=== PATIENT | male | born 1955 | race Caucasian/White ===

== ENCOUNTER 2021-12-01 10:05 | Outpatient (REF) | payer MEDICARE, SELFPAY ==
[2021-12-01 10:15] LABS: MANUAL DIFF FLAG NO
[2021-12-01 11:00] LABS: Appearance Urine CLEAR; Basophils Percent Auto 0.4 % (0-2); Color Urine YELLOW; Eosinophils Absolute Auto 0.1 X10*3/uL (0.0-0.4); Eosinophils Percent Auto 1.8 % (0-4); Glucose Urine UA NEG (NEG); Hematocrit 47.7 % (42.0-52.0); Hemoglobin 16.5 g/dl (14.0-18.0); Imm Gran Abs Auto 0.02 X10*3/uL (0.00-0.03); Imm Gran Pct Auto 0.3 % (0.0-0.4); Leukocyte Esterase Urine NEG (NEG); Lymphocytes Absolute Auto 2.5 X10*3/uL (1.2-4.9); Mean Corpuscular HGB Conc 34.6 g/dl (31.0-36.0); Mean Corpuscular Volume 98.1 fL (80.0-98.0); Mean Platelet Volume 10.7 fL (9.4-12.4); Monocytes Absolute Auto 0.9 X10*3/uL (0.1-1.2); Neutrophils Absolute Auto 3.6 x10*3/uL (2.0-8.3); Neutrophils Percent Auto 50.5 % (45-73); Nitrite Urine NEG (NEG); PH 6.5 (5.0-8.0); Platelet Count 254 X10*3/uL (160-400); Red Blood Count 4.86 X10*6/uL (4.60-5.80); Red Cell Distribution Width 12.5 % (11.0-16.0); Urine Blood NEG (NEG); Urine Ketones NEG (NEG); Urine Protein NEG (NEG-TRACE); White Blood Count 7.2 X10*3/uL (4.8-10.8)
[2021-12-01 11:14] LABS: Alanine Aminotransferase 40 U/L (0-40); Albumin Level 4.1 g/dL (3.5-5.0); Alkaline Phosphatase 51 U/L (39-117); Anion Gap 10 (12-20); Aspartate Amino Transferase 27 U/L (5-37); Bilirubin Total 1.4 mg/dL (0.0-1.0); Blood Urea Nitrogen 14 mg/dL (9-16); Calcium 9.7 mg/dL (8.4-10.2); Carbon Dioxide 30 mmol/L (22-29); Chloride 104 mmol/L (96-108); Cholesterol 156 mg/dL; Estimated Glomerular Filt Rate > 60; Glucose Fasting 112 mg/dL (60-99); HDL Cholesterol 51 mg/dL; LDL Cholesterol Calculated 84 mg/dl; Potassium 4.5 mmol/L (3.3-5.1); Sodium 139 mmol/L (135-145); Total Protein 6.3 g/dL (6.5-8.0); Triglycerides 107 mg/dL
[2021-12-01 11:36] LABS: PSA,Total (Free>4and<10) 0.91 ng/mL (0.00-4.00)
[2021-12-01 12:56] LABS: Reflex LDLD? No
== END 2021-12-01 10:06 | disposition home or self-care (01) ==
LOC: HO.LNP 10:05
PROVIDERS: Visit Provider Internal Medicine
DX: I10 Essential (primary) hypertension (principal); E78.00 Pure hypercholesterolemia, unspecified
CPT/HCPCS: 80053; 80061; 81003; 84153; 85025

== ENCOUNTER 2022-06-05 10:41 | Outpatient (REF) | payer MEDICARE, SELFPAY ==
[2022-06-05 11:51] LABS: Alanine Aminotransferase 39 U/L (0-40); Albumin Level 4.2 g/dL (3.5-5.0); Alkaline Phosphatase 48 U/L (39-117); Aspartate Amino Transferase 27 U/L (5-37); Bilirubin Direct 0.5 mg/dL (0.0-0.5); Bilirubin Total 1.1 mg/dL (0.0-1.0); Blood Urea Nitrogen 16 mg/dL (9-16); Cholesterol 161 mg/dL; Estimated Glomerular Filt Rate 55; HDL Cholesterol 53 mg/dL; LDL Cholesterol Calculated 91 mg/dl; Total Protein 6.3 g/dL (6.5-8.0); Triglycerides 86 mg/dL
[2022-06-05 13:28] LABS: Reflex LDLD? No
== END 2022-06-05 10:42 | disposition home or self-care (01) ==
LOC: HO.LNP 10:41
PROVIDERS: Visit Provider Internal Medicine
DX: I10 Essential (primary) hypertension (principal); E78.00 Pure hypercholesterolemia, unspecified
CPT/HCPCS: 80061; 80076; 82565; 84520

== ENCOUNTER 2022-11-30 10:47 | Outpatient (REF) | payer MEDICARE, SELFPAY ==
[2022-11-30 10:51] LABS: MANUAL DIFF FLAG NO
[2022-11-30 11:17] LABS: Basophils Percent Auto 0.4 % (0-2); Eosinophils Absolute Auto 0.1 X10*3/uL (0.0-0.4); Eosinophils Percent Auto 1.6 % (0-4); Hematocrit 47.8 % (42.0-52.0); Hemoglobin 16.8 g/dl (14.0-18.0); Imm Gran Abs Auto 0.02 X10*3/uL (0.00-0.03); Imm Gran Pct Auto 0.3 % (0.0-0.4); Lymphocytes Absolute Auto 2.4 X10*3/uL (1.2-4.9); Lymphocytes Percent Auto 33.6 % (20-40); Mean Corpuscular HGB Conc 35.1 g/dl (31.0-36.0); Mean Corpuscular Hemoglobin 34.3 pg (27.0-33.0); Mean Corpuscular Volume 97.6 fL (80.0-98.0); Mean Platelet Volume 11.1 fL (9.4-12.4); Monocytes Absolute Auto 0.8 X10*3/uL (0.1-1.2); Monocytes Percent Auto 11.6 % (2-11); Neutrophils Absolute Auto 3.7 x10*3/uL (2.0-8.3); Neutrophils Percent Auto 52.5 % (45-73); Platelet Count 243 X10*3/uL (160-400); Red Cell Distribution Width 12.5 % (11.0-16.0)
[2022-11-30 11:30] LABS: Bacteria Urine None Seen (None Seen); Hyaline Casts Urine 0-2 /LPF (0-2); RBC Urine 0-2 /HPF (0-2); Squamous Epithelial Cell Urine 0-2 /HPF (0-2); WBC Urine 0-5 /HPF (0-5)
[2022-11-30 11:31] LABS: Color Urine Yellow; Glucose Urine UA Negative (Negative); Leukocyte Esterase Urine Negative (Negative); Nitrite Urine Negative (Negative); Urine Blood Negative (Negative); Urine Ketones Negative (Negative); Urine Protein Negative (Neg-Trace)
[2022-11-30 11:38] LABS: Appearance Urine Clear
[2022-11-30 11:41] LABS: Alanine Aminotransferase 26 U/L (0-40); Alkaline Phosphatase 51 U/L (39-117); Anion Gap 10 (12-20); Aspartate Amino Transferase 21 U/L (5-37); Bilirubin Total 1.1 mg/dL (0.0-1.0); Blood Urea Nitrogen 17 mg/dL (9-16); Calcium 8.8 mg/dL (8.4-10.2); Carbon Dioxide 27 mmol/L (22-29); Chloride 106 mmol/L (96-108); Cholesterol 157 mg/dL; Estimated Glomerular Filt Rate 53; Glucose Fasting 104 mg/dL (60-99); HDL Cholesterol 46 mg/dL; LDL Cholesterol Calculated 90 mg/dl; Potassium 4.1 mmol/L (3.3-5.1); Sodium 139 mmol/L (135-145); Triglycerides 108 mg/dL
[2022-11-30 11:57] LABS: PSA,Total (Free>4and<10) 0.87 ng/mL (0.00-4.00)
== END 2022-11-30 10:48 | disposition home or self-care (01) ==
LOC: HO.LNP 10:47
PROVIDERS: Visit Provider Internal Medicine
DX: I10 Essential (primary) hypertension (principal); E78.00 Pure hypercholesterolemia, unspecified; K76.9 Liver disease, unspecified; Z12.5 Encounter for screening for malignant neoplasm of prostate
CPT/HCPCS: 80053; 80061; 81001; 84153; 85025

== ENCOUNTER 2023-06-07 11:37 | Outpatient (REF) | payer MEDICARE, SELFPAY ==
[2023-06-07 13:35] LABS: Alanine Aminotransferase 34 U/L (0-40); Albumin Level 4.1 g/dL (3.5-5.0); Alkaline Phosphatase 49 U/L (39-117); Aspartate Amino Transferase 26 U/L (5-37); Bilirubin Direct 0.5 mg/dL (0.0-0.5); Bilirubin Total 1.9 mg/dL (0.0-1.0); Cholesterol 164 mg/dL; HDL Cholesterol 47 mg/dL; LDL Cholesterol Calculated 97 mg/dl; Total Protein 6.5 g/dL (6.5-8.0); Triglycerides 102 mg/dL
[2023-06-07 14:01] LABS: Reflex LDLD? No
== END 2023-06-07 11:38 | disposition home or self-care (01) ==
LOC: HO.LNP 11:37
PROVIDERS: Visit Provider Internal Medicine
DX: E78.00 Pure hypercholesterolemia, unspecified (principal)
CPT/HCPCS: 80061; 80076

== ENCOUNTER 2023-12-04 10:51 | Outpatient (REF) | payer MEDICARE, SELFPAY ==
[2023-12-04 10:54] LABS: MANUAL DIFF FLAG NO
[2023-12-04 11:00] LABS: Basophils Percent Auto 0.5 % (0-2); Eosinophils Absolute Auto 0.1 X10*3/uL (0.0-0.4); Eosinophils Percent Auto 2.2 % (0-4); Hematocrit 46.3 % (42.0-52.0); Hemoglobin 16.2 g/dl (14.0-18.0); Imm Gran Abs Auto 0.02 X10*3/uL (0.00-0.03); Imm Gran Pct Auto 0.3 % (0.0-0.4); Lymphocytes Absolute Auto 2.1 X10*3/uL (1.2-4.9); Lymphocytes Percent Auto 33.4 % (20-40); Mean Corpuscular Hemoglobin 34.2 pg (27.0-33.0); Mean Corpuscular Volume 97.7 fL (80.0-98.0); Mean Platelet Volume 10.9 fL (9.4-12.4); Monocytes Absolute Auto 0.8 X10*3/uL (0.1-1.2); Monocytes Percent Auto 12.3 % (2-11); Neutrophils Absolute Auto 3.3 x10*3/uL (2.0-8.3); Neutrophils Percent Auto 51.3 % (45-73); Platelet Count 247 X10*3/uL (160-400); Red Blood Count 4.74 X10*6/uL (4.60-5.80); Red Cell Distribution Width 12.7 % (11.0-16.0); White Blood Count 6.4 X10*3/uL (4.8-10.8)
[2023-12-04 11:35] LABS: Alanine Aminotransferase 38 U/L (0-40); Albumin Level 4.1 g/dL (3.5-5.0); Alkaline Phosphatase 53 U/L (39-117); Anion Gap 11 (12-20); Aspartate Amino Transferase 28 U/L (5-37); Bilirubin Direct 0.3 mg/dL (0.0-0.5); Blood Urea Nitrogen 17 mg/dL (9-16); Calcium 9.5 mg/dL (8.4-10.2); Carbon Dioxide 26 mmol/L (22-29); Chloride 103 mmol/L (96-108); Cholesterol 134 mg/dL (<200); Estimated Glomerular Filt Rate > 60; Glucose Fasting 104 mg/dL (60-99); HDL Cholesterol 55 mg/dL (>40); LDL Cholesterol Calculated 69 mg/dL (<100); Potassium 4.2 mmol/L (3.3-5.1); Sodium 136 mmol/L (135-145); Total Protein 6.4 g/dL (6.5-8.0); Triglycerides 54 mg/dL (<150)
[2023-12-04 11:54] LABS: PSA,Total (Free>4and<10) 0.87 ng/mL (0.00-4.00)
== END 2023-12-04 10:52 | disposition home or self-care (01) ==
LOC: HO.LNP 10:51
PROVIDERS: Visit Provider Internal Medicine
DX: Z12.5 Encounter for screening for malignant neoplasm of prostate (principal); I10 Essential (primary) hypertension; N40.0 Benign prostatic hyperplasia without lower urinary tract symptoms; E78.00 Pure hypercholesterolemia, unspecified; K76.9 Liver disease, unspecified
CPT/HCPCS: 80053; 80061; 80076; 82248; 84153; 85025

== ENCOUNTER 2024-02-14 16:10 | Outpatient (REF) | payer MEDICARE, SELFPAY ==
[2024-02-14 16:23] LABS: Appearance Urine Clear; Color Urine Dark Yellow; Glucose Urine UA Negative (Negative); Leukocyte Esterase Urine Moderate (2+) (Negative); Nitrite Urine Negative (Negative); PH 6.5 (5.0-9.0); Specific Gravity - Urine 1.025 (1.005-1.025); UMIC TRIGGER UA YES; Urine Blood Trace (Negative); Urine Ketones Negative (Negative); Urine Protein Negative (Neg-Trace)
[2024-02-14 16:25] LABS: Bacteria Urine None Seen (None Seen); Hyaline Casts Urine 0-2 /LPF (0-2); Squamous Epithelial Cell Urine 0-2 /HPF (0-2); WBC Urine >50 /HPF (0-5)
== END 2024-02-14 16:11 | disposition home or self-care (01) ==
LOC: HO.LNP 16:10
PROVIDERS: Visit Provider Internal Medicine
DX: R31.0 Gross hematuria (principal)
CPT/HCPCS: 81001

== ENCOUNTER 2024-02-21 13:52 | Outpatient (REF) | payer MEDICARE, SELFPAY ==
[2024-02-21 13:59] LABS: MANUAL DIFF FLAG NO
[2024-02-21 14:05] LABS: Appearance Urine Clear; Color Urine Dark Yellow; Glucose Urine UA Negative (Negative); Leukocyte Esterase Urine Small (1+) (Negative); Nitrite Urine Negative (Negative); PH 6.5 (5.0-9.0); UMIC TRIGGER UA YES; Urine Blood Negative (Negative); Urine Ketones Negative (Negative); Urine Protein Negative (Neg-Trace)
[2024-02-21 14:06] LABS: Basophils Percent Auto 0.5 % (0-2); Eosinophils Absolute Auto 0.1 X10*3/uL (0.0-0.4); Eosinophils Percent Auto 1.5 % (0-4); Hematocrit 44.7 % (42.0-52.0); Hemoglobin 15.9 g/dl (14.0-18.0); Imm Gran Abs Auto 0.13 X10*3/uL (0.00-0.03); Imm Gran Pct Auto 1.6 % (0.0-0.4); Lymphocytes Absolute Auto 2.2 X10*3/uL (1.2-4.9); Lymphocytes Percent Auto 26.9 % (20-40); Mean Corpuscular HGB Conc 35.6 g/dl (31.0-36.0); Mean Corpuscular Hemoglobin 33.9 pg (27.0-33.0); Mean Corpuscular Volume 95.3 fL (80.0-98.0); Mean Platelet Volume 10.1 fL (9.4-12.4); Monocytes Absolute Auto 0.8 X10*3/uL (0.1-1.2); Monocytes Percent Auto 9.6 % (2-11); Neutrophils Absolute Auto 4.8 x10*3/uL (2.0-8.3); Neutrophils Percent Auto 59.9 % (45-73); Platelet Count 402 X10*3/uL (160-400); Red Blood Count 4.69 X10*6/uL (4.60-5.80); Red Cell Distribution Width 12.1 % (11.0-16.0)
[2024-02-21 14:13] LABS: Bacteria Urine None Seen (None Seen); Hyaline Casts Urine 0-2 /LPF (0-2); RBC Urine 0-2 /HPF (0-2); Squamous Epithelial Cell Urine 0-2 /HPF (0-2); WBC Urine 0-5 /HPF (0-5)
== END 2024-02-21 13:53 | disposition home or self-care (01) ==
LOC: HO.LNP 13:52
PROVIDERS: Visit Provider Internal Medicine
DX: R31.0 Gross hematuria (principal)
CPT/HCPCS: 81001; 85025; 87086

== ENCOUNTER 2024-06-17 08:49 | Outpatient (REF) | payer MEDICARE, SELFPAY ==
--- NOTE | 2024-06-17 08:59 | EMG_ITS ---
Right median and ulnar motor and sensory studies were performed. Right radial and median and lateral antecubital brachial sensory studies were performed and needle examination was performed. IMPRESSION: Mild right median neuropathy across carpal tunnel. There was no evidence of a proximal lesion. MD VANE Matson/JOSHUA / [phone]
== END 2024-06-17 08:50 | disposition home or self-care (01) ==
LOC: HO.NEURO 08:49
PROVIDERS: PCP Internal Medicine; Visit Provider Internal Medicine
DX: G56.01 Carpal tunnel syndrome, right upper limb (principal)
CPT/HCPCS: 95886; 95910

== ENCOUNTER 2024-11-13 13:46 | Outpatient (AMB) | payer MEDICARE, SELFPAY ==
--- OUTSIDE RECORDS SUMMARY | 2024-11-13 13:48 | XMS_ITS ---
Author Organization Marito Allen MD Address 10 [facility] [address] [place] [phone] Care Team Providers Care Casting And Curing Operator Name Role Phone Marito Allen Primary Care Provider REASON FOR VISIT New Refill Request Encounters Encounter Location Date Provider Diagnosis Marito Allen MD [address] [place] [address] [place] [address] [phone] 10/25/2024 Marito Allen PLAN OF TREATMENT Next Appt Details Provider Name:Marito palacios, 12/05/2024 07:15:00 AM, [address] [place] [address], [place] [address], [place], [place], [phone], Provider Name:Marito palacios, 12/12/2024 09:30:00 AM, [address] [place] [address], [place] [address], [place], [place], [phone],
--- OUTSIDE RECORDS SUMMARY | 2024-11-13 13:49 | XMS_ITS ---
Author Organization Marito Allen MD Address 10 [facility] [address] [place] [phone] Care Team Providers Care Crushed Stone Grader Name Role Phone Marito Allen Primary Care Provider REASON FOR VISIT Valacyclovir refill Encounters Encounter Location Date Provider Diagnosis Marito Allen MD [address] [place] [address] [address] [place] [address] [phone] 10/25/2024 Marito Allen PLAN OF TREATMENT Next Appt Details Provider Name:Marito palacios, 12/05/2024 07:15:00 AM, [address] [place] [address], [place] [address], [place], [place], [phone], Provider Name:Marito palacios, 12/12/2024 09:30:00 AM, [address] [place] [address], [place] [address], [place], [place], [phone],
--- OUTSIDE RECORDS SUMMARY | 2024-11-13 13:49 | XMS_ITS ---
Author Organization Marito Allen MD Address 10 [facility] [address] [place] [phone] Care Team Providers Care Filling Separator Name Role Phone Marito Allen Primary Care Provider [phone] REASON FOR VISIT New Refill Request MEDICATIONS Medication SIG (Take, Route, Fr equency, Duration) Notes Start Date End Date Status valACYclovir HCl 500 MG take 2 tablet Or ally Once a day Orally Once a day for 90 days Active Encounters Encounter Location Date Provider Diagnosis Marito Allen MD 10 [facility] [address] [place] [phone] 10/25/2024 Marito Allen PLAN OF TREATMENT Medication Medication Name Sig Start Date Stop Date Notes valACYclovir HCl 500 MG take 2 tablet Or ally Once a day Orally Once a day for 90 days Next Appt Details Provider Name:Marito palacios, 12/05/2024 07:15:00 AM, [address] [place] [address], [place] [address], [place], [place], [phone], Provider Name:Marito palacios, 12/12/2024 09:30:00 AM, [address] [place] [address], [place] [address], [place], [place], [phone],
--- OUTSIDE RECORDS SUMMARY | 2024-11-13 13:49 | XMS_ITS | Patient Health Record ---
Author Organization Marito Allen MD Address [address] [place], [place] [phone] Care Team Providers Care Makeup Artist Name Role Phone Marito Allen Primary Care Provider ALLERGIES No Known Allergies RESULTS Component Value Reference Range Notes Complete Blood Count Auto Di ff Reviewed date:12/04/2023 12:41:55 PM Interpretation: Performing Lab:[facility], [address] [place] [phone] Notes/Report: White Blood Count 6.4 4.8-10.8 X10*3/uL Red Blood Count 4.74 4.60-5.80 X10*6/uL Hemoglobin 16.2 14.0-18.0 g/dl Hematocrit 46.3 42.0-52.0 % Mean Corpuscular Volume 97.7 80.0-98.0 fL Mean Corpuscular Hemoglobin 34.2 27.0-33.0 pg Mean Corpuscular HGB Conc 35.0 31.0-36.0 g/dl Red Cell Distribution Width 12.7 11.0-16.0 % Platelet Count 247 160-400 X10*3/uL Mean Platelet Volume 10.9 9.4-12.4 fL Neutrophils Percent Auto 51.3 45-73 % Imm Gran Pct Auto 0.3 0.0-0.4 % Lymphocytes Percent Auto 33.4 20-40 % Monocytes Percent Auto 12.3 2-11 % Eosinophils Percent Auto 2.2 0-4 % Basophils Percent Auto 0.5 0-2 % NRBC Pct Auto 0.0 0.0-0.2 /100WBC Neutrophils Absolute Auto 3.3 2.0-8.3 x10*3/u L Imm Gran Abs Auto 0.02 0.00-0.03 X10*3/uL Lymphocytes Absolute Auto 2.1 1.2-4.9 X10*3/u L Monocytes Absolute Auto 0.8 0.1-1.2 X10*3/uL Eosinophils Absolute Auto 0.1 0.0-0.4 X10*3/u L Basophils Absolute Auto 0.0 0.0-0.2 X10*3/uL NRBC Abs Auto 0.000 0.0-0.012 X10*3/uL Comprehensive [place]. Panel Fa st Reviewed date:12/04/2023 12:41:36 PM Interpretation: Performing Lab:[facility], [address] [place] [phone] Notes/Report: Sodium 136 135-145 mmol/L Potassium 4.2 3.3-5.1 mmol/L Chloride 103 96-108 mmol/L Carbon Dioxide 26 22-29 mmol/L Anion Gap 11 12-20 Blood Urea Nitrogen 17 9-16 mg/dL Creatinine 1.11 0.5-1.4 mg/dL Estimated Glomerular Filt Rate > 60 NOTE: For -[place] individuals, multiply the result by 1.210. Chronic Kidney Disease: Estimated GFR < 60 mL/min/1.73m2 Severe Kidney Disease: Estimated GFR < 15 mL/min/1.73m2 Glucose Fasting 104 60-99 mg/dL A fasting glucose from 100-125 mg/dl is considered impaired (pre-diabetes). Calcium 9.5 8.4-10.2 mg/dL Bilirubin Total 1.0 0.0-1.0 mg/dL Aspartate Amino Transferase 28 5-37 U/L Alanine Aminotransferase 38 0-40 U/L Total Protein 6.4 6.5-8.0 g/dL Albumin Level 4.1 3.5-5.0 g/dL Alkaline Phosphatase 53 39-117 U/L Liver Panel Reviewed date:12/04/2023 12:22:52 PM Interpretation: Performing Lab:[facility], [address] [place] [phone] Notes/Report: Bilirubin Direct 0.3 0.0-0.5 mg/dL Lipid Panel Reviewed date:12/04/2023 12:23:00 PM Interpretation: Performing Lab:[facility], [address] [place] [phone] Notes/Report: Triglycerides 54 <150 mg/dL Desirable Triglyceride: less than 150 mg/dL Borderline High Triglyceride 150-199 mg/dL High Triglyceride: 200-499 mg/dL Very High Triglyceride: greater than or equal to 5OO mg/dL Cholesterol 134 <200 mg/dL Desirable Cholesterol: less than 200 mg/dL Borderline High Cholesterol: 200-239 mg/dL High Cholesterol: greater than 239 mg/dL LDL Cholesterol Calculated 69 <100 mg/dL Desirable LDL: less than 100 mg/dL Near Optimal/Above Optimal LDL: 110-129 mg/dL Borderline High LDL: 130-159 mg/dL High LDL: 160-189 mg/dL Very High LDL: greater than or equal to 190 mg/dL HDL Cholesterol 55 >40 mg/dL Desirable HDL: greater than 40 mg/dL Note: This HDL assay may give artificially low results in patients with liver disease. PSA,Total (Free>4and<10) Reviewed date:12/04/2023 12:17:41 PM Interpretation: Performing Lab:[facility], [address] [place] [phone] Notes/Report: PSA,Total (Free>4and<10) 0.87 0.00-4.00 ng/mL A Free PSA was not performed: The percentage of Free PSA can be used to enhance the differentiation of prostate cancer from benign prostatic disease in subjects whose PSA levels are between 4.0 and 10.0 ng/mL. For subjects whose PSA levels are below 4.0 or above 10.0 ng/mL, the risk of prostate cancer is determined on the basis of the PSA alone. Therefore the % Free PSA is recommended only for those subjects whose PSA levels are between 4.0 and 10.0 ng/mL. PSA methodology: Sampson Alinity i Chemiluminescent Microparticle Immunoassay (CMIA) Urinalysis and Microscopic Reviewed date:02/15/2024 12:49:48 PM Interpretation: Performing Lab:[facility], [address] [place] [phone] Notes/Report: Color Urine Dark Yellow Appearance Urine Clear PH 6.5 5.0-9.0 Glucose Urine UA Negative Negative mg/dL Urine Blood Trace Negative Specific [place] - Urine 1.025 1.005-1.025 Urine Protein Negative Neg-Trace mg/dL Urine Ketones Negative Negative mg/dL Nitrite Urine Negative Negative Leukocyte Esterase Urine Moderate (2+) Negative RBC Urine 6-10 0-2 /HPF WBC Urine >50 0-5 /HPF Squamous Epithelial Cell Urine 0-2 0-2 /HPF Bacteria Urine None Seen None Seen Hyaline Casts Urine 0-2 0-2 /LPF Complete Blood Count Auto Di ff Reviewed date:02/22/2024 08:25:47 AM Interpretation: Performing Lab:[facility], [address] [place] [phone] Notes/Report: White Blood Count 8.0 4.8-10.8 X10*3/uL Red Blood Count 4.69 4.60-5.80 X10*6/uL Hemoglobin 15.9 14.0-18.0 g/dl Hematocrit 44.7 42.0-52.0 % Mean Corpuscular Volume 95.3 80.0-98.0 fL Mean Corpuscular Hemoglobin 33.9 27.0-33.0 pg Mean Corpuscular HGB Conc 35.6 31.0-36.0 g/dl Red Cell Distribution Width 12.1 11.0-16.0 % Platelet Count 402 160-400 X10*3/uL Mean Platelet Volume 10.1 9.4-12.4 fL Neutrophils Percent Auto 59.9 45-73 % Imm Gran Pct Auto 1.6 0.0-0.4 % Lymphocytes Percent Auto 26.9 20-40 % Monocytes Percent Auto 9.6 2-11 % Eosinophils Percent Auto 1.5 0-4 % Basophils Percent Auto 0.5 0-2 % NRBC Pct Auto 0.0 0.0-0.2 /100WBC Neutrophils Absolute Auto 4.8 2.0-8.3 x10*3/u L Imm Gran Abs Auto 0.13 0.00-0.03 X10*3/uL Lymphocytes Absolute Auto 2.2 1.2-4.9 X10*3/u L Monocytes Absolute Auto 0.8 0.1-1.2 X10*3/uL Eosinophils Absolute Auto 0.1 0.0-0.4 X10*3/u L Basophils Absolute Auto 0.0 0.0-0.2 X10*3/uL NRBC Abs Auto 0.000 0.0-0.012 X10*3/uL Urinalysis and Microscopic Reviewed date:02/21/2024 02:28:47 PM Interpretation: Performing Lab:[facility], [address] [place] [phone] Notes/Report: Color Urine Dark Yellow Appearance Urine Clear PH 6.5 5.0-9.0 Glucose Urine UA Negative Negative mg/dL Urine Blood Negative Negative Specific [place] - Urine 1.020 1.005-1.025 Urine Protein Negative Neg-Trace mg/dL Urine Ketones Negative Negative mg/dL Nitrite Urine Negative Negative Leukocyte Esterase Urine Small (1+) Negative RBC Urine 0-2 0-2 /HPF WBC Urine 0-5 0-5 /HPF Squamous Epithelial Cell Urine 0-2 0-2 /HPF Bacteria Urine None Seen None Seen Hyaline Casts Urine 0-2 0-2 /LPF Urine Culture Reviewed date:02/24/2024 08:48:11 AM Interpretation: Performing Lab:[facility], [address] [place] [phone] Notes/Report: Urine Culture No growth. REASON FOR REFERRAL Reason irregular heart beat arrthythmia Diagnosis 1 Irregular heart beat (I49.9) Diagnosis 2 Cardiac arrhythmia, unspecified (I49.9) Referral Organization Marito Allen MD Referring Provider First Name Marito Referring Provider Last Name Tiffany Referring Provider Speciality Internal edicine Referred Provider Oswald Welch Referred Provider Specialty Cardiovascul ar Disease General Notes Rosalva Fatima 11:33:35 AM EST > patient will be calling back with Cardio Providers name and phone number . Also send cadio Monitor strips and lipids , Rosalva Fatima 02/04/2024 10:49:43 AM EDT > info faxed , Rosalva Fatima 02/04/2024 11:00:47 AM EDT > appt is with Marquita Gill patient is aware of appt Referral Priority Routine Referral Appointment Date 02/20/2024 Reason prostatism Diagnosis 1 Prostatism (N40.0) Referral Organization Marito Allen MD Referring Provider First Name Marito Referring Provider Last Name Tiffany Referring Provider Speciality Internal edicine Referred Provider [facility] office, [facility] [place] office Referred Provider Specialty Urology General Notes Rosalva Fatima 03:18:20 PM EDT > [facility] referral from faxed Akua Annette 02/26/2024 08:15:07 AM EDT > info mailed to patient Referral Priority Routine Referral Appointment Date 03/28/2024 Reason wrist pain right pl ease eval and treat for physcial therapy Diagnosis 1 Wrist pain, right (M 25.531) Referral Organization Marito Allen MD Referring Provider First Name Marito Referring Provider Last Name Tiffany Referring Provider Speciality Internal M edicine Referred Provider [facility] Referred Provider Specialty Physical The rapist General Notes Rosalva Fatima 10:15:19 AM EDT > pt orders faxed to Felicia [facility]. Patient stated he alex be seeting up his own appt Referral Priority Routine Reason right inguinal herni a Diagnosis 1 Right inguinal herni a (K40.90) Referral Organization Marito Allen MD Referring Provider First Name Marito Referring Provider Last Name Tiffany Referring Provider Speciality Internal edicine Referred Provider Sudhir Valenzuela Referred Provider Specialty Surgery General Notes Rosalva Fatima 01:56:12 PM EST > info faxed Left message on patient's phone regarding appt , Rosalva Fatima 10/28/2024 02:05:45 PM EST > patient is aware of appt Referral Priority Routine Referral Appointment Date 11/06/2024 MEDICATIONS Medication SIG (Take, Route, Frequency, Duration) Notes Start Date End Date Status Ibuprofen 800 MG 1 tablet with food o r milk as needed Orally every 8 hrs for 30 days 06/06/2024 Active Tamsulosin HCl 0.4 MG 1 capsule Orally O nce a day for 90 days 02/14/2024 Active Sildenafil Citrate 100 MG 1 tablet as ne eded Orally Once a day as needed 30 day(s) Orally Once a day as needed for 90 days Active valACYclovir HCl 500 MG take 2 tablet Or ally Once a day Orally Once a day for 90 days Active Lisinopril 10 MG 1 tablet Orally Once a day 90 days Orally Once a day for 90 days Not-Taking Atorvastatin Calcium 40 MG 1 tablet Orally Once a day for 90 days Active Metrogel 1 % 1 application Externally Once a day for 30 days 05/04/2023 Active Ibuprofen 800 MG 1 tablet with food o r milk as needed Orally Three times a day for 7 days 02/13/2023 Not-Taking IMMUNIZATIONS Vaccine Route Administration Date Status Comme nts SARS-COV-2 Pfizer Unknown 02/10/2021 Administered SARS-COV-2 Pfizer Unknown 03/05/2021 Administered SARS-COV-2 Moderna Unknown 10/13/2021 Administered Influenza High Dose IM Intramuscular 12/01/2021 Administer ed Influenza High Dose IM Intramuscular 12/04/2023 Administer ed SOCIAL HISTORY Tobacco Use: Social History Observation Description Date Details (start date - stop date) Never Smoker NA - NA Sex Assigned At : Social History Observation Description Sex Assigned At Unknown Tobacco Use/Smoking Question Answer Notes Patient is a nonsmoker Additional Findings: Tobacco Non-User Cu rrent non-smoker, currently using no form of tobacco Alcohol Screen Question Answer Notes Did you have a drink contain ing alcohol in the past year? Yes How often did you have a dri nk containing alcohol in the past year? 4 or more times a week (4 points) How many drinks did you have on a typical day when you were drinking in the past year? 1 or 2 drinks (0 point) How often did you have 6 or more drinks on one occasion in the past year? Never (0 point) Points 4 Interpretation Positive PROBLEMS Problem Type ICD Code Onset Dates Problem Status W/U Status Risk SNOMED Code Notes Problem Essential hypertensi on (I10) Active confirmed 48131474 Problem Hypercholesterolemia (E78.00) Active confirmed 93464725 Problem Lumbar disc disease (M51.9) Active confirmed 694678230 Problem Liver cyst (K76.89) Active confirmed Li jose miguel cyst (43584540) Problem Sciatica (M54.30) Active confirmed Scia maulik (06102179) Problem Liver lesion (K76.9) Active confirmed L esion of liver (879985135) Problem Tubular adenoma of colon (D12.6) Active confirmed 471355423 Problem Prostatism (N40.0) Active confirmed 114 50735 Problem Irregular heart beat (I49.9) Active confirmed 378780006 Problem Cardiac arrhythmia, unspecified (I49.9) Active confirmed Cardiac arrhythmia (621527115) Problem PVC (premature ventricular contraction) (I49.3) Active confirmed 861063382 Problem Carpal tunnel syndro me of right wrist (G56.01) Active confirmed 531730133215175 VITAL SIGNS Blood pressure diastolic 70 mm Hg 06/06/2024 lashae ght is up 6 pounds since 02-21-24 Height 71.5 in 06/06/2024 weight is up 6 pounds since 02-21-24 Blood pressure systolic 120 mm Hg 06/06/2024 weig ht is up 6 pounds since 02-21-24 Weight 168 lbs 06/06/2024 weight is up 6 pounds since 02-21-24 BMI 23.10 kg/m2 06/06/2024 weight is up 6 pounds since 02-21-24 Encounters Encounter Location Date Provider Diagnosis Marito Allen MD [address] [place] [id number] 12/11/2023 Marito Allen Irregular heart beat I49.9 ; Tubular adenoma of colon D12.6 ; Essential hypertension I10 ; Hypercholesterolemia E78.00 ; Prostatism N40.0 and Depression screening Z13.31 Marito Allen MD [address] [place] [id number] 12/04/2023 Marito Allen Essential hypertensi on I10 ; Liver lesion K76.9 ; Prostatism N40.0 ; Encounter for immunization Z23 and Hypercholesterolemia E78.00 Marito Allen MD [address] [place] [id number] 02/08/2024 Marito Allen PVC (premature ventr icular contraction) I49.3 and Plantar fasciitis, bilateral M72.2 Marito Allen MD [address] [place] [address] [id number] 02/21/2024 Marito Allen Prostatism N40.0 ; Essential hypertension I10 ; Microscopic hematuria R31.29 ; Right inguinal hernia K40.90 and Gross hematuria R31.0 Marito Allen MD [address] [place] [address] [id number] 06/06/2024 Marito Allen Carpal tunnel syndro me of right wrist G56.01 ; Essential hypertension I10 and Prostatism N40.0 Marito Allen MD [address] [place] [address] [id number] 02/14/2024 Marito Allen Gross hematuria R31. 0 ; Acute UTI N39.0 and Prostatism N40.0 Marito Allen MD [address] [place] [address] [id number] 02/15/2024 Marito Allen Prostatism N40.0 Marito Allen MD [address] [place] [address] [id number] 04/15/2024 Marito Allen Hypercholesterolemia E78.00 and Prostatism N40.0 Marito Allen MD [address] [place] [address] [id number] 04/15/2024 Marito Allen Hypercholesterolemia E78.00 and Prostatism N40.0 Marito Allen MD [address] [place] [address] [id number] 04/17/2024 Marito Allen Essential hypertensi on I10 Marito Allen MD [address] [place] [address] [id number] 05/08/2024 Marito Allen Prostatism N40.0 Marito Allen MD [address] [place] [address] [id number] 05/08/2024 Marito Allen Hypercholesterolemia E78.00 Mraito Allen MD [address] [place] [address] [id number] 06/10/2024 Marito Allen MD [address] [place] [address] [id number] 06/12/2024 Marito Allen MD [address] [place] [address] [id number] 07/01/2024 Marito Allen Liver lesion K76.9 Marito Allen MD [address] [place] [address] [id number] 01/15/2024 Marito Allen MD [address] [place] [address] [id number] 02/09/2024 Marito Allen MD [address] [place] [address] [id number] 05/02/2024 Marito Allen MD [address] [place] [address] [id number] 05/30/2024 Marito Allen MD [address] [place] [address] [id number] 06/10/2024 Marito Allen Carpal tunnel syndro me of right wrist G56.01 Marito Allen MD [address] [place] [address] [id number] 08/14/2024 Marito Allen MD [address] [place] [address] [id number] 09/02/2024 Marito Allen MD [address] [place] [address] [id number] 09/22/2024 Marito Allen MD [address] [place] [address] [id number] 09/24/2024 Marito Allen MD [address] [place] [address] [id number] 10/20/2024 Marito Allen MD [address] [place] [address] [id number] 10/22/2024 Marito Allen MD [address] [place] [address] [id number] 10/25/2024 Marito Allen MD [address] [place] [address] [id number] 10/25/2024 Marito Allen MD [address] [place] [address] [id number] 10/25/2024 Marito Allen ASSESSMENTS Encounter Date Diagnosis Assessment Notes Treatment Notes Treatment Clinical Notes 12/11/2023 Tubular adenoma of c olon (ICD-10 - D12.6) repeat in 202612/11/2023 Irregular heart beat (ICD-10 - I49.9) event monitor will be booked at [facility], pending diagnostic testing 12/04/2023 Essential hypertensi on (ICD-10 - I10) 12/04/2023 Liver lesion (ICD-10 - K76.9) 02/08/2024 PVC (premature ventricular contraction) (ICD-10 - I49.3) discussed all the ecg's that were sent in with his symptoms of palpitation with his 30 day moniter. they showed pvcs and possibley a short run of non sustained v tach. have made copies of them to takw with him as he has a cardiology appt next week 02/08/2024 Plantar fasciitis, bilateral (ICD-10 - M72.2) to not walk barefoot 02/21/2024 Prostatism (ICD-10 - N40.0) stable 02/21/2024 Essential hypertensi on (ICD-10 - I10) not needing any treatment, will continue to monitor 06/06/2024 Essential hypertensi on (ICD-10 - I10) having trouble with bp getting too low, will continue to monitor 06/06/2024 Carpal tunnel syndro me of right wrist (ICD-10 - G56.01) advised to get futuro wrist splint, will continue to monitor 02/14/2024 Gross hematuria (ICD -10 - R31.0) symptoms got better surprizing quickly. after only one dose of bactrim 02/14/2024 Acute UTI (ICD-10 - N39.0) 02/15/2024 Prostatism (ICD-10 - N40.0) 04/15/2024 Hypercholesterolemia (ICD-10 - E78.00) 04/15/2024 Hypercholesterolemia (ICD-10 - E78.00) 04/17/2024 Essential hypertensi on (ICD-10 - I10) 05/08/2024 Prostatism (ICD-10 - N40.0) 05/08/2024 Hypercholesterolemia (ICD-10 - E78.00) 07/01/2024 Liver lesion (ICD-10 - K76.9) order made and put into the future order folder for . 06/10/2024 Carpal tunnel syndro me of right wrist (ICD-10 - G56.01) 12/11/2023 Essential hypertensi on (ICD-10 - I10) stable, will continue current regiment 12/04/2023 Prostatism (ICD-10 - N40.0) 02/21/2024 Microscopic hematuri a (ICD-10 - R31.29) pending labsm will cntinue to monitor 06/06/2024 Prostatism (ICD-10 - N40.0) doing well on tamzulosin, will continue current regiment 02/14/2024 Prostatism (ICD-10 - N40.0) referral to urology [place] 04/15/2024 Prostatism (ICD-10 - N40.0) 04/15/2024 Prostatism (ICD-10 - N40.0) 12/11/2023 Hypercholesterolemia (ICD-10 - E78.00) stable, will continue curent regiment 12/04/2023 Encounter for immunization (ICD-10 - Z23) 02/21/2024 Right inguinal herni a (ICD-10 - K40.90) discussed treatment. has had for many years. 12/11/2023 Prostatism (ICD-10 - N40.0) stable, will continue to monitor 12/04/2023 Hypercholesterolemia (ICD-10 - E78.00) 02/21/2024 Gross hematuria (ICD -10 - R31.0) pending labs, will continue to monitor 12/11/2023 Depression screening (ICD-10 - Z13.31) negatiove screen PLAN OF TREATMENT Pending Test Test Name Order Date ECG 30 day event monitor 12/11/2023 US abdomen limited 12/30/2021 US abdomen limited 07/01/2024 US abdomen limited 05/11/2023 US abdomen limited 07/09/2023 US abdomen complete 05/23/2022 US abdomen complete 06/15/2022 Next Appt Details Provider Name:Marito Omer ier, 12/05/2024 07:15:00 AM, [address] [place] [address], [address], [phone], Provider Name:Marito Omer ier, 12/12/2024 09:30:00 AM, [address] [place] [address], [facility], [place], [place], [phone], Insurance Providers Payer Name Payer Address Payer Phone Subscriber Number Group Number Insured Name Patient Relationship to Insured Coverage Start Date Coverage End Date [employer] [address] [place] [address] [id number] Mj Cartagena Self - patient is the insured [facility] [address] [place] [address] [id number] Mj Cartagena Self - patient is the insured MEDICAL (GENERAL) HISTORY Medical History History ICD Code colonoscopy 01/17 repeat in 5 years
--- OUTSIDE RECORDS SUMMARY | 2024-11-13 13:50 | XMS_ITS | Data Portability ---
Author Organization [facility], , [facility] Address [address] [place] [address] Care Team Providers Care Craft Worker Name Role Phone VALERIA MOSLEY Primary Care Provider [phone] FIDELIA GOODWIN Phys. Med. & Rehab Assessment Encounter Date Assessment Date Assessment LastModified by Organization Details LastModified Time 09/24/2020 09/24/2020 Patient agreed to this visit via a secure telehealth platform due to the COVID -19 pandemic. Patient understands this is a scheduled visit and the usual procedures with regard to billing and confidentiality apply. Patient was notified that the provider location is [facility] Patient location: home During the visit the patient? s medical history and medical record were reviewed. The patient was notified to call our office for worsening or urgent symptoms. Home Wt 165 BP 128/82 prep time 7 min was a RM patient we discussed his minor radicular symptom of lateral foot dysaesthesia AFTER DISCUSSION, JOINTLY AGREED GOAL FOR BP 140/90 AND LIPIDS LDL 130 REACHED. PROSTATE CA DISCUSSED. US PREVENTIVE TASK FORCE MATERIAL GIVEN. PSA HIS OPTION. [email or web address] Not available 09/24/2020 14:22:25 03/28/2021 03/28/2021 was a RM patient takes home BP we discussed his minor radicular symptom of lateral foot dysaesthesia AFTER DISCUSSION, JOINTLY AGREED GOAL FOR BP 140/90 AND LIPIDS LDL 130 REACHED. PROSTATE CA DISCUSSED. US PREVENTIVE TASK FORCE MATERIAL GIVEN. PSA HIS OPTION. [email or web address] Not available 03/28/2021 08:18:16 08/23/2021 08/23/202107/2021 Refer GI 02/2020 was a RM patient takes home BP we discussed his minor radicular symptom of lateral foot dysaesthesia AFTER DISCUSSION, JOINTLY AGREED GOAL FOR BP 140/90 AND LIPIDS LDL 130 REACHED. PROSTATE CA DISCUSSED. US PREVENTIVE TASK FORCE MATERIAL GIVEN. PSA HIS OPTION. [email or web address] Not available 08/23/2021 17:39:35 Plan of Treatment Reminders Order Date Submit Date Provider Last Modified By Organization Details Last Modified Time Details Appointments None recorded. Lab None recorded. 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 Butler non concerning 2020 [facility], [address] [place] [address], [address], 1 12:45:10 Procedures None recorded. Surgeries None recorded. Imaging None recorded. Medication Orders selenium sulfide 2.25 % shampoo [address], [address], 0 14:27:41 tadalafil 20 mg tablet 2019 [address], [address], 0 14:27:41 fluocinoni de 0.05 % topical cream [address], [address], 1 08:28:52 Patient TargetsNo targets recorded. Patient Instructions Encounter Date Encounter Id Patient Instructions Last Modified By Organization Details Last Modified Time 09/24/2020 [id number] preventing falls : care instructions [email or web address] Not available 09/24/2020 14:09:27 hearing loss: ca re instructions rvigderman Not available 09/24/2020 14:09:27 advance directiv es: care instructions rvigderman Not available 09/24/2020 14:09:27 well visit, over 65: care instructions rvigderman Not available 09/24/2020 14:09:27 Prostate Cancer Screening using PSA was discussed. The U.S. Preventive Services Task Force advises not to make a PSA test a part of the standard exam for men ages 55-69. Instead they recommend the uncertainties about the test be discussed and ordered only if a patient still wants it. Over their lifetimes as many as 50% or more of men will develop prostate cancer but only 2% of men will of prostate cancer. For men who chose to be screened for prostate cancer if 1000 men are screened with a psa test over a 15 year period there might be 1-2 deaths prevented however 235 men will have a biopsy with risk of infection, bleeding and Pain, 100 men will have their prostate removed by surgery or radiation treatments and 60-70 of those will suffer incontinence or impotence. There is also the risk of anesthesia or radiation complications. For men over 70 prostate cancer screening offered no benefit and risked pain, worry, expense and possibly shorter life expectancy. Patient agreed to this visit via phone or secure telehealth platform due to the COVID -19 pandemic. Patient understands this is a scheduled visit and the usual procedures with regard to billing and confidentiality apply. Patient was notified that the provider location is [facility] Patient location: home During the visit the patient? s medical history and medical record were reviewed. The patient was notified to call our office for worsening or urgent symptoms. [email or web address] Not available 09/24/2020 14:08:38 03/28/2021 [id number] Prostate Cancer Screening using PSA was discussed. The U.S. Preventive Services Task Force advises not to make a PSA test a part of the standard exam for men ages 55-69. Instead they recommend the uncertainties about the test be discussed and ordered only if a patient still wants it. Over their lifetimes as many as 50% or more of men will develop prostate cancer but only 2% of men will of prostate cancer. For men who chose to be screened for prostate cancer if 1000 men are screened with a psa test over a 15 year period there might be 1-2 deaths prevented however 235 men will have a biopsy with risk of infection, bleeding and Pain, 100 men will have their prostate removed by surgery or radiation treatments and 60-70 of those will suffer incontinence or impotence. There is also the risk of anesthesia or radiation complications. For men over 70 prostate cancer screening offered no benefit and risked pain, worry, expense and possibly shorter life expectancy. Patient agreed to this visit via phone or secure telehealth platform due to the COVID -19 pandemic. Patient understands this is a scheduled visit and the usual procedures with regard to billing and confidentiality apply. Patient was notified that the provider location is [facility] Patient location: home During the visit the patient? s medical history and medical record were reviewed. The patient was notified to call our office for worsening or urgent symptoms. 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 Butler non concerning Referring Physician: Valeria Mosley, Family Medicine, Encounter Date: 08/23/2021 Results Created Date Observation Date Name Description Value Unit Range Abnormal Flag Note LastModifiedBy Organization Detail LastModifiedTime 03/22/20 21 03/22/2021 BMP, serum or plasm a glucose 89 mg/dL 70-100 Not Available [address], [address], 03/22/2021 12:20:56 03/22/20 21 03/22/2021 BMP, serum or plasm a BUN 14 mg/dL 7-18 Not Available [address], [address], 03/22/2021 12:20:56 03/22/20 21 03/22/2021 BMP, serum or plasm a creatinine 1.2 mg/dL 0.8-1. 3 Not Available [address], [address], 03/22/2021 12:20:56 03/22/20 21 03/22/2021 BMP, serum or plasm a B/C 11.7 ratio Not Available [address] [place], [address], 03/22/2021 12:20:56 03/22/20 21 03/22/2021 BMP, serum or plasm a GFR -non 64.4 mL/mi n Recom kailey d GFR by the Natio nal Kidne y Found ation >60 mL/mi n/1.7 3m2 - Rachana l <60 mL/mi n/1.7 3m2 - Chron ic Kidne y Disea se <15 mL/mi n/1.7 3m2 - Kidne y Failu re Not Available [address], [address], 03/22/2021 12:20:56 03/22/20 21 03/22/2021 BMP, serum or plasm a GFR - if 77.9 mL/mi n For Afric an Ameri can patie nts: Resul ts Multi plied by 1.21 Not Available [address], [address], 03/22/2021 12:20:56 03/22/20 21 03/22/2021 BMP, serum or plasm a sodium 138 mmol/ L 136-14 5 Not Available [address], [address], 03/22/2021 12:20:56 03/22/20 21 03/22/2021 BMP, serum or plasm a potassium 4.2 mmol/ L 3.5-5. 1 Not Available [address], [address], 03/22/2021 12:20:56 03/22/20 21 03/22/2021 BMP, serum or plasm a chloride 100 mmol/ L 96-107 Not Available [address], [address], 03/22/2021 12:20:56 03/22/20 21 03/22/2021 BMP, serum or plasm a anion gap 9.7 5.0-15 .0 Not Available [address], [address], 03/22/2021 12:20:56 03/22/20 21 03/22/2021 BMP, serum or plasm a CO2 28 mmol/ L 21-32 Not Available [address], [address], 03/22/2021 12:20:56 03/22/20 21 03/22/2021 BMP, serum or plasm a calcium 8.8 mg/dL 8.5-10 .3 Not Available [address], [address], 03/22/2021 12:20:56 03/22/20 21 03/22/2021 lipid panel , serum cholesterol 161 mg/dL <200 mg/dl Boubacar able 200-2 39 mg/dl Borde rline High >240 mg/dl High Not Available [address], [address], 03/22/2021 12:20:57 03/22/20 21 03/22/2021 lipid panel , serum triglyceride s 59 mg/dL <150 mg/dL Rachana l 150-1 99 mg/dL Borde rline High 200-4 99 mg/dL High >500 mg/dL Very High Not Available [address], [address], 03/22/2021 12:20:57 03/22/2003/22/2021 lipid panel , serum direct HDL 61 mg/dL <40 mg/dl - Major Risk for CHD >60 mg/dl - Negat wendi Risk for CHD Not Available [address], [address], 03/22/2021 12:20:57 03/22/2003/22/2021 LDL, rajani gray , serum (OBS) LDL - calculated 88.2 RISK CATEG ORY LDL GOAL _ CHD or CHD Risk Equiv alent s <100 mg/dl (10-y ear risk >20%) 2+ Risk Facto rs <130 mg/dl (10-y ear risk <= 20%) 0-1 Risk Facto r??? <160 mg/dl ??? Almos t all peopl e with 0-1 risk facto r have a 10 year risk <10%, thus 10 year risk asses ment in peopl e with 0-1 risk facto r is not neces mary. Not Available [facility] [address] [place], [address], 03/22/2021 12:20:58 01/04/20 22 01/04/2022 SARS- COV-2 RNA (COVI D-19) , QUALI TATIV E NAAT sarscov2 NEGATI VE negati ve normal This test has been autho rized by the FDA under an Emerg ency Use Autho rizat ion(E UA) for you by autho rized labs. Not Available [facility] [address] [place], [address], 01/04/2022 14:58:44 11/22/20 21 11/22/2021 US abdom en limit ed right upper quadr ant No compar tong. No gallst ones are appare nt howeve r there are severa l 2-3 mm non-sh adowin g, non-mo bile struct ures along the gallbl adder wall consis tent with polyps . No gallbl adder wall thicke papito, hypere erika or perich olecys tic fluid. No biliar y dilata tion. CBD 5 mm. Homoge neous, normal hepati c echote xture. There is a 1.0 x 1.3 x 1.0 cm well-c ircums cribed hypere choic nonvas cular area abutti ng the capsul e in the periph eral right lobe of liver; not clear if this is truly within the liver are impres sing it director of teacher education ally. This may repres ent a rene ioma but could also be a develo pmenta l dimple in the surfac e or adjace nt lipoma . The likeli ayala of malign bonnie is consid ered very low. In the absenc e of abnorm al LFTs or strong clinic al suspic ion of metast atic diseas e to the liver, a follow -up ultras ound in 6 months is recomm ended to confir m that this does not develo p more worris ome featur es. If there is more signif icant concer n at this time, multi- phase hepati c MRI is recomm ended. No other liver lesion s. Pancre as is poorly visual ized but grossl y normal throug h the mid body. The head and tail are mostly obscur ed. No right- sided hydron ephros is or gross renal masses . IMPRES MOMO: 1. No gallbl adder/ biliar y pathol ogy or other source of pain. 2. Echoge jael lesion along the surfac e of the right lobe of the liver is likely benign . If strong suspic ion of malign bonnie MRI would be approp riate but otherw ise a six-mo nth follow -up limite d ultras ound is recomm ended. 3. Limite d evalua tion of the pancre as. 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 S10 Electr onical ly Signed by: Yg caldera on 2020 8:13 AM Interp reted by: Yg caldera MD Signed by: Yg caldera MD CC Recipi ents: Taz Pineda MD - Fax Final result PS: RUQ pain about once a year over past 8 years PANCRE : partia lly obscur ed by gas, visual ized portio ns appear wnl LIVER: hypere choic nonvas cular area measur ing 1.0 x 1.3 x 1.0 cm GB: multip le nonmob ile, nonsha dowing , nonvas cular areas seen anteri or and sharepoint specialist ior wall measur ing 2-3 mm CBD: appear s wnl, .5 cm PV: patent , hepato petal RIGHT RENAL: no hydro AO PROX: appear s wnl IVC: appear s wnl TAZ PINEDA [facility] [address] [facility], [place], [address], 11/22/2021 16:57:29 11/22/2011/22/2021 US, abdom en, limit ed No observ ation record ed. [facility] [address] [place] [address] [place], [address], 11/22/2021 16:57:30 Result Notes None recorded. Problems Name Problem SNOMED Code Status Onset Date Resolution Date Notes Provider Name and Address Organization Details Recorded Time Low back pain 155033522 Active 2018 Fidelia Goodwin, PT [address] [place], [address], [facility] 9 18:58:07 Shoulder pain 29162488 Active 2018 Fidelia Goodwin, PT [address] [place], [address], [facility] 9 13:27:23 Mixed hyperlipide erika 197285436 Active 2007 [place], [address], [facility] 6 12:05:17 Dyspnea 220975629 Completed 200110/15/2013 [place], [address], [facility] 6 10:20:57 Finding by method 342397882 Completed 200110/15/2013 [place], [address], [facility] 6 10:20:57 Abdominal pain 84465614 Completed 200510/15/2013 [place], [address], [facility] 6 10:20:57 Joint pain 56225778 Completed 200208/16/2015 [place], [address], [facility] 6 10:20:57 On examination - a rash Completed 200210/15/2013 [place], [address], [facility] 6 10:20:57 Herpes simplex 95849682 Active 2007 [place], [address], [facility] 6 10:20:57 Palpitation s 19215723 Active 2002 Taz Pineda MD [address] [place], [place] [address]G[place], [address], [facility] 6 10:20:57 Gastro-esop hageal reflux disease with esophagitis 045172757 Active 2007 Taz Pineda MD [facility] [place], [address], [facility] 6 10:20:57 Benign essential hypertensio n 6802356 Active 2001 [place], [address], [facility] 6 12:05:17 Elevated blood-press ure reading without diagnosis of hypertensio n 075251422 Completed 200108/16/2015 Taz Pineda MD [facility] [place], [address], [facility] 6 10:20:57 Generalized abdominal pain 758650160 Completed 200510/15/2013 [place], [address], [facility] 6 10:20:57 Hip pain 98021527 Completed 200710/15/2013 [place], [address], [facility] 6 10:20:57 Problem Notes None recorded. Procedures Surgical History Date Name Laterality Status Provider Name and Address Organization Details Recorded Time 01/06/20 Bronson - Colonoscopy completed [place], [address], [facility] 01/06/2022 07:53:38 09/24/20 20 Medicare Wellness Visit completed Meche Diaz [facility] 09/24/2020 13:52:06 09/24/20 prevention-card iovascular risk reduction counseling completed Meche Diaz [facility] 09/24/2020 13:52:06 09/24/20 prevention-mariya al alcohol misuse screening completed Meche Diaz [facility] 09/24/2020 13:52:06 11/10/20 19 [address]: Therapeutic Exercise completed Fidelia Goodwin, PT [address] [place], [address], [facility] 11/10/2019 08:20:04 11/03/20 19 [address]: Therapeutic Exercise completed Fidelia Goodwin, PT [address] [place], [address], [facility] 11/03/2019 20:15:48 11/03/20 19 99797: Manual Therapy completed Fidelia Goodwin, [place], [address], [facility] 11/03/2019 20:16:55 11/03/20 19 25952: Ultrasound (1:1) completed Fidelia Goodwin, PT [address] [place], [address], [facility] 11/03/2019 20:16:11 10/27/20 Physical Activity Counselling completed Fidelia Goodwin, PT [address] [place], [address], [facility] 10/27/2019 13:22:38 10/27/20 19 [id number]: PT Eval, Moderate Complexity completed Fidelia Goodwin, PT [address] [place], [address], [facility] 10/27/2019 13:22:42 09/18/20 Medicare Wellness Visit completed Connie Berry [facility] 09/18/2019 08:52:49 02/25/20 19 91139: Therapeutic Exercise completed Fidelia Goodwin, PT [address] [place], [address], [facility] 02/24/2019 11:35:29 02/14/20 19 44728: Therapeutic Exercise completed Fidelia Goodwin, PT [address] [place], [address], [facility] 02/13/2019 10:03:12 02/07/20 19 13265: Therapeutic Exercise completed Fidelia Goodwin, PT [address] [place], [address], [facility] 02/06/2019 21:08:40 02/07/20 19 46772: Manual Therapy completed Fidelia Goodwin, PT [address] [place], [address], [facility] 02/06/2019 21:08:32 02/07/20 19 569[address]: Mechanical Traction completed Fidelia Goodwin, PT [address] [place], [address], [facility] 02/06/2019 20:47:24 02/04/20 19 86094: Therapeutic Exercise completed Fidelia Goodwin, PT [address] [place], [address], [facility] 02/03/2019 09:08:40 02/04/20 19 05490: Manual Therapy completed Fidelia Goodwin, PT [address] [place], [address], [facility] 02/03/2019 09:09:20 01/31/20 19 92699: Therapeutic Exercise completed Fidelia Goodwin, PT [address] [place], [address], [facility] 01/30/2019 16:00:38 01/31/20 19 40116: Ultrasound (1:1) completed Fidelia Goodwin, PT [address] [place], [address], [facility] 01/30/2019 16:00:32 01/28/20 19 86610: Therapeutic Exercise completed Fidelia Goodwin, PT [address] [place], [address], [facility] 01/27/2019 11:58:33 01/28/20 19 33293: Manual Therapy completed Fidelia Goodwin, PT [address] [place], [address], [facility] 01/27/2019 11:57:57 01/28/20 19 25633: Ultrasound (1:1) completed Fidelia Goodwin, PT [address] [place], [address], [facility] 01/27/2019 11:58:25 01/25/20 19 Physical Activity Counselling completed Fidelia Goodwin, PT [address] [place], [address], [facility] 01/24/2019 18:51:28 01/25/20 19 03144: PT Eval, Moderate Complexity completed Fidelia Goodwin, PT [address] [place], [address], [facility] 01/24/2019 18:51:34 09/18/20 18 POC Urinalysis Testing completed Michele De Guzman CMA [facility] 09/18/2018 11:37:50 01/26/20 18 POC Urinalysis Testing completed Betina Gutierrez LPN [facility] 01/25/2018 08:15:43 05/22/20 17 71416: Therapeutic Exercise completed Sudhir Enriquez, PT [address] [place], [address], [facility] 05/23/2017 06:29:49 05/15/20 17 16383: Therapeutic Exercise completed Sudhir Enriquez, PT [address] [place], [address], [facility] 05/15/2017 12:57:19 05/15/20 17 52101: Manual Therapy completed Sudhir Enriquez, PT [address] [place], [address], [facility] 05/15/2017 12:57:27 05/08/20 17 Physical Activity Counselling completed Sudhir Enriquez, PT [address] [place], [address], [facility] 05/09/2017 05:38:24 05/08/20 17 78173: PT Eval, Moderate Complexity completed Sudhir Enriquez, PT [address] [place], [address], [facility] 05/09/2017 05:38:20 04/07/20 11 Asthma Control Test (12 + years old) completed Taz Pineda MD [address] [place], [address], [facility] 04/07/2011 15:38:38 Imaging Results Imaging Date Name Status LastModified by Organiz ation Details LastModified Time 11/22/2021 US abdomen limited right upper quadrant completed [facility] [address] , [place], [address], 11/22/2021 16:57:29 11/22/2021 US, abdomen, limited completed [facility] [address] [place] [address] Dr, [place], [address], 11/22/2021 16:57:30 Procedure Notes None recorded. Medical Equipment None Reported. Allergies No known drug allergies Medications Name Sig Start Date Stop Date Status Note LastModified by Organization Details LastModified Time Prescriptio n - Prior Authorizati on Request 12/27 completed Not Available Not Available Not Available amoxicillin 500 mg capsule TAKE 1 CAPSULE EVERY 8 HOURS 09/18 completed Not Available Not Available Not Available prednisone 10 mg tablet PT HAS WRITTEN INSTRUCTI ON 05/05 completed Not Available Not Available Not Available atorvastati n 10 mg tablet TAKE 1 TABLET BY MOUTH AT BEDTIME active Not Available Not Available No t Available IBU 800 mg tablet active Not Available Not Available Not Available valacyclovi r 1 gram tablet TAKE 1 TABLET EVERY DAY 2009 active Not Available Not Available Not Avai lable prednisone 20 mg tablet 1 PO BID X 5D 09/18 completed Not Available Not Available Not Available valacyclovi r 500 mg tablet TAKE 2 TABLETS BY MOUTH ONCE DAILY DIRECTED 2021 active Not Available Not Available Not Avai lable doxycycline monohydrate 100 mg tablet Take 2 tabs at the same time x 1 dose by oral route. 08/01 completed Not Available Not Available Not Available sildenafil 100 mg tablet TAKE ONE TABLET BY MOUTH 1 HOUR PRIOR TO SEXUAL ACTIVITY ONCE DAILY NEEDED active Not Available Not Available No t Available dexamethaso ne 0.5 mg/5 mL oral solution 04/27 completed Not Available Not Available Not Available propranolol 10 mg tablet 1 BID PRN ANXIETY 2014 active Not Available Not Available Not Avai lable cephalexin 500 mg capsule 03/24 completed Not Available Not Available Not Available lisinopril 10 mg tablet Take 1 tablet every day by oral route. active Not Available Not Available No t Available lisinopril 5 mg tablet TAKE 1 TABLET BY MOUTH DAILY 08/30 completed Not Available Not Available Not Available ibuprofen 600 mg tablet Take 1 tablet(s) 3 times a day by oral route. 09/11 completed Not Available Not Available Not Available fluocinonid e 0.05 % topical cream APPLY TO THE AFFECTED AREA(S) BY TOPICAL ROUTE 2 TIMES PER DAY active Not Available Not Available No t Available tadalafil 20 mg tablet Take 1 tablet every day by oral route. 2019 active Not Available Not Available Not Avai lable selenium sulfide 2.25 % shampoo Use twice weekly as directed 2019 active Not Available Not Available Not Avai lable metronidazo le 1 % topical gel APPLY TO THE AFFECTED AREA(S) BY TOPICAL ROUTE ONCE DAILY ; RUB IN GENTLY AND COMPLETEL Y 09/18 completed Not Available Not Available Not Available chlorhexidi ne gluconate 0.12 % mouthwash 03/24 completed Not Available Not Available Not Available aspirin 81mg daily 09/18 completed Not Available Not Available Not Available ibuprofen PRN 09/18 completed Not Available Not Available Not Available selenium sulfide 2.5 % lotion active Not Available Not Available Not Available Vitals Date Recorded Body height Body temperature Provider N sandra and Address Organization Details Last Updated DateTime 09/24/2020 180.34 cm 95.1 [degF] Aga Manley RN [facility] 09/24/2020 11:02:56 Date Recorded Body height Body mass index (BMI) Body weight Systolic blood pressure Diastolic blood pressure Provider Name and Address Organization Details Last Updated DateTime 03/28/2021 180.34 cm 23.9 kg/m2 44293.4 g 128 mm[Hg] 74 mm[Hg] Meche Diaz CMA [facility] 08:10:17 Date Recorded Body height Body mass index (BMI) Body weight Systolic blood pressure Diastolic blood pressure Provider Name and Address Organization Details Last Updated DateTime 08/23/2021 180.34 cm 23.3 kg/m2 12168.93 g 140 mm[Hg] 76 mm[Hg] Meche Diaz [facility] 1 13:35:53 Social History Question Answer Notes LastModified by Organizat ion Details LastModified Time Tobacco Smoking Status Former Smoker 3 PACK YRS. Only as teenager. 09/18/19 TG Taz Pineda MD [address] [place] [address], [phone], [facility] 03/23/2011 09:13:23 Do You Have An Advance Directive? No Given Paperwork 03/04/10 Information not available 03/04/2010 What Is Your Level Of Alcohol Consumption? Moderate 7 Beers/week 09/18/19 TG [email or web address] Information not available 01/04/2016 Do You Wear A Helmet When Biking? Yes Information not available 08/16/2015 What Is Your Level Of Caffeine Consumption? Moderate 1-2 Cups Coffee Per Day [email or web address] Information not available 09/24/2020 How Much Tobacco Do You Chew? None Information not available 08/16/2015 What Type Of Diet Are You Following? REGULAR Information not available 08/16/2015 Which Illicit Or Recreational Drugs Have You Used? Marijuana 04/27/17 Twice A Week Information not available 04/27/2017 Do You Or Have You Ever Used E-cigarettes Or Vape? 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 No Information not available 08/16/2015 Live Alone Or With Others? With Others Information not available 10/12/2011 Does The Patient Have Difficulty Speaking Bulgarian? No Information not available 08/16/2015 Does The Patient Have Difficulty Reading Bulgarian? No Information not available 08/16/2015 Patient Has Health Care Proxy Signed And In Chart No Will Start Thinking About It. Gave Pt Form 09/18/19 TG Information not available 06/15/2014 CCM Consent Discussion 09/18/2019 [email or web address] Information not available 09/18/2019 Marital Status Informatio n not available 06/15/2014 Mosquito Repellent Used Routinely Yes Information not available 08/16/2015 What Was The Date Of Your Most Recent Tobacco Screening? 12/27/2018 Information not available 06/18/2019 How Many Children Do You Have? 2 Information not available 10/12/2011 Seat Belts Used Routinely Yes Information not available 08/16/2015 Smoke Alarm In Home Yes Information not available 08/16/2015 Do You Or Have You Ever Used Smokeless Tobacco? Never Used Smokeless Tobacco 09/18/19 TG [email or web address] Information not available 09/18/2019 How Much Tobacco Do You Smoke? No [email or web address] Information not available 09/18/2019 General Stress Level Medium Information not available 08/16/2015 Do You Use Sunscreen Routinely? Yes Information not available 08/16/2015 How Many Years Have You Smoked Tobacco? 0 [email or web address] Information not available 09/18/2019 Sex: Unknown Functional Status None recorded. Mental Status None recorded. Family History Nothing Reported Notes:Ischemic father who is a smoker, brother who is also a smoker, 2ND BROTHER SUDDEN . Hypertension none. Stroke none. Diabetes none. Cancer none. Colon polyps none. Medical History No medical history recorded. Immunizations Vaccine Type Date Status Note Provider Nam e and Address Organization Details Recorded Time Influenza, split virus, trivalent, preservative 1 completed Not Available [facility] 12/13/2019 02:18:30 pneumococcal polysaccharide PPV23 3 completed Not Available [facility] 12/13/2019 02:38:04 Tdap 3 completed Not Available [facility] 12/13/2019 02:28:48 Influenza, split virus, quadrivalent, PF 6 completed Not Available [facility] 12/13/2019 02:26:36 Influenza, split virus, quadrivalent, PF 6 completed Not Available [facility] 12/13/2019 02:20:41 Influenza, split virus, trivalent, preservative 3 completed Irma Calvin LPN [facility] 10/16/2013 11:34:56 Influenza, split virus, quadrivalent, PF 7 completed Not Available [facility] 12/13/2019 02:39:35 Influenza, high-dose, trivalent, PF 9 completed Not Available [facility] 12/13/2019 02:24:36 Pneumococcal conjugate PCV 13 9 completed Not Available [facility] 12/13/2019 02:26:03 Influenza, split virus, quadrivalent, preservative 8 completed Lisa Roach MA null, [facility] 01/31/2019 08:58:34 Influenza, high-dose, quadrivalent, PF 0 completed Aga Manley RN null, [facility] 09/24/2020 11:03:28 COVID-19, mRNA, LNP-S, PF, 30 mcg/0.3 mL dose 1 completed Meche Diaz CMA null, [facility] 08/23/2021 13:34:24 COVID-19, mRNA, LNP-S, PF, 30 mcg/0.3 mL dose 1 completed Meche Diaz CMA null, [facility] 08/23/2021 13:34:37 Past Encounters Encounter ID Performer Location Encounter Start Date Encounter Closed Date Diagnosis/Indication Diagnosis SNOMED-CT Code Diagnosis ICD10 Code [id number] [facility], OFFICE [address] [place] [address] 12/24/2001 16:45:00 12/16/2008 02:02:29 [id number] CHASIDY [facility], OFFICE [address] [place] [address] 1 01/06/2002 16:00:00 12/16/2008 02:02:29 [id number] CH[facility]IDY [facility], OFFICE [address] [place] [address] 1 01/30/2002 15:30:00 12/16/2008 02:02:29 [id number] CH[facility]IDY [facility], OFFICE [address] [place] [address] 1 04/29/2002 09:37:40 12/16/2008 02:02:29 [id number] [facility] , [facility] [address] [place] [address] 1 07/16/2002 15:35:20 12/16/2008 02:02:29 [id number] FP [facility], OFFICE [address] [place] [address] 1 07/16/2002 09:05:51 12/16/2008 02:02:29 [id number] FP [facility], OFFICE [address] [place], [place] [address] 1 06/26/2003 10:31:22 12/16/2008 02:02:29 [id number] FP [facility], OFFICE [address] [place] [address] 08/17/2003 14:45:53 08/18/2003 11:40:22 [id number] FP [facility], OFFICE [address] [place], [place] [address] 1 08/18/2003 15:46:10 08/19/2003 11:32:02 [id number] FP [facility], OFFICE [address] [place], [place] [address] 1 08/20/2003 00:00:00 12/16/2008 02:02:29 [id number] CHASIDY [facility], OFFICE [address] [place] [address] 1 11/16/2003 08:57:36 11/16/2003 16:37:17 [id number] LAB - [facility] [address] [place] [address] 11/16/2003 09:16:39 11/16/2003 12:59:47 [id number] [facility], OFFICE [address] [place], [place] [address] 1 06/04/2006 16:43:03 12/16/2008 02:02:29 [id number] [facility] , [facility] [address] [place] [address] 06/07/2006 14:57:01 06/07/2006 16:03:33 [id number] [facility], OFFICE [address] [place] [address] 1 07/18/2006 13:29:17 07/19/2006 09:28:18 [id number] LAB - [facility] [address] [place] [address] 07/19/2006 07:39:47 07/19/2006 08:03:06 [id number] [facility] [address] [place] [address] 09/25/2006 09:15:27 09/26/2006 07:21:05 [id number] FP [facility], OFFICE [address] [place] [address] 1 10/15/2007 14:58:57 12/16/2008 02:02:29 [id number] CHASIDY [facility], OFFICE [address] [place] [address] 1 11/06/2007 15:58:22 12/16/2008 02:02:29 [id number] [facility] - [facility] [address] [place] [address] 1 11/22/2007 07:05:34 11/22/2007 07:05:40 [id number] CH[facility]IDY [facility], OFFICE [address] [place] [address] 1 11/28/2007 09:22:46 12/16/2008 02:02:29 [id number] CH[facility]IDY [facility] [address] 1 03/24/2008 15:41:22 12/16/2008 02:02:29 [id number] [facility] - [facility] [address] [place] [address] 1 03/30/2008 07:23:53 03/30/2008 07:23:57 [id number] CH[facility]Y [facility] [address] 1 07/06/2008 13:40:58 12/16/2008 02:02:29 [id number] CH[facility]Y [facility], [place] [address] 1 03/04/2010 15:11:25 03/07/2010 09:25:05 [id number] CH[facility]Y [facility], [place] [address] 1 03/11/2010 16:47:38 03/11/2010 17:44:45 [id number] CH[facility]Y [facility] [address] 1 04/08/2010 14:57:08 04/08/2010 15:27:52 [id number] CH[facility]Y [facility], OFFICE [place] [address] 1 05/05/2010 08:18:31 05/05/2010 09:03:35 [id number] CH[facility]Y [facility], [address] [place] [address] 1 05/13/2010 13:47:34 05/13/2010 15:03:11 [id number] CH[facility]Y [facility] [address] 1 08/08/2010 08:01:53 08/08/2010 10:14:41 [id number] Chaya Rio , [facility], OFFICE [address] [place] [address] [address] [place] [address] 03/23/2011 08:44:40 03/23/2011 09:42:31 [id number] , [facility], OFFICE [address] [place] [address] [address] [place] [address] 1 04/07/2011 15:01:17 04/10/2011 09:11:06 [id number] [facility] , [facility] [address] [place] [address] 04/11/2011 14:49:13 04/12/2011 11:46:30 [id number] , [facility] OFFICE [address] [place] [address] [address] [place] [address] 1 10/26/2011 09:22:03 10/26/2011 10:19:40 [id number] , [facility], OFFICE [address] [place] [address] [address] [place] [address] 1 11/07/2011 10:46:34 11/07/2011 11:08:14 [id number] [facility], OFFICE [address] [place] [address] [address] [place] [address] 1 01/09/2012 09:20:06 01/09/2012 09:54:29 [id number] Taz Pineda MD , [address] [place] [address] 01/09/2013 10:19:33 01/09/2013 10:42:26 [id number] Taz Pineda MD , [address] [place] [address] 1 04/17/2013 13:37:14 04/17/2013 14:01:44 [id number] , [address] [place] [address] 1 06/12/2013 08:44:25 06/13/2013 07:43:16 [id number] Olga Lidia Mastrobert i [address] [place] [address] 1 09/26/2013 13:48:02 09/26/2013 14:27:47 Chest pain 41241360 [id number] Irma Calvin LPN , [facility], OFFICE [address] [place] [address] [place] [address] 10/16/2013 10:21:51 10/16/2013 12:01:27 Chest pain 98956844 [id number] CHASIDY, [facility], OFFICE [address] [place] [address] 1 06/15/2014 15:24:13 06/15/2014 16:03:20 Adult health examination 132232735 Benign ess ential hypertension 2673626 Rosacea 434785977 [id number] CHASIDY, [facility], OFFICE [address] [place] [address] 1 12/17/2014 16:40:19 12/17/2014 17:15:51 Benign essential hypertension 3186992 Mixed hyperlipidemia 267 555801 Performance anxiety 2796 78746 [id number] Taz Pineda MD , [facility], OFFICE [address] [place] [address] 1 03/12/2015 10:18:25 03/12/2015 11:19:36 Benign essential hypertension 0247501 Mixed hyperlipidemia 267 628684 [id number] [facility] [address] 06/09/2015 10:57:00 06/09/2015 13:28:05 Mixed hyperlipidemia 875517262 [id number] Danielle Zhao [facility], OFFICE [address] [place] [address] 1 08/16/2015 08:18:41 08/17/2015 15:19:35 Palpitations 90940912 Mixed hyperlipidemia 267 335166 [id number] Taz Pineda MD , [facility], OFFICE [address] [place] [address] 1 01/04/2016 10:03:15 01/04/2016 10:40:47 Benign essential hypertension 8519627 I10 Mixed hyperlipidemia 267 580035 E78.2 Active or passive immunization 933309017 Z23 [id number] Taz Pineda MD , [facility], OFFICE [address] [place] [address] 1 08/01/2016 08:28:01 08/01/2016 08:59:26 Rosacea 415134027 L71.9 Active or passive immunization 398333233 Z23 Glossitis 95387772 K14.0 Pityriasis versicolor 56 190677 B36.0 [id number] GERALDO Lynn, [facility], OFFICE [address] [place] [address] 1 04/27/2017 07:55:18 04/30/2017 08:30:06 Low back pain 010300782 M54.5 [id number] Sudhir Cooper i, PT Physical Therapy, [address] [place] [address] 05/08/2017 14:56:24 05/09/2017 13:29:25 Sciatica 67765066 M54.31 [id number] Sudhir Cooper i, PT Physical Therapy, [address] [place] [address] 1 05/15/2017 12:53:38 05/15/2017 13:39:27 Sciatica 58032173 M54.31 [id number] Sudhir Cooper i, PT Physical Therapy, [address] [place] [address] 1 05/22/2017 13:52:27 05/23/2017 09:22:32 Sciatica 34049455 M54.31 [id number] Taz Pineda MD , [facility], OFFICE [address] [place] [address] [address] [place] [address] 1 06/01/2017 10:59:09 06/01/2017 11:45:43 Adult health examination 989608372 Z00.00 Counseling 164904957 Z71 .9 Mixed hyperlipidemia 267 579145 E78.2 Benign ess ential hypertension 3305311 I10 [id number] Taz Pineda MD , [facility], OFFICE [address] [place] [address] [place] [address] 1 09/11/2017 14:58:41 09/11/2017 15:36:21 Active or passive immunization 313827212 Z23 Mixed hyperlipidemia 267 371522 E78.2 [id number] Taz Pineda MD , [facility], OFFICE [address] [place] [address] 1 12/04/2017 08:16:52 12/04/2017 08:47:10 Mixed hyperlipidemia 880826393 E78.2 Benign ess ential hypertension 6889385 I10 [id number] Taz Pineda MD , [facility], OFFICE [address] [place] [address] [place] [address] 1 01/25/2018 07:58:55 01/25/2018 08:26:20 Active or passive immunization 465435336 Z23 Perineal pain 059636647 R10.2 Pain of prostate 5876532 0 N42.81 [id number] Taz Pineda MD , [facility], OFFICE [address] [place] [address] 1 02/19/2018 11:48:11 02/19/2018 12:09:23 Mixed hyperlipidemia 330231119 E78.2 Benign ess ential hypertension 4737200 I10 [id number] Taz Pineda MD , [facility], OFFICE [address] [place] [address] 1 05/17/2018 08:31:45 05/17/2018 08:47:19 Mixed hyperlipidemia 638301844 E78.2 Benign ess ential hypertension 5231289 I10 [id number] Taz Pineda MD , [facility], OFFICE [address] [place] [address] 1 06/28/2018 09:47:57 06/28/2018 10:25:03 Adult health examination 128269390 Z00.00 Counseling 768798524 Z71 .9 Depression screening 171 553633 Z13.89 Mixed hyperlipidemia 267 934303 E78.2 Benign ess ential hypertension 2862336 I10 Gastro-eso phageal reflux disease with esophagitis 457846839 K21.0 [id number] John Lilly MD , [facility], OFFICE [address] [place] [address] [place] [address] 1 09/18/2018 11:33:16 09/18/2018 16:31:00 Increased frequency of urination 715834149 R35.0 [id number] Taz Pineda MD , [facility], OFFICE [address] [place] [address] [place] [address] 1 12/27/2018 09:26:55 12/27/2018 09:57:59 Mixed hyperlipidemia 608405356 E78.2 Benign ess ential hypertension 4353502 I10 Herpes simplex 81548380 B00.9 Impotence of organic origin 811635733 N52.9 [id number] Taz Pineda MD , [facility], OFFICE [address] [place] [address] 1 01/24/2019 09:19:14 01/27/2019 10:06:40 Sacroiliac joint pain 244849581 M53.3 [id number] Fidelia Goodwin PT Physical Therapy, [facility] [address] [place] [address] 1 01/24/2019 11:23:36 01/27/2019 08:50:05 Low back pain 420873389 M54.5 [id number] Fidelia Goodwin, PT Physical Therapy, [facility] [place] [address] 1 01/27/2019 10:53:21 01/27/2019 12:04:39 Low back pain 528406828 M54.5 [id number] Fidelia Goodwin, PT Physical Therapy, [address] [place] [address] 1 01/30/2019 13:04:20 01/30/2019 16:15:36 Low back pain 087066809 M54.5 [id number] Taz Pineda MD , [facility], OFFICE [address] [place] [address] 1 01/31/2019 08:36:54 01/31/2019 11:14:15 Acute sciatica 873215703 M54.32 [id number] Fidelia Goodwin PT Physical Therapy, [address] [place] [address] 1 02/03/2019 08:28:00 02/03/2019 10:06:05 Low back pain 512903850 M54.5 [id number] Valeria Mosley MD , [facility], OFFICE [address] [place] [address] 1 02/04/2019 09:53:40 02/04/2019 10:42:17 Acute sciatica 718088230 M54.32 [id number] Fidelia Goodwin PT Physical Therapy, [address] [place] [address] 1 02/06/2019 08:31:24 02/07/2019 08:10:28 Low back pain 743695083 M54.5 [id number] Fidelia Goodwin PT Physical Therapy, [facility] [place] [address] 1 02/13/2019 08:27:50 02/13/2019 16:44:20 Low back pain 851722339 M54.5 [id number] Fidelia Goodwin, PT Physical Therapy, [facility] [place] [address] 1 02/24/2019 11:31:34 02/24/2019 13:56:50 Low back pain 836033567 M54.5 [id number] Taz Pineda MD , [facility], OFFICE [address] [place] [address] 1 09/18/2019 08:48:31 09/18/2019 09:34:24 Adult health examination 095826929 Z00.00 Counseling 703099105 Z71 .9 Depression screening 171 211672 Z13.89 Mixed hyperlipidemia 267 934581 E78.2 Active or passive immunization 481874856 Z23 Benign ess ential hypertension 6710637 I10 Ex-smoker 9877695 Z87.89 1 [id number] Taz Pineda MD , [facility], OFFICE [address] [place] [address] 1 10/21/2019 08:00:51 10/21/2019 08:29:32 Pain of right shoulder joint 1797856592 9252982 M25.860 [id number] Fidelia Goodwin, PT Physical Therapy, [address] [address] 10/27/2019 10:33:28 10/27/2019 14:04:07 Shoulder pain 42156290 M25.550 [id number] Fidelia Goodwin, PT Physical Therapy, [address] [address] 1 11/03/2019 08:58:05 11/04/2019 09:44:16 Shoulder pain 78794725 M25.467 [id number] Fidelia Goodwin, PT Physical Therapy, [address] [address] 1 11/10/2019 08:00:42 11/10/2019 08:31:42 Shoulder pain 19960956 M25.259 [id number] Valeria Mosley MD , [facility], OFFICE [address] [place] [address] 1 03/24/2020 08:09:38 03/24/2020 14:40:10 Mixed hyperlipidemia 098325273 E78.2 Benign ess ential hypertension 2668825 I10 Ex-smoker 6077979 Z87.89 1 Acute sciatica 639882595 M54.32 Performance anxiety 2796 92637 F40.248 Family his tory of Cardiovascular disease 515118711 Z82.49 Impotence of organic origin 369969980 N52.9 Seborrheic dermatitis 50 937939 L21.9 Polyp of gallbladder 197 905781 K82.4 [id number] Aga Manley RN , [facility], OFFICE [address] [place] [address] 1 09/24/2020 11:02:10 09/29/2020 16:21:00 Active or passive immunization 197363572 Z23 [id number] Valeria Mosley MD , [facility], OFFICE [address] [place] [address] 1 09/24/2020 13:51:26 09/29/2020 16:20:04 Adult health examination 459237405 Z00.00 Counseling 741679065 Z71 .9 Depression screening 171 570493 Z13.89 Screening for alcohol abuse 250363095 Z13.39 Mixed hyperlipidemia 267 173990 E78.2 Benign ess ential hypertension 7875977 I10 Ex-smoker 4583890 Z87.89 1 Acute sciatica 311078636 M54.32 Performance anxiety 2796 10707 F40.248 Family his tory of Cardiovascular disease 666684537 Z82.49 Impotence of organic origin 640734656 N52.9 Seborrheic dermatitis 50 883378 L21.9 Polyp of gallbladder 197 053560 K82.4 [id number] Valeria Mosley MD , [facility], OFFICE [address] [place] [address] 1 03/28/2021 08:06:14 03/28/2021 08:29:24 Mixed hyperlipidemia 780707507 E78.2 Benign ess ential hypertension 2600734 I10 Ex-smoker 7543327 Z87.89 1 Acute sciatica 653374864 M54.32 Performance anxiety 2796 28913 F40.248 Family his tory of Cardiovascular disease 541208376 Z82.49 Impotence of organic origin 090815498 N52.9 Seborrheic dermatitis 50 485103 L21.9 Polyp of gallbladder 197 288483 K82.4 Psoriasis 8270992 L40.9 [id number] Valeria Mosley MD , [facility], OFFICE [address] [place] [address] 1 08/23/2021 13:24:50 08/24/2021 14:03:14 Mixed hyperlipidemia 900150627 E78.2 Benign ess ential hypertension 6492604 I10 Ex-smoker 6296438 Z87.89 1 Acute sciatica 448284094 M54.32 Performance anxiety 2796 52366 F40.248 Family his tory of Cardiovascular disease 702604229 Z82.49 Impotence of organic origin 891306428 N52.9 Seborrheic dermatitis 50 497264 L21.9 Polyp of gallbladder 197 187787 K82.4 Psoriasis 3244715 L40.9 [id number] Jaspal Yu RN [facility], [address] [address] 01/06/2022 06:46:27 01/06/2022 12:24:28 Health Concerns Section Related Observation LastModified by Organization Detai ls LastModified Time None Recorded Concern Status LastModified by Organization Details LastModified Time None Recorded Advance Directives Directive N: Given paperwork 03/04/10 Payers Encounter Date Sequence Insurance Name Policy Number Policy Easley Covered Member ID Easley Member ID Guarantor Name 09/24/2020 1 MEDICARE B-UT: NATIONAL [employer] Mj B Osiel [id number] Mj B Osiel 09/24/2020 2 [employer] PLAN - NAVIGATOR (PPO) [id number] Mj B Osiel [id number] Mj B Osiel 09/24/2020 1 MEDICARE B-UT: NATIONAL GOVERNMENT SERVICES Mj B Osiel [id number] Mj B Osiel 09/24/2020 2 [employer] PLAN - NAVIGATOR (PPO) [id number] Mj B Osiel [id number] Mj B Osiel 03/28/2021 1 MEDICARE B-UT: NATIONAL GOVERNMENT SERVICES Mj B Osiel [id number] Mj B Osiel 03/28/2021 2 [employer] PLAN - NAVIGATOR (PPO) [id number] Mj B Osiel [id number] Mj B Osiel 08/23/2021 1 MEDICARE B-UT: NATIONAL GOVERNMENT SERVICES Mj B Osiel [id number] Mj B Osiel 08/23/2021 2 [employer] PLAN - NAVIGATOR (PPO) [id number] Mj B Osiel [id number] Mj B Osiel 01/06/2022 1 MEDICARE B-UT: NATIONAL G[employer]ERNMENT SERVICES Mj B Osiel [id number] Mj B Osiel 01/06/2022 2 [employer] PLAN - NAVIGATOR (PPO) [id number] Mj B Osiel [id number] Mj B Osiel Notes Date Note Type Note Provider Name and Address Organization Details Recorded Time 0 text/html Physical Exam/MaleReported bypatient.PHAPatient is here for a Wellness Visit. He describes his health status as good. Patient's health is the same as last year.; PHA. HX OF HBP AND LIPIDS.VMG HyperlipidemiaReported bypatient.Duration:chronic Control:well controlled; LDL has been <100, goal is <130; treated with diet Compliance:compliant with medications; compliant with follow-up visits; compliant with diet Barriers to CareNo identified barriers to care Context:Nonsmoker; No ischemic heart disease; No peripheral vascular disease ([id number]); No diabetes; No carotid artery stenosis Ability to Manage Self CareOn how confident the patient feels in ability to self manage condition the patient selects 10 with 10 being very confident and 1 being very low confidence; Patient feels very confident in ability to self manage conditionNotes:DID HAVE CAD EVAL. WHICH WAS NEG. 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.VMG HypertensionReported bypatient.Context:No ischemic heart disease; No kidney disease; No history of CVA; No congestive heart failure; No history of transient ischemic attacks; No peripheral vascular disease; No history of diabetes Control:BP Goal less than; Treated with diet and exercise; Treated with medications Compliance:Compliant with medications; Compliant with diet; Compliant with exercise; Compliant with follow-up visits Barriers to CareNo identified barriers to care Self Care:Using home BP monitor occasionally home BPs range 120-130/80-85 Associated Symptoms:No chest pain; No shortness of breath; No edema; No fatigue; No palpitations; No decline in exercise capacity; No snoring Ability to Manage Self CareOn how confident the patient feels in ability to self manage condition the patient selects 10 with 10 being very confident and 1 being very low confidence; Patient feels very confident in ability to self manage condition Time for intake: {{1 2 3 4 5 6 7 8 9 10 11 1 2 13 14 15 16 17 18 19 20 2 1 22 23 24 25}} minutes. Valeria Mosley MD [address] [place] [address], [phone], [facility] 09/24/2020 14:28:24 1 text/html Physical Exam/MaleReported bypatient.PHAPatient is here for a Wellness Visit. He describes his health status as good. Patient's health is the same as last year.; PHA. HX OF HBP AND LIPIDS.VMG HyperlipidemiaReported bypatient.Duration:chronic Control:well controlled; LDL has been <100, goal is <130; treated with diet Compliance:compliant with medications; compliant with follow-up visits; compliant with diet Barriers to CareNo identified barriers to care Context:Nonsmoker; No ischemic heart disease; No peripheral vascular disease (61220); No diabetes; No carotid artery stenosis Ability to Manage Self CareOn how confident the patient feels in ability to self manage condition the patient selects 10 with 10 being very confident and 1 being very low confidence; Patient feels very confident in ability to self manage conditionNotes:DID HAVE CAD EVAL. WHICH WAS NEG. 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.VMG HypertensionReported bypatient.Context:No ischemic heart disease; No kidney disease; No history of CVA; No congestive heart failure; No history of transient ischemic attacks; No peripheral vascular disease; No history of diabetes Control:BP Goal less than; Treated with diet and exercise; Treated with medications Compliance:Compliant with medications; Compliant with diet; Compliant with exercise; Compliant with follow-up visits Barriers to CareNo identified barriers to care Self Care:Using home BP monitor occasionally home BPs range 120-130/80-85 Associated Symptoms:No chest pain; No shortness of breath; No edema; No fatigue; No palpitations; No decline in exercise capacity; No snoring Ability to Manage Self CareOn how confident the patient feels in ability to self manage condition the patient selects 10 with 10 being very confident and 1 being very low confidence; Patient feels very confident in ability to self manage condition Time for intake: {{1 2 3 4 5 6 7 8 9 10 11 1 2 13 14 15 16 17 18 19 20 2 1 22 23 24 25}} minutes. Valeria Mosley MD [address] [place] [address], [phone], [facility] 03/28/2021 08:32:00 1 text/html Physical Exam/MaleReported bypatient.PHAPatient is here for a Wellness Visit. He describes his health status as good. Patient's health is the same as last year.; PHA. HX OF HBP AND LIPIDS.VMG HyperlipidemiaReported bypatient.Duration:chronic Control:well controlled; LDL has been <100, goal is <130; treated with diet Compliance:compliant with medications; compliant with follow-up visits; compliant with diet Barriers to CareNo identified barriers to care Context:Nonsmoker; No ischemic heart disease; No peripheral vascular disease (26823); No diabetes; No carotid artery stenosis Ability to Manage Self CareOn how confident the patient feels in ability to self manage condition the patient selects 10 with 10 being very confident and 1 being very low confidence; Patient feels very confident in ability to self manage conditionNotes:DID HAVE CAD EVAL. WHICH WAS NEG. 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.VMG HypertensionReported bypatient.Context:No ischemic heart disease; No kidney disease; No history of CVA; No congestive heart failure; No history of transient ischemic attacks; No peripheral vascular disease; No history of diabetes Control:BP Goal less than; Treated with diet and exercise; Treated with medications Compliance:Compliant with medications; Compliant with diet; Compliant with exercise; Compliant with follow-up visits Barriers to CareNo identified barriers to care Self Care:Using home BP monitor occasionally home BPs range 120-130/80-85 Associated Symptoms:No chest pain; No shortness of breath; No edema; No fatigue; No palpitations; No decline in exercise capacity; No snoring Ability to Manage Self CareOn how confident the patient feels in ability to self manage condition the patient selects 10 with 10 being very confident and 1 being very low confidence; Patient feels very confident in ability to self manage condition Time for intake: {{1 2 3 4 5 6 7 8 9 10 11 1 2 13 14 15 16 17 18 19 20 2 1 22 23 24 25}} minutes. Valeria Mosley MD [address] [place] [address], [phone], [facility] 08/23/2021 17:39:40
--- NOTE | 2024-11-13 13:51 | A.OFFVIS_ITS ---
Vital Signs 11/13/24 14:00 Height 6 ft Weight 170 lb BMI 23.1 BP 164/79 H Blood Pressure Location Lt brachial Position Sitting Pulse 87 Intake Visit Reasons: Right inguinal hernia Intake Note: Patient is seen in office for evaluation of a left inguinal hernia. Pt c/o: notice bilateral lump about 6 months ago, left side is worse, has increase in size, pushes out, wears a support belt with relief, denies n/v/d/c CT:05/01/24 ([facility]) Medical Administrative Assistant Required: No Accompanied by: Self / Same As Patient Allergies No Known Allergies Allergy (Verified 11/13/24 14:01) Medication List - Last Reconciled 11/13/24 by Sudhir Valenzuela MD atorvastatin 20 mg PO DAILY lisinopril 5 mg PO DAILY metronidazole 1% (Metrogel) 1 appl topical DAILY sildenafil 100 mg PO DAILY PRN tamsulosin 0.4 mg PO DAILY valacyclovir 500 mg PO BID HPI Comments Details: 69-year-old male patient presenting for evaluation of bilateral inguinal he rnias. He began to note swelling in the bilateral groins left greater than right approximately a year ago. Initially he had no discomfort but after doing some heavy lifting he began to note some slightly increased discomfort especially on the left side. He denies nausea, vomiting, fever, chills, diarrhea or constipation. He denies a previous history of hernia surgeries. Currently he is wearing a hernia truss which does seem to help with his symptoms. He presents today to discuss possible repair of the bilateral inguinal hernias. [facility] Medical History (Updated 11/13/24 @ 14:29 by Sudhir Valenzuela MD) Hypercholesterolemia Hypertension Surgical History (Updated 11/13/24 @ 14:04 by ISAIAH Hobson) History of dental surgery Social History (Updated 11/13/24 @ 13:57 by ISAIAH Hobson) Alcohol intake: current Patient Tobacco Use Status: Never used Tobacco Review of Systems Const All systems reviewed & are unremarkable except as noted in HPI and below Physical Exam Vital Signs: Last Vital Signs Pulse 87 11/13/24 14:00 BP 164/79 H 11/13/24 14:00 BMI result Body Mass Index 23.1 Const General: cooperative and no acute distress Nutritional Appearance: well nourished Orientation/consciousness: patient oriented x3 Limitations: no limitations HEENT Head: Yes normocephalic and Yes atraumatic Ears: hearing grossly normal bilaterally Resp Effort & Inspection: normal respiratory effort, no audible wheezes, no cough and no respiratory distress Cardio Jugular venous distension: no JVD GI Other: Patient examined in the standing position with Valsalva maneuver but easily bilateral inguinal hernias which reduce with light pressure. No evidence of strangulation or incarceration. Inspection: Yes normal to inspection Skin Other: Warm, dry, no rash Neuro General: patient oriented x3 Extrem General: Yes no clubbing, cyanosis or edema Assessment & Plan Assessment & Plan (1) Bilateral inguinal hernia: Code(s): K40.20 - Bilateral inguinal hernia, without obstruction or gangrene, not specified as recurrent Category: Medical Qualifiers: Obstruction and gangrene presence: without obstruction or gangrene Recurrence: non-recurrent Qualified Code(s): K40.20 - Bilateral inguinal hernia, without obstruction or gangrene, not specified as recurrent Plan 69-year-old male patient presenting with bilateral reducible inguinal hernias. I reviewed the options for repair including laparoscopic versus open repair. I recommended an open repair with mesh for the bilateral inguinal hernias and reviewed the procedure, risks and alternatives. He will consider his options and call us should he wish to schedule the surgery. We also discussed the signs and symptoms were repair would need to be performed urgently rather than electively. He expressed understanding and agrees with the plan. Coding Level of Care Code New Pt Level 4 (29178) Diagnoses Non-recurrent bilateral inguinal hernia without obstruction or gangrene K40.20 Obstruction and gangrene presence: without obstruction or gangrene Recurrence: non-recurrent
[2024-11-13 14:00] VITALS: BP 164/79; PULSE 87; BMI 23.1
== END 2024-11-13 14:20 | disposition home or self-care (01) ==
PROVIDERS: PCP Internal Medicine; Visit Provider Surgery
DX: K40.20 Bilateral inguinal hernia, without obstruction or gangrene, not specified as recurrent (principal)
CPT/HCPCS: 99204

== ENCOUNTER → 2024-11-13 13:46 | Outpatient (BNVA) | payer MEDICARE, SELFPAY | PROVIDERS: PCP Internal Medicine; Visit Provider Surgery | DX: K40.20 Bilateral inguinal hernia, without obstruction or gangrene, not specified as recurrent (principal) | CPT/HCPCS: 99202 ==

== ENCOUNTER 2024-12-05 11:05 | Outpatient (REF) | payer MEDICARE, SELFPAY ==
[2024-12-05 11:07] LABS: MANUAL DIFF FLAG NO
--- OUTSIDE RECORDS SUMMARY | 2024-12-05 11:13 | XMS_ITS ---
Author Organization Marito Allen MD Address [address] [place] [phone] Care Team Providers Care Welder [employer] Name Role Phone Marito Allen Primary Care Provider REASON FOR VISIT For billing Encounters Encounter Location Date Provider Diagnosis Marito Allen MD [address] [facility] [address] [place], [place] [phone] 11/20/2024 Marito Allen PLAN OF TREATMENT Next Appt Details Provider Name:Marito palacios, 01/02/2025 10:00:00 AM, [address] [facility], [address], [place], [place], [phone],
--- OUTSIDE RECORDS SUMMARY | 2024-12-05 11:13 | XMS_ITS | Patient Health Record ---
Author Organization Marito Allen MD Address [address] [place], [place] [phone] Care Team Providers Care Official Court Reporter Name Role Phone Marito Allen Primary Care Provider [phone] ALLERGIES No Known Allergies RESULTS Component Value Reference Range Notes Urinalysis and Microscopic Reviewed date:02/15/2024 12:49:48 PM Interpretation: Performing Lab:[facility], [address] [place] [phone] Notes/Report: Color Urine Dark Yellow Appearance Urine Clear PH 6.5 5.0-9.0 Glucose Urine UA Negative Negative mg/dL Urine Blood Trace Negative Specific Rulo - Urine 1.025 1.005-1.025 Urine Protein Negative [...] ff Reviewed date:02/22/2024 08:25:47 AM Interpretation: Performing Lab:[address] [phone] Notes/Report: White Blood Count 8.0 4.8-10.8 X10*3/uL [...] Microscopic Reviewed date:02/21/2024 02:28:47 PM Interpretation: Performing Lab:[facility], [address] [place] [phone] Notes/Report: Color Urine Dark Yellow Appearance Urine Clear PH 6.5 5.0-9.0 Glucose Urine UA Negative Negative mg/dL Urine Blood Negative Negative Specific Rulo - Urine 1.020 1.005-1.025 Urine Protein Negative Neg-Trace mg/dL Urine Ketones Negative Negative mg/dL Nitrite Urine Negative Negative Leukocyte Esterase Urine Small (1+) Negative RBC Urine 0-2 0-2 /HPF WBC Urine 0-5 0-5 /HPF Squamous Epithelial Cell Urine 0-2 0-2 /HPF Bacteria Urine None Seen None Seen Hyaline Casts Urine 0-2 0-2 /LPF Urine Culture Reviewed date:02/24/2024 08:48:11 AM Interpretation: Performing Lab:[facility], [address] [facility], [place] [phone] Notes/Report: Urine Culture No growth. REASON FOR REFERRAL Reason irregular heart beat arrthythmia Diagnosis 1 Irregular heart beat (I49.9) Diagnosis 2 Cardiac arrhythmia, unspecified (I49.9) Referral Organization Marito Allen MD Referring Provider First Name Marito Referring Provider Last Name Tiffany Referring Provider Speciality Internal M edicine Referred Provider Oswald Welch Referred Provider [...] Provider First Name Marito Referring Provider Last Dayton Allen Referring Provider Speciality Internal edicine Referred Provider [facility] office, [facility] [place] office Referred Provider Specialty Urology General Notes Rosalva Fatima 03:18:20 PM EDT > [facility] referral from faxed Akua Annette 02/26/2024 08:15:07 AM EDT > info mailed to patient Referral Priority Routine Referral Appointment Date 03/28/2024 Reason wrist pain right pl ease eval and treat for physcial therapy Diagnosis 1 Wrist pain, right (M 25.531) Referral Organization Marito Allen MD Referring Provider First Name Marito Referring Provider Last Name Tiffany Referring Provider Speciality Internal edicine Referred Provider Felicia nath, Physical Therapy Referred Provider Specialty Physical The [...] Provider Speciality Internal M edicine Referred Provider Sudhir Valenzuela Referred Provider Specialty Surgery General Notes AkuaRosalva 01:56:12 PM EST > info faxed Left [...] Problem Essential hypertensi on (I10) Active confirmed 28158176 Problem Hypercholesterolemia (E78.00) Active confirmed 43337280 Problem Lumbar disc disease (M51.9) Active confirmed 409292198 Problem Liver cyst (K76.89) Active confirmed Li jose miguel cyst (91769518) Problem Sciatica (M54.30) Active confirmed Scia maulik (54309212) Problem Liver lesion (K76.9) Active confirmed L esion of liver (650941512) Problem Tubular adenoma of colon (D12.6) Active confirmed 851557767 Problem Prostatism (N40.0) Active confirmed 114 76535 Problem Irregular heart beat (I49.9) Active confirmed 212549565 Problem Cardiac arrhythmia, unspecified (I49.9) Active confirmed Cardiac arrhythmia (779509434) Problem PVC (premature ventricular contraction) (I49.3) Active confirmed 907429736 Problem Carpal tunnel syndro me of right wrist (G56.01) Active confirmed 500332768088053 VITAL SIGNS Blood pressure diastolic 70 mm [...] Date Provider Diagnosis Marito Allen MD [address] [place], [place] [phone] 12/11/2023 Marito lAlen Irregular heart beat I49.9 ; Tubular adenoma of colon D12.6 ; Essential hypertension I10 ; Hypercholesterolemia E78.00 ; Prostatism N40.0 and Depression screening Z13.31 Marito Allen MD [address] [place] [id number] 12/05/2024 Marito Allen Essential hypertensi on I10 ; Hypercholesterolemia E78.00 ; Liver lesion K76.9 and Prostatism N40.0 Marito Allen MD [address] [place] [id number] 02/08/2024 Marito Allen PVC (premature ventr icular contraction) I49.3 and Plantar fasciitis, bilateral M72.2 Marito Allen MD [address] [place] [id number] 02/21/2024 Marito Allen Prostatism N40.0 ; Essential hypertension I10 ; Microscopic hematuria R31.29 ; Right inguinal hernia K40.90 and Gross hematuria R31.0 Marito Allen MD [address] [place] [id number] 06/06/2024 Marito Allen Carpal tunnel syndro me of right wrist G56.01 ; Essential hypertension I10 and Prostatism N40.0 Marito Allen MD [address] [place] [id number] 02/14/2024 Marito Allen Gross hematuria R31. 0 ; Acute UTI N39.0 and Prostatism N40.0 Marito Allen MD [address] [place] [id number] 02/15/2024 Marito Allen Prostatism N40.0 Marito Allen MD [address] [place] [id number] 04/15/2024 Marito Allen Hypercholesterolemia E78.00 and Prostatism N40.0 Marito Allen MD [address] [place] [id number] 04/15/2024 Marito Allen Hypercholesterolemia E78.00 and Prostatism N40.0 Marito Allen MD [address] [place] [id number] 04/17/2024 Marito Allen Essential hypertensi on I10 Marito Allen MD [address] [place] [id number] 05/08/2024 Marito Allen Prostatism N40.0 Marito Allen MD [address] [place] [address] [id number] 05/08/2024 Marito Allen Hypercholesterolemia E78.00 Marito Allen MD [address] [place] [address] [id number] 06/10/2024 Marito Allen MD [address] [place] [id number] 06/12/2024 Marito Allen MD [address] [place] [address] [id number] 07/01/2024 Marito Allen Liver lesion K76.9 Marito Allen MD [address] [place] [id number] 01/15/2024 Marito Allen MD [address] [place] [id number] 02/09/2024 Marito Allen MD [address] [place] [address] [id number] 05/02/2024 Marito Allen MD [address] [place] [address] [id number] 05/30/2024 Marito Allen MD [address] [place] [address] [id number] 06/10/2024 Marito Allen Carpal tunnel syndro me of right wrist G56.01 Marito Allen MD [address] [place] [address] [id number] 08/14/2024 Marito Allen MD [address] [place] [id number] 09/02/2024 Marito Allen MD [address] [place] [id number] 09/22/2024 Marito Allen MD [address] [place] [address] [id number] 09/24/2024 Marito Allen MD [address] [place] [address] [id number] 10/20/2024 Marito Allen MD [address] [place], [place] [id number] 10/22/2024 Marito Allen MD [address] [place] [address] [id number] 10/25/2024 Marito Allen MD [address] [place] [address] [id number] 10/25/2024 Marito Allen MD [address] [place] [address] [id number] 10/25/2024 Marito Allen MD [address] [place] [id number] 11/20/2024 Marito Allen ASSESSMENTS Encounter Date Diagnosis Assessment Notes Treatment Notes Treatment Clinical Notes 12/11/2023 Tubular adenoma of c ward (ICD-10 - D12.6) repeat in 202612/11/2023 Irregular heart beat (ICD-10 - I49.9) event monitor will be booked at [facility], pending diagnostic testing 12/05/2024 Essential hypertensi on (ICD-10 - I10) 02/08/2024 PVC (premature ventricular contraction) (ICD-10 - [...] - I10) stable, will continue current regiment 12/05/2024 Hypercholesterolemia (ICD-10 - E78.00) 02/21/2024 Microscopic hematuri a (ICD-10 - R31.29) pending labsm will cntinue to monitor 06/06/2024 Prostatism (ICD-10 - N40.0) doing well on tamzulosin, will continue current regiment 02/14/2024 Prostatism (ICD-10 - N40.0) [place] 04/15/2024 Prostatism (ICD-10 - N40.0) 04/15/2024 Prostatism (ICD-10 - N40.0) 12/11/2023 Hypercholesterolemia (ICD-10 - E78.00) stable, will continue curent regiment 12/05/2024 Liver lesion (ICD-10 - K76.9) 02/21/2024 Right inguinal herni a (ICD-10 - K40.90) discussed treatment. has had for many years. 12/11/2023 Prostatism (ICD-10 - N40.0) stable, will continue to monitor 12/05/2024 Prostatism (ICD-10 - N40.0) 02/21/2024 Gross hematuria (ICD -10 - R31.0) pending labs, will continue to monitor 12/11/2023 Depression screening (ICD-10 - Z13.31) negatiove screen PLAN OF TREATMENT Pending Test Test Name Order Date Complete Blood Count Auto Diff 5 Comprehensive [place]. Panel Fast Liver Panel 12/05/2024 Lipid Panel 12/05/2024 PSA,Total (Free>4and<10) 12/05/2024 ECG 30 day event monitor 12/11/2023 US abdomen limited 05/11/2023 US abdomen limited 07/09/2023 US abdomen limited 12/30/2021 US abdomen limited 07/01/2024 US abdomen complete 05/23/2022 US abdomen complete 06/15/2022 UA ClnCatch+Micro w/rflx Cult 12/05/2024 Next Appt Details Provider Name:Marito Omer ier, 01/02/2025 10:00:00 AM, [address] [place] [address], [address], [place], [place], [phone], Insurance Providers Payer Name Payer Address Payer Phone Subscriber Number Group Number Insured Name Patient Relationship to Insured Coverage Start Date Coverage End Date MEDICARE NHIC [address] [place] [address] [id number] Mj Cartagena Self - patient is the insured [facility] [address] [place]IVO CHAN [id number] Mj Cartagena Self - patient is the insured MEDICAL (GENERAL) HISTORY Medical History History ICD Code colonoscopy 01/17 repeat in 5 years
--- OUTSIDE RECORDS SUMMARY | 2024-12-05 11:13 | XMS_ITS ---
Author Organization Marito Allen MD Address [address] [place] [phone] Care Team Providers Care Microsoft Dynamics Manager Architect Name Role Phone Marito Allen Primary Care Provider REASON FOR VISIT New Refill Request Encounters Encounter Location Date Provider Diagnosis Marito Allen MD [address] [place] [address] [place] [phone] 10/25/2024 Marito Allen PLAN OF TREATMENT Next Appt Details Provider Name:Marito olear, 01/02/2025 10:00:00 AM, [address] [facility], [address], [place], [place], [phone],
--- OUTSIDE RECORDS SUMMARY | 2024-12-05 11:13 | XMS_ITS ---
Author Organization Marito Allen MD Address [address] [place], [place] [phone] Care Team Providers Care Firer Retort Name Role Phone Marito Allen Primary Care Provider REASON FOR VISIT yearly fasting labs Encounters Encounter Location Date Provider Diagnosis Marito Allen MD [address] [facility] [address] [address] [place], [place] [phone] 12/05/2024 Marito Allen Essential hypertensi on I10 ; Hypercholesterolemia E78.00 ; Liver lesion K76.9 and Prostatism N40.0 ASSESSMENTS Encounter Date Diagnosis Assessment Notes Treatment Notes Treatment Clinical Notes 12/05/2024 Essential hypertensi on (ICD-10 - I10) 12/05/2024 Hypercholesterolemia (ICD-10 - E78.00) 12/05/2024 Liver lesion (ICD-10 - K76.9) 12/05/2024 Prostatism (ICD-10 - N40.0) PLAN OF TREATMENT Pending Test Test Name Order Date Complete Blood Count Auto Diff Comprehensive [place]. Panel Fast Liver Panel 12/05/2024 Lipid Panel 12/05/2024 PSA,Total (Free>4and<10) 12/05/2024 UA ClnCatch+Micro w/rflx Cult 12/05/2024 Next Appt Details Provider Name:Marito Omer ier, 01/02/2025 10:00:00 AM, [address] [facility], [address], [place], [place], [phone],
--- OUTSIDE RECORDS SUMMARY | 2024-12-05 11:14 | XMS_ITS | Data Portability ---
Author Organization [facility], , [facility] Address [address] [place] [address] Care Team Providers Care Plant Tech Name Role Phone VALERIA MOSLEY Primary Care Provider FIDELIA GOODWIN [facility] [phone] Assessment Encounter Date Assessment Date Assessment LastModified by Organization Details LastModified Time 09/24/2020 09/24/2020 Patient agreed to this visit via a secure telehealth platform due to the COVID -19 pandemic. Patient understands this is a scheduled visit and the usual procedures with regard to billing and confidentiality apply. Patient was notified that the provider location is [facility] Patient location: home During the visit the [...] and Aorta Scan 2018 for same pain. [place] non concerning 2020 [facility], [address] [place] [address], [address], 1 12:45:10 Procedures None recorded. Surgeries None recorded. Imaging None recorded. Medication Orders selenium sulfide 2.25 % shampoo [address], [address], 0 14:27:41 tadalafil 20 mg tablet 2019 [address], [address], 0 14:27:41 fluocinoni de 0.05 % topical cream [address], [address], 1 08:28:52 Patient TargetsNo targets recorded. Patient Instructions Encounter Date Encounter Id Patient Instructions Last Modified By Organization Details Last Modified Time 09/24/2020 [id number] preventing falls : care instructions [email or web address] Not [...] was notified that the provider location is [facility] Patient location: home During the visit the patient? s medical history and medical record were reviewed. The patient was notified to call our office for worsening or urgent symptoms. [email or web address] Not available 09/24/2020 14:08:38 03/28/2021 [id number] Prostate Cancer Screening using PSA was discussed. [...] was notified that the provider location is [facility] Patient location: home During the visit the patient? s medical history and medical record were reviewed. The patient was notified to call our office for worsening or urgent symptoms. 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 [place] non concerning Referring Physician: Valeria Mosley, Family Medicine, Encounter Date: 08/23/2021 Results Created Date Observation Date Name Description Value Unit Range Abnormal Flag Note LastModifiedBy Organization Detail LastModifiedTime 03/22/20 21 03/22/2021 BMP, serum or plasm a glucose 89 mg/dL 70-100 Not Available [address], [address], 03/22/2021 12:20:56 03/22/20 21 03/22/2021 BMP, serum or plasm a BUN 14 mg/dL 7-18 Not Available [address], [address], 03/22/2021 12:20:56 03/22/20 21 03/22/2021 BMP, serum or plasm a creatinine 1.2 mg/dL 0.8-1. 3 Not Available [address], [address], 03/22/2021 12:20:56 03/22/20 21 03/22/2021 BMP, serum or plasm a B/C 11.7 ratio Not Available [address] [place], [address], 03/22/2021 12:20:56 03/22/20 21 03/22/2021 BMP, serum or plasm a GFR -non 64.4 mL/mi n Recom kailey d GFR by the Natio nal Kidne y Found ation >60 mL/mi n/1.7 3m2 - Rachana l <60 mL/mi n/1.7 3m2 - Chron ic Kidne y Disea se <15 mL/mi n/1.7 3m2 - Kidne y Failu re Not Available [address], [address], 03/22/2021 12:20:56 03/22/20 21 03/22/2021 BMP, serum or plasm a GFR - if 77.9 mL/mi n For Afric an Ameri can patie nts: Resul ts Multi plied by 1.21 Not Available [address], [address], 03/22/2021 12:20:56 03/22/20 21 03/22/2021 BMP, serum or plasm a sodium 138 mmol/ L 136-14 5 Not Available [address], [address], 03/22/2021 12:20:56 03/22/20 21 03/22/2021 BMP, serum or plasm a potassium 4.2 mmol/ L 3.5-5. 1 Not Available [address], [address], 03/22/2021 12:20:56 03/22/20 21 03/22/2021 BMP, serum or plasm a chloride 100 mmol/ L 96-107 Not Available [address], [address], 03/22/2021 12:20:56 03/22/20 21 03/22/2021 BMP, serum or plasm a anion gap 9.7 5.0-15 .0 Not Available [address], [address], 03/22/2021 12:20:56 03/22/20 21 03/22/2021 BMP, serum or plasm a CO2 28 mmol/ L 21-32 Not Available [address], [address], 03/22/2021 12:20:56 03/22/20 21 03/22/2021 BMP, serum or plasm a calcium 8.8 mg/dL 8.5-10 .3 Not Available [address], [address], 03/22/2021 12:20:56 03/22/20 21 03/22/2021 lipid panel , serum cholesterol 161 mg/dL <200 mg/dl Boubacar able 200-2 39 mg/dl Borde rline High >240 mg/dl High Not Available [address], [address], 03/22/2021 12:20:57 03/22/20 21 03/22/2021 lipid panel , serum triglyceride s 59 mg/dL <150 mg/dL Rachana l 150-1 99 mg/dL Borde rline High 200-4 99 mg/dL High >500 mg/dL Very High Not Available [address], [address], 03/22/2021 12:20:57 03/22/2003/22/2021 lipid panel , serum direct HDL 61 mg/dL <40 mg/dl - Major Risk for CHD >60 mg/dl - Negat wendi Risk for CHD Not Available [address], [address], 03/22/2021 12:20:57 03/22/2003/22/2021 LDL, rajani gray , [...] r is not neces mary. Not Available [facility] [address] [place], [address], 03/22/2021 12:20:58 01/04/20 22 01/04/2022 SARS- COV-2 RNA (COVI D-19) , QUALI TATIV E NAAT sarscov2 NEGATI VE negati ve normal This test has been autho rized by the FDA under an Emerg ency Use Autho rizat ion(E UA) for you by autho rized labs. 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 [facility] - Outpatient Radiology [address] [place] [address] [place], [address], 11/22/2021 16:57:30 Result Notes None recorded. Problems Name Problem SNOMED Code Status Onset Date Resolution Date Notes Provider Name and Address Organization Details Recorded Time Low back pain 143940830 Active 2018 Fidelia Goodwin, PT [address] [place], [address], [facility] 9 18:58:07 Shoulder pain 90194594 Active 2018 Fidelia Goodwin, PT [address] [place], [address], [facility] 9 13:27:23 Mixed hyperlipide erika 516427470 Active 2007 [place], [address], [facility] 6 12:05:17 Dyspnea 540113027 Completed 200110/15/2013 [place], [address], [facility] 6 10:20:57 Finding by method 703248150 Completed 200110/15/2013 [place], [address], [facility] 6 10:20:57 Abdominal pain 19874537 Completed 200510/15/2013 [place], [address], [facility] 6 10:20:57 Joint pain 56621695 Completed 200208/16/2015 [place], [address], [facility] 6 10:20:57 On examination - a rash Completed 200210/15/2013 [place], [address], [facility] 6 10:20:57 Herpes simplex 76994918 Active 2007 [place], [address], [facility] 6 10:20:57 Palpitation s 59804888 Active 2002 Taz Pineda MD [address] [place], [place] [address]G[place], [address], [facility] 6 10:20:57 Gastro-esop hageal reflux disease with esophagitis 080650590 Active 2007 Taz Pineda MD [facility], [address], [facility] 6 10:20:57 Benign essential hypertensio n 1979811 Active 2001 [place], [address], [facility] 6 12:05:17 Elevated blood-press ure reading without diagnosis of hypertensio n 046239364 Completed 200108/16/2015 Taz Pineda MD [facility] [place], [address], [facility] 6 10:20:57 Generalized abdominal pain 723067413 Completed 200510/15/2013 [place], [address], [facility] 6 10:20:57 Hip pain 99012695 Completed 200710/15/2013 [place], [address], [facility] 6 10:20:57 Problem Notes None recorded. Procedures Surgical History Date Name Laterality Status Provider Name and Address Organization Details Recorded Time 01/06/20 Bronson - Colonoscopy [place], [address], [facility] 01/06/2022 07:53:38 09/24/20 20 Medicare Wellness Visit completed Meche Diaz [facility] 09/24/2020 13:52:06 09/24/20 prevention-card iovascular risk reduction counseling completed Meche Diaz [facility] 09/24/2020 13:52:06 09/24/20 prevention-mariya al alcohol misuse screening completed Meche Diaz [facility] 09/24/2020 13:52:06 11/10/20 19 [address]: Therapeutic Exercise completed Fidelia Goodwin, PT [address] [place], [address], [facility] 11/10/2019 08:20:04 11/03/20 19 [address]: Therapeutic Exercise completed Fidelia Goodwin, PT [address] [place], [address], [facility] 11/03/2019 20:15:48 11/03/20 19 10831: Manual Therapy completed Fidelia Goodwin, [place], [address], [facility] 11/03/2019 20:16:55 11/03/20 19 45987: Ultrasound (1:1) completed Fidelia Goodwin, PT [address] [place], [address], [facility] 11/03/2019 20:16:11 10/27/20 Physical Activity Counselling completed Fidelia Goodwin, PT [address] [place], [address], [facility] 10/27/2019 13:22:38 10/27/20 19 77219: PT Eval, Moderate Complexity completed Fidelia Goodwin, PT [address] [place], [address], [facility] 10/27/2019 13:22:42 09/18/20 Medicare Wellness Visit completed Connie Berry [facility] 09/18/2019 08:52:49 02/25/20 19 14436: Therapeutic Exercise completed Fidelia Goodwin, PT [address] [place], [address], [facility] 02/24/2019 11:35:29 02/14/20 19 10560: Therapeutic Exercise completed Fidelia Goodwin, PT [address] [place], [address], [facility] 02/13/2019 10:03:12 02/07/20 19 03257: Therapeutic Exercise completed Fidelia Goodwin, PT [address] [place], [address], [facility] 02/06/2019 21:08:40 02/07/20 19 01288: Manual Therapy completed Fidelia Goodwin, PT [address] [place], [address], [facility] 02/06/2019 21:08:32 02/07/20 19 02288: Mechanical Traction completed Fidelia Goodwin, PT [address] [place], [address], [facility] 02/06/2019 20:47:24 02/04/20 19 79118: Therapeutic Exercise completed Fidelia Goodwin, PT [address] [place], [address], [facility] 02/03/2019 09:08:40 02/04/20 19 30498: Manual Therapy completed Fidelia Goodwin, PT [address] [place], [address], [facility] 02/03/2019 09:09:20 01/31/20 19 50765: Therapeutic Exercise completed Fidelia Goodwin, PT [address] [place], [address], [facility] 01/30/2019 16:00:38 01/31/20 19 85087: Ultrasound (1:1) completed Fidelia Goodwin, PT [address] [place], [address], [facility] 01/30/2019 16:00:32 01/28/20 19 51248: Therapeutic Exercise completed Fidelia Goodwin, PT [address] [place], [address], [facility] 01/27/2019 11:58:33 01/28/20 19 61889: Manual Therapy completed Fidelia Goodwin, PT [address] [place], [address], [facility] 01/27/2019 11:57:57 01/28/20 19 95248: Ultrasound (1:1) completed Fidelia Goodwin, PT [address] [place], [address], [facility] 01/27/2019 11:58:25 01/25/20 19 Physical Activity Counselling completed Fidelia Goodwin, PT [address] [place], [address], [facility] 01/24/2019 18:51:28 01/25/20 19 84933: PT Eval, Moderate Complexity completed Fidelia Goodwin, PT [address] [place], [address], [facility] 01/24/2019 18:51:34 09/18/20 18 POC Urinalysis Testing completed Michele De Guzman CMA [facility] 09/18/2018 11:37:50 01/26/20 18 POC Urinalysis Testing completed Betina Gutierrez LPN [facility] 01/25/2018 08:15:43 05/22/20 17 32092: Therapeutic Exercise completed Sudhir Enriquez, PT [address] [place], [address], [facility] 05/23/2017 06:29:49 05/15/20 17 95182: Therapeutic Exercise completed Sudhir Enriquez, PT [address] [place], [address], [facility] 05/15/2017 12:57:19 05/15/20 17 70060: Manual Therapy completed Sudhir Enriquez, PT [address] [place], [address], [facility] 05/15/2017 12:57:27 05/08/20 17 Physical Activity Counselling completed Sudhir Enriquez, PT [address] [place], [address], [facility] 05/09/2017 05:38:24 05/08/20 17 51345: PT Eval, Moderate Complexity completed Sudhir Enriquez, PT [address] [place], [address], [facility] 05/09/2017 05:38:20 04/07/20 11 Asthma Control Test (12 + years old) completed Taz Pineda MD [address] [place], [address], [facility] 04/07/2011 15:38:38 Imaging Results Imaging Date Name Status LastModified by Organiz ation Details LastModified Time 11/22/2021 US abdomen limited right upper quadrant completed [facility] [address] , [place], [address], 11/22/2021 16:57:29 11/22/2021 US, abdomen, limited completed [facility] [address] [place] [address] Dr, [place], [address], 11/22/2021 16:57:30 Procedure Notes None recorded. Medical [...] 180.34 cm 95.1 [degF] Aga Manley RN [facility] 09/24/2020 11:02:56 Date Recorded Body height Body mass index (BMI) Body weight Systolic blood pressure Diastolic blood pressure Provider Name and Address Organization Details Last Updated DateTime 03/28/2021 180.34 cm 23.9 kg/m2 01980.4 g 128 mm[Hg] 74 mm[Hg] Mcehe Diaz CMA [facility] 08:10:17 Date Recorded Body height Body mass index (BMI) Body weight Systolic blood pressure Diastolic blood pressure Provider Name and Address Organization Details Last Updated DateTime 08/23/2021 180.34 cm 23.3 kg/m2 13929.93 g 140 mm[Hg] 76 mm[Hg] Meche Diaz [facility] 1 13:35:53 Social History Question Answer Notes LastModified by Organizat ion Details LastModified Time Tobacco Smoking Status Former Smoker 3 PACK YRS. Only as teenager. 09/18/19 TG Taz Pineda MD [address] [place] [address], [address], [facility] 03/23/2011 09:13:23 Do You Have An Advance Directive? No Given Paperwork 03/04/10 Information not available 03/04/2010 What Is Your Level Of Alcohol Consumption? Moderate 7 Beers/week 09/18/19 TG [email or web address] Information not available 01/04/2016 Do You Wear A Helmet When Biking? Yes Information not available 08/16/2015 What Is Your Level Of Caffeine Consumption? Moderate 1-2 Cups Coffee Per Day [email or web address] Information not available 09/24/2020 How Much Tobacco Do You Chew? None Information not available 08/16/2015 What Type Of Diet Are You Following? REGULAR Information not available 08/16/2015 Which Illicit Or Recreational Drugs Have You Used? Marijuana 04/27/17 Twice A Week [email or web address] Information not available 04/27/2017 Do You Or Have You Ever Used E-cigarettes Or Vape? 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 No Information not available 08/16/2015 Live Alone Or With Others? With Others Information not available 10/12/2011 Does The Patient Have Difficulty Speaking Zambian? No Information not available 08/16/2015 Does The Patient Have Difficulty Reading Zambian? No Information not available 08/16/2015 Patient Has Health Care Proxy Signed And In Chart No Will Start Thinking About It. Gave Pt Form 09/18/19 TG Information not available 06/15/2014 CCM Consent Discussion 09/18/2019 [email or web address] Information not available 09/18/2019 Marital Status Informatio [...] Tobacco? Never Used Smokeless Tobacco 09/18/19 TG [email or web address] Information not available 09/18/2019 How Much Tobacco Do You Smoke? No Information not available 09/18/2019 General Stress Level Medium Information not available 08/16/2015 Do You Use Sunscreen Routinely? Yes Information not available 08/16/2015 How Many Years Have You Smoked Tobacco? 0 [email or web address] Information not available 09/18/2019 Sex: Unknown Functional [...] virus, trivalent, preservative 1 completed Not Available [facility] 12/13/2019 02:18:30 pneumococcal polysaccharide PPV23 3 completed Not Available [facility] 12/13/2019 02:38:04 Tdap 3 completed Not Available [facility] 12/13/2019 02:28:48 Influenza, split virus, quadrivalent, PF 6 completed Not Available [facility] 12/13/2019 02:26:36 Influenza, split virus, quadrivalent, PF 6 completed Not Available [facility] 12/13/2019 02:20:41 Influenza, split virus, trivalent, preservative 3 completed Irma Calvin LPN [facility] 10/16/2013 11:34:56 Influenza, split virus, quadrivalent, PF 7 completed Not Available [facility] 12/13/2019 02:39:35 Influenza, high-dose, trivalent, PF 9 completed Not Available [facility] 12/13/2019 02:24:36 Pneumococcal conjugate PCV 13 9 completed Not Available [facility] 12/13/2019 02:26:03 Influenza, split virus, quadrivalent, preservative 8 completed Lisa Roach MA null, [facility] 01/31/2019 08:58:34 Influenza, high-dose, quadrivalent, PF 0 completed Aga Manley RN null, [facility] 09/24/2020 11:03:28 COVID-19, mRNA, LNP-S, PF, 30 mcg/0.3 mL dose 1 completed Meche Diaz CMA null, [facility] 08/23/2021 13:34:24 COVID-19, mRNA, LNP-S, PF, 30 mcg/0.3 mL dose 1 completed SANDOVAL Dickinson, [facility] 08/23/2021 13:34:37 Past Encounters Encounter ID Performer Location Encounter Start Date Encounter Closed Date Diagnosis/Indication Diagnosis SNOMED-CT Code Diagnosis ICD10 Code Diagnosis Note [id number] [facility], OFFICE [address] [place] [address] 12/24/2001 16:45:00 12/16/2008 02:02:29 [id number] [facility], OFFICE [address] [place] [address] 01/06/2002 16:00:00 12/16/2008 02:02:29 [id number] CHAS[facility]Y [facility], OFFICE [address] [place] [address] 01/30/2002 15:30:00 12/16/2008 02:02:29 [id number] [facility], OFFICE [address] [place] [address] 04/29/2002 09:37:40 12/16/2008 02:02:29 [id number] [facility] , [facility] [address] [place] [address] 07/16/2002 15:35:20 12/16/2008 02:02:29 [id number] FP [facility], OFFICE [address] [place] [address] 07/16/2002 09:05:51 12/16/2008 02:02:29 [id number] FP [facility], OFFICE [address] [address] 06/26/2003 10:31:22 12/16/2008 02:02:29 [id number] FP [facility], OFFICE [address] [place] [id number] 08/17/2003 14:45:53 08/18/2003 11:40:22 [id number] FP [facility], OFFICE [address] [place] [id number] 08/18/2003 15:46:10 08/19/2003 11:32:02 [id number] FP [facility], OFFICE [address] [place] [address] 08/20/2003 00:00:00 12/16/2008 02:02:29 [id number] [facility]Y [facility], OFFICE [address] [id number] 11/16/2003 08:57:36 11/16/2003 16:37:17 [id number] LAB - [facility] [address] [place] [address] 11/16/2003 09:16:39 11/16/2003 12:59:47 [id number] FP [facility], OFFICE [address] [address] 06/04/2006 16:43:03 12/16/2008 02:02:29 [id number] [facility] , [facility] [address] [place] [address] 06/07/2006 14:57:01 06/07/2006 16:03:33 [id number] [facility], OFFICE [address] [place] [id number] 07/18/2006 13:29:17 07/19/2006 09:28:18 [id number] LAB - [facility] [address] [place] [address] 07/19/2006 07:39:47 07/19/2006 08:03:06 [id number] [facility] [address] [place] [address] 09/25/2006 09:15:27 09/26/2006 07:21:05 [id number] [facility], [address]ICE [address] [place] [address] 10/15/2007 14:58:57 12/16/2008 02:02:29 [id number] [facility] [facility], [address]ICE [address] [place] [address] 11/06/2007 15:58:22 12/16/2008 02:02:29 [id number] [facility] - [facility] [address] [place] [address] 11/22/2007 07:05:34 11/22/2007 07:05:40 [id number] [facility], OFFICE [address] [place] [address] 11/28/2007 09:22:46 12/16/2008 02:02:29 [id number] [facility] [place], [place] [address] 03/24/2008 15:41:22 12/16/2008 02:02:29 [id number] [facility] - [facility] [address] [place] [address] 03/30/2008 07:23:53 03/30/2008 07:23:57 [id number] [facility] [place], [place] [address] 07/06/2008 13:40:58 12/16/2008 02:02:29 [id number] [facility] [place], [place] [address] 03/04/2010 15:11:25 03/07/2010 09:25:05 [id number] [facility] [place], [place] [address] 03/11/2010 16:47:38 03/11/2010 17:44:45 [id number] [facility] [place], [place] [address] 04/08/2010 14:57:08 04/08/2010 15:27:52 [id number] [facility] [place], [place] [address] 05/05/2010 08:18:31 05/05/2010 09:03:35 [id number] [facility] [place], [place] [address] 05/13/2010 13:47:34 05/13/2010 15:03:11 [id number] [facility] [place], [place] [address] 08/08/2010 08:01:53 08/08/2010 10:14:41 [id number] Chaya Rio [facility] [place], OFFICE [address] [place] [address] DR MAGUIRE CHIVO [address]745 1 03/23/2011 08:44:40 03/23/2011 09:42:31 [id number] [facility] [place], OFFICE [address] [place] [address] DR JONESFELICIANOJordi CHIVO [address]-052 1 04/07/2011 15:01:17 04/10/2011 09:11:06 [id number] [facility] , [facility] [place] [address] [place] [address] Jonesersjordi CHIVO [address] 1 04/11/2011 14:49:13 04/12/2011 11:46:30 [id number] [facility] OFFICE [address] [place] [address] DR MAGUIRE CHIVO [address]7560-911 1 10/26/2011 09:22:03 10/26/2011 10:19:40 [id number] [facility] [place], OFFICE [address] [place] [address] DR MAGUIRE CHIVO 60971-533 1 11/07/2011 10:46:34 11/07/2011 11:08:14 [id number] [facility] [place], OFFICE [address] [place] [address] DR MAGUIRE CHIVO 688[address]-797 1 01/09/2012 09:20:06 01/09/2012 09:54:29 [id number] Taz Pineda MD [address] MAGUIRE CHIVO [address]555 1 01/09/2013 10:19:33 01/09/2013 10:42:26 [id number] Taz Pineda MD [address] MAGUIRE CHIVO [address]-098 1 04/17/2013 13:37:14 04/17/2013 14:01:44 [id number] , [address] MAGUIRE CHIVO [address]-760 1 06/12/2013 08:44:25 06/13/2013 07:43:16 [id number] Olga Lidia Mastrobert i [address] MAGUIRE CHIVO [address]-915 1 09/26/2013 13:48:02 09/26/2013 14:27:47 Chest pain [id number] Irma Calvin LPN , [facility] [place], OFFICE [address] [place] [address] [place] [address] 1 10/16/2013 10:21:51 10/16/2013 12:01:27 Chest pain 79070499 [id number] CHASIDY [facility] [place], OFFICE [address] [place] [address] 1 06/15/2014 15:24:13 06/15/2014 16:03:20 Adult health examination [id number] see Risk Assessment and Lifestyle Change Counseling section above Benign ess ential hypertension 8883162 Blood pressure at goal Rosacea 448597142 [id number] CHASIDY [facility] [place], OFFICE [address] [place] [address] 1 12/17/2014 16:40:19 12/17/2014 17:15:51 Benign essential hypertension 9065087 Blood pressure at goal Mixed hyperlipidemia 495474879 Performance anxiety 697340795 [id number] Taz Pineda MD , [facility] [place], OFFICE [address] [place] [address] [place] [address] 1 03/12/2015 10:18:25 03/12/2015 11:19:36 Benign essential hypertension 9042801 Blood pressure at goal Mixed hyperlipidemia 442965575 [id number] [facility] CH[place]O eaton [address] 4 06/09/2015 10:57:00 06/09/2015 13:28:05 Mixed hyperlipidemia 286711180 [id number] Danielle UMAÑA [facility] [place], OFFICE [address] [place] [address] [place] [address] 1 08/16/2015 08:18:41 08/17/2015 15:19:35 Palpitations 41497247 Mixed hyperlipidemia 166729095 [id number] Taz Pineda MD [facility] [place], OFFICE [address] [place] [address] [place] [address] 1 01/04/2016 10:03:15 01/04/2016 10:40:47 Benign essential hypertension 3617745 I10 Blood pressure at goal Mixed hyperlipidemia 267 408657 E78.2 Cholestero l is at goal Continue to work on diet and exercise as discussed Active or passive immunization 879509506 Z23 [id number] Taz Pineda MD , [facility] [place], OFFICE [address] [place] [address] [place] [address] 1 08/01/2016 08:28:01 08/01/2016 08:59:26 Rosacea 444194224 L71.9 Active or passive immunization 315289684 Z23 Glossitis 59071616 K14.0 Pityriasis versicolor 56 496593 B36.0 [id number] GERALDO Lynn, [facility] [place], OFFICE [address] [place] [address] 1 04/27/2017 07:55:18 04/30/2017 08:30:06 Low back pain 183636764 M54.5 Suspect muscular strain with sciatica into L leg. No tenderness to palpation of spinous processes or weakness of leg. Recommend home stretching , heating pad, massage, PT, and acupunctur e. Ibuprofen as below. If no improvemen t in 4-6 weeks, call back. [id number] Sudhir Cooper i, PT Physical Therapy, [address] [address] 05/08/2017 14:56:24 05/09/2017 13:29:25 Sciatica 67475601 M54.31 [id number] Sudhir Cooper i PT Physical Therapy, [address] [address] 1 05/15/2017 12:53:38 05/15/2017 13:39:27 Sciatica 94849132 M54.31 [id number] Sudhir Cooper i, PT Physical Therapy, [address] [address] 1 05/22/2017 13:52:27 05/23/2017 09:22:32 Sciatica 47679538 M54.31 [id number] Taz Pineda MD , [facility] [place], OFFICE [address] [place] [address] 1 06/01/2017 10:59:09 06/01/2017 11:45:43 Adult health examination 417362616 Z00.00 see Risk Assessment and Lifestyle Change Counseling section above Counseling 416689656 Z71 .9 Mixed hyperlipidemia 267 100612 E78.2 Benign ess ential hypertension 7752265 I10 Blood pressure at goal [id number] Taz Pineda MD , [facility] [place], OFFICE [address] [place] [address] 1 09/11/2017 14:58:41 09/11/2017 15:36:21 Active or passive immunization 987956463 Z23 Mixed hyperlipidemia 267 097744 E78.2 [id number] MD CHASIDY Thacker, [facility] [place], OFFICE [address] [place] [address] 1 12/04/2017 08:16:52 12/04/2017 08:47:10 Mixed hyperlipidemia 527605315 E78.2 Cholestero l is at goal Cholestero l is not at goal Continue to work on diet and exercise as discussed Benign ess ential hypertension 0000015 I10 Blood pressure at goal Blood pressure NOT at goal. [id number] Taz Pineda MD , [facility] [place], OFFICE [address] [place] [address] 1 01/25/2018 07:58:55 01/25/2018 08:26:20 Active or passive immunization 849033846 Z23 Perineal pain 363848145 R10.2 Pain of prostate 2787500 0 N42.81 [id number] Taz Pineda MD , [facility] [place], OFFICE [address] [place] [address] 1 02/19/2018 11:48:11 02/19/2018 12:09:23 Mixed hyperlipidemia 526996842 E78.2 Cholestero l is not at goal Continue to work on diet and exercise as discussed Benign ess ential hypertension 1732859 I10 Blood pressure at goal [id number] Taz Pineda MD , [facility] [place], OFFICE [address] [place] [address] 1 05/17/2018 08:31:45 05/17/2018 08:47:19 Mixed hyperlipidemia 142306968 E78.2 Benign ess ential hypertension 9804894 I10 Blood pressure at goal [id number] Taz Pineda MD , [facility] [place], OFFICE [address] [place] [address] 1 06/28/2018 09:47:57 06/28/2018 10:25:03 Adult health examination 991822781 Z00.00 see Risk Assessment and Lifestyle Change Counseling section above Counseling 978204744 Z71 .9 Depression screening 171 569007 Z13.89 depression screening tool administer ed, entered into emr, scored and discussed, time greater than 7.5 minutes Mixed hyperlipidemia 267 093559 E78.2 Benign ess ential hypertension 9973003 I10 Blood pressure at goal Gastro-eso phageal reflux disease with esophagitis 377284896 K21.0 [id number] John Lilly MD , [facility] [place], OFFICE [address] [place] [address] 1 09/18/2018 11:33:16 09/18/2018 16:31:00 Increased frequency of urination 349735725 R35.0 Informed Pt that he is negative for UTI based on urinalysis . Educate Pt that it is rare for male to get UTI and urinary frequency could most likely be due to BPH due to age. Advised Pt to have his follow-up with PCP. Pt reports she has an appointmen t tomorrow. All questions were addressed. Pt understand s and agrees with treatment plan [id number] Taz Pineda MD , [facility] [place], OFFICE [address] [place] [address] 1 12/27/2018 09:26:55 12/27/2018 09:57:59 Mixed hyperlipidemia 346134947 E78.2 Cholestero l is at goal Continue to work on diet and exercise as discussed Benign ess ential hypertension 3641145 I10 Blood pressure at goal Herpes simplex 98254746 B00.9 Impotence of organic origin 497133404 N52.9 [id number] Taz Pineda MD , [facility] [place], OFFICE [address] [place] [address] 1 01/24/2019 09:19:14 01/27/2019 10:06:40 Sacroiliac joint pain 793041181 M53.3 [id number] Fidelia Goodwin, PT Physical Therapy, [address] [address] 1 01/24/2019 11:23:36 01/27/2019 08:50:05 Low back pain 133908677 M54.5 [id number] Fidelia Goodwin PT Physical Therapy, [address] [place] [address] 1 01/27/2019 10:53:21 01/27/2019 12:04:39 Low back pain 199403609 M54.5 [id number] Fidelia Goodwin, PT Physical Therapy, [address] [address] 1 01/30/2019 13:04:20 01/30/2019 16:15:36 Low back pain 813871616 M54.5 [id number] Taz Pineda MD , [facility] [place], OFFICE [address] [place] [address] 1 01/31/2019 08:36:54 01/31/2019 11:14:15 Acute sciatica 466326196 M54.32 [id number] Fidelia Goodwin PT Physical Therapy, [address] [place] [address] 1 02/03/2019 08:28:00 02/03/2019 10:06:05 Low back pain 696213892 M54.5 [id number] Valeria Mosley MD , [facility] [place], OFFICE [address] [place] [address] 1 02/04/2019 09:53:40 02/04/2019 10:42:17 Acute sciatica 901724364 M54.32 S1 radiculiti s with ongoing motor weakness, unable to reliably toe stand or walk off ball of foot, 4/5., heel strikes ground earlier than contralate ral foot- obvious that the yane flexion 'breaks prematurel y in his gait. He also has loss of same sided achilles refllex, contralate ral is brisk. This indicated ongoing nerve compromise even though gastroc pain and left lumbosacra l pain has abated with PT and pred seen with [facility]- rational dicussed with [facility] complete pred, restart ibuprofen 2400 mg a day , continue rubberband strengthen ing exercises [id number] Fidelia Goodwin, PT Physical Therapy, [address] [place] [address] 1 02/06/2019 08:31:24 02/07/2019 08:10:28 Low back pain 072464065 M54.5 [id number] Fidelia Goodwin PT Physical Therapy, [address] [place] [address] 1 02/13/2019 08:27:50 02/13/2019 16:44:20 Low back pain 341788851 M54.5 [id number] Fidelia Goodwin PT Physical Therapy, [address] [place], [place] [address] 1 02/24/2019 11:31:34 02/24/2019 13:56:50 Low back pain 171499792 M54.5 [id number] Taz Pineda MD , [facility] [place], OFFICE [address] [place] [address] 1 09/18/2019 08:48:31 09/18/2019 09:34:24 Adult health examination 076017336 Z00.00 see Risk Assessment and Lifestyle Change Counseling section above Counseling 714732435 Z71 .9 Depression screening 171 603847 Z13.89 depression screening tool administer ed, entered into emr, scored and discussed, time greater than 7.5 minutes Mixed hyperlipidemia 267 766160 E78.2 Cholestero l is at goal Active or passive immunization 560694782 Z23 Benign ess ential hypertension 9472377 I10 Blood pressure at goal Ex-smoker 9149591 Z87.89 1 [id number] Taz Pineda MD , [facility] [place], OFFICE [address] [place] [address] 1 10/21/2019 08:00:51 10/21/2019 08:29:32 Pain of right shoulder joint 1460977957 7474018 M25.601 [id number] Fidelia Goodwin, PT Physical Therapy, [address] [address] 1 10/27/2019 10:33:28 10/27/2019 14:04:07 Shoulder pain 73423891 M25.766 [id number] Fidelia Goodwin PT Physical Therapy, [address] [address] 1 11/03/2019 08:58:05 11/04/2019 09:44:16 Shoulder pain 71009624 M25.836 [id number] Fidelia Goodwin PT Physical Therapy, [address] [address] 1 11/10/2019 08:00:42 11/10/2019 08:31:42 Shoulder pain 39534291 M25.298 [id number] Valeria Mosley MD , [facility] [place], OFFICE [address] [place] [address] 1 03/24/2020 08:09:38 03/24/2020 14:40:10 Mixed hyperlipidemia 845725016 E78.2 Cholestero l is at goal on ator 10 since begun 01/2018LDL at 79LDL had been 140 despite dietary attempts, until begun on atorF PR at 54, bros 55, 59 with PR's , all bad lifestyle Benign ess ential hypertension 8532702 I10 Blood pressure at goal on lisinopril 5 mg since at least 2009 for SBP 148, 144BP 130-120/80 -75 sinceoccas 140As Primary Prevention continue low low dose BENJAMIN indefinite ly Ex-smoker 7900879 Z87.89 1 quit age 20AAA screen neg 2019 Acute sciatica 185382293 M54.32 03/24/2020 pain freeis feeling better with yoga and PT seen PSS, reassurred by frank al is sense of numbness lateral foot and some hypaesthes ia (like i am walking on a string)pepe crum. May or may not resolve, i counselled 02/04/2019 S1 radiculiti s with ongoing motor weakness, unable to reliably toe stand or walk off ball of foot, 02/28., heel strikes ground earlier than contralate ral foot- obvious that the yane flexion 'breaks prematurel y in his gait. He also has loss of same sided achilles refllex, contralate ral is brisk. This indicated ongoing nerve compromise even though gastroc pain and left lumbosacra l pain has abated with PT and pred seen with [facility] physiatry referral- rational dicussed with [facility] complete pred, restart ibuprofen 2400 mg a day , continue rubberband strengthen ing exercises 01/2019 DesdawnMj is reporting numbness in his left LE, gastroc and lat foot with weakness of plantar flexion. This is unchanged with ex and PT tx (since 01/24). Shall we just continue or do you think a script would be called for? Performance anxiety 2796 21183 F40.248 propranolo l as needed Family his tory of Cardiovascular disease 658686951 Z82.49 F PR at 54, bros 55, 59 with PR's , all bad lifestyle Impotence of organic origin 290725571 N52.9 viagra 11/29 tab since 2010 Seborrheic dermatitis 50 491938 L21.9 michael sulfide very effective Polyp of gallbladder 197 755678 K82.4 small 2mm seen [place] in 2010needs followup [id number] Aga Manley RN , [facility] [place], OFFICE [address] [place] [address] 1 09/24/2020 11:02:10 09/29/2020 16:21:00 Active or passive immunization 469750158 Z23 [id number] Valeria Mosley MD , [facility] [place], OFFICE [address] [place] [address] 1 09/24/2020 13:51:26 09/29/2020 16:20:04 Adult health examination 279064841 Z00.00 Counseling 977185081 Z71 .9 including cardiovasc ular risk reduction counseling Depression screening 171 821338 Z13.89 depression screening tool administer ed, entered into emr, scored and discussed, time greater than 7.5 minutes Screening for alcohol abuse 013359832 Z13.39 Mixed hyperlipidemia 267 317348 E78.2 Cholestero l is at goal on ator 10 since begun 01/2018LDL at 79LDL had been 140 despite dietary attempts, until begun on atorF PR at 54, bros 55, 59 with PR's , all bad lifestyle Benign ess ential hypertension 7490091 I10 Blood pressure at goal on lisinopril 5 mg since at least 2009 for SBP 148, 144BP 130-120/80 -75 sinceoccas 140As Primary Prevention continue low low dose BENJAMIN indefinite ly Ex-smoker 3074800 Z87.89 1 quit age 20AAA screen neg 2019 Acute sciatica 338955371 M54.32 03/24/2020 pain freeis feeling better with yoga and PT seen PSS, reassurred by themScant residual is sense of numbness lateral foot and some hypaesthes ia (like i am walking on a string) when walking barefoot. Weakness has resolved May or may not resolve, i counselled 02/04/2019 S1 radiculiti s with ongoing motor weakness, unable to reliably toe stand or walk off ball of foot, 02/28., heel strikes ground earlier than contralate ral foot- obvious that the yane flexion 'breaks prematurel y in his gait. He also has loss of same sided achilles refllex, contralate ral is brisk. This indicated ongoing nerve compromise even though gastroc pain and left lumbosacra l pain has abated with PT and pred MRIL5-S1: Bulging disc with superimpos ed left central disc extrusion with approximat maritza 10 mm inferior migration contribute s to mild left neuroforam inal stenosis and mild canal stenosis. No right neuroforam inal stenosis. Extruded disc contacts the left S1 traversing nerve root. physiatry referral- rational dicussed with [facility] complete pred, restart ibuprofen 2400 mg a day , continue rubberband strengthen ing exercises 01/2019 Mj Chowdary is reporting numbness in his left LE, gastroc and lat foot with weakness of plantar flexion. This is unchanged with ex and PT tx (since 01/24). Shall we just continue or do you think a script would be called for? Performance anxiety 6886 11462 F40.248 propranolo l as needed Family his tory of Cardiovascular disease 828345842 Z82.49 F PR at 54, bros 55, 59 with PR's , all bad lifestyle Impotence of organic origin 447324601 N52.9 viagra / tab since 2010 Seborrheic dermatitis 50 750816 L21.9 michael sulfide very effective Polyp of gallbladder 197 304146 K82.4 small 2mm seen [place] in 2010needs followup [id number] Valeria Mosley MD , [facility] [place], OFFICE [address] [place] [address] 03/28/2021 08:06:14 03/28/2021 08:29:24 Mixed hyperlipidemia 648511120 E78.2 Cholestero l is at goal on ator 10 since begun 01/2018LDL at 79LDL had been 140 despite dietary attempts, until begun on atorF PR at 54, bros 55, 59 with PR's , all bad lifestyle Benign ess ential hypertension 0019765 I10 Blood pressure at goal on lisinopril 5 mg since at least 2009 for SBP 148, 144BP 130-120/80 -75 sinceoccas 140As Primary Prevention continue low low dose BENJAMIN indefinite ly Ex-smoker 6348222 Z87.89 1 quit age 20AAA screen neg 2019 Acute sciatica 226230859 M54.32 02/2021gene rally keeping active is best medicine. 03/24/2020 pain free is feeling better with yoga and PT seen PSS, reassurred by them Scant residual is sense of numbness lateral foot and some hypaesthes ia (like i am walking on a string) when walking barefoot. Weakness has resolved May or may not resolve, i counselled 02/04/2019 S1 radiculiti s with ongoing motor weakness, unable to reliably toe stand or walk off ball of foot, 4/5., heel strikes ground earlier than contralate ral foot- obvious that the yane flexion 'breaks prematurel y in his gait. He also has loss of same sided achilles refllex, contralate ral is brisk. This indicated ongoing nerve compromise even though gastroc pain and left lumbosacra l pain has abated with PT and pred MRI L5-S1: Bulging disc with superimpos ed left central disc extrusion with approximat maritza 10 mm inferior migration contribute s to mild left neuroforam inal stenosis and mild canal stenosis. No right neuroforam inal stenosis. Extruded disc contacts the left S1 traversing nerve root. physiatry referral- rational dicussed with Pt plan complete pred, restart ibuprofen 2400 mg a day , continue rubberband strengthen ing exercises 01/2019 Mj Chowdary is reporting numbness in his left LE, gastroc and lat foot with weakness of plantar flexion. This is unchanged with ex and PT tx (since 01/24). Shall we just continue or do you think a script would be called for? Performance anxiety 2796 86105 F40.248 propranolo l as needed Family his tory of Cardiovascular disease 267161898 Z82.49 F PR at 54, bros 55, 59 with PR's , all bad lifestyle Impotence of organic origin 530600876 N52.9 viagra 11/29 tab since 2010 Seborrheic dermatitis 50 081358 L21.9 michael sulfide very effective Polyp of gallbladder 197 208958 K82.4 small 2mm seen [place] in 2010needs followup Psoriasis 2778691 L40.9 laterally distal calves bilateral brawny discolorat ion and thickening , very excoriated , [place] rx fluocinoni de cream twice a day for 2 weeks then a suppressiv e regimen few days a week [id number] Valeria Mosley MD , [facility] [place], OFFICE [address] [place] [address] 08/23/2021 13:24:50 08/24/2021 14:03:14 Mixed hyperlipidemia 616301447 E78.2 Cholestero l is at goal on ator 10 since begun 01/2018LDL at 79LDL had been 140 despite dietary attempts, until begun on atorF PR at 54, bros 55, 59 with PR's , all bad lifestyle Benign ess ential hypertension 9694705 I10 08/23/2021 home BP's elevated, so he doubled lisinopril to 10 mg, *Blood pressure at goal on lisinopril 5 mg since at least 2009 for SBP 148, 144BP 130-120/80 -75 sinceoccas 140As Primary Prevention continue low low dose BENJAMIN indefinite ly Ex-smoker 8651071 Z87.89 1 quit age 20AAA screen neg 2019 Acute sciatica 352991891 M54.32 02/2021gene rally keeping active is best medicine. 03/24/2020 pain free is feeling better with yoga and PT seen PSS, reassurred by them Scant residual is sense of numbness lateral foot and some hypaesthes ia (like i am walking on a string) when walking barefoot. Weakness has resolved May or may not resolve, i counselled 02/04/2019 S1 radiculiti s with ongoing motor weakness, unable to reliably toe stand or walk off ball of foot, 4/5., heel strikes ground earlier than contralate ral foot- obvious that the yane flexion 'breaks prematurel y in his gait. He also has loss of same sided achilles refllex, contralate ral is brisk. This indicated ongoing nerve compromise even though gastroc pain and left lumbosacra l pain has abated with PT and pred MRI L5-S1: Bulging disc with superimpos ed left central disc extrusion with approximat maritza 10 mm inferior migration contribute s to mild left neuroforam inal stenosis and mild canal stenosis. No right neuroforam inal stenosis. Extruded disc contacts the left S1 traversing nerve root. physiatry referral- rational dicussed with Pt plan complete pred, restart ibuprofen 2400 mg a day , continue rubberband strengthen ing exercises 01/2019 DesdawnMj is reporting numbness in his left LE, gastroc and lat foot with weakness of plantar flexion. This is unchanged with ex and PT tx (since 01/24). Shall we just continue or do you think a script would be called for? Performance anxiety 2796 09005 F40.248 propranolo l as needed Family his tory of Cardiovascular disease 545345410 Z82.49 F PR at 54, bros 55, 59 with PR's , all bad lifestyle Impotence of organic origin 574262124 N52.9 viagra 11/29 tab since 2010 Seborrheic dermatitis 50 297339 L21.9 michael sulfide very effective Polyp of gallbladder 197 227796 K82.4 small 2mm seen [place] in 2010needs followup Psoriasis 5340385 L40.9 laterally distal calves bilateral brawny discolorat ion and thickening , very excoriated , [place] rx fluocinoni de cream twice a day for 2 weeks then a suppressiv e regimen few days a week [id number] Jaspal Yu RN [facility], [address] [address] 01/06/2022 06:46:27 01/06/2022 12:24:28 Health Concerns Section Related Observation LastModified by Organization Detai ls LastModified Time None Recorded Concern Status LastModified by Organization Details LastModified Time None Recorded Advance Directives Directive N: Given paperwork 03/04/10 Payers Encounter Date Sequence Insurance Name Policy Number Policy Easley Covered Member ID Easley Member ID Guarantor Name 09/24/2020 1 MEDICARE B-CT: NATIONAL [employer] Mj B Osiel [id number] Mj B Osiel 09/24/2020 2 [facility] [employer] PLAN - NAVIGATOR (PPO) [id number] Mj B Osiel [id number] Mj B Osiel 09/24/2020 1 MEDICARE B-CT: [employer] Mj B Osiel [id number] Mj B Osiel 09/24/2020 2 [facility] [employer] PLAN - NAVIGATOR (PPO) [id number] Mj B Osiel [id number] Mj B Osiel 03/28/2021 1 MEDICARE B-CT: [employer] Mj B Osiel [id number] Mj B Osiel 03/28/2021 2 [employer] PL[employer] - NAVIGATOR (PPO) [id number] Mj B Osiel [id number] Mj B Osiel 08/23/2021 1 MEDICARE B-CT: [employer] Mj B Osiel [id number] Mj B Osiel 08/23/2021 2 [facility] [employer] PLAN - NAVIGATOR (PPO) [id number] Mj B Osiel [id number] Mj B Osiel 01/06/2022 1 MEDICARE B-CT: [facility] [employer] Mj B Osiel [id number] Mj B Osiel 01/06/2022 2 [facility] [employer] PLAN - NAVIGATOR (PPO) [id number] Mj B Osiel [id number] Mj B Osiel Notes Date Note Type [...] ischemic heart disease; No peripheral vascular disease (74317); No diabetes; No carotid artery stenosis Ability to Manage Self CareOn how confident the patient feels in ability to self manage condition the patient selects 10 with 10 being very confident and 1 being very low confidence; Patient feels very confident in ability to self manage conditionNotes:DID HAVE CAD EVAL. WHICH WAS NEG. SPEECH LANGUAGE THERAPIST WANTED PT TO CONSIDER STATIN GIVEN FH.VMG [...] 23 24 25}} minutes. Valeria Mosley MD [address] [place] [address], [phone], [facility] 09/24/2020 14:28:24 1 text/html Physical Exam/MaleReported bypatient.PHAPatient [...] ischemic heart disease; No peripheral vascular disease ([id number]); No diabetes; No carotid artery stenosis Ability to Manage Self CareOn how confident the patient feels in ability to self manage condition the patient selects 10 with 10 being very confident and 1 being very low confidence; Patient feels very confident in ability to self manage conditionNotes:DID HAVE CAD EVAL. WHICH WAS NEG. SPEECH LANGUAGE THERAPIST WANTED PT TO CONSIDER STATIN GIVEN FH.VMG [...] 23 24 25}} minutes. Valeria Mosley MD [address] [place] [address], [phone], [facility] 03/28/2021 08:32:00 1 text/html Physical Exam/MaleReported bypatient.PHAPatient [...] ischemic heart disease; No peripheral vascular disease ([id number]); No diabetes; No carotid artery stenosis Ability to Manage Self CareOn how confident the patient feels in ability to self manage condition the patient selects 10 with 10 being very confident and 1 being very low confidence; Patient feels very confident in ability to self manage conditionNotes:DID HAVE CAD EVAL. WHICH WAS NEG. SPEECH LANGUAGE THERAPIST WANTED PT TO CONSIDER STATIN GIVEN FH.VMG [...] 23 24 25}} minutes. Valeria Mosley MD [address] [place] [address], [phone], [facility] 08/23/2021 17:39:40
[2024-12-05 11:34] LABS: Appearance Urine Clear; Color Urine Yellow; Glucose Urine UA Negative (Negative); Leukocyte Esterase Urine Trace (Negative); Nitrite Urine Negative (Negative); PH 6.5 (5.0-9.0); UMIC TRIGGER UACC YES; Urine Blood Negative (Negative); Urine Ketones Negative (Negative); Urine Protein Negative (Neg-Trace)
[2024-12-05 11:40] LABS: Bacteria Urine None Seen (None Seen); Hyaline Casts Urine 0-2 /LPF (0-2); RBC Urine 0-2 /HPF (0-2); Squamous Epithelial Cell Urine 0-2 /HPF (0-2); WBC Urine 0-5 /HPF (0-5)
[2024-12-05 11:47] LABS: Basophils Percent Auto 0.4 % (0-2); Eosinophils Absolute Auto 0.2 X10*3/uL (0.0-0.4); Hematocrit 47.5 % (42.0-52.0); Hemoglobin 16.5 g/dl (14.0-18.0); Imm Gran Abs Auto 0.04 X10*3/uL (0.00-0.03); Imm Gran Pct Auto 0.5 % (0.0-0.4); Lymphocytes Absolute Auto 2.3 X10*3/uL (1.2-4.9); Lymphocytes Percent Auto 29.4 % (20-40); Mean Corpuscular HGB Conc 34.7 g/dl (31.0-36.0); Mean Corpuscular Hemoglobin 34.4 pg (27.0-33.0); Mean Corpuscular Volume 99.2 fL (80.0-98.0); Mean Platelet Volume 11.8 fL (9.4-12.4); Monocytes Absolute Auto 1.1 X10*3/uL (0.1-1.2); Monocytes Percent Auto 14.4 % (2-11); Neutrophils Absolute Auto 4.2 x10*3/uL (2.0-8.3); Neutrophils Percent Auto 53.3 % (45-73); Platelet Count 204 X10*3/uL (160-400); Red Blood Count 4.79 X10*6/uL (4.60-5.80); Red Cell Distribution Width 12.7 % (11.0-16.0); White Blood Count 7.9 X10*3/uL (4.8-10.8)
[2024-12-05 12:17] LABS: PSA,Total (Free>4and<10) 1.16 ng/mL (0.00-4.00)
[2024-12-05 12:38] LABS: Alanine Aminotransferase 32 U/L (0-40); Alkaline Phosphatase 56 U/L (39-117); Anion Gap 9 (12-20); Aspartate Amino Transferase 29 U/L (5-37); Bilirubin Direct 0.3 mg/dL (0.0-0.5); Bilirubin Total 0.9 mg/dL (0.0-1.0); Blood Urea Nitrogen 14 mg/dL (9-16); Calcium 8.9 mg/dL (8.4-10.2); Carbon Dioxide 28 mmol/L (22-29); Chloride 107 mmol/L (96-108); Cholesterol 142 mg/dL (<200); Estimated Glomerular Filt Rate 47; Glucose Fasting 109 mg/dL (60-99); HDL Cholesterol 55 mg/dL (>40); LDL Cholesterol Calculated 70 mg/dL (<100); Sodium 140 mmol/L (135-145); Total Protein 6.5 g/dL (6.5-8.0); Triglycerides 87 mg/dL (<150)
== END 2024-12-05 11:06 | disposition home or self-care (01) ==
LOC: HO.LNP 11:05
PROVIDERS: Visit Provider Internal Medicine
DX: I10 Essential (primary) hypertension (principal); E78.00 Pure hypercholesterolemia, unspecified; K76.9 Liver disease, unspecified; N40.0 Benign prostatic hyperplasia without lower urinary tract symptoms; Z12.5 Encounter for screening for malignant neoplasm of prostate
CPT/HCPCS: 80053; 80061; 80076; 81001; 82248; 84153; 85025

== ENCOUNTER 2025-02-16 05:58 | Day surgery (SDC) | payer MEDICARE, SELFPAY ==
--- OUTSIDE RECORDS SUMMARY | 2025-02-06 11:29 | XMS_ITS ---
Author Organization Marito Allen MD Address [address] [place], [place] [id number] Care Team Providers Care Cloth Booker Name Role Phone Marito Allen Primary Care Provider Allergies No Known Allergies REASON FOR VISIT comp visit, c/o left foot pain constipation Medications Medication SIG (Take, Route, Frequency, Duration) Notes Start Date End Date Status Ibuprofen 800 MG 1 tablet with food o r milk as needed Orally Three times a day for 7 days 02/13/2023 Not-Taking valACYclovir HCl 500 MG take 2 tablet Or ally Once a day Orally Once a day for 90 days Active Lisinopril 10 MG 1 tablet Orally Once a day 90 days Orally Once a day for 90 days Not-Taking Ibuprofen 800 MG 1 tablet with food o r milk as needed Orally every 8 hrs for 30 days 06/06/2024 Not-Taki ng Sildenafil Citrate 100 MG 1 tablet as ne eded Orally Once a day as needed 30 day(s) Orally Once a day as needed for 90 days Active Atorvastatin Calcium 20 MG 1 tablet Orally Once a day for 90 days Active Metrogel 1 % 1 application Externally Once a day for 30 days 05/04/2023 Not-Taking Tamsulosin HCl 0.4 MG 1 capsule Orally O nce a day for 90 days 02/14/2024 Active Social History Tobacco Use: Social History Observation Description Date Details (start date - stop date) Never Smoker NA - NA Tobacco Use/Smoking Question Answer Notes Patient is a nonsmoker Additional Findings: Tobacco Non-User Cu rrent non-smoker, currently using no form of tobacco AUDIT-C (Standard) Question Answer Notes Did you have a drink contain ing alcohol in the past year? Yes How often did you have a dri nk containing alcohol in the past year? 2 to 4 times a month (2 points) How many drinks did you have on a typical day when you were drinking in the past year? 1 or 2 drinks (0 point) How often did you have six o r more drinks on one occasion in the past year? Never (0 point) Points 2 Interpretation Negative Vital Signs Blood pressure systolic 128 mm Hg 01/22/20 25 Blood pressure diastolic 70 mm Hg 025 Height 71.5 in 01/22/2025 Weight 164 lbs 01/22/2025 BMI 22.55 kg/m2 01/22/2025 weight is down 4 pounds [facility] 06-06-24 Encounters Encounter Location Date Provider Diagnosis Marito Allen MD [address] [place] [address] [address] [place] [phone] 01/22/2025 Marito Allen Elevated serum creat inine R79.89 ; Essential hypertension I10 ; Tubular adenoma of colon D12.6 ; Prostatism N40.0 ; Hypercholesterolemia E78.00 ; Colon cancer screening Z12.11 and Depression screening Z13.31 Assessments Encounter Date Diagnosis (ICD Code) Assessment Notes Treatment Notes Treatment Clinical Notes Section Notes 01/22/2025 Elevated serum creatinine (ICD-10 - R79.89) will continue to monitor , pending labs 01/22/2025 Essential hypertensi on (ICD-10 - I10) doing well off meds. , will continue current regiment 01/22/2025 Tubular adenoma of colon (ICD-10 - D12.6) not due for colonscopy 01/22/2025 Prostatism (ICD-10 - N40.0) discussed the risk of prostate cancer with finasteride 01/22/2025 Hypercholesterolemia (ICD-10 - E78.00) stable, will continue current regiment 01/22/2025 Colon cancer screeni ng (ICD-10 - Z12.11) guaiac negative 01/22/2025 Depression screening (ICD-10 - Z13.31) negative screen Plan Of Treatment Treatment Notes Assessment Notes Elevated serum creatinine will continue to monitor , pending labs Essential hypertension doing well off me ds. , will continue current regiment Tubular adenoma of colon not due for col onscopy Prostatism discussed the risk o f prostate cancer with finasteride Hypercholesterolemia stable, will contin ue current regiment Colon cancer screening guaiac negative Depression screening negative screen Pending Test Test Name Order Date Blood Urea Nitrogen 01/22/2025 Creatinine 01/22/2025 Next Appt Details Follow Up: 6 Months, Reason: Provider Name:Marito palacios, 07/17/2025 08:00:00 AM, [address] [place] [address], Suite [facility], [place], [place], [phone], Provider Name:Marito palacios, 07/24/2025 10:00:00 AM, [address] [place] [address] Drive, Suite [facility], [place], [place], [phone], Provider Name:Marito palacios, 01/18/2026 08:00:00 AM, [address] [place] [address], [address], [place], [place], [phone], Provider Name:Marito palacios, 01/25/2026 02:30:00 PM, [address] [place] [address], Suite [facility], [place], [place], [phone], Progress Notes * Mj CARTAGENADOB:1955 ( 69 yo M)Acc No.[id number]:01/22/2025 Patient:?Mj CARTAGENA Provider:?Marito Allen MD :1955???Age:69 Y???Sex:Male Leobardo e:01/22/2025 Address:[address] [place], [place] [id number] Subjective: * Chief Complaints: * ???Comp visitC/o left foot p ain constipation * HPI: ???Depression Screening:?PHQ-9?Little interest or pleasure in doing things?Not at all,?Feeling down, depressed, or hopeless?Not at all,?Trouble falling or staying asleep, or sleeping too much?Not at all,?Feeling tired or having little energy?Not at all,?Poor appetite or overeating?Not at all,?Feeling bad about yourself or that you are a failure, or have let yourself or your family down?Not at all,?Trouble concentrating on things, such as reading the newspaper or watching television?Not at all,?Moving or speaking so slowly that other people could have noticed; or the opposite, being so fidgety or restless that you have been moving around a lot more than usual?Not at all,?Thoughts that you would be better off or of hurting yourself in some way?Not at all,?Total Score?0.?Interpretation and Intervention?Depression Screening Findings?Negative,?Follow-Up for Depression?: review of PHQ-9 found negative result, no follow-up needed.?patient is a 69 yo male here for review if recednt labs and follow up of chronic issues, . brother had from copd. is being bothered by constipation. ???Communication Needs:?Communication Needs?Does the patient have a hearing impairment?No,?Does the patient have a vision impairment??Yes,?If yes, what is the vision impairment??Glasses,?Does the patient have a cognition impairment??No.?Fall Risk:?History?Have you had any falls with injury in the past year??No,?Have you had two or more falls in the past year??No.?SDOH Questions:?SDOH Questions?In the past year have you been worried about losing housing??No,?In the past year have you or any family members you live with been unable to get any of the following when it was really needed? Check all that apply:?None.? * ROS:?General/Constitutional:?Patient denies?fatigue, headache.?Change in appetite?denies.?Chills?denies.?Fever?denies.?Ophthalmologic:?Blurred vision?denies.?Discharge?denies.?Pain?denies.?ENT:?Patient denies?decreased sense of smell, any loss of taste, sore throat.?Decreased hearing?denies.?Sore throat?denies.?Swollen glands?denies.?Endocrine:?Cold intolerance?denies.?Excessive thirst?denies.?Heat intolerance?denies.?Weight loss?denies.?Respiratory:?Cough?denies.?Shortness of breath at rest?denies.?Shortness of breath with exertion?denies.?Wheezing?denies.?Cardiovascular:?Chest pain at rest?denies.?Chest pain with exertion?denies.?Irregular heartbeat?denies.?Shortness of breath?denies.?Gastrointestinal:?Patient complaining of?having costipation and taking metamucil and could use glycerin suppositories.?.?Abdominal pain?denies.?Change in bowel habits?denies.?Diarrhea?denies.?Nausea?denies.?Rectal bleeding?denies.?Vomiting?denies .?Genitourinary:?Patient complaining of?having difficulty with frequent urination.?Blood in urine?denies.?Difficulty urinating?denies.?Frequent urination?denies.?Musculoskeletal:?Patient denies?muscle aches.?Patient complaining of?foot pain in arch. -.?Painful joints?denies.?Weakness?denies.?Peripheral Vascular:?Patient denies?red and blue toes.?Skin:?Dry skin?denies.?Itching?denies.?Denies?Mole(s),? changes in moles, new moles or any lesions of concern.?Denies?Photosensitivity.?Rash?denies.?Neurologic:?Dizziness?denies.?Fainting?denies.?Headache?denies.? * Medical History:? * Surgical History:? * Hospitalization/Major Diagno stic Procedure:? * Family History:?Father: dece ased 55 yrs.?Mother: 94 yrs.?2 brother(s) . 2 son(s) . .? Father- [place] Mother- CVA 1 sister, No pertinent family medical history, Denies mental health/substance abuse family history, Denies mental health/substance abuse family history, Denies mental health/substance abuse family history, No pertinent family medical history, Denies mental health/substance abuse family history. * Social History:?Tobacco Use:?Tobacco Use/Smoking?Patient is a?nonsmoker,?Additional Findings: Tobacco Non-User?Current non-smoker, currently using no form of tobacco.?Miscellaneous:?Caffeine: no, 1-2 cups per day. Children: yes. Community involvements: yes. Exercise: no. Home smoke detector use: yes. Housing: owning. Living with: spouse. Marital status: . Occupation: weeks/months/years, works part-time. Travel outside of the [place]: no. ???Drug/Alcohol:?AUDIT-C (Standard)?Did you have a drink containing alcohol in the past year??Yes,?How often did you have a drink containing alcohol in the past year??2 to 4 times a month (2 points),?How many drinks did you have on a typical day when you were drinking in the past year??1 or 2 drinks (0 point),?How often did you have six or more drinks on one occasion in the past year??Never (0 point),?Points?2,?Interpretation?Negative.? * Medications:?TakingTamsulosi n HCl 0.4 MG Capsule 1 capsule Orally Once a day Atorvastatin Calcium 20 MG Tablet 1 tablet Orally Once a day Sildenafil Citrate 100 MG Tablet 1 tablet as needed Orally Once a day as needed 30 day(s) Orally Once a day as needed valACYclovir HCl 500 MG Tablet take 2 tablet Orally Once a day Orally Once a day Taking Tamsulosin HCl 0.4 MG Capsule 1 capsule Orally Once a day Taking Atorvastatin Calcium 20 MG Tablet 1 tablet Orally Once a day Taking Sildenafil Citrate 100 MG Tablet 1 tablet as needed Orally Once a day as needed 30 day(s) Orally Once a day as needed Taking valACYclovir HCl 500 MG Tablet take 2 tablet Orally Once a day Orally Once a day Not-Taking/PRNMetrogel 1 % Gel 1 application Externally Once a day Ibuprofen 800 MG Tablet 1 tablet with food or milk as needed Orally every 8 hrs Lisinopril 10 MG Tablet 1 tablet Orally Once a day 90 days Orally Once a day Ibuprofen 800 MG Tablet 1 tablet with food or milk as needed Orally Three times a day Medication List reviewed and reconciled with the patientNot-Taking/PRN Metrogel 1 % Gel 1 application Externally Once a day Not-Taking/PRN Ibuprofen 800 MG Tablet 1 tablet with food or milk as needed Orally every 8 hrs Not-Taking/PRN Lisinopril 10 MG Tablet 1 tablet Orally Once a day 90 days Orally Once a day Not-Taking/PRN Ibuprofen 800 MG Tablet 1 tablet with food or milk as needed Orally Three times a day Medication List reviewed and reconciled with the patient * Allergies:?N.K.D.A.yes[Aller gies Verified] Objective: * Vitals:?Ht: 71.5, Wt: 164, B NH:22.55, BP:128/70, Wt-k.39. weight is down 4 pounds since 06-06-24. * ???Past Orders: ???Lab:PSA,Total (Free>4and< 10) (Order Date - 12/05/2024) (Collection Date & Time - 12/05/2024 07:15 AM) ? Value Reference Range ?PSA,Total (Free>4and<10) 1.16 0.00-4.00 - ng/mL ???Lab:UA ClnCatch+Micro w/r flx Cult (Order Date - 12/05/2024) (Collection Date & Time - 12/05/2024 07:15 AM) ? Value Reference Range ?Color Urine Yellow - ?Appearance Urine Clear - ?PH 6.5 5.0-9.0 - ?Glucose Urine UA Negative Neg ative - mg/dL ?Urine Blood Negative Negative - ?Specific [place] - Urine 1.010 1.005-1.025 - ?Urine Protein Negative Neg-Tr zachariah - mg/dL ?Urine Ketones Negative Negati ve - mg/dL ?Nitrite Urine Negative Negati ve - ?Leukocyte Esterase Urine Trace A Negative - ?RBC Urine 0-2 0-2 - /HPF ?WBC Urine 0-5 0-5 - /HPF ?Squamous Epithelial Cell Urine 0-2 0-2 - /HPF ?Bacteria Urine None Seen None Seen - ?Hyaline Casts Urine 0-2 0-2 - /LPF ???Lab:Complete Blood Count Auto Diff (Order Date - 12/05/2024) (Collection Date & Time - 12/05/2024 07:15 AM) ? Value Reference Range ?White Blood Count 7.9 4. 8-10.8 - X10*3/uL ?Red Blood Count 4.79 4.60 -5.80 - X10*6/uL ?Hemoglobin 16.5 14.0-18.0 - g/dl ?Hematocrit 47.5 42.0-52.0 - % ?Mean Corpuscular Volume 99.2 H 80.0-98.0 - fL ?Mean Corpuscular Hemoglobin 34.4 H 27.0-33.0 - pg ?Mean Corpuscular HGB Conc 34.7 31.0-36.0 - g/dl ?Red Cell Distribution Width 12.7 11.0-16.0 - % ?Platelet Count 204 160-4 00 - X10*3/uL ?Mean Platelet Volume 11.8 9.4-12.4 - fL ?Neutrophils Percent Auto 53.3 45-73 - % ?Imm Gran Pct Auto 0.5 H 0. 0-0.4 - % ?Lymphocytes Percent Auto 29.4 20-40 - % ?Monocytes Percent Auto 14.4 H 2-11 - % ?Eosinophils Percent Auto 2.0 0-4 - % ?Basophils Percent Auto 0.4 0-2 - % ?NRBC Pct Auto 0.0 0.0-0. 2 - /100WBC ?Neutrophils Absolute Auto 4.2 2.0-8.3 - x10*3/uL ?Imm Gran Abs Auto 0.04 H 0. 00-0.03 - X10*3/uL ?Lymphocytes Absolute Auto 2.3 1.2-4.9 - X10*3/uL ?Monocytes Absolute Auto 1.1 0.1-1.2 - X10*3/uL ?Eosinophils Absolute Auto 0.2 0.0-0.4 - X10*3/uL ?Basophils Absolute Auto 0.0 0.0-0.2 - X10*3/uL ?NRBC Abs Auto 0.000 0.0-0. 012 - X10*3/uL ???Lab:Comprehensive [place]. P ange Fast (Order Date - 12/05/2024) (Collection Date & Time - 12/05/2024 07:15 AM) ? Value Reference Range ?Sodium 140 135-145 - mmo l/L ?Bilirubin Total 0.9 0.0- 1.0 - mg/dL ?Aspartate Amino Transferase 29 5-37 - U/L ?Alanine Aminotransferase 32 0-40 - U/L ?Total Protein 6.5 6.5-8. 0 - g/dL ?Albumin Level 4.0 3.5-5. 0 - g/dL ?Alkaline Phosphatase 56 39-117 - U/L ?Potassium 4.0 3.3-5.1 - mmol/L ?Chloride 107 96-108 - mm ol/L ?Carbon Dioxide 28 22-29 - mmol/L ?Anion Gap 9 L 12-20 - ?Blood Urea Nitrogen 14 9-16 - mg/dL ?Creatinine 1.47 H 0.5-1.4 - mg/dL ?Estimated Glomerular Filt Rate 47 - ?Glucose Fasting 109 H 60-9 9 - mg/dL ?Calcium 8.9 8.4-10.2 - m g/dL ???Lab:Liver Panel (Order [facility] 12/05/2024) (Collection Date & Time - 12/05/2024 07:15 AM) ? Value Reference Range ?Bilirubin Direct 0.3 0.0 -0.5 - mg/dL ???Lab:Lipid Panel (Order [facility] 12/05/2024) (Collection Date & Time - 12/05/2024 07:15 AM) ? Value Reference Range ?Triglycerides 87 <150 - mg/dL ?Cholesterol 142 <200 - m g/dL ?LDL Cholesterol Calculated 70 <100 - mg/dL ?HDL Cholesterol 55 >40 - mg/dL * Examination: ???General Examination: ?GENERAL APPEARANCE:?well developed, well nourished, in no acute distress.?HEAD:?normocephalic, atraumatic.?EYES:?pupils equal, round, reactive to light and accommodation, sclera non-icteric.?EARS:?normal.?ORAL CAVITY:?mucosa moist.?THROAT:?clear.?NECK/THYROID:?neck supple, full range of motion, no cervical lymphadenopathy, no bruits.?SKIN:?warm and dry, no suspicious lesions.?HEART:?regular rate and rhythm, S1, S2 normal, no murmurs.?LUNGS:?clear to auscultation bilaterally.?ABDOMEN:?soft, nontender, nondistended, bowel sounds present, normal, no organomegaly , no masses palpable.?RECTAL EXAM:?normal tone, no external hemorrhoids, no masses palpable, prostate normal, stool guaiac negative.?MALE GENITOURINARY:?not examined, circumcised, no penile lesions or discharge, no testicular mass, testes descended bilaterally, abnormal left inguinal hernia.?EXTREMITIES:?no clubbing, cyanosis, or edema.?NEUROLOGIC:?nonfocal, motor strength normal upper and lower extremities, sensory exam intact.? Assessment: * Assessment: 1.?Elevated serum creatinine - R79.89 (Primary)???2.?Essential hypertension - I10???3.?Tubular adenoma of colon - D12.6???4.?Prostatism - N40.0???5.?Hypercholesterolemia - E78.00???6.?Colon cancer screening - Z12.11???7.?Depression screening - Z13.31??? Plan: * Treatment: 2.?Essential hypertension? Notes: doing well off meds. , will continue current regiment?? 3.?Tubular adenoma of colon? Notes: not due for colonscopy?? 4.?Prostatism? Notes: discussed the risk of prostate cancer with finasteride?? 5.?Hypercholesterolemia? Notes: stable, will continue current regiment?? 6.?Colon cancer screening? Notes: guaiac negative?? 7.?Depression screening? Notes: negative screen?? * Procedure Codes:? * Follow Up:?6 Months * * Sign off status: Completed true * Provider:?Marito Allen MD Date:?0 01/22/2025 Generated for Jennifer mack/Marquise/eTransmitting on:?02/06/2025 11:29 AM EDT History and Physical Notes * HPI (History of Present Illness) Category Sub-Category Detail Notes Category Not es Depression Screening PHQ-9 Little inte rest or pleasure in doing things: Not at all patient is a 69 yo male here for review if recednt labs and follow up of chronic issues, . brother had from copd. is being bothered by constipation Feeling down, depressed, or hopeless: No t at all Trouble falling or staying asleep, or sl eeping too much: Not at all Feeling tired or having little energy: N ot at all Poor appetite or overeating: Not at all Feeling bad about yourself o r that you are a failure, or have let yourself or your family down: Not at all Trouble concentrating on thi ngs, such as reading the newspaper or watching television: Not at all Moving or speaking so slowly that other people could have noticed; or the opposite, being so fidgety or restless that you have been moving around a lot more than usual: Not at all Thoughts that you would be b addis off or of hurting yourself in some way: Not at all Total Score: 0 Interpretation and Intervention Depression Lynda cobos Findings: Negative Follow-Up for Depression: : review of PH Q-9 found negative result, no follow-up needed SDOH Questions SDOH Questions In the past year have you been worried about losing housing?: No In the past year have you or any family members you live with been unable to get any of the following when it was really needed? Check all that apply:: None Fall Risk History Have you had any falls with injury i n the past year?: No Have you had two or more falls in the st year?: No Communication Needs Communication Needs Does the patient have a hearing impairment: No Does the patient have a vision impairmen t?: Yes ?If yes, what is the vision impairment?: Glasses Does the patient have a cognition impair ment?: No Examination Category Sub-Category Detail Notes Category Not es General Examination GENERAL APPEARANCE: well dev eloped, well nourished, in no acute distress HEAD: normocephalic, atrau matic EYES: pupils equal, round, reactive to light and accommodation, sclera non- icteric EARS: normal THROAT: clear NECK/THYROID: neck supple, full ra nge of motion, no cervical lymphadenopathy, no bruits HEART: regular rate and rhy thm, S1, S2 normal, no murmurs LUNGS: clear to auscultatio n bilaterally ABDOMEN: soft, nontender, non distended, bowel sounds present, normal, no organomegaly , no masses palpable NEUROLOGIC: nonfocal, motor stre ngth normal upper and lower extremities, sensory exam intact SKIN: warm and dry, no jaqui picious lesions EXTREMITIES: no clubbing, cyanosi s, or edema MALE GENITOURINARY: not examined, circum cised, no penile lesions or discharge, no testicular mass, testes descended bilaterally, abnormal left inguinal hernia RECTAL EXAM: normal tone, no exte rnal hemorrhoids, no masses palpable, prostate normal, stool guaiac negative ORAL CAVITY: mucosa moist
--- OUTSIDE RECORDS SUMMARY | 2025-02-06 11:29 | XMS_ITS | Continuity of Care Document ---
Author Organization [facility] Address [address] 2nd [address] [place] [address]- Care Team Providers Care Plant Puller Name Role Phone Marito Allen MD Primary Care Physician [phone] Encounter [facility] [place] Date(s): 01/29/25 - 02/05/25 [facility] [address] [place] [address]- Encounter Diagnosis Family history of premature CAD(Discharge Diagnosis) - 01/27/25 Hyperlipidemia(Discharge Diagnosis) - 01/27/25 Hypertension(Discharge Diagnosis) - 01/27/25 Palpitations(Discharge Diagnosis) - 01/27/25 Attending Physician: Marquita Gill NP Admitting Physician: Marquita Gill NP Referring Physician: Marito Allen MD Encounter Type: Office Visit Allergies, Adverse Reactions, Alerts No Known Allergies Medications atorvastatin 20 mg oral tablet 1 tablet = 20 mg, By Mouth, Daily, # 90 tablet, 1 Refills, Maintenance, 07/31/24 5:03:00 PM EDT, Tablet, [id number], Partial fill upon patient request if the prescription is for a schedule II opioid drug., 182, cm, 07/31/24 14:54:00 EDT, Height, 76, kg, 02/13/24 18:45:00 EDT, Dry Weight Start Date: 07/31/24 Status: Ordered Quantity: 90.0 Unit: tablet Repeat number: 2 Bactrim DS 800 mg-160 mg oral tablet 1 tablet, By Mouth, 2 times a day, for 14 days, # 28 tablet, 0 Refills, Acute 02/11/25 3:32:00 PM EDT, 01/28/25 3:32:00 PM EST, Tablet, [id number], Partial fill upon patient request if the prescription is for a schedule II opioid drug., 1 tablet By Mouth 2 times a day,x14 days, 182, cm, 07/31/24 14:54:00 EDT, Height, 76, kg, 02/13/24 18:45:00 EDT, Dry Weight Start Date: 01/28/25 Stop Date: 02/11/25 Status: Ordered Quantity: 28.0 Unit: tablet Repeat number: 1 finasteride 5 mg oral tablet 1 tablet = 5 mg, By Mouth, Daily, # 30 tablet, 6 Refills, Maintenance, 12/31/24 1:55:00 PM EST, Tablet, [facility] #[id number], Partial fill upon patient request if the prescription is for a schedule II opioid drug., 182, cm, 07/31/24 14:54:00 EDT, Height, 76, kg, 02/13/24 18:45:00 EDT, Dry Weight Start Date: 12/31/24 Status: Ordered Quantity: 30.0 Unit: tablet Repeat number: 7 fluocinonide 0.05% topical cream 1 application, Topically, 2 times a day, # 15 Gm, 0 Refills, Maintenance, 11/16/21 1:24:00 PM EST, Cream, Partial fill upon patient request if the prescription is for a schedule II opioid drug. Start Date: 11/16/21 Status: Ordered Quantity: 15.0 Unit: g Repeat number: 1 sildenafil 100 mg oral tablet 1 tablet = 100 mg, By Mouth, Daily, 1 hour before sexual activity, # 5 tablet, 0 Refills, Maintenance, 11/16/21 1:26:00 PM EST, Tablet, Partial fill upon patient request if the prescription is for a schedule II opioid drug. Start Date: 11/16/21 Status: Ordered Quantity: 5.0 Unit: tablet Repeat number: 1 tamsulosin 0.4 mg oral capsule 0.4 mg, 1, capsule, By Mouth, Daily, # 90 capsule, Refills 3, Tot. Refills 3, Maintenance, 04/09/24 9:12:00 AM EDT, Route to Pharmacy Electronically, [facility], Partial fill upon patient request if the prescription is for a schedule II opioid drug., 182, cm, 04/09/24 8:14:00 EDT, Height, 76, kg, 02/13/24 18:45:00 EDT, Dry Weight Start Date: 04/09/24 Status: Ordered Quantity: 90.0 Unit: capsule Repeat number: 4 tamsulosin 0.4 mg oral capsule 0.4 mg, 1, capsule, By Mouth, Daily, # 30 capsule, Refills 0, Maintenance, 02/21/24 2:17:00 PM EDT, Partial fill upon patient request if the prescription is for a schedule II opioid drug. Start Date: 02/21/24 Status: Ordered Quantity: 30.0 Unit: capsule Repeat number: 1 valACYclovir 500 mg oral tablet 1,000 mg, 2, tablet, By Mouth, Daily, # 3 tablet, Refills 0, Maintenance, 11/16/21 1:26:00 PM EST, Partial fill upon patient request if the prescription is for a schedule II opioid drug. Start Date: 11/16/21 Stop Date: 11/19/21 Status: Ordered Quantity: 3.0 Unit: tablet Repeat number: 1 Problem List Condition Confirmation Course Effective Dates Status H ealth Status Informant Family history of premature CAD Confirmed Active Hyperlipidemia Confirmed Active Hypertension Confirmed Active Palpitations Confirmed Active Diagnosis Diagnosis Type Effective Dates Health Status Clinical Service Informant Family history of premature CAD Discharge Diagnosis 01/27/25 Hyperlipidemia Discharge Diagnosis 01/27/25 Hypertension Discharge Diagnosis 01/27/25 Palpitations Discharge Diagnosis 01/27/25 Vital Signs Most recent to oldest [Reference Range]: 1 Height 182 cm (01/29/25 1:27 PM) Weight 75.5 kg (01/29/25 1:27 PM) Oxygen Saturation [94-100 %] 100 % (01/29/25 1:27 PM) Pulse Rate [55-90 bpm] 82 bpm (01/29/25 1:27 PM) Body Mass Index [18.5-24.99 kg/m2] 22.79 kg/m2 (01/29/25 1:27 PM) Blood Pressure [90-138/55-84 mm Hg] 116/ 61mm Hg (01/29/25 1:27 PM) Blood pressure sites Arm, left (01/29/25 1:27 PM) Weight Obtained Via Standing scale (01/29/25 1:27 PM) Social History Social History Type Response Smoking Status Former smoker, quit more than 30 days ago entered on: 08/02/23 Sex Sex Representation Male (finding) Cardiology Outpatient Note * Oswald Chaparro MD: PERFORM Event Display: Cardiology Note Office Authored Date: [id number] Patient: ??VIN SINHA ? Age:??69 Years?Sex:??Male?:??1955?? Patient Hx Cardiology Shared Clinical Summary Family history of premature CAD (Farther with fatal TX in 50???s and two brothers with CAD in 50???s and 60???s). Hypertension Hyperlipidemia Palpitations.?? hall monitor worn for increased palpitations??01/09 through 02/08/2024?? Predominant rhythm is sinus rhythm.?? Minimum heart rate 53, average heart rate 76, maximum heart rate 132.?? There are occasional atrial runs with the longest lasting 43 beats and the fastest achieving 199 bpm.?? There are rare PACs and PVCs with less than 1% burden no evidence of atrial fibrillation or flutter.?? No pauses or heart block.?? There were 10 patient triggered events without specified symptoms all of which correlated with sinus rhythm with isolated PVCs.?? Atrial runs were asymptomatic/ not reported.?? Question 5 beat of NSVT although on review QRS not widened.?? Could be SVT.??No sig. VT ?? Tee??2023??LDL??69, HDL 55, trig. 54, total cholesterol 134. Indication for Consult FOLLOW UP VIIST, HTN History of Present Illness/Interval History 69-year-old man with a history of??hypertension, hyperlipidemia, family history of premature coronary disease, and palpitations with??documented??paroxysmal atrial tachycardia??comes to the office today for continuing treatment of??his cardiovascular issues.?? At his last visit,??lisinopril was started because of elevated blood pressure. ??He was subsequently also started on finasteride??for prostate issues.?? He brings a log of his blood pressures. ??They have been quite low at times. ??Systolics??have been in the 1 teens??to 130s, but on 1 occasion systolic blood pressure was 98.?He notes orthostatic lightheadedness on occasion but has not experienced syncope or near syncope. ??There are no symptoms of chest pain. ??He has not experienced unusual shortness of breath. ?? He has been dealing with a urinary tract infection recently??and notes that he feels quite poorly when this is the case. Review of Systems Constitutional:?? No fevers. Some chills with UTI. No weight loss.?? Notes fatigue Heart:?? No chest pain.?? No palpitations. No peripheral edema. Mild lightheadedness. Lungs:?? Notes shortness of breath with exertion.?? No orthopnea. Gastrointestinal:?? No nausea, or vomiting.?? No blood in stools or black stools. Musculoskeletal:Denies aches and pain Physical Exam Vitals & Measurements HR:??82??(Peripheral)?? BP:??116/61?? SpO2:??100%?? HT:??182??cm?? WT:??75.5??kg?? BMI:??22.79?? Weight lb/oz: 166 lb 7 oz General:?? No??acute distress. HEENT:??Pupils equal.?? Sclera nonicteric. ??Mucous membranes moist.?? Lungs:?? Clear to auscultation. Cor: Normal S1 and S2. Abdomen:?? Soft.?? Normal active bowel sounds Extremities:?? No edema Pulses:?? 2+ and symmetric Assessment/Plan 1.??Family history of premature CAD ??Continues with aggressive risk factor modification. 2.??Hyperlipidemia ??Well-controlled on atorvastatin. 3.??Hypertension ??Blood pressure somewhat overly controlled since finasteride was added for prostate issues.?? He will stop lisinopril and continue to monitor blood pressure. 4.??Palpitations ??Noted to have brief runs of atrial tachycardia??on the monitor.?? His symptoms are reasonably manageable at this point. ??He will continue to monitor. He will follow-up in 6 months. Problem List/Past Medical History Ongoing Family history of premature CAD Hyperlipidemia Hypertension Palpitations Procedure/Surgical History No qualifying data available. Home Medications atorvastatin 20 mg oral tablet, 20 mg= 1 tablet, By Mouth, Daily, 1 refills Bactrim DS 800 mg-160 mg oral tablet, 1 tablet, By Mouth, 2 times a day finasteride 5 mg oral tablet, 5 mg= 1 tablet, By Mouth, Daily, 6 refills fluocinonide 0.05% topical cream, 1 application, Topically, 2 times a day sildenafil 100 mg oral tablet, 100 mg= 1 tablet, By Mouth, Daily tamsulosin 0.4 mg oral capsule, 0.4 mg= 1 capsule, By Mouth, Daily, 3 refills tamsulosin 0.4 mg oral capsule, 0.4 mg= 1 capsule, By Mouth, Daily valACYclovir 500 mg oral tablet, 1000 mg= 2 tablet, By Mouth, Daily Lab Results Cardiology Labs Cardiac?? Lipid Studies?? CK, Total: 126 u/L (09/17/24) Cholesterol: 147 mg/dL (09/17/24) ?? Triglycerides: 55 mg/dL (09/17/24) ?? HDL Cholesterol: 63 mg/dL (09/17/24) ?? Non HDL Cholesterol: 84 mg/dL (09/17/24) ?? LDL Chol Calc ([facility]): 72 mg/dL (09/17/24) Diagnostic Impression ECG ECG 12-Lead ?? 14:46:57 Please click on pdf link to open report ?? Signed By: Oswald Chaparro MD ?? ECG 12-Lead ?? 14:46:57 Ventricular Rate: 71 BPM Atrial Rate: 71 BPM P-R Interval: 146 ms QRS Duration: 80 ms Q-T Interval: 386 ms QTC Calculation(Bazett): 419 ms P [place]: 57 degrees R [place]: 3 degrees T [place]: 47 degrees Sinus rhythm with occasional Premature ventricular complexes Otherwise normal ECG When compared with ECG of 05-JAN-2023 10:21, Premature ventricular complexes are now Present Confirmed ?? Signed By: Oswald Chaparro MD Stress Test No qualifying data available. Echo Echocardiogram - Complete ?? 12:19:26 Summary 1. Normal left ventricular size, wall thickness, and systolic function. Left ventricular ejection fraction is 57 % by biplane Perkins???s estimation. No regional wall motion abnormalities seen. Abnormal mitral annular TDI velocities suggest impaired LV relaxation. 2. The right ventricle is normal in size and function. 3. The atria are normal in size. 4. No significant valvular abnormalities. 5. The inferior vena cava size is normal (<= 2.1 cm) with normal inspiratory collapse (>50%), consistent with a right atrial pressure of approximately 3 mmHg. 6. There is no significant pericardial effusion. 7. The ascending aorta and aortic root are normal in size. ?? Comparison No prior study available for comparison. ?? Signature ?? Signed By: Taurus GOMEZ, Tim Osman Note * Dolores Flores: PERFORM Event Display: Patient Education/Instruction Authored Date: [id number] Ambulatory Adult Visit Summary [facility] [place] [id number] Name: VIN SINHA : 1955?? Visit: 01/29/2025 13:01?? Ambulatory Visit Instructions ?? Your Care Team Primary Care Provider Marito Allen MD? This Visit Provider Oswald Chaparro MD Your Diagnosis Family history of premature CAD Hyperlipidemia Hypertension Palpitations Vitals Signs Pulse Rate: 82 bpm Height: 182 cm Systolic Blood Pressure: 116 mm Hg Weight: 75.5 kg Diastolic Blood Pressure: 61 mm Hg Body Mass Index: 22.79 kg/m2 Oxygen Saturation: 100 % Body surface area: 1.95 What to do next Follow-Up Appointments Follow up Appointment - Ordered?-- 6 months, Marquita, 01/29/25 13:46:00 EST Future Orders PSA - Routine, Once, 07/18/24 10:13:00 EDT, Single or Recurring Future Order, [facility], Blood?? Medications The list below reflects the information in our records and provided by you today along with any changes made during this visit. Please continue your medications until treatment is completed or stopped by your provider. If this is different from the information you have or there are other questions,please contact the prescribing provider. What How Much When Instructions Unchanged Atorvastatin (atorvastatin 20 mg oral tablet) 1 tab(s) Oral Daily Unchanged Finasteride (finasteride 5 mg oral tablet) 1 tab(s) Oral Daily Unchanged Fluocinonide Topical (fluocinonide 0.05% topical cream) 1 cj Topically Twice a day Unchanged Sildenafil (sildenafil 100 mg oral tablet) 1 tab(s) Oral Daily 1 hour before sexual activity ?? Unchanged Sulfamethoxazole/ Trimethoprim (Bactrim DS 800 mg-160 mg oral tablet) 1 tab(s) Oral Twice a day Duration: 14 Days Unchanged Tamsulosin (tamsulosin 0.4 mg oral capsule) 1 capsule Oral Daily Unchanged Tamsulosin (tamsulosin 0.4 mg oral capsule) 1 capsule Oral Daily Unchanged ValACYclovir (valACYclovir 500 mg oral tablet) 2 tab(s) Oral Daily Duration: 3 Days ?? What How Much When Comments Stop Taking Lisinopril (lisinopril 5 mg oral tablet) 1 tab(s) Oral Daily Medications and Immunizations Administered Medications Given During Visit No medications given during this visit.?? Allergies (NKA means No Known Allergies) NKA Common Emergency Awareness Tips IS IT A STROKE? Act FAST and Check for these signs: FACE Does the face look uneven? ARM Does one arm drift down? SPEECH Does their speech sound strange? TIME Call at any sign of stroke ?? Heart Attack Signs Chest discomfort: Most heart attacks involve discomfort in the center of the chest and lasts more than a few minutes, or goes away and comes back. It can feel like uncomfortable pressure, squeezing, fullness or pain. Discomfort in upper body: Symptoms can include pain or discomfort in one or both arms, back, neck, jaw or stomach. Shortness of breath: With or without discomfort. Other signs: Breaking out in a cold sweat, nausea, or lightheaded. Remember, MINUTES DO MATTER. If you experience any of these heart attack warning signs, call to get immediate medical attention! ?? Smoking can increase your chances of developing chronic health problems and can cause harmful effects to other family members in your house. If you smoke, you are strongly encouraged to quit. Please call [employer] at [phone] or [phone] Toxicology ([phone]) or log in to [email or web address] for referrals to smoking cessation programs. ?? The National Suicide Prevention Hotline is available 18/06 if you or someone you know needs to find a reason to keep living. By calling 3-769-155-dkno (6371) you'll be connected to a skilled, trained counselor at a crisis center in your area. [facility] Portal You can view and manage your care through the patient portal or by using a health care cj of your choosing. [employer] is a website that allows you to securely view your medical information including your hospital discharge summary, office visit summaries, medications and follow-up visits. You can also request appointments, renew medications, and request access to your medical information using a health care cj of your choosing, or just ask a question. You can enroll at [email or web address] or register during your next office visit. [facility], in keeping with [facility] guidance, no longer requires face masks for staff, patientsor visitors in most situations. Similiar to time spent indoors at other locations, there is the chance that you were exposed to repiratory viruses during your time with us (such as flu or COVID-19). If you develop symptoms concerning for a viral respiratory infection, please seek testing (and treatment if indicated) from your medical provider or home test kit. ?? Disclaimer: The information provided is of a general nature and is intended to be used in conjunction with the recommendations and advice of your health care practitioner. Every effort has been made to ensure that the information provided is accurate and complete at the time it is provided to you however, as your needs change, or, as new information becomes available, different or additional instructions may be required. ?? If you have questions, please consult with your primary care provider or pharmacist, as appropriate. This information is not intended to serve as substitution for assessment and evaluation by a qualified health care provider. If you do not have a primary care provider, you may find a [facility] provider by calling [facility] Link at [phone]. Patient Care team information Care Team Personnel Name: Marito Allen MD Position: Reference Physician Member Role: PCP Address: [address] [place] [address]- Telecom: [phone] Care Team Related Persons Name: LAVERNE HARRISON Name: SAVANAH SINHA Insurance Providers Guarantor name: VIN FATIMAER Health Plan Information #: 2 Payer: GARCIA CORDOVA Member Number: [id number] Policy Number: NA Group Number: NA Health Plan Information #: 1 Payer: MEDICARE PART B OUTPT Member Number: [id number] Policy Number: NA Group Number: NA
--- OUTSIDE RECORDS SUMMARY | 2025-02-06 11:29 | XMS_ITS | Continuity of Care Document ---
Author Organization [facility] Address [address] [place] [address]- Care Team Providers Care Hims Manager Name Role Phone Tiffany GOMEZ, Marito Primary Care Physician [phone] Encounter [facility] Date(s): 12/30/24 - 01/29/25 [facility] [address] [place] [address]- Encounter Type: Triage Allergies, Adverse Reactions, Alerts No Known Allergies [...] Refills, Maintenance, 12/31/24 1:55:00 PM EST, Tablet, [facility] #[id number], Partial fill upon patient request if [...] 9:12:00 AM EDT, Route to Pharmacy Electronically, [facility], Partial fill upon patient request if [...] Active Hypertension Confirmed Active Palpitations Confirmed Active Social History Social History Type Response Smoking Status Former smoker, quit more than 30 days ago entered on: 08/02/23 Sex Sex Representation Male (finding) Patient Care team information Care Team Personnel Name: Marito Allen MD Position: Reference Physician Member Role: PCP Address: [address] [place] [address] [place] [address] Telecom: [phone] Care Team Related Persons Name: LAVERNE HARRISON Name: SAVANAH SINHA Insurance Providers Guarantor name: VIN SINHA Health Plan Information #: 1 Payer: MEDICARE PART B OUTPT Member Number: NA Policy Number: NA Group Number: NA Health Plan Information #: 2 Payer: GARCIA CORDOVA Member Number: NA Policy Number: NA Group Number: NA
--- OUTSIDE RECORDS SUMMARY | 2025-02-06 11:29 | XMS_ITS | Patient Health Record ---
Author Organization Marito Allen MD Address [address] [place], [place] [id number] Care Team Providers Care Equipment Installer Name Role Phone Marito Allen Primary Care Provider Allergies No Known Allergies Results Component Value Reference Range Notes Urinalysis and Microscopic Reviewed date:02/15/2024 12:49:48 PM Interpretation: Performing Lab:[facility], [place], [address] [place] [phone] Notes/Report: Color Urine Dark Yellow Appearance Urine Clear PH 6.5 5.0-9.0 Glucose Urine UA Negative Negative mg/dL Urine Blood Trace Negative Specific [place] - Urine 1.025 1.005-1.025 Urine Protein Negative [...] ff Reviewed date:02/22/2024 08:25:47 AM Interpretation: Performing Lab:[address] [phone] Notes/Report: White Blood Count 8.0 4.8-10.8 X10*3/uL [...] Microscopic Reviewed date:02/21/2024 02:28:47 PM Interpretation: Performing Lab:[facility], [place], [address] [place] [phone] Notes/Report: Color Urine Dark Yellow Appearance Urine Clear PH 6.5 5.0-9.0 Glucose Urine UA Negative Negative mg/dL Urine Blood Negative Negative Specific [place] - Urine 1.020 1.005-1.025 Urine Protein Negative Neg-Trace mg/dL Urine Ketones Negative Negative mg/dL Nitrite Urine Negative Negative Leukocyte Esterase Urine Small (1+) Negative RBC Urine 0-2 0-2 /HPF WBC Urine 0-5 0-5 /HPF Squamous Epithelial Cell Urine 0-2 0-2 /HPF Bacteria Urine None Seen None Seen Hyaline Casts Urine 0-2 0-2 /LPF Urine Culture Reviewed date:02/24/2024 08:48:11 AM Interpretation: Performing Lab:[facility], [place], [address] [place] [phone] Notes/Report: Urine Culture No growth. Complete Blood Count Auto Di ff Reviewed date:12/05/2024 05:18:25 PM Interpretation: Performing Lab:[facility], [place], [address] [place] [address] Notes/Report: White Blood Count 7.9 4.8-10.8 X10*3/uL Red Blood Count 4.79 4.60-5.80 X10*6/uL Hemoglobin 16.5 14.0-18.0 g/dl Hematocrit 47.5 42.0-52.0 % Mean Corpuscular Volume 99.2 80.0-98.0 fL Mean Corpuscular Hemoglobin 34.4 27.0-33.0 pg Mean Corpuscular HGB Conc 34.7 31.0-36.0 g/dl Red Cell Distribution Width 12.7 11.0-16.0 % Platelet Count 204 160-400 X10*3/uL Mean Platelet Volume 11.8 9.4-12.4 fL Neutrophils Percent Auto 53.3 45-73 % Imm Gran Pct Auto 0.5 0.0-0.4 % Lymphocytes Percent Auto 29.4 20-40 % Monocytes Percent Auto 14.4 2-11 % Eosinophils Percent Auto 2.0 0-4 % Basophils Percent Auto 0.4 0-2 % NRBC Pct Auto 0.0 0.0-0.2 /100WBC Neutrophils Absolute Auto 4.2 2.0-8.3 x10*3/u L Imm Gran Abs Auto 0.04 0.00-0.03 X10*3/uL Lymphocytes Absolute Auto 2.3 1.2-4.9 X10*3/u L Monocytes Absolute Auto 1.1 0.1-1.2 X10*3/uL Eosinophils Absolute Auto 0.2 0.0-0.4 X10*3/u L Basophils Absolute Auto 0.0 0.0-0.2 X10*3/uL NRBC Abs Auto 0.000 0.0-0.012 X10*3/uL Comprehensive [place]. Panel Fa st Reviewed date:12/05/2024 05:17:46 PM Interpretation: Performing Lab:[facility], [place], [address] [place] [phone] Notes/Report: Sodium 140 135-145 mmol/L Potassium 4.0 3.3-5.1 mmol/L Chloride 107 96-108 mmol/L Carbon Dioxide 28 22-29 mmol/L Anion Gap 9 12-20 Blood Urea Nitrogen 14 9-16 mg/dL Creatinine 1.47 0.5-1.4 mg/dL Estimated Glomerular Filt Rate 47 Chronic Kidney Disease: Estimated GFR < 60 mL/min/1.73m2 Severe Kidney Disease: Estimated GFR < 15 mL/min/1.73m2 Glucose Fasting 109 60-99 mg/dL A fasting glucose from 100-125 mg/dl is considered impaired (pre-diabetes). Calcium 8.9 8.4-10.2 mg/dL Bilirubin Total 0.9 0.0-1.0 mg/dL Aspartate Amino Transferase 29 5-37 U/L Alanine Aminotransferase 32 0-40 U/L Total Protein 6.5 6.5-8.0 g/dL Albumin Level 4.0 3.5-5.0 g/dL Alkaline Phosphatase 56 39-117 U/L Liver Panel Reviewed date:12/05/2024 05:18:56 PM Interpretation: Performing Lab:[facility], [place], [address] [place] [phone] Notes/Report: Bilirubin Direct 0.3 0.0-0.5 mg/dL Lipid Panel Reviewed date:12/05/2024 05:18:33 PM Interpretation: Performing Lab:[facility] [place], [address] [place] [phone] Notes/Report: Triglycerides 87 <150 mg/dL Desirable Triglyceride: less than 150 mg/dL Borderline High Triglyceride 150-199 mg/dL High Triglyceride: 200-499 mg/dL Very High Triglyceride: greater than or equal to 5OO mg/dL Cholesterol 142 <200 mg/dL Desirable Cholesterol: less than 200 mg/dL Borderline High Cholesterol: 200-239 mg/dL High Cholesterol: greater than 239 mg/dL LDL Cholesterol Calculated 70 <100 mg/dL Desirable LDL: less than 100 mg/dL Near Optimal/Above Optimal LDL: 110-129 mg/dL Borderline High LDL: 130-159 mg/dL High LDL: 160-189 mg/dL Very High LDL: greater than or equal to 190 mg/dL HDL Cholesterol 55 >40 mg/dL Desirable HDL: greater than 40 mg/dL Note: This HDL assay may give artificially low results in patients with liver disease. PSA,Total (Free>4and<10) Reviewed date:12/05/2024 05:17:58 PM Interpretation: Performing Lab:[facility], [place], [address] [place] [phone] Notes/Report: PSA,Total (Free>4and<10) 1.16 0.00-4.00 ng/mL A Free PSA was not [...] Sampson Alinity i Chemiluminescent Microparticle Immunoassay (CMIA) UA ClnCatch+Micro w/rflx Cul t Reviewed date:12/05/2024 05:18:48 PM Interpretation: Performing Lab:[facility] [place], [address] [place] [phone] Notes/Report: Urine, Clean Catch Color Urine Yellow Appearance Urine Clear PH 6.5 5.0-9.0 Glucose Urine UA Negative Negative mg/dL Urine Blood Negative Negative Specific [place] - Urine 1.010 1.005-1.025 Urine Protein Negative Neg-Trace mg/dL Urine Ketones Negative Negative mg/dL Nitrite Urine Negative Negative Leukocyte Esterase Urine Trace Negative RBC Urine 0-2 0-2 /HPF WBC Urine 0-5 0-5 /HPF Squamous Epithelial Cell Urine 0-2 0-2 /HPF Bacteria Urine None Seen None Seen Hyaline Casts Urine 0-2 0-2 /LPF Reason For Referral Reason prostatism Diagnosis 1 Prostatism (N40.0) Referral Organization Marito Allen MD Referring Provider First Name Marito Referring Provider Last Name Tiffany Referring Provider Speciality Internal M edicine Referred Provider [facility] office, [facility] [place] office Referred Provider Specialty Urology General Notes Rosalva Fatima 03:18:20 PM EDT > [facility] referral from faxed Akua Annette 02/26/2024 08:15:07 AM EDT > info mailed to patient Referral Priority Routine Referral Appointment Date 03/28/2024 Reason wrist pain right p lease eval and treat for physcial therapy Diagnosis 1 Wrist pain, right (M 25.531) Referral Organization Marito Allen MD Referring Provider First Name Marito Referring Provider Last Name Tiffayn Referring Provider Speciality Internal M edicine Referred Provider [facility] Referred Provider Specialty [...] Referral Priority Routine Referral Appointment Date 11/06/2024 Medications Medication SIG (Take, Route, Frequency, Duration) Notes Start Date End Date Status Ibuprofen 800 MG 1 tablet with food o r milk as needed Orally Three times a day for 7 days 02/13/2023 Not-Taking Atorvastatin Calcium 20 MG 1 tablet Orally Once a day for 90 days Active Metrogel 1 % 1 application Externally Once a day for 30 days 05/04/2023 Not-Taking Tamsulosin HCl 0.4 MG 1 capsule Orally O nce a day for 90 days 02/14/2024 Active valACYclovir HCl 500 MG take 2 [...] day as needed for 90 days Active Immunizations Vaccine Route Administration Date Status Comme nts SARS-COV-2 Pfizer Unknown 02/10/2021 Administered SARS-COV-2 Pfizer Unknown 03/05/2021 Administered SARS-COV-2 Moderna Unknown 10/13/2021 Administered Influenza High Dose IM Intramuscular 12/01/2021 Administer ed Influenza High Dose IM Intramuscular 12/04/2023 Administer ed Social History Tobacco Use: Social History Observation [...] Never (0 point) Points 2 Interpretation Negative Problems Problem Type SNOMED Code ICD Code Onset Dates Problem Status W/U Status Risk Notes Problem Sciatica (16346688) Sciatica (M54.30) Active confirmed Problem 088257633 PVC (premature ventricular contraction) (I49.3) Active confirmed Problem 28045652 Prostatism (N40.0) Active confirmed Problem Cardiac arrhythmia (938389937) Cardiac arrhythmia, unspecified (I49.9) Active confirmed Problem 074934600 Lumbar disc dise ase (M51.9) Active confirmed Problem 830857677 Tubular adenoma of colon (D12.6) Active confirmed Problem 72106438 Essential hypert ension (I10) Active confirmed Problem 746345629 Irregular heart beat (I49.9) Active confirmed Problem 757227229475343 Carpal tunnel sy ndrome of right wrist (G56.01) Active confirmed Problem Liver cyst (77152288) Liver cyst (K76.89) Active confirmed Problem 62443768 Hypercholesterol emia (E78.00) Active confirmed Problem Lesion of liver (130331297) Liver lesion (K76.9) Active confirmed Vital Signs Blood pressure diastolic 70 mm Hg 01/22/2025 lashae ght is down 4 pounds since 06-06-24 Height 71.5 in 01/22/2025 weight is down 4 pounds since 06-06-24 Blood pressure systolic 128 mm Hg 01/22/2025 lashaeg ht is down 4 pounds since 06-06-24 Weight 164 lbs 01/22/2025 weight is down 4 pounds since 06-06-24 BMI 22.55 kg/m2 01/22/2025 weight is down 4 pounds since 06-06-24 Encounters Encounter Location Date Provider Diagnosis Marito Allen MD [address] [place] [id number] 01/22/2025 Marito Allen Elevated serum creat inine R79.89 ; Essential hypertension I10 ; Tubular adenoma of colon D12.6 ; Prostatism N40.0 ; Hypercholesterolemia E78.00 ; Colon cancer screening Z12.11 and Depression screening Z13.31 Marito Allen MD [address] [place] [id number] 12/05/2024 Marito Allen Essential hypertensi on I10 ; Hypercholesterolemia E78.00 ; Liver lesion K76.9 and Prostatism N40.0 Marito Allen MD [address] [place] [id number] 02/08/2024 Marito Allen PVC (premature ventr icular contraction) I49.3 and Plantar fasciitis, bilateral M72.2 Marito Allen MD [address] [place] [address] [id number] 02/21/2024 Marito Allen Prostatism N40.0 ; Essential hypertension I10 ; Microscopic hematuria R31.29 ; Right inguinal hernia K40.90 and Gross hematuria R31.0 Marito Allen MD [address] [place] [id number] 06/06/2024 Marito Allen Carpal tunnel syndro me of right wrist G56.01 ; Essential hypertension I10 and Prostatism N40.0 Marito Allen MD [address] [place] [address] [id number] 02/14/2024 Marito Allen Gross hematuria R31. 0 ; Acute UTI N39.0 and Prostatism N40.0 Marito Allen MD [address] [place] [address] [id number] 02/15/2024 Marito Allen Prostatism N40.0 Marito Allen MD [address] [place] [address] [id number] 04/15/2024 Marito Tiffany Hypercholesterolemia E78.00 and Prostatism N40.0 Marito Allen MD [address] [place] [id number] 04/15/2024 Marito Jenniferardiernesto Hypercholesterolemia E78.00 and Prostatism N40.0 Marito Allen MD [address] [place] [address] [id number] 04/17/2024 Marito Allen Essential hypertensi on I10 Marito Allen MD [address] [place] [address] [id number] 05/08/2024 Marito Allen Prostatism N40.0 Marito Allen MD [address] [place] [address] [id number] 05/08/2024 Marito Jenniferardiernesto Hypercholesterolemia E78.00 Marito Allen MD [address] [place] [address] [id number] 06/10/2024 Marito Allen MD [address] [place] [address] [id number] 06/12/2024 Marito Allen MD [address] [place] [address] [id number] 07/01/2024 Marito Allen Liver lesion K76.9 Marito Allen MD [address] [place] [address] [id number] 02/09/2024 Marito Allen MD [address] [place] [address] [id number] 05/02/2024 Marito Allen MD [address] [place] [address] [id number] 05/30/2024 Marito Allen MD [address] [place] [address] [id number] 06/10/2024 Marito Allen Carpal tunnel syndro me of right wrist G56.01 Marito Allen MD [address] [place] [address] [id number] 08/14/2024 Marito Allen MD [address] [place] [address] [id number] 09/02/2024 Marito Allen MD [address] [place] [address] [id number] 09/22/2024 Marito Allen MD [address] [place] [address] [id number] 09/24/2024 Marito Allen MD [address] [place] [address] [id number] 10/20/2024 Marito Allen MD [address] [place] [address] [id number] 10/22/2024 Marito Allen MD [address] [place] [address] [id number] 10/25/2024 Marito Allen MD [address] [place] [address] [id number] 10/25/2024 Marito Allen MD [address] [place] [address] [id number] 10/25/2024 Marito Allen MD [address] [place] [address] [id number] 11/20/2024 Marito Allen MD [address] [place] [address] [id number] 01/01/2025 Marito Allen Assessments Encounter Date Diagnosis (ICD Code) Assessment Notes Treatment Notes Treatment Clinical Notes Section Notes 01/22/2025 Elevated serum creatinine (ICD-10 - R79.89) will continue to monitor , pending labs 01/22/2025 Essential hypertensi on (ICD-10 - I10) doing well off meds. , will continue current regiment 12/05/2024 Essential hypertensi on (ICD-10 - I10) 12/05/2024 Hypercholesterolemia (ICD-10 - E78.00) 02/08/2024 PVC (premature ventricular contraction) (ICD-10 - [...] any treatment, will continue to monitor 06/06/2024 Carpal tunnel syndro me of right wrist (ICD-10 - G56.01) advised to get futuro wrist splint, will continue to monitor 06/06/2024 Essential hypertensi on (ICD-10 - I10) having trouble with bp getting too low, will continue to monitor 02/14/2024 Gross hematuria [...] me of right wrist (ICD-10 - G56.01) 01/22/2025 Tubular adenoma of colon (ICD-10 - D12.6) not due for colonscopy 12/05/2024 Liver lesion (ICD-10 - K76.9) 02/21/2024 Microscopic hematuri a (ICD-10 - R31.29) pending labsm will cntinue to monitor 06/06/2024 Prostatism (ICD-10 - N40.0) doing well on tamzulosin, will continue current regiment 02/14/2024 Prostatism (ICD-10 - N40.0) referral to urology in [place] alicea 04/15/2024 Prostatism (ICD-10 - N40.0) 04/15/2024 Prostatism (ICD-10 - N40.0) 01/22/2025 Prostatism (ICD-10 - N40.0) discussed the risk of prostate cancer with finasteride 12/05/2024 Prostatism (ICD-10 - N40.0) 02/21/2024 Right inguinal herni a (ICD-10 - K40.90) discussed treatment. has had for many years. 01/22/2025 Hypercholesterolemia (ICD-10 - E78.00) stable, will continue current regiment 02/21/2024 Gross hematuria (ICD -10 - R31.0) pending labs, will continue to monitor 01/22/2025 Colon cancer screeni ng (ICD-10 - Z12.11) guaiac negative 01/22/2025 Depression screening (ICD-10 - Z13.31) negative screen Plan Of Treatment Pending Test Test Name Order Date Blood Urea Nitrogen 01/22/2025 Creatinine 01/22/2025 ECG 30 day event monitor 12/11/2023 US abdomen limited 07/09/2023 US abdomen limited 12/30/2021 US abdomen limited 07/01/2024 US abdomen limited 05/11/2023 US abdomen complete 05/23/2022 US abdomen complete 06/15/2022 Next Appt Details Provider Name:Marito palacios, 07/17/2025 08:00:00 AM, [address] [place] [address], [address] [place] [address], [phone], Provider Name:Marito olear, 07/24/2025 10:00:00 AM, [address] [place] [address], [address], [phone], Provider Name:Marito olear, 01/18/2026 08:00:00 AM, [address] [place] [address], [address] [place] [address], [phone], Provider Name:Marito olear, 01/25/2026 02:30:00 PM, [address], [address], [place], [place], [phone], Insurance Providers Payer Name Payer Address Payer Phone Subscriber Number Group Number Insured Name Patient Relationship to Insured Coverage Start Date Coverage End Date [employer] [address] [place] [address] [id number] Mj Cartagena Self - patient is the insured [facility] [id number] [place] [id number] Mj Cartagena Self - patient is the insured Medical (General) History Medical History History ICD Code colonoscopy 01/17 repeat in 5 years
--- OUTSIDE RECORDS SUMMARY | 2025-02-06 11:29 | XMS_ITS ---
Author Organization Marito Allen MD Address [address] [place], [place] [id number] Care Team Providers Care Rn First Assistant Name Role Phone Marito Allen Primary Care Provider Results Component Value Reference Range Notes Complete Blood Count Auto Di ff Reviewed date:12/05/2024 05:18:25 PM Interpretation: Performing Lab:[facility], [address] [place] [phone] Notes/Report: White Blood Count 7.9 4.8-10.8 X10*3/uL [...] NRBC Abs Auto 0.000 0.0-0.012 X10*3/uL Comprehensive [place]. Panel Fa Reviewed date:12/05/2024 05:17:46 PM Interpretation: Performing Lab:[address] [phone] Notes/Report: Sodium 140 135-145 mmol/L Potassium 4.0 [...] Panel Reviewed date:12/05/2024 05:18:56 PM Interpretation: Performing Lab:[address] [phone] Notes/Report: Bilirubin Direct 0.3 0.0-0.5 mg/dL Lipid Panel Reviewed date:12/05/2024 05:18:33 PM Interpretation: Performing Lab:[address] [phone] Notes/Report: Triglycerides 87 <150 mg/dL Desirable Triglyceride: [...] (Free>4and<10) Reviewed date:12/05/2024 05:17:58 PM Interpretation: Performing Lab:[address] [phone] Notes/Report: PSA,Total (Free>4and<10) 1.16 0.00-4.00 ng/mL A [...] t Reviewed date:12/05/2024 05:18:48 PM Interpretation: Performing Lab:[address] [phone] Notes/Report: Urine, Clean Catch Color Urine Yellow Appearance Urine Clear PH 6.5 5.0-9.0 Glucose Urine UA Negative Negative mg/dL Urine Blood Negative Negative Specific [place] - Urine 1.010 1.005-1.025 Urine Protein Negative Neg-Trace mg/dL Urine Ketones Negative Negative mg/dL Nitrite Urine Negative Negative Leukocyte Esterase Urine Trace Negative RBC Urine 0-2 0-2 /HPF WBC Urine 0-5 0-5 /HPF Squamous Epithelial Cell Urine 0-2 0-2 /HPF Bacteria Urine None Seen None Seen Hyaline Casts Urine 0-2 0-2 /LPF REASON FOR VISIT yearly fasting labs Encounters Encounter Location Date Provider Diagnosis Marito Allen MD [address] [place] [phone] 12/05/2024 Marito Allen Essential hypertensi on I10 ; Hypercholesterolemia E78.00 ; Liver lesion K76.9 and Prostatism N40.0 Assessments Encounter Date Diagnosis (ICD Code) Assessment Notes Treatment Notes Treatment Clinical Notes Section Notes 12/05/2024 Essential hypertensi on (ICD-10 - I10) 12/05/2024 Hypercholesterolemia (ICD-10 - E78.00) 12/05/2024 Liver lesion (ICD-10 - K76.9) 12/05/2024 Prostatism (ICD-10 - N40.0) Plan Of Treatment Next Appt Details Provider Name:Marito palacios, 07/17/2025 08:00:00 AM, [address] [place] [address], [phone], Provider Name:Marito palacios, 07/24/2025 10:00:00 AM, [address] [place] [address], [phone], Provider Name:Marito palacios, 01/18/2026 08:00:00 AM, [address] [place] [address], [phone], Provider Name:Marito palacios, 01/25/2026 02:30:00 PM, [address] [place] [address], [phone], Progress Notes * Nino CARTAGENAB:1955 ( 69 yo M)Acc No.[id number]:12/05/2024 Progress Note Patient:?Mj CARTAGENA Provider:?Marito Allen MD :1955???Age:69 Y???Sex:Male Leobardo e:12/05/2024 Address:[address] [place] [address] Subjective: * Chief Complaints: * ???1. Yearly fasting labs. * Medical History:? Objective: * Vitals:? Assessment: * Assessment: 1.?Essential hypertension - I10 (Primary)???2.?Hypercholesterolemia - E78.00???3.?Liver lesion - K76.9???4.?Prostatism - N40.0??? Plan: * Treatment: 2.?Hypercholesterolemia?LAB: Complete Blood Count Auto Diff (Collection Date & Time - 12/05/2024 07:15 AM) ?LAB: Comprehensive [place]. Panel Fast (Collection Date & Time - 12/05/2024 07:15 AM) ?LAB: Liver Panel (Collection Date & Time - 12/05/2024 07:15 AM) ?LAB: Lipid Panel (Collection Date & Time - 12/05/2024 07:15 AM) ?LAB: PSA,Total (Free>4and<10) (Collection Date & Time - 12/05/2024 07:15 AM) ?LAB: UA ClnCatch+Micro w/rflx Cult (Collection Date & Time - 12/05/2024 07:15 AM) 3.?Liver lesion?LAB: Complete Blood Count Auto Diff (Collection Date & Time - 12/05/2024 07:15 AM) ?LAB: Comprehensive [place]. Panel Fast (Collection Date & Time - 12/05/2024 07:15 AM) ?LAB: Liver Panel (Collection Date & Time - 12/05/2024 07:15 AM) ?LAB: Lipid Panel (Collection Date & Time - 12/05/2024 07:15 AM) ?LAB: PSA,Total (Free>4and<10) (Collection Date & Time - 12/05/2024 07:15 AM) ?LAB: UA ClnCatch+Micro w/rflx Cult (Collection Date & Time - 12/05/2024 07:15 AM) 4.?Prostatism?LAB: Complete Blood Count Auto Diff (Collection Date & Time - 12/05/2024 07:15 AM) ?LAB: Comprehensive [place]. Panel Fast (Collection Date & Time - 12/05/2024 07:15 AM) ?LAB: Liver Panel (Collection Date & Time - 12/05/2024 07:15 AM) ?LAB: Lipid Panel (Collection Date & Time - 12/05/2024 07:15 AM) ?LAB: PSA,Total (Free>4and<10) (Collection Date & Time - 12/05/2024 07:15 AM) ?LAB: UA ClnCatch+Micro w/rflx Cult (Collection Date & Time - 12/05/2024 07:15 AM) * Procedure Codes:?70504 VENIP UNCT, ROUTINE* * * The named appointment provid er may or may not be the originator of this progress note, and it is not deemed complete until electronically signed by the appointment provider. Sign off status: Pending * Provider:?Marito Allen MD Date:?0 12/05/2024 Generated for Jennifer mack/Marquise/eTgenovevasmitting on:?02/06/2025 11:28 AM EDT
--- OUTSIDE RECORDS SUMMARY | 2025-02-06 11:29 | XMS_ITS | Data Portability ---
Author Organization [facility], , [facility] Address [address] [place] [address] Care Team Providers Care Cosmetics Presser Name Role Phone VALERIA MOSLEY Primary Care Provider FIDELIA GOODWIN Phys. Med. & Rehab Assessment Encounter Date Assessment Date Assessment LastModified by Organization Details LastModified Time 09/24/2020 09/24/2020 Patient agreed to this visit via a secure telehealth platform due to the COVID -19 pandemic. Patient understands this is a scheduled visit and the usual procedures with regard to billing and confidentiality apply. Patient was notified that the provider location is [facility] Patient location: home During the visit the [...] and Aorta Scan 2018 for same pain. [place] non concerning 2020 [facility], [address] [place] [address], [address], 1 12:45:10 Procedures None recorded. Surgeries None recorded. Imaging None recorded. Medication Orders fluocinoni de 0.05 % topical cream 2020 021 [facility], [address] [place] [address], [address], 1 08:28:52 selenium sulfide 2.25 % shampoo [address], [address], 0 14:27:41 tadalafil 20 mg tablet [address], [address], 0 14:27:41 Patient TargetsNo targets recorded. Patient Instructions Encounter Date Encounter Id Patient Instructions Last Modified By Organization Details Last Modified Time 09/24/2020 [id number] preventing falls : care instructions [email or web address] Not [...] was notified that the provider location is [facility] Patient location: home During the visit the patient? s medical history and medical record were reviewed. The patient was notified to call our office for worsening or urgent symptoms. [email or web address] Not available 09/24/2020 14:08:38 03/28/2021 [id number] Prostate Cancer Screening using PSA was discussed. [...] was notified that the provider location is [facility] Patient location: home During the visit the patient? s medical history and medical record were reviewed. The patient was notified to call our office for worsening or urgent symptoms. 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 [place] non concerning Referring Physician: Valeria Mosley, Family Medicine, Encounter Date: 08/23/2021 Results Created Date Observation Date Name Description Value Unit Range Abnormal Flag Note LastModifiedBy Organization Detail LastModifiedTime 03/22/20 21 03/22/2021 BMP, serum or plasm a glucose 89 mg/dL 70-100 Not Available [address], [address], 03/22/2021 12:20:56 03/22/20 21 03/22/2021 BMP, serum or plasm a BUN 14 mg/dL 7-18 Not Available [address], [address], 03/22/2021 12:20:56 03/22/20 21 03/22/2021 BMP, serum or plasm a creatinine 1.2 mg/dL 0.8-1. 3 Not Available [address], [address], 03/22/2021 12:20:56 03/22/20 21 03/22/2021 BMP, serum or plasm a B/C 11.7 ratio Not Available [address] [place], [address], 03/22/2021 12:20:56 03/22/20 21 03/22/2021 BMP, serum or plasm a GFR -non 64.4 mL/mi n Recom kailey d GFR by the Natio nal Kidne y Found ation >60 mL/mi n/1.7 3m2 - Rachana l <60 mL/mi n/1.7 3m2 - Chron ic Kidne y Disea se <15 mL/mi n/1.7 3m2 - Kidne y Failu re Not Available [address], [address], 03/22/2021 12:20:56 03/22/20 21 03/22/2021 BMP, serum or plasm a GFR - if 77.9 mL/mi n For Afric an Ameri can patie nts: Resul ts Multi plied by 1.21 Not Available [address], [address], 03/22/2021 12:20:56 03/22/20 21 03/22/2021 BMP, serum or plasm a sodium 138 mmol/ L 136-14 5 Not Available [address], [address], 03/22/2021 12:20:56 03/22/20 21 03/22/2021 BMP, serum or plasm a potassium 4.2 mmol/ L 3.5-5. 1 Not Available [address], [address], 03/22/2021 12:20:56 03/22/20 21 03/22/2021 BMP, serum or plasm a chloride 100 mmol/ L 96-107 Not Available [address], [address], 03/22/2021 12:20:56 03/22/20 21 03/22/2021 BMP, serum or plasm a anion gap 9.7 5.0-15 .0 Not Available [address], [address], 03/22/2021 12:20:56 03/22/20 21 03/22/2021 BMP, serum or plasm a CO2 28 mmol/ L 21-32 Not Available [address], [address], 03/22/2021 12:20:56 03/22/20 21 03/22/2021 BMP, serum or plasm a calcium 8.8 mg/dL 8.5-10 .3 Not Available [address], [address], 03/22/2021 12:20:56 03/22/20 21 03/22/2021 lipid panel , serum cholesterol 161 mg/dL <200 mg/dl Boubacar able 200-2 39 mg/dl Borde rline High >240 mg/dl High Not Available [address], [address], 03/22/2021 12:20:57 03/22/20 21 03/22/2021 lipid panel , serum triglyceride s 59 mg/dL <150 mg/dL Rachana l 150-1 99 mg/dL Borde rline High 200-4 99 mg/dL High >500 mg/dL Very High Not Available [address], [address], 03/22/2021 12:20:57 03/22/2003/22/2021 lipid panel , serum direct HDL 61 mg/dL <40 mg/dl - Major Risk for CHD >60 mg/dl - Negat wendi Risk for CHD Not Available [address], [address], 03/22/2021 12:20:57 03/22/2003/22/2021 LDL, rajani gray , [...] r is not neces mary. Not Available [facility] [address] [place], [address], 03/22/2021 12:20:58 01/04/20 22 01/04/2022 SARS- COV-2 RNA (COVI D-19) , QUALI TATIV E NAAT sarscov2 NEGATI VE negati ve normal This test has been autho rized by the FDA under an Emerg ency Use Autho rizat ion(E UA) for you by autho rized labs. 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 [facility] [address] [place] [address] [place], [address], 11/22/2021 16:57:30 Result Notes None recorded. Problems Name Problem SNOMED Code Status Onset Date Resolution Date Notes Provider Name and Address Organization Details Recorded Time Low back pain 096711915 Active 2018 Fidelia Goodwin, PT [address] [place], [address], [facility] 9 18:58:07 Shoulder pain 87896836 Active 2018 Fidelia Goodwin, PT [address] [place], [address], [facility] 9 13:27:23 Mixed hyperlipide erika 085765004 Active 2007 [place], [address], [facility] 6 12:05:17 Dyspnea 543538768 Completed 200110/15/2013 [place], [address], [facility] 6 10:20:57 Finding by method [id number] Completed 200110/15/2013 [place], [address], [facility] 6 10:20:57 Abdominal pain 55175629 Completed 200510/15/2013 [place], [address], [facility] 6 10:20:57 Joint pain 65475055 Completed 200208/16/2015 [place], [address], [facility] 6 10:20:57 On examination - a rash Completed 200210/15/2013 [place], [address], [facility] 6 10:20:57 Herpes simplex 18228685 Active 2007 [place], [address], [facility] 6 10:20:57 Palpitation s 27834364 Active 2002 Taz Pineda MD [address] [place], [place] [address]G[place], [address], [facility] 6 10:20:57 Gastro-esop hageal reflux disease with esophagitis 642483445 Active 2007 Taz Pineda [place], [address], [facility] 6 10:20:57 Benign essential hypertensio n 4563279 Active 2001 [place], [address], [facility] 6 12:05:17 Elevated blood-press ure reading without diagnosis of hypertensio n 964080027 Completed 200108/16/2015 Taz Pineda [place], [address], [facility] 6 10:20:57 Generalized abdominal pain 354609339 Completed 200510/15/2013 [place], [address], [facility] 6 10:20:57 Hip pain 53479642 Completed 200710/15/2013 [place], [address], [facility] 6 10:20:57 Problem Notes None recorded. Procedures Surgical History Date Name Laterality Status Provider Name and Address Organization Details Recorded Time 01/06/20 Bronson - Colonoscopy completed [place], [address], [facility] 01/06/2022 07:53:38 09/24/20 20 Medicare Wellness Visit completed Meche Diaz [facility] [place] 09/24/2020 13:52:06 09/24/20 prevention-card iovascular risk reduction counseling completed Meche Diaz [facility] [place] 09/24/2020 13:52:06 09/24/20 prevention-mariya al alcohol misuse screening completed Meche Diaz [facility] [place] 09/24/2020 13:52:06 11/10/20 19 [address]: Therapeutic Exercise completed Fidelia Goodwin, PT [address] [place], [address], [facility] 11/10/2019 08:20:04 11/03/20 19 [address]: Therapeutic Exercise completed Fidelia Goodwin, PT [address] [place], [address], [facility] 11/03/2019 20:15:48 11/03/20 19 55144: Manual Therapy completed Fidelia Goodwin, [place], [address], [facility] 11/03/2019 20:16:55 11/03/20 19 29936: Ultrasound (1:1) completed Fidelia Goodwin, PT [address] [place], [address], [facility] 11/03/2019 20:16:11 10/27/20 Physical Activity Counselling completed Fidelia Goodwin, PT [address] [place], [address], [facility] 10/27/2019 13:22:38 10/27/20 19 82844: PT Eval, Moderate Complexity completed Fidelia Goodwin, PT [address] [place], [address], [facility] 10/27/2019 13:22:42 09/18/20 Medicare Wellness Visit completed Connie Berry [facility] 09/18/2019 08:52:49 02/25/20 19 66147: Therapeutic Exercise completed Fidelia Goodwin, PT [address] [place], [address], [facility] 02/24/2019 11:35:29 02/14/20 19 39136: Therapeutic Exercise completed Fidelia Goodwin, PT [address] [place], [address], [facility] 02/13/2019 10:03:12 02/07/20 19 49540: Therapeutic Exercise completed Fidelia Goodwin, PT [address] [place], [address], [facility] 02/06/2019 21:08:40 02/07/20 19 28484: Manual Therapy completed Fidelia Goodwin, PT [address] [place], [address], [facility] 02/06/2019 21:08:32 02/07/20 19 50920: Mechanical Traction completed Fidelia Goodwin, PT [address] [place], [address], [facility] 02/06/2019 20:47:24 02/04/20 19 19624: Therapeutic Exercise completed Fidelia Goodwin, PT [address] [place], [address], [facility] 02/03/2019 09:08:40 02/04/20 19 24587: Manual Therapy completed Fidelia Goodwin, PT [address] [place], [address], [facility] 02/03/2019 09:09:20 01/31/20 19 64611: Therapeutic Exercise completed Fidelia Goodwin, PT [address] [place], [address], [facility] 01/30/2019 16:00:38 01/31/20 19 29720: Ultrasound (1:1) completed Fidelia Goodwin, PT [address] [place], [address], [facility] 01/30/2019 16:00:32 01/28/20 19 30518: Therapeutic Exercise completed Fidelia Goodwin, PT [address] [place], [address], [facility] 01/27/2019 11:58:33 01/28/20 19 04084: Manual Therapy completed Fidelia Goodwin, PT [address] [place], [address], [facility] 01/27/2019 11:57:57 01/28/20 19 92256: Ultrasound (1:1) completed Fidelia Goodwin, PT [address] [place], [address], [facility] 01/27/2019 11:58:25 01/25/20 19 Physical Activity Counselling completed Fidelia Goodwin, PT [address] [place], [address], [facility] 01/24/2019 18:51:28 01/25/20 19 13027: PT Eval, Moderate Complexity completed Fidelia Goodwin, PT [address] [place], [address], [facility] 01/24/2019 18:51:34 09/18/20 18 POC Urinalysis Testing completed Michele De Guzman CMA [facility] 09/18/2018 11:37:50 01/26/20 18 POC Urinalysis Testing completed Betina Gutierrez LPN [facility] 01/25/2018 08:15:43 05/22/20 17 71349: Therapeutic Exercise completed Sudhir Enriquez, PT [address] [place], [address], [facility] 05/23/2017 06:29:49 05/15/20 17 61682: Therapeutic Exercise completed Sudhir Enriquez, PT [address] [place], [address], [facility] 05/15/2017 12:57:19 05/15/20 17 09191: Manual Therapy completed Sudhir Enriquez, PT [address] [place], [address], [facility] 05/15/2017 12:57:27 05/08/20 17 Physical Activity Counselling completed Sudhir Enriquez, PT [address] [place], [address], [facility] 05/09/2017 05:38:24 05/08/20 17 19379: PT Eval, Moderate Complexity completed Sudhir Enriquez, PT [address] [place], [address], [facility] 05/09/2017 05:38:20 04/07/20 11 Asthma Control Test (12 + years old) completed Taz Pineda MD [address] [place], [address], [facility] 04/07/2011 15:38:38 Imaging Results Imaging Date Name Status LastModified by Organiz ation Details LastModified Time 11/22/2021 US abdomen limited right upper quadrant completed [facility] [address] , [place], [address], 11/22/2021 16:57:29 11/22/2021 US, abdomen, limited completed [facility] [address] [place] [address] Dr, [place], [address], 11/22/2021 16:57:30 Procedure Notes None recorded. Medical [...] 180.34 cm 95.1 [degF] Aga Manley RN [facility] 09/24/2020 11:02:56 Date Recorded Body height Body mass index (BMI) Body weight Systolic blood pressure Diastolic blood pressure Provider Name and Address Organization Details Last Updated DateTime 03/28/2021 180.34 cm 23.9 kg/m2 46505.4 g 128 mm[Hg] 74 mm[Hg] Meche Diaz CMA [facility] 08:10:17 Date Recorded Body height Body mass index (BMI) Body weight Systolic blood pressure Diastolic blood pressure Provider Name and Address Organization Details Last Updated DateTime 08/23/2021 180.34 cm 23.3 kg/m2 70675.93 g 140 mm[Hg] 76 mm[Hg] Meche Diaz [facility] [place] 1 13:35:53 Social History Question Answer Notes LastModified by Organizat ion Details LastModified Time Tobacco Smoking Status Former Smoker 3 PACK YRS. Only as teenager. 09/18/19 TG Taz Pineda MD [address] [place] [address], [address], [facility] 03/23/2011 09:13:23 Do You Have An Advance Directive? No Given Paperwork 03/04/10 Information not available 03/04/2010 What Is Your Level Of Alcohol Consumption? Moderate 7 Beers/week 09/18/19 TG [email or web address] Information not available 01/04/2016 Do You Wear A Helmet When Biking? Yes Information not available 08/16/2015 What Is Your Level Of Caffeine Consumption? Moderate 1-2 Cups Coffee Per Day [email or web address] Information not available 09/24/2020 How Much Tobacco Do You Chew? None Information not available 08/16/2015 What Type Of Diet Are You Following? REGULAR Information not available 08/16/2015 Which Illicit Or Recreational Drugs Have You Used? Marijuana 04/27/17 Twice A Week [email or web address] Information not available 04/27/2017 Do You Or Have You Ever Used E-cigarettes Or Vape? 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 No Information not available 08/16/2015 Live Alone Or With Others? With Others [email or web address] Information not available 10/12/2011 Patient Has Health Care Proxy Signed And In Chart No Will Start Thinking About It. Gave Pt Form 09/18/19 TG Information not available 06/15/2014 CCM Consent Discussion 09/18/2019 [email or web address] Information not available 09/18/2019 Marital Status [email or web address] Informatio n not available 06/15/2014 Mosquito Repellent [...] Tobacco? Never Used Smokeless Tobacco 09/18/19 TG Information not available 09/18/2019 How Much Tobacco Do You Smoke? No Information not available 09/18/2019 General Stress Level Medium Information not available 08/16/2015 Do You Use Sunscreen Routinely? Yes Information not available 08/16/2015 How Many Years Have You Smoked Tobacco? 0 [email or web address] Information not available 09/18/2019 Sex: Unknown Functional [...] virus, trivalent, preservative 1 completed Not Available [facility] 12/13/2019 02:18:30 pneumococcal polysaccharide PPV23 3 completed Not Available [facility] 12/13/2019 02:38:04 Tdap 3 completed Not Available [facility] 12/13/2019 02:28:48 Influenza, split virus, quadrivalent, PF 6 completed Not Available [facility] 12/13/2019 02:26:36 Influenza, split virus, quadrivalent, PF 6 completed Not Available [facility] 12/13/2019 02:20:41 Influenza, split virus, trivalent, preservative 3 [facility] 11:34:56 Influenza, split virus, quadrivalent, PF 7 completed Not Available [facility] 12/13/2019 02:39:35 Influenza, high-dose, trivalent, PF 9 completed Not Available [facility] 12/13/2019 02:24:36 Pneumococcal conjugate PCV 13 9 completed Not Available [facility] 12/13/2019 02:26:03 Influenza, split virus, quadrivalent, preservative 8 completed Lisa Roach MA null, [facility] 01/31/2019 08:58:34 Influenza, high-dose, quadrivalent, PF 0 completed Aga Manley RN null, [facility] 09/24/2020 11:03:28 COVID-19, mRNA, LNP-S, PF, 30 mcg/0.3 mL dose 1 completed Meche Diaz CMA null, [facility] 08/23/2021 13:34:24 COVID-19, mRNA, LNP-S, PF, 30 mcg/0.3 mL dose 1 completed Meche Diaz CMA null, [facility] 08/23/2021 13:34:37 Past Encounters Encounter ID Performer Location Encounter Start Date Encounter Closed Date Diagnosis/Indication Diagnosis SNOMED-CT Code Diagnosis ICD10 Code Diagnosis Note [id number] [facility], OFFICE [address] [place] [address] 12/24/2001 16:45:00 12/16/2008 02:02:29 [id number] CHASIDY [facility], OFFICE [address] [place] [address] 01/06/2002 16:00:00 12/16/2008 02:02:29 [id number] CHASIDY [facility], OFFICE [address] [place] [address] 01/30/2002 15:30:00 12/16/2008 02:02:29 [id number] CHASIDY [facility], OFFICE [address] [place] [address] 04/29/2002 09:37:40 12/16/2008 02:02:29 [id number] [facility] , [facility] [address] [place] [address] 07/16/2002 15:35:20 12/16/2008 02:02:29 [id number] [facility], OFFICE [address] [place] [address] 07/16/2002 09:05:51 12/16/2008 02:02:29 [id number] [facility], OFFICE [address] [place] [address] 06/26/2003 10:31:22 12/16/2008 02:02:29 [id number] CHASIDY [facility], OFFICE [address] [address] 08/17/2003 14:45:53 08/18/2003 11:40:22 [id number] [facility], OFFICE [address] [place] [address] 08/18/2003 15:46:10 08/19/2003 11:32:02 [id number] [facility], OFFICE [address] [address] 08/20/2003 00:00:00 12/16/2008 02:02:29 [id number] CHASIDY [facility], OFFICE [address] [address] 11/16/2003 08:57:36 11/16/2003 16:37:17 [id number] LAB - [facility] [address] [place] [address] 11/16/2003 09:16:39 11/16/2003 12:59:47 [id number] [facility], OFFICE [address] [address] 06/04/2006 16:43:03 12/16/2008 02:02:29 [id number] [facility] , [facility] [address] [place] [address] 06/07/2006 14:57:01 06/07/2006 16:03:33 [id number] [facility], OFFICE [address] [place] [id number] 07/18/2006 13:29:17 07/19/2006 09:28:18 [id number] [facility] - [facility] [address] [place] [address] 07/19/2006 07:39:47 07/19/2006 08:03:06 [id number] [facility], [facility] [address] [place] [address] 09/25/2006 09:15:27 09/26/2006 07:21:05 [id number] [facility], OFFICE [address] [place] [address] 10/15/2007 14:58:57 12/16/2008 02:02:29 [id number] [facility], OFFICE [address] [place] [address] 11/06/2007 15:58:22 12/16/2008 02:02:29 [id number] LAB - [facility] [address] [place] [address] 11/22/2007 07:05:34 11/22/2007 07:05:40 [id number] CHASIDY [facility], [place] [address] 11/28/2007 09:22:46 12/16/2008 02:02:29 [id number] CHASIDY [facility], OFFICE [address] [place] [address] [place] [address] 03/24/2008 15:41:22 12/16/2008 02:02:29 [id number] LAB - [facility] [address] [place] [address] 03/30/2008 07:23:53 03/30/2008 07:23:57 [id number] CHASIDY [facility], OFFICE [address] [place] [address] [place] [address] 07/06/2008 13:40:58 12/16/2008 02:02:29 [id number] CHASIDY [facility], [place] [address] 03/04/2010 15:11:25 03/07/2010 09:25:05 [id number] CHASIDY [facility], [place] [address] [place] [address] 03/11/2010 16:47:38 03/11/2010 17:44:45 [id number] CHASIDY [facility], [place] [address] [place] [address] 04/08/2010 14:57:08 04/08/2010 15:27:52 [id number] CH[facility]Y [facility], [address] [place] [address] 05/05/2010 08:18:31 05/05/2010 09:03:35 [id number] CHASIDY [facility], [place] [address] [place] [address] 05/13/2010 13:47:34 05/13/2010 15:03:11 [id number] CHASIDY [facility], [place] [address] [place] [address] 1 08/08/2010 08:01:53 08/08/2010 10:14:41 [id number] Chaya UMAÑA [facility], [place] [address] 1 03/23/2011 08:44:40 03/23/2011 09:42:31 [id number] , [facility], OFFICE [address] [place] [address] DONAJordi CHIVO [address] 1 04/07/2011 15:01:17 04/10/2011 09:11:06 [id number] Radiology , [address] [place] [address] 1 04/11/2011 14:49:13 04/12/2011 11:46:30 [id number] , [facility] [place] OFF[facility] [address] [place] [address] DR ROFELICIANOJordi CHIVO [address] 1 10/26/2011 09:22:03 10/26/2011 10:19:40 [id number] , [facility] [place] OFF[facility] [address] [place] [address] DR MAGUIRE CHIVO [address] 1 11/07/2011 10:46:34 11/07/2011 11:08:14 [id number] [facility], OFFICE [address] [place] [address] DR ROFELICIANOJordi CHIVO [address] 1 01/09/2012 09:20:06 01/09/2012 09:54:29 [id number] MD CHASIDY Thacker, [address] ROFELICIANOJordi CHIVO [address] 1 01/09/2013 10:19:33 01/09/2013 10:42:26 [id number] MD CHASIDY Thacker, [address] ROFELICIANOJordi CHIVO [address] 1 04/17/2013 13:37:14 04/17/2013 14:01:[id number] ROFELICIANOJordi CHIVO [address] 1 06/12/2013 08:44:25 06/13/2013 07:43:16 [id number] Olga Lidia Mastrobert i , [address] [place] CHIVO [address] 1 09/26/2013 13:48:02 09/26/2013 14:27:47 Chest pain 28608583 [id number] MARY LOU Hoang, [address] MAGUI[place] CHIVO [address] 1 10/16/2013 10:21:51 10/16/2013 12:01:27 Chest pain 98921469 [id number] , [facility], [address] [place]UI[place] CHIVO [address] 1 06/15/2014 15:24:13 06/15/2014 16:03:20 Adult health examination [id number] see Risk Assessment and Lifestyle Change Counseling section above Benign ess ential hypertension 6462904 Blood pressure at goal Rosacea [id number] , [facility], OFFICE [address] [place] [address] 1 12/17/2014 16:40:19 12/17/2014 17:15:51 Benign essential hypertension 8053615 Blood pressure at goal Mixed hyperlipidemia 775623022 Performance anxiety 203291207 [id number] Taz Pineda MD , [facility], OFFICE [address] [place] [address] 1 03/12/2015 10:18:25 03/12/2015 11:19:36 Benign essential hypertension 3157094 Blood pressure at goal Mixed hyperlipidemia 844971404 [id number] [facility] Gina CHIVO eaton [address] 4 06/09/2015 10:57:00 06/09/2015 13:28:05 Mixed hyperlipidemia 826961412 [id number] Danielle Zhao [facility], OFFICE [address] [place] [address] [place] [address] 1 08/16/2015 08:18:41 08/17/2015 15:19:35 Palpitations 39507572 Mixed hyperlipidemia 448508722 [id number] Taz Pineda MD , [facility], OFFICE [address] [place] [address] [place] [address] 1 01/04/2016 10:03:15 01/04/2016 10:40:47 Benign essential hypertension 3814701 I10 Blood pressure at goal Mixed hyperlipidemia 267 562383 E78.2 Cholestero l is at goal Continue to work on diet and exercise as discussed Active or passive immunization 016403053 Z23 [id number] Taz Pineda MD , [facility], OFFICE [address] [place] [address] 1 08/01/2016 08:28:01 08/01/2016 08:59:26 Rosacea 656482362 L71.9 Active or passive immunization 600873099 Z23 Glossitis 82048782 K14.0 Pityriasis versicolor 56 841630 B36.0 [id number] Mallory Laguna PA-C , [facility], OFFICE [address] [place] [address] 1 04/27/2017 07:55:18 04/30/2017 08:30:06 Low back pain 771932631 M54.5 Suspect muscular strain with sciatica into L leg. No tenderness to palpation of spinous processes or weakness of leg. Recommend home stretching , heating pad, massage, PT, and acupunctur e. Ibuprofen as below. If no improvemen t in 4-6 weeks, call back. [id number] Sudhir Cooper i, PT Physical Therapy, [address] [address] 1 05/08/2017 14:56:24 05/09/2017 13:29:25 Sciatica 32133436 M54.31 [id number] Sudhir Cooper i, PT Physical Therapy, [address] [address] 1 05/15/2017 12:53:38 05/15/2017 13:39:27 Sciatica 95301596 M54.31 [id number] Sudhir Cooper i, PT Physical Therapy, [address] [address] 1 05/22/2017 13:52:27 05/23/2017 09:22:32 Sciatica 04694047 M54.31 [id number] Taz Pineda MD , [facility], OFFICE [address] [place] [address] 1 06/01/2017 10:59:09 06/01/2017 11:45:43 Adult health examination 095662526 Z00.00 see Risk Assessment and Lifestyle Change Counseling section above Counseling 755560627 Z71 .9 Mixed hyperlipidemia 267 852969 E78.2 Benign ess ential hypertension 9846257 I10 Blood pressure at goal [id number] Taz Pineda MD , [facility], OFFICE [address] [place] [address] 1 09/11/2017 14:58:41 09/11/2017 15:36:21 Active or passive immunization 869124069 Z23 Mixed hyperlipidemia 267 703900 E78.2 [id number] Taz Pineda MD , [facility], OFFICE [address] [place] [address] 1 12/04/2017 08:16:52 12/04/2017 08:47:10 Mixed hyperlipidemia 375999146 E78.2 Cholestero l is at goal Cholestero l is not at goal Continue to work on diet and exercise as discussed Benign ess ential hypertension 0007165 I10 Blood pressure at goal Blood pressure NOT at goal. [id number] Taz Pineda MD , [facility], OFFICE [address] [place] [address] 1 01/25/2018 07:58:55 01/25/2018 08:26:20 Active or passive immunization 495551874 Z23 Perineal pain 385523742 R10.2 Pain of prostate 1453481 0 N42.81 [id number] Taz Pineda MD , [facility], OFFICE [address] [place] [address] 1 02/19/2018 11:48:11 02/19/2018 12:09:23 Mixed hyperlipidemia 147052033 E78.2 Cholestero l is not at goal Continue to work on diet and exercise as discussed Benign ess ential hypertension 9294378 I10 Blood pressure at goal [id number] Taz Pineda MD , [facility], OFFICE [address] [place] [address] 1 05/17/2018 08:31:45 05/17/2018 08:47:19 Mixed hyperlipidemia 654614531 E78.2 Benign ess ential hypertension 6882858 I10 Blood pressure at goal [id number] Taz Pineda MD , [facility], OFFICE [address] [place] [address] 1 06/28/2018 09:47:57 06/28/2018 10:25:03 Adult health examination 065795346 Z00.00 see Risk Assessment and Lifestyle Change Counseling section above Counseling 541498792 Z71 .9 Depression screening 171 874401 Z13.89 depression screening tool administer ed, entered into emr, scored and discussed, time greater than 7.5 minutes Mixed hyperlipidemia 267 086699 E78.2 Benign ess ential hypertension 4581563 I10 Blood pressure at goal Gastro-eso phageal reflux disease with esophagitis 678812911 K21.0 [id number] John Lilly MD , [facility], OFFICE [address] [place] [address] 1 09/18/2018 11:33:16 09/18/2018 16:31:00 Increased frequency of urination 544365449 R35.0 Informed Pt that he is negative [...] understand s and agrees with treatment plan [id number] Taz Pineda MD , [facility], OFFICE [address] [place] [address] 1 12/27/2018 09:26:55 12/27/2018 09:57:59 Mixed hyperlipidemia 691177987 E78.2 Cholestero l is at goal Continue to work on diet and exercise as discussed Benign ess ential hypertension 6793080 I10 Blood pressure at goal Herpes simplex 48879439 B00.9 Impotence of organic origin 984546976 N52.9 [id number] Taz Pineda MD , [facility], OFFICE [address] [place] [address] 1 01/24/2019 09:19:14 01/27/2019 10:06:40 Sacroiliac joint pain 162940360 M53.3 [id number] Fidelia Goodwin PT Physical Therapy, [address] [place] [address] 1 01/24/2019 11:23:36 01/27/2019 08:50:05 Low back pain 568963190 M54.5 [id number] Fidelia Goodwin PT Physical Therapy, [address] [place] [address] 1 01/27/2019 10:53:21 01/27/2019 12:04:39 Low back pain 142376508 M54.5 [id number] Fidelia Goodwin PT Physical Therapy, [address] [place] [address] 1 01/30/2019 13:04:20 01/30/2019 16:15:36 Low back pain 302447919 M54.5 [id number] Taz Pineda MD , [facility], OFFICE [address] [place] [address] 1 01/31/2019 08:36:54 01/31/2019 11:14:15 Acute sciatica 240770451 M54.32 [id number] Fidelia Goodwin PT Physical Therapy, [address] [place] [address] 1 02/03/2019 08:28:00 02/03/2019 10:06:05 Low back pain 938750104 M54.5 [id number] Valeria Mosley MD , [facility], OFFICE [address] [address] 1 02/04/2019 09:53:40 02/04/2019 10:42:17 Acute sciatica 713113935 M54.32 S1 radiculiti s with ongoing motor [...] [facility] rational dicussed with [facility] complete pred, restart ibuprofen 2400 mg a day , continue rubberband strengthen ing exercises [id number] Fidelia Goodwin, PT Physical Therapy, [address] [address] 1 02/06/2019 08:31:24 02/07/2019 08:10:28 Low back pain 548716191 M54.5 [id number] Fidelia Goodwin PT Physical Therapy, [address] [address] 1 02/13/2019 08:27:50 02/13/2019 16:44:20 Low back pain 262885533 M54.5 [id number] Fidelia Goodwin, PT Physical Therapy, [address] [address] 1 02/24/2019 11:31:34 02/24/2019 13:56:50 Low back pain 032058057 M54.5 [id number] Taz Pineda MD , [facility], OFFICE [address] [address] 1 09/18/2019 08:48:31 09/18/2019 09:34:24 Adult health examination 280290817 Z00.00 see Risk Assessment and Lifestyle Change Counseling section above Counseling 277327148 Z71 .9 Depression screening 171 573178 Z13.89 depression screening tool administer ed, entered into emr, scored and discussed, time greater than 7.5 minutes Mixed hyperlipidemia 267 623107 E78.2 Cholestero l is at goal Active or passive immunization 457473392 Z23 Benign ess ential hypertension 2485512 I10 Blood pressure at goal Ex-smoker 5125811 Z87.89 1 [id number] Taz Pineda MD , [facility], OFFICE [address] [address] 1 10/21/2019 08:00:51 10/21/2019 08:29:32 Pain of right shoulder joint 1607769949 3361535 M25.547 [id number] Fidelia Goodwin, PT Physical Therapy, [address] [address] 10/27/2019 10:33:28 10/27/2019 14:04:07 Shoulder pain 52573239 M25.967 [id number] Fidelia Goodwin PT Physical Therapy, [address] [address] 1 11/03/2019 08:58:05 11/04/2019 09:44:16 Shoulder pain 25187769 M25.234 [id number] Fidelia Goodwin PT Physical Therapy, [address] [address] 1 11/10/2019 08:00:42 11/10/2019 08:31:42 Shoulder pain 55910914 M25.185 [id number] Valeria Mosley MD , [facility], OFFICE [address] [address] 1 03/24/2020 08:09:38 03/24/2020 14:40:10 Mixed hyperlipidemia 088924028 E78.2 Cholestero l is at goal on ator 10 since begun 01/2018LDL at 79LDL had been 140 despite dietary attempts, until begun on atorF [place] at 54, bros 55, 59 with MA's , all bad lifestyle Benign ess ential hypertension 8682495 I10 Blood pressure at goal on lisinopril 5 mg since at least 2009 for SBP 148, 144BP 130-120/80 -75 sinceoccas 140As Primary Prevention continue low low dose BENJAMIN indefinite ly Ex-smoker 3257139 Z87.89 1 quit age 20AAA screen neg 2019 Acute sciatica 553344096 M54.32 03/24/2020 pain freeis feeling better with [...] abated with PT and pred seen with agreed physiatry referral- rational dicussed with [facility] complete [...] needed Family his tory of Cardiovascular disease 721421136 Z82.49 F MA at 54, bros 55, 59 with MA's , all bad lifestyle Impotence of organic origin 929272907 N52.9 viagra 11/29 tab since 2010 Seborrheic dermatitis 50 850234 L21.9 michael sulfide very effective Polyp of gallbladder 197 286494 K82.4 small 2mm seen [place] in 2010needs followup [id number] Aga Manley RN , [facility], OFFICE [address] [place] [address] 1 09/24/2020 11:02:10 09/29/2020 16:21:00 Active or passive immunization 988080779 Z23 [id number] Valeria Mosley MD , [facility], OFFICE [address] [place] [address] 1 09/24/2020 13:51:26 09/29/2020 16:20:04 Adult health examination 167188863 Z00.00 Counseling 626594436 Z71 .9 including cardiovasc ular risk reduction counseling Depression screening 171 669126 Z13.89 depression screening tool administer ed, entered into emr, scored and discussed, time greater than 7.5 minutes Screening for alcohol abuse 749286795 Z13.39 Mixed hyperlipidemia 267 729606 E78.2 Cholestero l is at goal on ator 10 since begun 01/2018LDL at 79LDL had been 140 despite dietary attempts, until begun on atorF MA at 54, bros 55, 59 with MA's , all bad lifestyle Benign ess ential hypertension 4700520 I10 Blood pressure at goal on lisinopril 5 mg since at least 2009 for SBP 148, 144BP 130-120/80 -75 sinceoccas 140As Primary Prevention continue low low dose BENJAMIN indefinite ly Ex-smoker 3662816 Z87.89 1 quit age 20AAA screen neg 2019 Acute sciatica 441045817 M54.32 03/24/2020 pain freeis feeling better with [...] rubberband strengthen ing exercises 01/2019 Mj Chowdary Osiel is reporting numbness in his left LE, gastroc and lat foot with weakness of plantar flexion. This is unchanged with ex and PT tx (since 01/24). Shall we just continue or do you think a script would be called for? Performance anxiety 5666 19973 F40.248 propranolo l as needed Family his tory of Cardiovascular disease 960692740 Z82.49 F MA at 54, bros 55, 59 with MA's , all bad lifestyle Impotence of organic origin 449382881 N52.9 viagra 11/29 tab since 2010 Seborrheic dermatitis 50 587041 L21.9 michael sulfide very effective Polyp of gallbladder 197 042290 K82.4 small 2mm seen [place] in 2011needs followup [id number] Valeria Mosley MD , [facility], OFFICE [address] [place] [address] 03/28/2021 08:06:14 03/28/2021 08:29:24 Mixed hyperlipidemia 187345684 E78.2 Cholestero l is at goal on ator 10 since begun 01/2018LDL at 79LDL had been 140 despite dietary attempts, until begun on atorF MA at 54, bros 55, 59 with MA's , all bad lifestyle Benign ess ential hypertension 2935130 I10 Blood pressure at goal on lisinopril 5 mg since at least 2009 for SBP 148, 144BP 130-120/80 -75 sinceoccas 140As Primary Prevention continue low low dose BENJAMIN indefinite ly Ex-smoker 6639322 Z87.89 1 quit age 20AAA screen neg 2018 Acute sciatica 937229778 M54.32 02/2021gene rally keeping active is best [...] would be called for? Performance anxiety 2796 21054 F40.248 propranolo l as needed Family his tory of Cardiovascular disease 753460512 Z82.49 F MA at 54, bros 55, 59 with MA's , all bad lifestyle Impotence of organic origin 909584427 N52.9 viagra 11/29 tab since 2010 Seborrheic dermatitis 50 089282 L21.9 michael sulfide very effective Polyp of gallbladder 197 471241 K82.4 small 2mm seen [place] GB in 2010needs followup Psoriasis 0286579 L40.9 laterally distal calves bilateral brawny discolorat ion and thickening , very excoriated , [place] rx fluocinoni de cream twice a day for 2 weeks then a suppressiv e regimen few days a week [id number] Valeria Mosley MD , [facility], OFFICE [address] [place] [address] 08/23/2021 13:24:50 08/24/2021 14:03:14 Mixed hyperlipidemia 336440585 E78.2 Cholestero l is at goal on ator 10 since begun 01/2018LDL at 79LDL had been 140 despite dietary attempts, until begun on atorF MA at 54, bros 55, 59 with MA's , all bad lifestyle Benign ess ential hypertension 7110373 I10 08/23/2021 home BP's elevated, so he doubled lisinopril to 10 mg, *Blood pressure at goal on lisinopril 5 mg since at least 2009 for SBP 148, 144BP 130-120/80 -75 sinceoccas 140As Primary Prevention continue low low dose BENJAMIN indefinite ly Ex-smoker 6799479 Z87.89 1 quit age 20AAA screen neg 2019 Acute sciatica 394540243 M54.32 02/2021gene rally keeping active is best [...] would be called for? Performance anxiety 2796 48650 F40.248 propranolo l as needed Family his tory of Cardiovascular disease 742416974 Z82.49 F MA at 54, bros 55, 59 with MA's , all bad lifestyle Impotence of organic origin 859560027 N52.9 viagra 11/29 tab since 2010 Seborrheic dermatitis 50 923937 L21.9 michael sulfide very effective Polyp of gallbladder 197 623414 K82.4 small 2mm seen [place] in 2010needs followup Psoriasis 0632208 L40.9 laterally distal calves bilateral brawny discolorat ion and thickening , very excoriated , [place] rx fluocinoni de cream twice a day for 2 weeks then a suppressiv e regimen few days a week [id number] Jaspal Yu RN [facility], [address] [address] 01/06/2022 06:46:27 01/06/2022 12:24:28 Health Concerns Section Related Observation LastModified by Organization Shantell pena LastModified Time None Recorded Concern Status LastModified by Organization Details LastModified Time None Recorded Advance Directives Directive N: Given paperwork 03/04/10 Payers Encounter Date Sequence Insurance Name Policy Number Policy Easley Covered Member ID Easley Member ID Guarantor Name 09/24/2020 1 [place] [employer] Mj B Osiel [id number] Mj B Osiel 09/24/2020 2 [facility] [employer] PLAN - NAVIGATOR (PPO) [id number] Mj B Osiel [id number] Mj B Osiel 09/24/2020 1 [place] [employer] Mj B Osiel [id number] Mj B Osiel 09/24/2020 2 [facility] [employer] PLAN - NAVIGATOR (PPO) [id number] Mj B Osiel [id number] Mj B Osiel 03/28/2021 1 [place] [employer] [place] Mj B Osiel [id number] Mj B Osiel 03/28/2021 2 [facility] [employer] PLAN - NAVIGATOR (PPO) [id number] Mj B Osiel [id number] Mj B Osiel 08/23/2021 1 [place] Mj B Osiel [id number] Mj B Osiel 08/23/2021 2 [facility] [employer] PLAN - NAVIGATOR (PPO) [id number] Mj B Osiel [id number] Mj B Osiel 01/06/2022 1 [place]ATIONAL [place]ERNMENT [place] Mj B Osiel [id number] Mj B Osiel 01/06/2022 2 [facility] [employer] PLAN - NAVIGATOR (PPO) [id number] Mj B Osiel [id number] Mj B Osiel Notes Date Note Type [...] ischemic heart disease; No peripheral vascular disease (26110); No diabetes; No carotid artery stenosis Ability to Manage Self CareOn how confident the patient feels in ability to self manage condition the patient selects 10 with 10 being very confident and 1 being very low confidence; Patient feels very confident in ability to self manage conditionNotes:DID HAVE CAD EVAL. WHICH WAS NEG. 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 Valeria Mosley MD [address] [place] [address], [phone], [facility] 09/24/2020 14:28:24 1 text/html Physical Exam/MaleReported bypatient.PHAPatient [...] ischemic heart disease; No peripheral vascular disease (92545); No diabetes; No carotid artery stenosis Ability to Manage Self CareOn how confident the patient feels in ability to self manage condition the patient selects 10 with 10 being very confident and 1 being very low confidence; Patient feels very confident in ability to self manage conditionNotes:DID HAVE CAD EVAL. WHICH WAS NEG. 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 Valeria Mosley MD [address] [place] [address], [phone] 03/28/2021 08:32:00 1 text/html Physical Exam/MaleReported bypatient.PHAPatient [...] ischemic heart disease; No peripheral vascular disease (50468); No diabetes; No carotid artery stenosis Ability to Manage Self CareOn how confident the patient feels in ability to self manage condition the patient selects 10 with 10 being very confident and 1 being very low confidence; Patient feels very confident in ability to self manage conditionNotes:DID HAVE CAD EVAL. WHICH WAS NEG. 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 Valeria Mosley MD [address] [place] [address], [phone], [facility] 08/23/2021 17:39:40
--- OUTSIDE RECORDS SUMMARY | 2025-02-06 11:29 | XMS_ITS ---
Author Organization Marito Allen MD Address [address] [facility] [address] [place] [phone] Care Team Providers Care Placement Director Name Role Phone Marito Allen Primary Care Provider [phone] REASON FOR VISIT Canceling tomorrow's appointment Encounters Encounter Location Date Provider Diagnosis Marito Allen MD [address] [place] [address] [address] [place] [address] [id number] 01/01/2025 Marito Allen Plan Of Treatment Next Appt Details Provider Name:Marito palacios, 07/17/2025 08:00:00 AM, [address] [place] [address], [address], [phone], Provider Name:Marito palacios, 07/24/2025 10:00:00 AM, [address] [place] [address], [address], [phone], Provider Name:Marito palacios, 01/18/2026 08:00:00 AM, [address] [place] [address], [address], [phone], Provider Name:Marito palacios, 01/25/2026 02:30:00 PM, [address] [place] [address], [address], [phone], Progress Notes * Mj CARTAGENADOB:1955 ( 69 yo M)Acc No.[id number]:01/01/2025 Patient:?Mj CARTAGENA :1955???Age:69 Y???Sex:Male Address:[address] [place] [address], [address] * true * Date:? Generated for Jennifer mack/Marquise/Naborransmitting on:?02/06/2025 11:28 AM EDT
[2025-02-09 10:34] VITALS: BMI 22.4
--- NOTE | 2025-02-12 12:55 | HO.ANESPROP2 ---
Documented by User: Maura Pozo NP 02/12/25 12:56 HPI - Anesthesia Eval Consult details Narrative: 69yo M for Bilateral Hernia Inguinal Reducible with mesh PMFSH Active Problems Active Problems: All Active Problems Bilateral inguinal hernia (Acute) Hypercholesterolemia (Acute) Hypertension (Acute) Past Medical History Medical History Sprain of foot, left BPH (benign prostatic hyperplasia) Arthritis Back pain Constipation GERD (gastroesophageal reflux disease) UTI (urinary tract infection) Sciatica of left side Habitual snoring Premature atrial contractions Premature ventricular contractions Hypercholesterolemia Hypertension Surgical History Surgical History H/O colonoscopy History of dental surgery Social History Social History Are you a primary childbirth and infant care teacher to a significant other at home: No Do you presently have visiting nurse or other home services: No Alcohol intake: current Alcohol intake frequency: a few times a week Patient Tobacco Use Status: Never used Tobacco Use of substances other than those prescribed or required for medical reasons: Yes Substance Use Frequency: Occasionally Have you been hit, kicked, punched, or otherwise hurt by someone within the past year? If so, by whom?: No Are you DNR?: No Advance Directives: No Advance Directives Information Provided: Yes Advance Directives on File: No Recently lost weight without trying: No Eating poorly because of decreased appetite: No Nutrition Risks: No Nutritional Risk Poor oral hygiene: Yes (implants and crowns, upper and lower areas) Meds Allergies Allergy/AdvReac Type Severity Reaction Status Date / Time No Known Allergies Allergy Verified 02/16/25 06:35 Home Medications ?Medication ?Instructions ?Recorded ?Confirmed ?Last Taken ?Type atorvastatin 20 mg tablet 20 mg PO DAILY 11/13/24 02/09/25 Unknown History sildenafil 100 mg tablet 100 mg PO DAILY PRN Seizure 11/13/24 02/09/25 Unknown History Activity tamsulosin 0.4 mg capsule 0.4 mg PO BEDTIME 11/13/24 02/09/25 Unknown History valacyclovir 500 mg tablet 1,000 mg PO BID 11/13/24 02/09/25 Unknown History aspirin 81 mg tablet,delayed 81 mg PO BEDTIME 02/09/25 02/09/25 02/12/25 History release cholecalciferol (vitamin D3) 50 100 mcg PO BEDTIME 02/09/25 02/09/25 Unknown History mcg (2,000 unit) capsule (Vitamin D3) psyllium husk 0.4 gram capsule 0.4 g PO BEDTIME 02/09/25 02/09/25 Unknown History (Metamucil) vitamin C 90 mg-zinc gluconate 15 1 carmen PO DAILY 02/09/25 02/09/25 Unknown History mg-herbal complex no. 325 lozenges Exam Height,Weight and Vital Signs: Height 6 ft Weight 74.843 kg Pertinent Lab Results Pertinent Lab Results: Laboratory Tests 12/05/24 07:15 WBC 7.9 Hgb 16.5 Hct 47.5 Plt Count 204 D Sodium 140 Potassium 4.0 Chloride 107 Carbon Dioxide 28 BUN 14 Creatinine 1.47 H Assessment and Plan Assessment Anesthesia Assessment: Chart Reviewed Documented by User: Collette Portillo MD 02/16/25 07:59 PMFSH Past Medical History Medical History Sprain of foot, left BPH (benign prostatic hyperplasia) Arthritis Back pain Constipation GERD (gastroesophageal reflux disease) UTI (urinary tract infection) Sciatica of left side Habitual snoring Premature atrial contractions Premature ventricular contractions Hypercholesterolemia Hypertension Family History Family history of problems with anesthesia: No Surgical History Surgical History H/O colonoscopy History of dental surgery History of Problems with Anesthesia: No Social History Social History Are you a primary childbirth and infant care teacher to a significant other at home: No Do you presently have visiting nurse or other home services: No Alcohol intake: current Alcohol intake frequency: a few times a week Patient Tobacco Use Status: Never used Tobacco Use of substances other than those prescribed or required for medical reasons: Yes Substance Use Frequency: Occasionally Have you been hit, kicked, punched, or otherwise hurt by someone within the past year? If so, by whom?: No Are you DNR?: No Advance Directives: No Advance Directives Information Provided: Yes Advance Directives on File: No Recently lost weight without trying: No Eating poorly because of decreased appetite: No Nutrition Risks: No Nutritional Risk Poor oral hygiene: Yes (implants and crowns, upper and lower areas) Meds Allergies Allergy/AdvReac Type Severity Reaction Status Date / Time No Known Allergies Allergy Verified 02/16/25 06:35 Home Medications ?Medication ?Instructions ?Recorded ?Confirmed ?Last Taken ?Type atorvastatin 20 mg tablet 20 mg PO DAILY 11/13/24 02/09/25 Unknown History sildenafil 100 mg tablet 100 mg PO DAILY PRN Seizure 11/13/24 02/09/25 Unknown History Activity tamsulosin 0.4 mg capsule 0.4 mg PO BEDTIME 11/13/24 02/09/25 Unknown History valacyclovir 500 mg tablet 1,000 mg PO BID 11/13/24 02/09/25 Unknown History aspirin 81 mg tablet,delayed 81 mg PO BEDTIME 02/09/25 02/09/25 02/12/25 History release cholecalciferol (vitamin D3) 50 100 mcg PO BEDTIME 02/09/25 02/09/25 Unknown History mcg (2,000 unit) capsule (Vitamin D3) psyllium husk 0.4 gram capsule 0.4 g PO BEDTIME 02/09/25 02/09/25 Unknown History (Metamucil) vitamin C 90 mg-zinc gluconate 15 1 carmen PO DAILY 02/09/25 02/09/25 Unknown History mg-herbal complex no. 325 lozenges Exam Airway Mallampati Class: II TM Dist: >3cm Neck ROM: Limited Heart: rrr Lungs: cta Assessment and Plan Assessment Anesthesia Assessment: Anesthesia Plan Discussed Final Anesthetic Review Family History of Problems with Anesthesia: No History of Problems with Anesthesia: No NPO: Yes ASA Class: II Final Preanesthetic Review: No Changes in Pt Med Stat, Meds/Allgs Chart Reviewed, Consent Obtained/Reviewed and Anes Risks/Benef Reviewed Patient Risk: Intermediate Procedure Risk: Low Anesthetic Plan Anesthetic Plan: GA Disposition: Standard PACU
--- NOTE | ~2025-02-16 | XR_ITS ---
EXAMINATION: XR ABDOMEN 1 VIEW (KUB) HISTORY: EXTRA INSTRUMENTATION COMPARISON: There are no prior studies for comparison. FINDINGS: A single supine view of the abdomen is submitted. The bowel gas pattern is unremarkable, without evidence of mechanical obstruction. There are vascular calcifications in the pelvis. No radiopaque foreign body is identified. There are no abnormal soft tissue masses. The bones are intact. XR/XR abdomen 1V IMPRESSION: No radiopaque foreign body is identified. Electronically signed by: Abdi Ratliff MD 02/16/2025 02:51 PM EDT
[2025-02-16 06:15] VITALS: BP 131/84; PULSE 80; RESP 15; TEMP 36.5; O2SAT 98
[2025-02-16] MEDS: Lactated Ringers 1,000 ML 100 ML IVCONT (06:35)
--- NOTE | 2025-02-16 07:19 | MHC.SHP ---
Pre-Procedural Eval Section A - 24 Hr Update-Section A only Date of Service: 02/16/25 The patient is an INPATIENT: No Changes since office visit: Yes Patient answered all questions; No Cold of Flu in the past 2 weeks, No New Medical Problems and No Changes in Medication The patient has been examined within 24 hours of the surgical procedure. The History & Physical has been completed within 30 days and I have reviewed it.: Yes Section B - Complete if H&P > 30 days Chief Complaint: Bilateral inguinal hernia, without obstruction or Details of Present Illness: no changes Relevant Family History (Specify if Yes): No Relevant Social History: None Present Medications: see Short Stay Collaborative assessment Medical History: Significant History History of Previous Operations: No relevant previous surgery Allergies: Allergies Allergy/AdvReac Type Severity Reaction Status Date / Time No Known Allergies Allergy Verified 02/16/25 06:35 Review of Systems Sugical H&P ROS: Negative: Constitution, Cardiovascular, Respiratory, Neurological, Psychiatric, Hem-Onc, Allergic/Immunologic, Gastrointestinal, Genitourinary, Musculoskeletal, Integumentary, Endocrine and Eyes/Ears/Nose/Throat Exam Surgical H&P Exam: Normal: HEENT, Normal: Heart, Normal: Lungs, Normal: Extremities, Normal: Abdomen, Normal: Skin and Normal: Neurological Plan Diagnosis/Plan: Unchanged I have reviewed the history and physical and performed a pertinent physical examination on my patient. No changes have occurred unless specified. Time Spent With Patient Time: Total time managing care of this patient today ____ minutes.
--- NOTE | 2025-02-16 08:50 | P.OP_ITS ---
Operative Note Operative Note Date of Service: 02/16/25 Narrative: Preoperative diagnosis: bilateral inguinal hernias reducible Postoperative diagnosis: Same Procedure: Repair of bilateral inguinal hernias with mesh Surgeon: Sudhir Valenzuela MD Heart Specialist: Carmen Xavier PA-C; Alfonso Foreman Anesthesia: General LMA Indications for procedure: 69-year-old male patient presenting with reducible bilateral inguinal hernias, no tenderness to palpation. Operative findings: Bilateral inguinal hernias, left with both indirect and direct components. The right inguinal hernia was a direct inguinal hernia. Specimen: Hernia sac left Estimated blood loss: 2 mL Complications: None Procedure details: Patient was brought to the OR and placed in a supine position. After administering general anesthesia the patient's abdomen was prepped with ChloraPrep and draped in a sterile fashion. A surgical time-out was called the consent confirmed. Patient received preoperative antibiotics and Venodyne boots were in place. Local anesthesia was infiltrated over the left inguinal ligament. Incision was then made with a 15 blade and carried out through subcutaneous tissue, past Elvin's fascia and up to the external oblique aponeurosis. Additional local was infiltrated below the aponeurosis. This was then incised with a scalpel widened with the Metzenbaum scissors. The spermatic cord was then dissected free from the surrounding inguinal canal and retracted using a [place] drain. A small direct inguinal hernia was identified. Fibers of the cremaster muscle were and a indirect hernia sac identified. This was dissected down to the internal ring. The sac was opened and no herniating bowel was noted within the sac. A small portion of the bladder wall was noted in the medial portion. The sac was ligated above this with a 0 Polysorb suture and excised. This was sent as a specimen labeled left inguinal hernia sac. Attention was then directed to the floor of the inguinal canal. Fibers of the internal oblique aponeurosis and transversalis were incised with electrocautery. The preperitoneal space was then entered. This was then widened with a Ray-Malini sponge. A large PHS mesh was then obtained. The circular underlay was deployed within the preperitoneal space. The overlay was then secured to the pubic tubercle, conjoined tendon and the shelving edge of the inguinal ligament using 0 Polysorb suture. A slit was made in the mesh in the mesh wrapped around the spermatic cord at the internal ring. This was secured to the shelving edge using the 0 Polysorb suture. This was tight enough to allow the passage of the tip of the index finger. The wounds were then irrigated with saline solution and suctioned dry. External oblique aponeurosis was reapproximated using a running 2-0 Polysorb suture. Attention was then directed to the right inguinal hernia. Once again local was infiltrated over the right inguinal ligament. An incision was then made with a scalpel and carried out through subcutaneous tissue, past Elvin's fashion up to the external oblique aponeurosis. Additional local was infiltrated below the external oblique aponeurosis. This was then incised with a scalpel and widened with the Metzenbaum scissors. The spermatic cord was then dissected free from the inguinal canal and retracted using a [place] drain. A larger direct hernia was noted on the right side. Fibers of the cremaster muscle were and no indirect hernia could be identified. A small lipoma of the cord was identified. Attention was then directed to the floor of the inguinal canal. Fibers of the internal oblique and transversalis were incised with electrocautery. The preperitoneal space was entered and widened with a open Ray-Malini sponge. A large PHS mesh was then obtained. The circular underlay was then deployed within the preperitoneal space. The overlay was then secured to the pubic tubercle, conjoined tendon and shelving edge of the inguinal ligament using a 0 Polysorb suture. A slit was made in the mesh in the mesh wrapped around the spermatic cord at the internal ring. This was secured at the shelving edge of the inguinal ligament. The ring was made tight enough to allow passage of only the tip of the index finger. Wounds were then irrigated with saline solution and suctioned dry. External oblique aponeurosis was then closed using a running 2-0 Polysorb suture. 5 mL of Zenrelef were instilled below the external oblique bilaterally for postoperative pain control. Elvin's fascia and dermis were then reapproximated using interrupted 3-0 Polysorb sutures. Skin was closed using a running subcut icular 4-0 Polysorb suture. Steri-Strips, 4 x 4 gauze and Tegaderm were then applied. The patient tolerated the procedure well. Sponge, instrument, needle counts reported as correct. The patient was transferred to PACU in stable condition.
[2025-02-16 09:00] VITALS: BP 118/63; PULSE 73; RESP 16; TEMP 36.1; O2SAT 99
[2025-02-16 09:05] VITALS: BP 118/57; PULSE 82; RESP 16; O2SAT 99
[2025-02-16 09:10] VITALS: BP 123/60; PULSE 77; RESP 16; O2SAT 95
[2025-02-16 09:15] VITALS: BP 117/68; PULSE 74; RESP 16; O2SAT 96
[2025-02-16 09:30] VITALS: BP 116/62; PULSE 76; RESP 16; TEMP 36.4; O2SAT 94
== END 2025-02-16 10:18 | disposition home or self-care (01) ==
PROVIDERS: PCP Internal Medicine; Visit Provider Surgery
PROC: (CPT 49505; principal; 2025-02-16 07:30)
DX: K40.20 Bilateral inguinal hernia, without obstruction or gangrene, not specified as recurrent (principal); D17.6 Benign lipomatous neoplasm of spermatic cord; I10 Essential (primary) hypertension; E78.00 Pure hypercholesterolemia, unspecified; Z79.899 Other long term (current) drug therapy
CPT/HCPCS: 49505; 74018; 88302; C1781; C9088; J0131; J0690; J1100; J2003; J2405; J2704; J2795; J3010

== ENCOUNTER → 2025-02-16 05:58 | Outpatient (BNV) | payer MEDICARE, SELFPAY | PROVIDERS: PCP Internal Medicine; Visit Provider Surgery | DX: K40.20 Bilateral inguinal hernia, without obstruction or gangrene, not specified as recurrent (principal) | CPT/HCPCS: 49505 ==

== ENCOUNTER → 2025-02-16 08:43 | Outpatient (BNV) | payer MEDICARE, SELFPAY | PROVIDERS: PCP Internal Medicine; Visit Provider Radiology Diagnostic Radiology | DX: Z18.9 Retained foreign body fragments, unspecified material (principal) | CPT/HCPCS: 74018 ==

== ENCOUNTER 2025-02-26 13:43 | Outpatient (AMB) | payer MEDICARE, SELFPAY ==
--- NOTE | 2025-02-26 13:51 | MHC.OFFVIS ---
Vital Signs 02/26/25 13:55 Height 6 ft Weight 164 lb 14.492 oz BMI 22.4 Respiration 16 Pulse 72 Intake Visit Reasons: s/p Bilateral inguinal hernia w/mesh Intake Note: Patient is seen in office for post op assessment post bilateral inguinal hernia repair. Pt c/o: swollen above and below the incision, pain around the area, pain decreasing by the day, denies redness, discharge surgery:02/16/25 Allergies No Known Allergies Allergy (Verified 02/26/25 13:55) Medication List - Last Reconciled 02/26/25 by Sudhir Valenzuela MD aspirin 81 mg PO BEDTIME atorvastatin 20 mg PO DAILY cholecalciferol (vitamin D3) (Vitamin D3) 100 mcg PO BEDTIME oxycodone 5 mg PO Q6H PRN psyllium husk (Metamucil) 0.4 grams PO BEDTIME sildenafil 100 mg PO DAILY PRN tamsulosin 0.4 mg PO BEDTIME valacyclovir 1,000 mg PO BID vit C-Zn gluc-herbal no.325 90-15 mg 1 carmen PO DAILY HPI Comments Details: 69-year-old male patient returning 1 week following repair of bilateral inguinal hernias with mesh. In generally feels well and is not requiring pain medication but does have occasional pain especially on the right side. He noted some increased swelling in the testicle with bluish discoloration which is improving currently. He did have some constipation but has been taking stool softeners and Dulcolax. He denies any fever or chills. PFSH Medical History Sprain of foot, left BPH (benign prostatic hyperplasia) Arthritis Back pain Constipation GERD (gastroesophageal reflux disease) UTI (urinary tract infection) Sciatica of left side Habitual snoring Premature atrial contractions Premature ventricular contractions Hypercholesterolemia Hypertension Surgical History H/O colonoscopy History of dental surgery Social History Are you a primary ambulatory care to a significant other at home: No Do you presently have visiting nurse or other home services: No Alcohol intake: current Alcohol intake frequency: a few times a week Patient Tobacco Use Status: Never used Tobacco Physical Exam Const General: comfortable Nutritional Appearance: well nourished Orientation/consciousness: patient oriented x3 Resp Effort & Inspection: normal respiratory effort, no audible wheezes, no cough and no respiratory distress GI Other: Bilateral inguinal incisions are clean, dry, and intact without redness or discharge. There is minimal edema in the surrounding skin. No scrotal hematoma or seroma is noted Neuro General: patient oriented x3 Extrem Other: No edema Assessment & Plan Assessment & Plan (1) Bilateral inguinal hernia: Code(s): K40.20 - Bilateral inguinal hernia, without obstruction or gangrene, not specified as recurrent Category: Medical Qualifiers: Obstruction and gangrene presence: without obstruction or gangrene Recurrence: non-recurrent Qualified Code(s): K40.20 - Bilateral inguinal hernia, without obstruction or gangrene, not specified as recurrent Plan 69-year-old male patient status post bilateral inguinal hernia repair with mesh. His wounds are healing nicely without evidence of infection or hematoma. He should continue to avoid lifting greater than 10 lb and return approximately 4 weeks for wound check. He is welcome to call sooner for any new concerns. Coding Level of Care Code Global (41596) Diagnoses Non-recurrent bilateral inguinal hernia without obstruction or gangrene K40.20 Obstruction and gangrene presence: without obstruction or gangrene Recurrence: non-recurrent
[2025-02-26 13:55] VITALS: PULSE 72; RESP 16; BMI 22.4
--- OUTSIDE RECORDS SUMMARY | 2025-02-26 15:03 | XMS_ITS | Data Portability ---
Author Organization [facility], , [facility] Address [address] [place] [address] Care Team Providers Care Functional Architect Name Role Phone VALERIA MOSLEY Primary Care Provider Assessment Encounter Date Assessment Date Assessment LastModified by Organization Details LastModified Time 09/24/2020 09/24/2020 Patient agreed to this visit via a secure telehealth platform due to the COVID -19 pandemic. Patient understands this is a scheduled visit and the usual procedures with regard to billing and confidentiality apply. Patient was notified that the provider location is [facility] Patient location: home During the visit the [...] friend who instilled anxietyH GP polyp (seen 2010 US) LTFUHad US abdomen in 2010 and Aorta Scan 2018 for same pain. Irmo non concerning 2020 [facility], [address] [place] [address], [address], 1 12:45:10 Procedures None recorded. Surgeries None recorded. Imaging None recorded. Medication Orders fluocinoni de 0.05 % topical cream 2020 021 [facility], [address] [place] [address], [address], 1 08:28:52 selenium sulfide 2.25 % shampoo 2019 [address], [address], 0 14:27:41 tadalafil 20 mg tablet 2019 [address], [address], 0 14:27:41 Patient TargetsNo targets recorded. Patient Instructions Encounter Date Encounter Id Patient Instructions Last Modified By Organization Details Last Modified Time 09/24/2020 [id number] preventing falls : care instructions [email or web address] Not [...] was notified that the provider location is [facility] Patient location: home During the visit the patient? s medical history and medical record were reviewed. The patient was notified to call our office for worsening or urgent symptoms. [email or web address] Not available 09/24/2020 14:08:38 03/28/2021 [id number] Prostate Cancer Screening using PSA was discussed. [...] was notified that the provider location is [facility] Patient location: home During the visit the patient? s medical history and medical record were reviewed. The patient was notified to call our office for worsening or urgent symptoms. 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 Irmo non concerning Referring Physician: Valeria Mosley, Family Medicine, Encounter Date: 08/23/2021 Results Created Date Observation Date Name Description Value Unit Range Abnormal Flag Note LastModifiedBy Organization Detail LastModifiedTime 03/22/20 21 03/22/2021 BMP, serum or plasm a glucose 89 mg/dL 70-100 Not Available [address], [address], 03/22/2021 12:20:56 03/22/20 21 03/22/2021 BMP, serum or plasm a BUN 14 mg/dL 7-18 Not Available [address], [address], 03/22/2021 12:20:56 03/22/20 21 03/22/2021 BMP, serum or plasm a creatinine 1.2 mg/dL 0.8-1. 3 Not Available [address], [address], 03/22/2021 12:20:56 03/22/20 21 03/22/2021 BMP, serum or plasm a B/C 11.7 ratio Not Available [address], [address], 03/22/2021 12:20:56 03/22/20 21 03/22/2021 BMP, serum or plasm a GFR -non 64.4 mL/mi n Recom kailey d GFR by the Natio nal Kidne y Found ation >60 mL/mi n/1.7 3m2 - Rachana l <60 mL/mi n/1.7 3m2 - Chron ic Kidne y Disea se <15 mL/mi n/1.7 3m2 - Kidne y Failu re Not Available [address], [address], 03/22/2021 12:20:56 03/22/20 21 03/22/2021 BMP, serum or plasm a GFR - if 77.9 mL/mi n For Afric an Ameri can patie nts: Resul ts Multi plied by 1.21 Not Available [address], [address], 03/22/2021 12:20:56 03/22/20 21 03/22/2021 BMP, serum or plasm a sodium 138 mmol/ L 136-14 5 Not Available [address], [address], 03/22/2021 12:20:56 03/22/20 21 03/22/2021 BMP, serum or plasm a potassium 4.2 mmol/ L 3.5-5. 1 Not Available [address], [address], 03/22/2021 12:20:56 03/22/20 21 03/22/2021 BMP, serum or plasm a chloride 100 mmol/ L 96-107 Not Available [address], [address], 03/22/2021 12:20:56 03/22/20 21 03/22/2021 BMP, serum or plasm a anion gap 9.7 5.0-15 .0 Not Available [address], [address], 03/22/2021 12:20:56 03/22/20 21 03/22/2021 BMP, serum or plasm a CO2 28 mmol/ L 21-32 Not Available [address], [address], 03/22/2021 12:20:56 03/22/20 21 03/22/2021 BMP, serum or plasm a calcium 8.8 mg/dL 8.5-10 .3 Not Available [address], [address], 03/22/2021 12:20:56 03/22/20 21 03/22/2021 lipid panel , serum cholesterol 161 mg/dL <200 mg/dl Boubacar able 200-2 39 mg/dl Borde rline High >240 mg/dl High Not Available [address], [address], 03/22/2021 12:20:57 03/22/20 21 03/22/2021 lipid panel , serum triglyceride s 59 mg/dL <150 mg/dL Rachana l 150-1 99 mg/dL Borde rline High 200-4 99 mg/dL High >500 mg/dL Very High Not Available [address], [address], 03/22/2021 12:20:57 03/22/20 21 03/22/2021 lipid panel , serum direct HDL 61 mg/dL <40 mg/dl - Major Risk for CHD >60 mg/dl - Negat wendi Risk for CHD Not Available [address], [address], 03/22/2021 12:20:57 03/22/2003/22/2021 LDL, rajani gray , serum (OBS) LDL - calculated 88.2 RISK CATEG ORY LDL GOAL _ CHD or CHD Risk Equiv alent s <100 mg/dl (10-y ear risk >20%) 2+ Risk Facto rs <130 mg/dl (10-y ear risk <= 20%) 0-1 Risk Facto r? <160 mg/dl ? Almos t all peopl e with 0-1 risk facto r have a 10 year risk <10%, thus 10 year risk asses ment in peopl e with 0-1 risk facto r is not neces mary. Not Available [facility] [address] [place], [address], 03/22/2021 12:20:58 01/04/20 22 01/04/2022 SARS- COV-2 RNA (COVI D-19) , QUALI TATIV E NAAT sarscov2 NEGATI VE negati ve normal This test has been autho rized by the FDA under an Emerg ency Use Autho rizat ion(E UA) for you by autho rized labs. 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 This may repres ent a rene [...] nonvas cular areas seen anteri or and oxygen therapy technician ior wall measur ing 2-3 mm CBD: appear s wnl, .5 cm PV: patent , hepato petal RIGHT RENAL: no hydro AO PROX: appear s wnl IVC: appear s wnl TAZ PINEDA [facility] [address] [facility], [place], [address], 11/22/2021 16:57:29 11/22/2011/22/2021 US, abdom en, limit ed No observ ation record ed. [facility] [address] [place] [address] [place], [address], 11/22/2021 16:57:30 Result Notes None recorded. Problems Name Problem SNOMED Code Status Onset Date Resolution Date Notes Provider Name and Address Organization Details Recorded Time Low back pain 639909749 Active 2018 Fidelia Goodwin, PT [address] [place], [address], [facility] 9 18:58:07 Shoulder pain 74666370 Active 2018 Fidelia Goodwin, PT [address] [place], [address], [facility] 9 13:27:23 Mixed hyperlipide erika 867868549 Active 2007 [place], [address], [facility] 6 12:05:17 Dyspnea 677833420 Completed 200110/15/2013 [place], [address], [facility] 6 10:20:57 Finding by method [id number] Completed 200110/15/2013 [place], [address], [facility] 6 10:20:57 Abdominal pain 27560932 Completed 200510/15/2013 [place], [address], [facility] 6 10:20:57 Joint pain 99980594 Completed 200208/16/2015 [place], [address], [facility] 6 10:20:57 On examination - a rash Completed 200210/15/2013 [place], [address], [facility] 6 10:20:57 Herpes simplex 44555700 Active 2007 Taz Pineda MD [facility] [place], [address], [facility] 6 10:20:57 Palpitation s 87700217 Active 2002 Taz Pineda MD [facility] [place], [address], [facility] 6 10:20:57 Gastro-esop hageal reflux disease with esophagitis 306497718 Active 2007 Taz Pineda MD [facility] [place], [address], [facility] 6 10:20:57 Benign essential hypertensio n 7363430 Active 2001 Taz Pineda MD [facility] [place], [address], [facility] 6 12:05:17 Elevated blood-press ure reading without diagnosis of hypertensio n 894616839 Completed 200108/16/2015 Taz Pineda MD [facility] [place], [address], [facility] 6 10:20:57 Generalized abdominal pain 829671188 Completed 200510/15/2013 Taz Pineda MD [facility] [place], [address], [facility] 6 10:20:57 Hip pain 88733999 Completed 200710/15/2013 Taz Pineda MD [address] [place] [address] [place], [address], [facility] 6 10:20:57 Problem Notes None recorded. Procedures Surgical History Date Name Laterality Status Provider Name and Address Organization Details Recorded Time 01/06/20 Bronson - Colonoscopy completed Rodney Dobson MD [facility] [place], [address], [facility] 01/06/2022 07:53:38 09/24/20 20 Medicare Wellness Visit completed Meche Diaz [facility] 09/24/2020 13:52:06 09/24/20 20 prevention-card iovascular risk reduction counseling completed Meche Diaz [facility] 09/24/2020 13:52:06 09/24/20 prevention-mariya al alcohol misuse screening completed Meche Diaz [facility] 09/24/2020 13:52:06 11/10/20 19 01098: Therapeutic Exercise completed Fidelia Goodwin, PT [address] [place], [address], [facility] 11/10/2019 08:20:04 11/03/20 19 02013: Therapeutic Exercise completed Fidelia Goodwin, PT [address] [place], [address], [facility] 11/03/2019 20:15:48 11/03/20 19 [address]33: Manual Therapy completed Fidelia Goodwin, [place], [address], [facility] 11/03/2019 20:16:55 11/03/20 19 [address]1088: Ultrasound (1:1) completed Fidelia Goodwin, PT [address] [place], [address], [facility] 11/03/2019 20:16:11 10/27/20 Physical Activity Counselling completed Fidelia Goodwin, PT [address] [place], [address], [facility] 10/27/2019 13:22:38 10/27/20 19 32276: PT Eval, Moderate Complexity completed Fidelia Goodwin, PT [address] [place], [address], [facility] 10/27/2019 13:22:42 09/18/20 19 Medicare Wellness Visit completed Connie Berry [facility] 09/18/2019 08:52:49 02/25/20 19 94424: Therapeutic Exercise completed Fidelia Goodwin, PT [address] [place], [address], [facility] 02/24/2019 11:35:29 02/14/20 19 [address]69: Therapeutic Exercise completed Fidelia Goodwin, PT [address] [place], [address], [facility] 02/13/2019 10:03:12 02/07/20 19 77139: Therapeutic Exercise completed Fidelia Goodwin, PT [address] [place], [address], [facility] 02/06/2019 21:08:40 02/07/20 19 32205: Manual Therapy completed Fidelia Goodwin, PT [address] [place], [address], [facility] 02/06/2019 21:08:32 02/07/20 19 31782: Mechanical Traction completed Fidelia Goodwin, PT [address] [place], [address], [facility] 02/06/2019 20:47:24 02/04/20 19 64788: Therapeutic Exercise completed Fidelia Goodwin, PT [address] [place], [address], [facility] 02/03/2019 09:08:40 02/04/20 19 80901: Manual Therapy completed Fidelia Goodwin, PT [address] [place], [address], [facility] 02/03/2019 09:09:20 01/31/20 19 91938: Therapeutic Exercise completed Fidelia Goodwin, PT [address] [place], [address], [facility] 01/30/2019 16:00:38 01/31/20 19 51980: Ultrasound (1:1) completed Fidelia Goodwin, PT [address] [place], [address], [facility] 01/30/2019 16:00:32 01/28/20 19 10380: Therapeutic Exercise completed Fidelia Goodwin, PT [address] [place], [address], [facility] 01/27/2019 11:58:33 01/28/20 19 08897: Manual Therapy completed Fidelia Goodwin, PT [address] [place], [address], [facility] 01/27/2019 11:57:57 01/28/20 19 33710: Ultrasound (1:1) completed Fidelia Goodwin, PT [address] [place], [address], [facility] 01/27/2019 11:58:25 01/25/20 19 Physical Activity Counselling completed Fidelia Goodwin, PT [address] [place], [address], [facility] 01/24/2019 18:51:28 01/25/20 19 43567: PT Eval, Moderate Complexity completed Fidelia Goodwin, PT [address] [place], [address], [facility] 01/24/2019 18:51:34 09/18/20 18 POC Urinalysis Testing completed Michele De Guzman CMA [facility] 09/18/2018 11:37:50 01/26/20 18 POC Urinalysis Testing completed Betina Gutierrez LPN [facility] 01/25/2018 08:15:43 05/22/20 17 10237: Therapeutic Exercise completed Sudhir Enriquez, PT [address] [place], [address], [facility] 05/23/2017 06:29:49 05/15/20 17 49321: Therapeutic Exercise completed Sudhir Enriquez, PT [address] [place], [address], [facility] 05/15/2017 12:57:19 05/15/20 17 61630: Manual Therapy completed Sudhir Enriquez, PT [address] [place], [address], [facility] 05/15/2017 12:57:27 05/08/20 17 Physical Activity Counselling completed Sudhir Enriquez, PT [address] [place], [address], [facility] 05/09/2017 05:38:24 05/08/20 17 81332: PT Eval, Moderate Complexity completed Sudhir Enriquez, PT [address] [place], [address], [facility] 05/09/2017 05:38:20 04/07/20 11 Asthma Control Test (12 + years old) completed Taz Pineda MD [address] [place], [address], [facility] 04/07/2011 15:38:38 Imaging Results Imaging Date Name Status LastModified by Organiz ation Details LastModified Time 11/22/2021 US abdomen limited right upper quadrant completed [facility] [address], [place], [address], 11/22/2021 16:57:29 11/22/2021 US, abdomen, limited completed [facility] [address] [place] [address] [place], [address], 11/22/2021 16:57:30 Procedure Notes None recorded. Medical [...] 180.34 cm 95.1 [degF] Aga Manley RN [facility] 09/24/2020 11:02:56 Date Recorded Body height Body mass index (BMI) Body weight Systolic blood pressure Diastolic blood pressure Provider Name and Address Organization Details Last Updated DateTime 03/28/2021 180.34 cm 23.9 kg/m2 24205.4 g 128 mm[Hg] 74 mm[Hg] Meche Diaz [facility] 08:10:17 Date Recorded Body height Body mass index (BMI) Body weight Systolic blood pressure Diastolic blood pressure Provider Name and Address Organization Details Last Updated DateTime 08/23/2021 180.34 cm 23.3 kg/m2 82635.93 g 140 mm[Hg] 76 mm[Hg] Meche Diaz [facility] 09/28/202 1 13:35:53 Social History Question Answer Notes LastModified by Organizat ion Details LastModified Time Tobacco Smoking Status Former Smoker 3 PACK YRS. Only as teenager. 09/18/19 TG Taz Pineda MD [address] [place] [address], [address], [facility] 03/23/2011 09:13:23 Do You Have An Advance Directive? No Given Paperwork 03/04/10 Information not available 03/04/2010 What Is Your Level Of Alcohol Consumption? Moderate 7 Beers/week 09/18/19 TG [email or web address] Information not available 01/04/2016 Do You Wear A Helmet When Biking? Yes Information not available 08/16/2015 What Is Your Level Of Caffeine Consumption? Moderate 1-2 Cups Coffee Per Day [email or web address] Information not available 09/24/2020 How Much Tobacco Do You Chew? None Information not available 08/16/2015 What Type Of Diet Are You Following? REGULAR Information not available 08/16/2015 Which Illicit Or Recreational Drugs Have You Used? Marijuana 04/27/17 Twice A Week [email or web address] Information not available 04/27/2017 Do You Or Have You Ever Used E-cigarettes Or Vape? 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 No Information not available 08/16/2015 Live Alone Or With Others? With Others Information not available 10/12/2011 Patient Has Health Care Proxy Signed And In Chart No Will Start Thinking About It. Gave Pt Form 09/18/19 TG Information not available 06/15/2014 CCM Consent Discussion 09/18/2019 Information not available 09/18/2019 Marital Status [email or web address] Informatio n not available 06/15/2014 Mosquito Repellent [...] Tobacco? Never Used Smokeless Tobacco 09/18/19 TG [email or web address] Information not available 09/18/2019 How Much Tobacco Do You Smoke? No [email or web address] Information not available 09/18/2019 General Stress Level Medium Information not available 08/16/2015 Do You Use Sunscreen Routinely? Yes Information not available 08/16/2015 How Many Years Have You Smoked Tobacco? 0 [email or web address] Information not available 09/18/2019 Sex: Unknown Functional [...] preservative 1 completed Not Available [facility] 12/13/2019 02:18:30 pneumococcal polysaccharide PPV23 3 completed Not Available [facility] 12/13/2019 02:38:04 Tdap 3 completed Not Available [facility] 12/13/2019 02:28:48 Influenza, split virus, quadrivalent, PF 6 completed Not Available [facility] 12/13/2019 02:26:36 Influenza, split virus, quadrivalent, PF 6 completed Not Available [facility] 12/13/2019 02:20:41 Influenza, split virus, trivalent, preservative 3 [facility] 10/16[facility] 11:34:56 Influenza, split virus, quadrivalent, PF 7 completed Not Available [facility] 12/13/2019 02:39:35 Influenza, high-dose, trivalent, PF 9 completed Not Available [facility] 12/13/2019 02:24:36 Pneumococcal conjugate PCV 13 9 completed Not Available [facility] 12/13/2019 02:26:03 Influenza, split virus, quadrivalent, preservative 8 completed Lisa Roach MA null, [facility] 01/31/2019 08:58:34 Influenza, high-dose, quadrivalent, PF 0 completed Aga Manley RN null, [facility] 09/24/2020 11:03:28 COVID-19, mRNA, LNP-S, PF, 30 mcg/0.3 mL dose 1 completed Meche Diaz CMA null, [facility] 08/23/2021 13:34:24 COVID-19, mRNA, LNP-S, PF, 30 mcg/0.3 mL dose 1 completed SANDOVAL Dickinson, [facility] 08/23/2021 13:34:37 Past Encounters Encounter ID Performer Location Encounter Start Date Encounter Closed Date Diagnosis/Indication Diagnosis SNOMED-CT Code Diagnosis ICD10 Code Diagnosis Note [id number] [facility], OFFICE [address] [place] [address] 12/24/2001 16:45:00 12/16/2008 02:02:29 [id number] CHASIDY [facility], OFFICE [address] [place] [address] 01/06/2002 16:00:00 12/16/2008 02:02:29 [id number] CHASIDY [facility], OFFICE [address] [place] [address] 01/30/2002 15:30:00 12/16/2008 02:02:29 [id number] CHASIDY [facility], OFFICE [address] [place] [address] 04/29/2002 09:37:40 12/16/2008 02:02:29 [id number] [facility] , [facility] [address] [place] [address] 07/16/2002 15:35:20 12/16/2008 02:02:29 [id number] CHASIDY [facility], OFFICE [address] [place] [address] 07/16/2002 09:05:51 12/16/2008 02:02:29 [id number] FP [facility], OFFICE [address] [place] [address] 06/26/2003 10:31:22 12/16/2008 02:02:29 [id number] [facility], OFFICE [address] [place] [address] 08/17/2003 14:45:53 08/18/2003 11:40:22 [id number] [facility], OFFICE [address] [place] [address] 08/18/2003 15:46:10 08/19/2003 11:32:02 [id number] [facility], OFFICE [address] [place], [place] [address] 08/20/2003 00:00:00 12/16/2008 02:02:29 [id number] [facility], OFFICE [address] [place] [address] 11/16/2003 08:57:36 11/16/2003 16:37:17 [id number] LAB - [facility] [address] [place] [address] 11/16/2003 09:16:39 11/16/2003 12:59:47 [id number] [facility], OFFICE [address] [place] [address] 06/04/2006 16:43:03 12/16/2008 02:02:29 [id number] [facility] , [facility] [address] [place] [address] 06/07/2006 14:57:01 06/07/2006 16:03:33 [id number] [facility], OFFICE [address] [place] [address] 07/18/2006 13:29:17 07/19/2006 09:28:18 [id number] [facility] - [facility] [address] [place] [address] 07/19/2006 07:39:47 07/19/2006 08:03:06 [id number] [facility] [address] [place] [address] 09/25/2006 09:15:27 09/26/2006 07:21:05 [id number] [facility], OFFICE [address] [place] [address] 10/15/2007 14:58:57 12/16/2008 02:02:29 [id number] [facility], OFFICE [address] [place] [address] 11/06/2007 15:58:22 12/16/2008 02:02:29 [id number] [facility] - [facility] [address] [place] [address] 11/22/2007 07:05:34 11/22/2007 07:05:40 [id number] CHASIDY [facility], OFFICE [address] [place] [address] [place] [address] 11/28/2007 09:22:46 12/16/2008 02:02:29 [id number] CHASIDY [facility], OFFICE [address] [place] [address] [place] [address] 03/24/2008 15:41:22 12/16/2008 02:02:29 [id number] LAB - [facility] [address] [place] [address] 03/30/2008 07:23:53 03/30/2008 07:23:57 [id number] CHASIDY [facility], [address] [place] [address] 07/06/2008 13:40:58 12/16/2008 02:02:[id number] [address] [place] [address] 03/04/2010 15:11:25 03/07/2010 09:25:[id number] [address] [place] [address] 03/11/2010 16:47:38 03/11/2010 17:44:45 [id number] CHASIDY [facility], [address] [place] [address] 04/08/2010 14:57:08 04/08/2010 15:27:52 [id number] CHASIDY [facility], [address] [place] [address] 05/05/2010 08:18:31 05/05/2010 09:03:[id number] [address] [place] [address] 05/13/2010 13:47:34 05/13/2010 15:03:11 [id number] CHASIDY [facility], [place] [address] [place] [address] 08/08/2010 08:01:53 08/08/2010 10:14:41 [id number] Chaya UMAÑA [facility], [address] [place] [address] 03/23/2011 08:44:40 03/23/2011 09:42:31 [id number] [facility] [facility], OFFICE [address] [place] [address] DONAJordi CHIVO [address] 1 04/07/2011 15:01:17 04/10/2011 09:11:06 [id number] [facility] , [facility] [address] [place] [address] 1 04/11/2011 14:49:13 04/12/2011 11:46:30 [id number] [facility] OFFICE [address] [place] [address] DR ROFELICIANOJordi CHIVO [address] 1 10/26/2011 09:22:03 10/26/2011 10:19:40 [id number] [facility] OFFICE [address] [place] [address] DR ROFELICIANOJordi CHIVO [address] 1 11/07/2011 10:46:34 11/07/2011 11:08:14 [id number] [facility] OFFICE [address] [place] [address] DR ROFELICIANOJordi CHIVO [address] 1 01/09/2012 09:20:06 01/09/2012 09:54:29 [id number] MD CHASIDY Thacker [address] ROFELICIANOJordi CHIVO [address] 1 01/09/2013 10:19:33 01/09/2013 10:42:26 [id number] MD CHASIDY Thacker [address] ROFELICIANOJordi CHIVO [address] 1 04/17/2013 13:37:14 04/17/2013 14:01:[id number] DONAJordi CHIVO [address] 1 06/12/2013 08:44:25 06/13/2013 07:43:16 [id number] Olga Lidia Mastrobert i CHASIDY [address] [place] CHIVO [address] 1 09/26/2013 13:48:02 09/26/2013 14:27:47 Chest pain 14601134 [id number] Irma Calvin LPN [address] [place]O [address] 1 10/16/2013 10:21:51 10/16/2013 12:01:27 Chest pain 32036785 [id number] [facility], [address] [place] CHIVO [address] 1 06/15/2014 15:24:13 06/15/2014 16:03:20 Adult health examination [id number] see Risk Assessment and Lifestyle Change Counseling section above Benign ess ential hypertension 4274761 Blood pressure at goal Rosacea [id number] , [facility], OFFICE [address] [place] [address] 1 12/17/2014 16:40:19 12/17/2014 17:15:51 Benign essential hypertension 8497807 Blood pressure at goal Mixed hyperlipidemia 535600023 Performance anxiety 949634514 [id number] Taz Pineda MD , [facility], OFFICE [address] [place] [address] 1 03/12/2015 10:18:25 03/12/2015 11:19:36 Benign essential hypertension 8530340 Blood pressure at goal Mixed hyperlipidemia 870032855 [id number] [facility] -[address] [place] [address] 06/09/2015 10:57:00 06/09/2015 13:28:05 Mixed hyperlipidemia 249807058 [id number] Danielle Zhao [facility], OFFICE [address] [place] [address] 1 08/16/2015 08:18:41 08/17/2015 15:19:35 Palpitations 47969174 Mixed hyperlipidemia 938073208 [id number] Taz Pineda MD , [facility], OFFICE [address] [place] [address] [place] [address] 1 01/04/2016 10:03:15 01/04/2016 10:40:47 Benign essential hypertension 5449824 I10 Blood pressure at goal Mixed hyperlipidemia 267 121974 E78.2 Cholestero l is at goal Continue to work on diet and exercise as discussed Active or passive immunization 630188073 Z23 [id number] Taz Pineda MD , [facility], OFFICE [address] [place] [address] 1 08/01/2016 08:28:01 08/01/2016 08:59:26 Rosacea 798282229 L71.9 Active or passive immunization 703174847 Z23 Glossitis 17722997 K14.0 Pityriasis versicolor 56 316238 B36.0 [id number] GERALDO Lynn, [facility], OFFICE [address] [place] [address] 1 04/27/2017 07:55:18 04/30/2017 08:30:06 Low back pain 288357289 M54.5 Suspect muscular strain with sciatica into L leg. No tenderness to palpation of spinous processes or weakness of leg. Recommend home stretching , heating pad, massage, PT, and acupunctur e. Ibuprofen as below. If no improvemen t in 4-6 weeks, call back. [id number] Sudhir Cooper i, PT Physical Therapy, [address] [address] 1 05/08/2017 14:56:24 05/09/2017 13:29:25 Sciatica 30968487 M54.31 [id number] Sudhir Cooper i, PT Physical Therapy, [address] [address] 1 05/15/2017 12:53:38 05/15/2017 13:39:27 Sciatica 38036606 M54.31 [id number] Sudhir Cooper i, PT Physical Therapy, [address] [address] 1 05/22/2017 13:52:27 05/23/2017 09:22:32 Sciatica 39586310 M54.31 [id number] Taz Pineda MD , [facility], OFFICE [address] [place] [address] 1 06/01/2017 10:59:09 06/01/2017 11:45:43 Adult health examination 609444348 Z00.00 see Risk Assessment and Lifestyle Change Counseling section above Counseling 883283061 Z71 .9 Mixed hyperlipidemia 267 626000 E78.2 Benign ess ential hypertension 0333186 I10 Blood pressure at goal [id number] Taz Pineda MD , [facility], OFFICE [address] [place] [address] 1 09/11/2017 14:58:41 09/11/2017 15:36:21 Active or passive immunization 815600097 Z23 Mixed hyperlipidemia 267 394470 E78.2 [id number] Taz Pineda MD , [facility], OFFICE [address] [place] [address] 1 12/04/2017 08:16:52 12/04/2017 08:47:10 Mixed hyperlipidemia 828172375 E78.2 Cholestero l is at goal Cholestero l is not at goal Continue to work on diet and exercise as discussed Benign ess ential hypertension 0891315 I10 Blood pressure at goal Blood pressure NOT at goal. [id number] Taz Pineda MD , [facility], OFFICE [address] [place] [address] 1 01/25/2018 07:58:55 01/25/2018 08:26:20 Active or passive immunization 836321285 Z23 Perineal pain 311909565 R10.2 Pain of prostate 7905978 0 N42.81 [id number] Taz Pineda MD , [facility], OFFICE [address] [place] [address] 1 02/19/2018 11:48:11 02/19/2018 12:09:23 Mixed hyperlipidemia 854941344 E78.2 Cholestero l is not at goal Continue to work on diet and exercise as discussed Benign ess ential hypertension 6151124 I10 Blood pressure at goal [id number] Taz Pineda MD , [facility], OFFICE [address] [place] [address] 1 05/17/2018 08:31:45 05/17/2018 08:47:19 Mixed hyperlipidemia 967158679 E78.2 Benign ess ential hypertension 6129804 I10 Blood pressure at goal [id number] Taz Pineda MD , [facility], OFFICE [address] [place] [address] 1 06/28/2018 09:47:57 06/28/2018 10:25:03 Adult health examination 382721718 Z00.00 see Risk Assessment and Lifestyle Change Counseling section above Counseling 963225326 Z71 .9 Depression screening 171 909844 Z13.89 depression screening tool administer ed, entered into emr, scored and discussed, time greater than 7.5 minutes Mixed hyperlipidemia 267 850811 E78.2 Benign ess ential hypertension 6832965 I10 Blood pressure at goal Gastro-eso phageal reflux disease with esophagitis 403377714 K21.0 [id number] John Lilly MD , [facility], OFFICE [address] [place] [address] 1 09/18/2018 11:33:16 09/18/2018 16:31:00 Increased frequency of urination 751748866 R35.0 Informed Pt that he is negative [...] understand s and agrees with treatment plan [id number] Taz Pineda MD , [facility], OFFICE [address] [place] [address] 1 12/27/2018 09:26:55 12/27/2018 09:57:59 Mixed hyperlipidemia 897111177 E78.2 Cholestero l is at goal Continue to work on diet and exercise as discussed Benign ess ential hypertension 9313334 I10 Blood pressure at goal Herpes simplex 39620506 B00.9 Impotence of organic origin 109214600 N52.9 [id number] Taz Pineda MD , [facility], OFFICE [address] [place] [address] 1 01/24/2019 09:19:14 01/27/2019 10:06:40 Sacroiliac joint pain 347123434 M53.3 [id number] Fidelia Goodwin PT Physical Therapy, [address] [place] [address] 1 01/24/2019 11:23:36 01/27/2019 08:50:05 Low back pain 498547842 M54.5 [id number] Fidelia Goodwin PT Physical Therapy, [address] [place] [address] 1 01/27/2019 10:53:21 01/27/2019 12:04:39 Low back pain 634681592 M54.5 [id number] Fidelia Goodwin PT Physical Therapy, [address] [place] [address] 1 01/30/2019 13:04:20 01/30/2019 16:15:36 Low back pain 217586692 M54.5 [id number] Taz Pineda MD , [facility], OFFICE [address] [place] [address] 1 01/31/2019 08:36:54 01/31/2019 11:14:15 Acute sciatica 672378788 M54.32 [id number] Fidelia Goodwin PT Physical Therapy, [address] [place] [address] 1 02/03/2019 08:28:00 02/03/2019 10:06:05 Low back pain 504296997 M54.5 [id number] Valeria Mosley MD , [facility], OFFICE [address] [place] [address] 1 02/04/2019 09:53:40 02/04/2019 10:42:17 Acute sciatica 009796840 M54.32 S1 radiculiti s with ongoing motor [...] abated with [facility] rational dicussed with [facility] complete pred, restart ibuprofen 2400 mg a day , continue rubberband strengthen ing exercises [id number] Fidelia Goodwin, PT Physical Therapy, [address] [place] [address] 1 02/06/2019 08:31:24 02/07/2019 08:10:28 Low back pain 099545585 M54.5 [id number] Fidelia Goodwin, PT Physical Therapy, [address] [place] [address] 1 02/13/2019 08:27:50 02/13/2019 16:44:20 Low back pain 783756663 M54.5 [id number] Fidelia Goodwin, PT Physical Therapy, [address] [place] [address] 1 02/24/2019 11:31:34 02/24/2019 13:56:50 Low back pain 720344402 M54.5 [id number] Taz Pineda MD , [facility], OFFICE [address] [place] [address] 1 09/18/2019 08:48:31 09/18/2019 09:34:24 Adult health examination 677856137 Z00.00 see Risk Assessment and Lifestyle Change Counseling section above Counseling 933527574 Z71 .9 Depression screening 171 383118 Z13.89 depression screening tool administer ed, entered into emr, scored and discussed, time greater than 7.5 minutes Mixed hyperlipidemia 267 301520 E78.2 Cholestero l is at goal Active or passive immunization 280001079 Z23 Benign ess ential hypertension 2124687 I10 Blood pressure at goal Ex-smoker 2797096 Z87.89 1 [id number] Taz Pineda MD , [facility], OFFICE [address] [place] [address] 1 10/21/2019 08:00:51 10/21/2019 08:29:32 Pain of right shoulder joint 5572458311 9174949 M25.602 [id number] Fidelia Goodwin, PT Physical Therapy, [address] [address] 1 10/27/2019 10:33:28 10/27/2019 14:04:07 Shoulder pain 56062193 M25.026 [id number] Fidelia Goodwin PT Physical Therapy, [address] [address] 1 11/03/2019 08:58:05 11/04/2019 09:44:16 Shoulder pain 38658049 M25.877 [id number] Fidelia Goodwin PT Physical Therapy, [address] [address] 1 11/10/2019 08:00:42 11/10/2019 08:31:42 Shoulder pain 63919656 M25.175 [id number] Valeria Mosley MD , [facility], OFFICE [address] [place] [address] 1 03/24/2020 08:09:38 03/24/2020 14:40:10 Mixed hyperlipidemia 369978719 E78.2 Cholestero l is at goal on ator 10 since begun 01/2018LDL at 79LDL had been 140 despite dietary attempts, until begun on atorF AR at 54, bros 55, 59 with AR's , all bad lifestyle Benign ess ential hypertension 0595234 I10 Blood pressure at goal on lisinopril 5 mg since at least 2009 for SBP 148, 144BP 130-120/80 -75 sinceoccas 140As Primary Prevention continue low low dose BENJAMIN indefinite ly Ex-smoker 4201841 Z87.89 1 quit age 20AAA screen neg 2019 Acute sciatica 126306687 M54.32 03/24/2020 pain freeis feeling better with [...] with agreed physiatry referral- rational dicussed with [facility] complete [...] would be called for? Performance anxiety 2796 46517 F40.248 propranolo l as needed Family his tory of Cardiovascular disease 082789053 Z82.49 F AR at 54, bros 55, 59 with AR's , all bad lifestyle Impotence of organic origin 074233183 N52.9 viagra 11/29 tab since 2010 Seborrheic dermatitis 50 016029 L21.9 michael sulfide very effective Polyp of gallbladder 197 768173 K82.4 small 2mm seen [place] in 2010needs followup [id number] Aga Manley RN , [facility], OFFICE [address] [place] [address] 1 09/24/2020 11:02:10 09/29/2020 16:21:00 Active or passive immunization 068737026 Z23 [id number] Valeria Mosley MD , [facility], OFFICE [address] [place] [address] 1 09/24/2020 13:51:26 09/29/2020 16:20:04 Adult health examination 964494056 Z00.00 Counseling 680352451 Z71 .9 including cardiovasc ular risk reduction counseling Depression screening 171 385070 Z13.89 depression screening tool administer ed, entered into emr, scored and discussed, time greater than 7.5 minutes Screening for alcohol abuse 150147827 Z13.39 Mixed hyperlipidemia 267 353365 E78.2 Cholestero l is at goal on ator 10 since begun 01/2018LDL at 79LDL had been 140 despite dietary attempts, until begun on atorF AR at 54, bros 55, 59 with AR's , all bad lifestyle Benign ess ential hypertension 9360452 I10 Blood pressure at goal on lisinopril 5 mg since at least 2009 for SBP 148, 144BP 130-120/80 -75 sinceoccas 140As Primary Prevention continue low low dose BENJAMIN indefinite ly Ex-smoker 1364389 Z87.89 1 quit age 20AAA screen neg 2019 Acute sciatica 633886837 M54.32 03/24/2020 pain freeis feeling better with [...] script would be called for? Performance anxiety 5086 87722 F40.248 propranolo l as needed Family his tory of Cardiovascular disease 879357158 Z82.49 F AR at 54, bros 55, 59 with AR's , all bad lifestyle Impotence of organic origin 925890024 N52.9 viagra 11/29 tab since 2010 Seborrheic dermatitis 50 501035 L21.9 michael sulfide very effective Polyp of gallbladder 197 683431 K82.4 small 2mm seen [place] GB in 2011needs followup [id number] Valeria Mosley MD , [facility], OFFICE [address] [place] [address] 1 03/28/2021 08:06:14 03/28/2021 08:29:24 Mixed hyperlipidemia 646425694 E78.2 Cholestero l is at goal on ator 10 since begun 01/2018LDL at 79LDL had been 140 despite dietary attempts, until begun on atorF AR at 54, bros 55, 59 with AR's , all bad lifestyle Benign ess ential hypertension 5277706 I10 Blood pressure at goal on lisinopril 5 mg since at least 2009 for SBP 148, 144BP 130-120/80 -75 sinceoccas 140As Primary Prevention continue low low dose BENJAMIN indefinite ly Ex-smoker 5675564 Z87.89 1 quit age 20AAA screen neg 2019 Acute sciatica 884973969 M54.32 02/2021gene rally keeping active is best [...] , continue rubberband strengthen ing exercises 01/2019 Hello, Mj Osiel is reporting numbness in his left LE, gastroc and lat foot with weakness of plantar flexion. This is unchanged with ex and PT tx (since 01/24). Shall we just continue or do you think a script would be called for? Performance anxiety 2796 61595 F40.248 propranolo l as needed Family his tory of Cardiovascular disease 209363524 Z82.49 F AR at 54, bros 55, 59 with AR's , all bad lifestyle Impotence of organic origin 480018373 N52.9 viagra 11/29 tab since 2010 Seborrheic dermatitis 50 869059 L21.9 michael sulfide very effective Polyp of gallbladder 197 987795 K82.4 small 2mm seen [place] GB in 2010needs followup Psoriasis 8525406 L40.9 laterally distal calves bilateral brawny discolorat ion and thickening , very excoriated , [place] rx fluocinoni de cream twice a day for 2 weeks then a suppressiv e regimen few days a week [id number] Valeria Mosley MD , [facility], OFFICE [address] [place] [address] 08/23/2021 13:24:50 08/24/2021 14:03:14 Mixed hyperlipidemia 700322820 E78.2 Cholestero l is at goal on ator 10 since begun 01/2018LDL at 79LDL had been 140 despite dietary attempts, until begun on atorF AR at 54, bros 55, 59 with AR's , all bad lifestyle Benign ess ential hypertension 0233258 I10 08/23/2021 home BP's elevated, so he doubled lisinopril to 10 mg, *Blood pressure at goal on lisinopril 5 mg since at least 2009 for SBP 148, 144BP 130-120/80 -75 sinceoccas 140As Primary Prevention continue low low dose BENJAMIN indefinite ly Ex-smoker 6452652 Z87.89 1 quit age 20AAA screen neg 2019 Acute sciatica 690122225 M54.32 02/2021gene rally keeping active is best [...] stand or walk off ball of foot, /., heel strikes ground earlier than contralate ral [...] would be called for? Performance anxiety 2796 97669 F40.248 propranolo l as needed Family his tory of Cardiovascular disease 141495861 Z82.49 F AR at 54, bros 55, 59 with AR's , all bad lifestyle Impotence of organic origin 196601071 N52.9 viagra 11/29 tab since 2010 Seborrheic dermatitis 50 966817 L21.9 michael sulfide very effective Polyp of gallbladder 197 700725 K82.4 small 2mm seen [place] in 2010needs followup Psoriasis 1997612 L40.9 laterally distal calves bilateral brawny discolorat ion and thickening , very excoriated , [place] rx fluocinoni de cream twice a day for 2 weeks then a suppressiv e regimen few days a week [id number] Jaspal Yu RN [facility], [address] [address] 01/06/2022 06:46:27 01/06/2022 12:24:28 Health Concerns [...] B-MA: NATIONAL GOVERNMENT SERVICES Mj B Osiel [id number] Mj B Osiel 09/24/2020 2 [facility] [employer] PLAN - NAVIGATOR (PPO) [id number] Mj B Osiel [id number] Mj B Osiel 09/24/2020 1 MEDICARE B-MA: NATIONAL GOVERNMENT SERVICES Mj B Osiel [id number] Mj B Osiel 09/24/2020 2 [facility] [employer] PLAN - NAVIGATOR (PPO) [id number] Mj B Osiel [id number] Mj B Osiel 03/28/2021 1 MEDICARE B-[place]: NATIONAL GOVERNMENT SERVICES Mj B Osiel [id number] Mj B Osiel 03/28/2021 2 [facility] [employer] PL[employer] - NAVIGATOR (PPO) [id number] Mj B Osiel [id number] Mj B Osiel 08/23/2021 1 MEDICARE B-MA: NATIONAL GOVERNMENT SERVICES Mj B Osiel [id number] Mj B Osiel 08/23/2021 2 [facility] [employer] PL[employer] - NAVIGATOR (PPO) [id number] Mj B Osiel [id number] Mj B Osiel 01/06/2022 1 MEDICARE B-MA: NATIONAL GOVERNMENT SERVICES Mj B Osiel [id number] Mj B Osiel 01/06/2022 2 [facility] [employer] PL[employer] - NAVIGATOR (PPO) [id number] Mj B Osiel [id number] Mj B Osiel Notes Date Note Type [...] ischemic heart disease; No peripheral vascular disease (56919); No diabetes; No carotid artery stenosis Ability to Manage Self CareOn how confident the patient feels in ability to self manage condition the patient selects 10 with 10 being very confident and 1 being very low confidence; Patient feels very confident in ability to self manage conditionNotes:DID HAVE CAD EVAL. WHICH WAS NEG. TRIMMING CASER WANTED PT TO CONSIDER STATIN GIVEN FH.VMG [...] 23 24 25}} minutes. Valeria Mosley MD [address] [place] [address], [phone], [facility] [...] ischemic heart disease; No peripheral vascular disease (52771); No diabetes; No carotid artery stenosis Ability to Manage Self CareOn how confident the patient feels in ability to self manage condition the patient selects 10 with 10 being very confident and 1 being very low confidence; Patient feels very confident in ability to self manage conditionNotes:DID HAVE CAD EVAL. WHICH WAS NEG. TRIMMING CASER WANTED PT TO CONSIDER STATIN GIVEN FH.VMG [...] 23 24 25}} minutes. Valeria Mosley MD [address] [place] [address], [phone] [place] [address] 03/28/2021 08:32:00 1 text/html Physical Exam/MaleReported bypatient.PHAPatient [...] ischemic heart disease; No peripheral vascular disease (55462); No diabetes; No carotid artery stenosis Ability to Manage Self CareOn how confident the patient feels in ability to self manage condition the patient selects 10 with 10 being very confident and 1 being very low confidence; Patient feels very confident in ability to self manage conditionNotes:DID HAVE CAD EVAL. WHICH WAS NEG. TRIMMING CASER WANTED PT TO CONSIDER STATIN GIVEN FH.VMG [...] 23 24 25}} minutes. Valeria Mosley MD [address] [place] [address], [phone], [facility] 08/23/2021 17:39:40
--- OUTSIDE RECORDS SUMMARY | 2025-02-26 15:03 | XMS_ITS ---
Author Organization Marito Allen MD Address [address] [place] [phone] Care Team Providers Care Medical Coding Instructor Name Role Phone Marito Allen Primary Care Provider REASON FOR VISIT rx for orthotics Encounters Encounter Location Date Provider Diagnosis Marito Allen MD [address] [place] [address] [address] [place] [phone] 02/13/2025 Marito Allen Plan Of Treatment Next Appt Details Provider Name:Marito palacios, 07/17/2025 08:00:00 AM, [address] [place] [address], [address], [phone], Provider Name:Marito palacios, 07/24/2025 10:00:00 AM, [address] [place] [address], [address], [phone], Provider Name:Marito palacios, 01/18/2026 08:00:00 AM, [address] [place] [address], [address], [phone], Provider Name:Mariot palacios, 01/25/2026 02:30:00 PM, [address] [place] [address], [address], [phone], Progress Notes * Mj CARTAGENADOB:1955 ( 69 yo M)Acc No.[id number]:02/13/2025 Patient:?Mj CARTAGENA :1955???Age:69 Y???Sex:Male Address:[address] [place] [address] , [place], [address] * true * Date:? Generated for Jennifer mack/Marquise/Rachelle on:?02/26/2025 03:03 PM EDT
--- OUTSIDE RECORDS SUMMARY | 2025-02-26 15:03 | XMS_ITS ---
Author Organization Marito Allen MD Address [address] [facility] [address] [place] [phone] Care Team Providers Care Senior Manufacturing Technician Name Role Phone Marito Allen Primary Care Provider [phone] REASON FOR VISIT Canceling tomorrow's appointment Encounters Encounter Location Date Provider Diagnosis Marito Allen MD [address] [place] [address] [place] [id number] 01/01/2025 Marito Allen Plan Of Treatment Next Appt Details Provider Name:Marito palacios, 07/17/2025 08:00:00 AM, [address] [place] [address], [address], [phone], Provider Name:Marito palacios, 07/24/2025 10:00:00 AM, [address] [place] [address], [address], [phone], Provider Name:Marito palacios, 01/18/2026 08:00:00 AM, [address] [place] [address], [address], [phone], Provider Name:Marito palacios, 01/25/2026 02:30:00 PM, [address] [place] [address], [address], [phone], Progress Notes * Mj CARTAGENADOB:1955 ( 69 yo M)Acc No.[id number]:01/01/2025 Patient:?Mj CARTAGENA :1955???Age:69 Y???Sex:Male Address:[address] [place] [address], [address] * true * Date:? Generated for Jennifer mack/Marquise/Keishasmitting on:?02/26/2025 03:03 PM EDT
--- OUTSIDE RECORDS SUMMARY | 2025-02-26 15:04 | XMS_ITS ---
Author Organization Marito Allen MD Address [address] [place], [place] [phone] Care Team Providers Care Bonding Molder Name Role Phone Marito Allen Primary Care [...] kg/m2 01/22/2025 weight is down 4 pounds [facility] 06-06-24 Encounters Encounter Location Date Provider Diagnosis Marito Allen MD [address] [place] [address] [place] [phone] 01/22/2025 Marito Allen Elevated serum creat inine [...] Reason: Provider Name:Marito palacios, 07/17/2025 08:00:00 AM, [address] [place] [address], Suite [facility], [place], [place], [phone], Provider Name:Marito palacios, 07/24/2025 10:00:00 AM, [address] [place] [address] Drive, Suite [facility], [place], [place], [phone], Provider Name:Marito palacios, 01/18/2026 08:00:00 AM, [address] [place] [address], [address], [place], [place], [phone], Provider Name:Marito palacios, 01/25/2026 02:30:00 PM, [address] [place] [address], Suite [facility], [place], [place], [phone], Progress Notes * Mj CARTAGENADOB:1955 ( 69 yo M)Acc No.[id number]:01/22/2025 Patient:?Mj CARTAGENA Provider:?Marito Allen MD :1955???Age:69 Y???Sex:Male Leobardo e:01/22/2025 Address:[address] [place], [place] [phone] Subjective: * Chief Complaints: * ???Comp visitC/o [...] brother(s) . 2 son(s) . .? Father- CT Mother- CVA 1 sister, No pertinent family [...] Objective: * Vitals:?Ht: 71.5, Wt: 164, B CT:22.55, BP:128/70, Wt-k.39. weight is down 4 pounds [...] mg/dL ?Urine Blood Negative Negative - ?Specific [place] - Urine 1.010 1.005-1.025 - ?Urine Protein [...] Auto 0.000 0.0-0. 012 - X10*3/uL ???Lab:Comprehensive [place]. P ange Fast (Order Date - 12/05/2024) [...] 8.4-10.2 - m g/dL ???Lab:Liver Panel (Order [facility] 12/05/2024) (Collection Date & Time - 12/05/2024 07:15 AM) ? Value Reference Range ?Bilirubin Direct 0.3 0.0 -0.5 - mg/dL ???Lab:Lipid Panel (Order [facility] 12/05/2024) (Collection Date & Time - [...] MD Date:?0 01/22/2025 Generated for Jennifer mack/Marquise/eTransmitting on:?02/26/2025 03:03 PM EDT History and Physical Notes * HPI [...] had two or more falls in the year?: No Communication Needs Communication Needs Does [...]
== END 2025-02-26 14:08 | disposition home or self-care (01) ==
LOC: HO.HGS 13:43
PROVIDERS: PCP Internal Medicine; Visit Provider Surgery
DX: K40.20 Bilateral inguinal hernia, without obstruction or gangrene, not specified as recurrent (principal)
CPT/HCPCS: 99024

== ENCOUNTER → 2025-02-26 13:43 | Outpatient (BNVA) | payer MEDICARE, SELFPAY | PROVIDERS: PCP Internal Medicine; Visit Provider Surgery | DX: Z48.815 Encounter for surgical aftercare following surgery on the digestive system (principal); Z98.890 Other specified postprocedural states | CPT/HCPCS: 99212 ==

== ENCOUNTER 2025-03-17 15:47 | Outpatient (REF) | payer MEDICARE, SELFPAY ==
[2025-03-17 15:59] LABS: MANUAL DIFF FLAG NO
[2025-03-17 17:05] LABS: Basophils Absolute Auto 0.1 X10*3/uL (0.0-0.2); Basophils Percent Auto 0.6 % (0-2); Eosinophils Absolute Auto 0.3 X10*3/uL (0.0-0.4); Eosinophils Percent Auto 2.8 % (0-4); Hematocrit 33.7 % (42.0-52.0); Hemoglobin 11.5 g/dl (14.0-18.0); Imm Gran Abs Auto 0.12 X10*3/uL (0.00-0.03); Imm Gran Pct Auto 1.2 % (0.0-0.4); Lymphocytes Absolute Auto 1.8 X10*3/uL (1.2-4.9); Lymphocytes Percent Auto 18.1 % (20-40); Mean Corpuscular HGB Conc 34.1 g/dl (31.0-36.0); Mean Corpuscular Volume 102.4 fL (80.0-98.0); Monocytes Absolute Auto 1.1 X10*3/uL (0.1-1.2); Monocytes Percent Auto 10.9 % (2-11); Neutrophils Absolute Auto 6.7 x10*3/uL (2.0-8.3); Neutrophils Percent Auto 66.4 % (45-73); Platelet Count 388 X10*3/uL (160-400); Red Blood Count 3.29 X10*6/uL (4.60-5.80); Red Cell Distribution Width 13.2 % (11.0-16.0); White Blood Count 10.1 X10*3/uL (4.8-10.8)
--- OUTSIDE RECORDS SUMMARY | 2025-03-17 18:34 | XMS_ITS ---
Author Organization Marito Allen MD Address [address] [place] [address] [place] [phone] Care Team Providers Care Nurse Transplant Name Role Phone Marito Allen Primary Care Provider REASON FOR VISIT Discharged today Encounters Encounter Location Date Provider Diagnosis Marito Allen MD [address] [place] [address] [place] [phone] 03/10/2025 Marito Allen Plan Of Treatment Next Appt Details Provider Name:Marito Omer ier, 07/17/2025 08:00:00 AM, [address] [place] [address], [address], [phone], Provider Name:Marito palacios, 07/24/2025 10:00:00 AM, [address] [place] [address], [address], [phone], Provider Name:Marito palacios, 01/18/2026 08:00:00 AM, [address] [place] [address], [address], [phone], Provider Name:Marito palaicos, 01/25/2026 02:30:00 PM, [address] [place] [address], [address], [phone], Progress Notes * Mj CARTAGENADOB:1955 ( 69 yo M)Acc No.[id number]:03/10/2025 Patient:?Mj CARTAGENA :1955???Age:69 Y???Sex:Male Address:[address] [place] [address] , [place], [address] * true * Date:? Generated for Jennifer mack/Marquise/Keishasmitting on:?03/17/2025 06:34 PM EDT
--- OUTSIDE RECORDS SUMMARY | 2025-03-17 18:34 | XMS_ITS | Data Portability ---
Author Organization [facility], , [facility] Address [address] [place] [address] Care Team Providers Care Coater Slate Name Role Phone VALERIA MOSLEY Primary Care [...] was notified that the provider location is [facility] Patient location: home During the visit the [...] and Aorta Scan 2018 for same pain. Roscoe non concerning 2020 [facility], [address] [place] [address], [address], 1 12:45:10 Procedures None recorded. Surgeries None recorded. Imaging None recorded. Medication Orders fluocinoni de 0.05 % topical cream 2020 021 [facility], [address] [place] [address], [address], 1 08:28:52 selenium sulfide 2.25 % shampoo 2019 [address], [address], 0 14:27:41 tadalafil 20 mg tablet 2019 [address], [address], 0 14:27:41 Patient TargetsNo targets recorded. Patient Instructions Encounter Date Encounter Id Patient Instructions Last Modified By Organization Details Last Modified Time 09/24/2020 [id number] preventing falls : care instructions [email or web address] Not [...] was notified that the provider location is [facility] Patient location: home During the visit the patient? s medical history and medical record were reviewed. The patient was notified to call our office for worsening or urgent symptoms. [email or web address] Not available 09/24/2020 14:08:38 03/28/2021 [id number] Prostate Cancer Screening using PSA was discussed. [...] was notified that the provider location is [facility] Patient location: home During the visit the patient? s medical history and medical record were reviewed. The patient was notified to call our office for worsening or urgent symptoms. [email or web address] Not available 03/28/2021 08:17:42 08/23/2021 [id number] 45 minutes spent with pt romel Not available 08/23/2021 17:39:13 Reason for Referral Supervisor Sample Referral for Polyp of gallbladder cyclic, rare, limited spells of severeabd pain accompanied by diaphoresiscounselled by MD wilhelm who instilled anxietyPMH GP polyp (seen 2010 US) LTFUHad US abdomen in 2010 and Aorta Scan 2018 for same pain. Roscoe non concerning Referring Physician: Valeria Mosley, Family Medicine, Encounter Date: 08/23/2021 Results Created Date Observation Date Name Description Value Unit Range Abnormal Flag Note LastModifiedBy Organization Detail LastModifiedTime 03/22/20 21 03/22/2021 BMP, serum or plasm a glucose 89 mg/dL 70-100 Not Available [address], [address], 03/22/2021 12:20:56 03/22/20 21 03/22/2021 BMP, serum or plasm a BUN 14 mg/dL 7-18 Not Available [address], [address], 03/22/2021 12:20:56 03/22/20 21 03/22/2021 BMP, serum or plasm a creatinine 1.2 mg/dL 0.8-1. 3 Not Available [address], [address], 03/22/2021 12:20:56 03/22/20 21 03/22/2021 BMP, serum or plasm a B/C 11.7 ratio Not Available [address], [address], 03/22/2021 12:20:56 03/22/20 21 03/22/2021 BMP, serum or plasm a GFR -non 64.4 mL/mi n Recom kailey d GFR by the Natio nal Kidne y Found ation >60 mL/mi n/1.7 3m2 - Rachana l <60 mL/mi n/1.7 3m2 - Chron ic Kidne y Disea se <15 mL/mi n/1.7 3m2 - Kidne y Failu re Not Available [address], [address], 03/22/2021 12:20:56 03/22/20 21 03/22/2021 BMP, serum or plasm a GFR - if 77.9 mL/mi n For Afric an Ameri can patie nts: Resul ts Multi plied by 1.21 Not Available [address], [address], 03/22/2021 12:20:56 03/22/20 21 03/22/2021 BMP, serum or plasm a sodium 138 mmol/ L 136-14 5 Not Available [address], [address], 03/22/2021 12:20:56 03/22/20 21 03/22/2021 BMP, serum or plasm a potassium 4.2 mmol/ L 3.5-5. 1 Not Available [address], [address], 03/22/2021 12:20:56 03/22/20 21 03/22/2021 BMP, serum or plasm a chloride 100 mmol/ L 96-107 Not Available [address], [address], 03/22/2021 12:20:56 03/22/20 21 03/22/2021 BMP, serum or plasm a anion gap 9.7 5.0-15 .0 Not Available [address], [address], 03/22/2021 12:20:56 03/22/20 21 03/22/2021 BMP, serum or plasm a CO2 28 mmol/ L 21-32 Not Available [address], [address], 03/22/2021 12:20:56 03/22/20 21 03/22/2021 BMP, serum or plasm a calcium 8.8 mg/dL 8.5-10 .3 Not Available [address], [address], 03/22/2021 12:20:56 03/22/20 21 03/22/2021 lipid panel , serum cholesterol 161 mg/dL <200 mg/dl Boubacar able 200-2 39 mg/dl Borde rline High >240 mg/dl High Not Available [address], [address], 03/22/2021 12:20:57 03/22/20 21 03/22/2021 lipid panel , serum triglyceride s 59 mg/dL <150 mg/dL Rachana l 150-1 99 mg/dL Borde rline High 200-4 99 mg/dL High >500 mg/dL Very High Not Available [address], [address], 03/22/2021 12:20:57 03/22/20 21 03/22/2021 lipid panel , serum direct HDL 61 mg/dL <40 mg/dl - Major Risk for CHD >60 mg/dl - Negat wendi Risk for CHD Not Available [address], [address], 03/22/2021 12:20:57 03/22/2003/22/2021 LDL, rajani gray , [...] r is not neces mary. Not Available [facility] [address] [place], [address], 03/22/2021 12:20:58 01/04/20 22 01/04/2022 SARS- COV-2 RNA (COVI D-19) , QUALI TATIV E NAAT sarscov2 NEGATI VE negati ve normal This test has been autho rized by the FDA under an Emerg ency Use Autho rizat ion(E UA) for you by autho rized labs. Not Available 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 [facility] - Outpatient Radiology [address] [place] [address] [place], [address], 11/22/2021 16:57:30 Result Notes None recorded. Problems Name Problem SNOMED Code Status Onset Date Resolution Date Notes Provider Name and Address Organization Details Recorded Time Low back pain 894695875 Active 2018 Fidelia Goodwin, PT [address] [place], [address], [facility] 9 18:58:07 Shoulder pain 23035576 Active 2018 Fidelia Goodwin, PT [address] [place], [address], [facility] 9 13:27:23 Mixed hyperlipide erika 598554051 Active 2007 [place], [address], [facility] 6 12:05:17 Dyspnea 760727954 Completed 200110/15/2013 [place], [address], [facility] 6 10:20:57 Finding by method 846099012 Completed 200110/15/2013 [place], [address], [facility] 6 10:20:57 Abdominal pain 30217233 Completed 200510/15/2013 [place], [address], [facility] 6 10:20:57 Joint pain 99711813 Completed 200208/16/2015 [place], [address], [facility] 6 10:20:57 On examination - a rash Completed 200210/15/2013 [place], [address], [facility] 6 10:20:57 Herpes simplex 70470826 Active 2007 Taz Pineda MD [facility] [place], [address], [facility] 6 10:20:57 Palpitation s 18299094 Active 2002 Taz Pineda MD [facility] [place], [address], [facility] 6 10:20:57 Gastro-esop hageal reflux disease with esophagitis 997193620 Active 2007 Taz Pineda MD [facility] [place], [address], [facility] 6 10:20:57 Benign essential hypertensio n 7282942 Active 2001 Taz Pienda MD [facility] [place], [address], [facility] 6 12:05:17 Elevated blood-press ure reading without diagnosis of hypertensio n 074748101 Completed 200108/16/2015 Taz Pineda MD [facility] [place], [address], [facility] 6 10:20:57 Generalized abdominal pain 747959898 Completed 200510/15/2013 Taz Pineda MD [facility] [place], [address], [facility] 6 10:20:57 Hip pain 73277611 Completed 200710/15/2013 Taz Pineda MD [address] [place] [address] [place], [address], [facility] 6 10:20:57 Problem Notes None recorded. Procedures Surgical History Date Name Laterality Status Provider Name and Address Organization Details Recorded Time 01/06/20 Bronson - Colonoscopy completed Rodney Dobson MD [facility] [place], [address], [facility] 01/06/2022 07:53:38 09/24/20 20 Medicare Wellness Visit completed Meche Diaz [facility] 09/24/2020 13:52:06 09/24/20 20 prevention-card iovascular risk reduction counseling completed Meche Diaz [facility] 09/24/2020 13:52:06 09/24/20 prevention-mariya al alcohol misuse screening completed Meche Diaz [facility] 09/24/2020 13:52:06 11/10/20 19 [address]1108: Therapeutic Exercise completed Fidelia Goodwin, PT [address] [place], [address], [facility] 11/10/2019 08:20:04 11/03/20 19 [address]: Therapeutic Exercise completed Fidelia Goodwin, PT [address] [place], [address], [facility] 11/03/2019 20:15:48 11/03/20 19 [address]4565: Manual Therapy completed Fidelia Goodwin, [place], [address], [facility] 11/03/2019 20:16:55 11/03/20 19 [address]364: Ultrasound (1:1) completed Fidelia Goodwin, PT [address] [place], [address], [facility] 11/03/2019 20:16:11 10/27/20 Physical Activity Counselling completed Fidelia Goodwin, PT [address] [place], [address], [facility] 10/27/2019 13:22:38 10/27/20 19 72040: PT Eval, Moderate Complexity completed Fidelia Goodwin, PT [address] [place], [address], [facility] 10/27/2019 13:22:42 09/18/20 19 Medicare Wellness Visit completed Connie Berry [facility] 09/18/2019 08:52:49 02/25/20 19 26039: Therapeutic Exercise completed Fidelia Goodwin, PT [address] [place], [address], [facility] 02/24/2019 11:35:29 02/14/20 19 90613: Therapeutic Exercise completed Fidelia Goodwin, PT [address] [place], [address], [facility] 02/13/2019 10:03:12 02/07/20 19 67768: Therapeutic Exercise completed Fidelia Goodwin, PT [address] [place], [address], [facility] 02/06/2019 21:08:40 02/07/20 19 17737: Manual Therapy completed Fidelia Goodwin, PT [address] [place], [address], [facility] 02/06/2019 21:08:32 02/07/20 19 07768: Mechanical Traction completed Fidelia Goodwin, PT [address] [place], [address], [facility] 02/06/2019 20:47:24 02/04/20 19 86760: Therapeutic Exercise completed Fidelia Goodwin, PT [address] [place], [address], [facility] 02/03/2019 09:08:40 02/04/20 19 97387: Manual Therapy completed Fidelia Goodwin, PT [address] [place], [address], [facility] 02/03/2019 09:09:20 01/31/20 19 80549: Therapeutic Exercise completed Fidelia Goodwin, PT [address] [place], [address], [facility] 01/30/2019 16:00:38 01/31/20 19 42311: Ultrasound (1:1) completed Fidelia Goodwin, PT [address] [place], [address], [facility] 01/30/2019 16:00:32 01/28/20 19 99634: Therapeutic Exercise completed Fidelia Goodwin, PT [address] [place], [address], [facility] 01/27/2019 11:58:33 01/28/20 19 12134: Manual Therapy completed Fidelia Goodwin, PT [address] [place], [address], [facility] 01/27/2019 11:57:57 01/28/20 19 96005: Ultrasound (1:1) completed Fidelia Goodwin, PT [address] [place], [address], [facility] 01/27/2019 11:58:25 01/25/20 19 Physical Activity Counselling completed Fidelia Goodwin, PT [address] [place], [address], [facility] 01/24/2019 18:51:28 01/25/20 19 23641: PT Eval, Moderate Complexity completed Fidelia Goodwin, PT [address] [place], [address], [facility] 01/24/2019 18:51:34 09/18/20 18 POC Urinalysis Testing completed Michele De Guzman CMA [facility] 09/18/2018 11:37:50 01/26/20 18 POC Urinalysis Testing completed Betina Gutierrez LPN [facility] 01/25/2018 08:15:43 05/22/20 17 61970: Therapeutic Exercise completed Sudhir Enriquez, PT [address] [place], [address], [facility] 05/23/2017 06:29:49 05/15/20 17 26166: Therapeutic Exercise completed Sudhir Enriquez, PT [address] [place], [address], [facility] 05/15/2017 12:57:19 05/15/20 17 00864: Manual Therapy completed Sudhir Enriquez, PT [address] [place], [address], [facility] 05/15/2017 12:57:27 05/08/20 17 Physical Activity Counselling completed Sudhir Enriquez, PT [address] [place], [address], [facility] 05/09/2017 05:38:24 05/08/20 17 11001: PT Eval, Moderate Complexity completed Sudhir Enriquez, PT [address] [place], [address], [facility] 05/09/2017 05:38:20 04/07/20 11 Asthma Control Test (12 + years old) completed Taz Pineda MD [address] [place], [address], [facility] 04/07/2011 15:38:38 Imaging Results Imaging Date Name Status LastModified by Organiz ation Details LastModified Time 11/22/2021 US abdomen limited right upper quadrant completed [facility] [address], [place], [address], 11/22/2021 16:57:29 11/22/2021 US, abdomen, limited completed [facility] [address] [place] [address] [place], [address], 11/22/2021 16:57:30 Procedure Notes None recorded. Medical [...] 180.34 cm 95.1 [degF] Aga Manley RN [facility] 09/24/2020 11:02:56 Date Recorded Body height Body mass index (BMI) Body weight Systolic blood pressure Diastolic blood pressure Provider Name and Address Organization Details Last Updated DateTime 03/28/2021 180.34 cm 23.9 kg/m2 83026.4 g 128 mm[Hg] 74 mm[Hg] Meche Diaz [facility] 08:10:17 Date Recorded Body height Body mass index (BMI) Body weight Systolic blood pressure Diastolic blood pressure Provider Name and Address Organization Details Last Updated DateTime 08/23/2021 180.34 cm 23.3 kg/m2 34700.93 g 140 mm[Hg] 76 mm[Hg] Mehce Diaz [facility] 09/28/202 1 13:35:53 Social History Question Answer Notes LastModified by Organizat ion Details LastModified Time Tobacco Smoking Status Former Smoker 3 PACK YRS. Only as teenager. 09/18/19 TG Taz Pineda MD [address] [place] [address], [address], [facility] 03/23/2011 09:13:23 Do You Have An Advance Directive? No Given Paperwork 03/04/10 Information not available 03/04/2010 What Is Your Level Of Alcohol Consumption? Moderate 7 Beers/week 09/18/19 TG [email or web address] Information not available 01/04/2016 Do You Wear A Helmet When Biking? Yes Information not available 08/16/2015 What Is Your Level Of Caffeine Consumption? Moderate 1-2 Cups Coffee Per Day Information not available 09/24/2020 How Much Tobacco Do You Chew? None Information not available 08/16/2015 What Type Of Diet Are You Following? REGULAR Information not available 08/16/2015 Which Illicit Or Recreational Drugs Have You Used? Marijuana 04/27/17 Twice A Week [email or web address] Information not available 04/27/2017 Do You Or [...] not available 06/15/2014 CCM Consent Discussion 09/18/2019 [email or web address] Information not available 09/18/2019 Marital Status [email or web address] [...] Tobacco? Never Used Smokeless Tobacco 09/18/19 TG [email or web address] Information not available 09/18/2019 How Much Tobacco Do You Smoke? No [email or web address] Information not available 09/18/2019 General Stress Level Medium Information not available 08/16/2015 Do You Use Sunscreen Routinely? Yes Information not available 08/16/2015 How Many Years Have You Smoked Tobacco? 0 [email or web address] Information not available 09/18/2019 Sex: Unknown Functional [...] virus, trivalent, preservative 1 completed Not Available [facility] 12/13/2019 02:18:30 pneumococcal polysaccharide PPV23 3 completed Not Available [facility] 12/13/2019 02:38:04 Tdap 3 completed Not Available [facility] 12/13/2019 02:28:48 Influenza, split virus, quadrivalent, PF 6 completed Not Available [facility] 12/13/2019 02:26:36 Influenza, split virus, quadrivalent, PF 6 completed Not Available [facility] 12/13/2019 02:20:41 Influenza, split virus, trivalent, preservative 3 [facility]/16[facility] 11:34:56 Influenza, split virus, quadrivalent, PF 7 completed Not Available [facility] 12/13/2019 02:39:35 Influenza, high-dose, trivalent, PF 9 completed Not Available [facility] 12/13/2019 02:24:36 Pneumococcal conjugate PCV 13 9 completed Not Available [facility] 12/13/2019 02:26:03 Influenza, split virus, quadrivalent, preservative 8 completed Lisa Roach MA null, [facility] 01/31/2019 08:58:34 Influenza, high-dose, quadrivalent, PF 0 completed Aga Manley RN null, [facility] 09/24/2020 11:03:28 COVID-19, mRNA, LNP-S, PF, 30 mcg/0.3 mL dose 1 completed Meche Diaz CMA null, [facility] 08/23/2021 13:34:24 COVID-19, mRNA, LNP-S, PF, 30 mcg/0.3 mL dose 1 completed SANDOVAL Dickinson, [facility] 08/23/2021 13:34:37 Past Encounters Encounter ID Performer Location Encounter Start Date Encounter Closed Date Diagnosis/Indication Diagnosis SNOMED-CT Code Diagnosis ICD10 Code Diagnosis Note [id number] [facility], OFFICE [address] [place] [address] 12/24/2001 16:45:00 12/16/2008 02:02:[id number] [facility], OFFICE [address] [place] [address] 01/06/2002 16:00:00 12/16/2008 02:02:[id number] [facility], OFFICE [address] [place] [address] 01/30/2002 15:30:00 12/16/2008 02:02:[id number] [facility], OFFICE [address] [place] [address] 04/29/2002 09:37:40 12/16/2008 02:02:29 [id number] [facility] , [facility] [address] [place] [address] 07/16/2002 15:35:20 12/16/2008 02:02:[id number] [facility], OFFICE [address] [place] [address] 07/16/2002 09:05:51 12/16/2008 02:02:[id number] [facility], OFFICE [address] [place] [address] 06/26/2003 10:31:22 12/16/2008 02:02:[id number] [facility], OFFICE [address] [place] [address] 08/17/2003 14:45:53 08/18/2003 11:40:[id number] [facility], OFFICE [address] [place] [address] 08/18/2003 15:46:10 08/19/2003 11:32:[id number] [facility], OFFICE [address] [place], [place] [address] 08/20/2003 00:00:00 12/16/2008 02:02:[id number] [facility], OFFICE [address] [place] [address] 11/16/2003 08:57:36 11/16/2003 16:37:17 [id number] [address] - [facility] [address] [place] [address] 11/16/2003 09:16:39 11/16/2003 12:59:[id number] [facility], OFFICE [address] [place] [address] 06/04/2006 16:43:03 12/16/2008 02:02:29 [id number] [facility] , [facility] [address] [place] [address] 06/07/2006 14:57:01 06/07/2006 16:03:[id number] [facility], OFFICE [address] [place] [address] 07/18/2006 13:29:17 07/19/2006 09:28:18 [id number] [facility] - [facility] [address] [place] [address] 07/19/2006 07:39:47 07/19/2006 08:03:06 [id number] [facility] [address] [place] [address] 09/25/2006 09:15:27 09/26/2006 07:21:[id number] [facility], OFFICE [address] [place] [address] 10/15/2007 14:58:57 12/16/2008 02:02:[id number] [facility], OFFICE [address] [place] [address] 11/06/2007 15:58:22 12/16/2008 02:02:29 [id number] [facility] - [facility] [address] [place] [address] 11/22/2007 07:05:34 11/22/2007 07:05:[id number] [facility], OFFICE [address] [place] [address] [place] [address] 11/28/2007 09:22:46 12/16/2008 02:02:[id number] [facility], OFFICE [address] [place] [address] [place] [address] 03/24/2008 15:41:22 12/16/2008 02:02:29 [id number] [facility] [address] [place] [address] 03/30/2008 07:23:53 03/30/2008 07:23:[id number] [facility], [address] [place] [address] 07/06/2008 13:40:58 12/16/2008 02:02:[id number] [address] [place] [address] 03/04/2010 15:11:25 03/07/2010 09:25:05 [id number] [address] [place] [address] 03/11/2010 16:47:38 03/11/2010 17:44:[id number] [facility], [address] [place] [address] 04/08/2010 14:57:08 04/08/2010 15:27:[id number] [facility], [address] [place] [address] 05/05/2010 08:18:31 05/05/2010 09:03:35 [id number] [address] [place] [address] 05/13/2010 13:47:34 05/13/2010 15:03:[id number] [facility], [place] [address] [place] [address] 08/08/2010 08:01:53 08/08/2010 10:14:[id number] UMAÑA [facility], [address] [place] [address] 03/23/2011 08:44:40 03/23/2011 09:42:[id number] [facility], OFFICE [address] [place] [address] [place]ord[place] [address] 04/07/2011 15:01:17 04/10/2011 09:11:06 [id number] [facility] , [facility] [address] [place] [address] 04/11/2011 14:49:13 04/12/2011 11:46:30 [id number] [facility] [place] [facility] [place] [address] [place] [address] DR ROFELICIANOJordi [place] [id number] 10/26/2011 09:22:03 10/26/2011 10:19:40 [id number] [facility] [place] [facility] [place] [address] [place] [address] DR R[place]ELICIANOJordi [place] [id number] 11/07/2011 10:46:34 11/07/2011 11:08:14 [id number] [facility] [place] [facility] [place] [address] [place] [address] DR ROFELICIANOJordi [place] [id number] 01/09/2012 09:20:06 01/09/2012 09:54:29 [id number] MD CHASIDY Thacker [address] R[place]ELICIANOJordi [place] [address] 01/09/2013 10:19:33 01/09/2013 10:42:26 [id number] MD CHASIDY Thacker [address] ROFELICIANOJordi CHIVO [address] 1 04/17/2013 13:37:14 04/17/2013 14:01:[id number] DONAJordi CHIVO [address] 1 06/12/2013 08:44:25 06/13/2013 07:43:16 [id number] Olga Lidia Mastrobert i CHASIDY [address] [place] [address] 1 09/26/2013 13:48:02 09/26/2013 14:27:47 Chest pain 47680004 [id number] Irma Calvin LPN [address] [place] [address] 1 10/16/2013 10:21:51 10/16/2013 12:01:27 Chest pain 01474494 [id number] [facility], [address] [place] [address] 1 06/15/2014 15:24:13 06/15/2014 16:03:20 Adult health examination [id number] see Risk Assessment and Lifestyle Change Counseling section above Benign ess ential hypertension 2727998 Blood pressure at goal Rosacea [id number] , [facility], OFFICE [address] [place] [address] 1 12/17/2014 16:40:19 12/17/2014 17:15:51 Benign essential hypertension 2340118 Blood pressure at goal Mixed hyperlipidemia 197039096 Performance anxiety 670639767 [id number] Taz Pineda MD , [facility], OFFICE [address] [place] [address] 1 03/12/2015 10:18:25 03/12/2015 11:19:36 Benign essential hypertension 1887077 Blood pressure at goal Mixed hyperlipidemia 618611589 [id number] [facility] [address] [place] [address] 06/09/2015 10:57:00 06/09/2015 13:28:05 Mixed hyperlipidemia 164991506 [id number] Danielle Zhao [facility], OFFICE [address] [place] [address] 1 08/16/2015 08:18:41 08/17/2015 15:19:35 Palpitations 53815339 Mixed hyperlipidemia 024513810 [id number] Taz Pineda MD , [facility], OFFICE [address] [place] [address] [place] [address] 1 01/04/2016 10:03:15 01/04/2016 10:40:47 Benign essential hypertension 7514938 I10 Blood pressure at goal Mixed hyperlipidemia 267 939596 E78.2 Cholestero l is at goal Continue to work on diet and exercise as discussed Active or passive immunization 356833655 Z23 [id number] Taz Pineda MD , [facility], OFFICE [address] [place] [address] 1 08/01/2016 08:28:01 08/01/2016 08:59:26 Rosacea 070695204 L71.9 Active or passive immunization 056283769 Z23 Glossitis 48728855 K14.0 Pityriasis versicolor 56 393452 B36.0 [id number] GERALDO Lynn, [facility], OFFICE [address] [place] [address] 1 04/27/2017 07:55:18 04/30/2017 08:30:06 Low back pain 707373316 M54.5 Suspect muscular strain with sciatica into L leg. No tenderness to palpation of spinous processes or weakness of leg. Recommend home stretching , heating pad, massage, PT, and acupunctur e. Ibuprofen as below. If no improvemen t in 4-6 weeks, call back. [id number] Sudhir Cooper i, PT Physical Therapy, [address] [address] 05/08/2017 14:56:24 05/09/2017 13:29:25 Sciatica 52348313 M54.31 [id number] Sudhir Cooper i, PT Physical Therapy, [address] [address] 1 05/15/2017 12:53:38 05/15/2017 13:39:27 Sciatica 03561983 M54.31 [id number] Sudhir Cooper i, PT Physical Therapy, [address] [address] 1 05/22/2017 13:52:27 05/23/2017 09:22:32 Sciatica 39591422 M54.31 [id number] Taz Pineda MD , [facility], OFFICE [address] [place] [address] 1 06/01/2017 10:59:09 06/01/2017 11:45:43 Adult health examination 556026623 Z00.00 see Risk Assessment and Lifestyle Change Counseling section above Counseling 360455913 Z71 .9 Mixed hyperlipidemia 267 035212 E78.2 Benign ess ential hypertension 0365309 I10 Blood pressure at goal [id number] Taz Pineda MD , [facility], OFFICE [address] [place] [address] 1 09/11/2017 14:58:41 09/11/2017 15:36:21 Active or passive immunization 671965279 Z23 Mixed hyperlipidemia 267 018063 E78.2 [id number] Taz Pineda MD , [facility], OFFICE [address] [place] [address] 1 12/04/2017 08:16:52 12/04/2017 08:47:10 Mixed hyperlipidemia 402269970 E78.2 Cholestero l is at goal Cholestero l is not at goal Continue to work on diet and exercise as discussed Benign ess ential hypertension 2672282 I10 Blood pressure at goal Blood pressure NOT at goal. [id number] Taz Pineda MD , [facility], OFFICE [address] [place] [address] 1 01/25/2018 07:58:55 01/25/2018 08:26:20 Active or passive immunization 320976747 Z23 Perineal pain 167529812 R10.2 Pain of prostate 5306824 0 N42.81 [id number] Taz Pineda MD , [facility], OFFICE [address] [place] [address] 1 02/19/2018 11:48:11 02/19/2018 12:09:23 Mixed hyperlipidemia 575433865 E78.2 Cholestero l is not at goal Continue to work on diet and exercise as discussed Benign ess ential hypertension 1213212 I10 Blood pressure at goal [id number] Taz Pineda MD , [facility], OFFICE [address] [place] [address] 1 05/17/2018 08:31:45 05/17/2018 08:47:19 Mixed hyperlipidemia 212920860 E78.2 Benign ess ential hypertension 1409571 I10 Blood pressure at goal [id number] Taz Pineda MD , [facility], OFFICE [address] [place] [address] 1 06/28/2018 09:47:57 06/28/2018 10:25:03 Adult health examination 941994681 Z00.00 see Risk Assessment and Lifestyle Change Counseling section above Counseling 987521075 Z71 .9 Depression screening 171 335679 Z13.89 depression screening tool administer ed, entered into emr, scored and discussed, time greater than 7.5 minutes Mixed hyperlipidemia 267 020461 E78.2 Benign ess ential hypertension 2249419 I10 Blood pressure at goal Gastro-eso phageal reflux disease with esophagitis 118838551 K21.0 [id number] John Lilly MD , [facility], OFFICE [address] [place] [address] 1 09/18/2018 11:33:16 09/18/2018 16:31:00 Increased frequency of urination 074373411 R35.0 Informed Pt that he is negative [...] understand s and agrees with treatment plan [id number] Taz Pineda MD , 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, OFFICE [address] [place] [address] 1 01/24/2019 09:19:14 01/27/2019 10:06:40 Sacroiliac joint pain 959587990 M53.3 [id number] Fidelia Goodwin PT Physical Therapy, [address] [place] [address] 1 01/24/2019 11:23:36 01/27/2019 08:50:05 Low back pain 212781551 M54.5 [id number] Fidelia Goodwin PT Physical Therapy, [address] [place] [address] 1 01/27/2019 10:53:21 01/27/2019 12:04:39 Low back pain 368599200 M54.5 [id number] Fidelia Goodwin PT Physical Therapy, [address] [place] [address] 1 01/30/2019 13:04:20 01/30/2019 16:15:36 Low back pain 844731497 M54.5 [id number] Taz Pineda MD , [facility], OFFICE [address] [place] [address] 1 01/31/2019 08:36:54 01/31/2019 11:14:15 Acute sciatica 168135435 M54.32 [id number] Fidelia Goodwin PT Physical Therapy, [address] [place] [address] 1 02/03/2019 08:28:00 02/03/2019 10:06:05 Low back pain 412759603 M54.5 [id number] Valeria Mosley MD , [facility], OFFICE [address] [place] [address] 1 02/04/2019 09:53:40 02/04/2019 10:42:17 Acute sciatica 341115528 M54.32 S1 radiculiti s with ongoing motor [...] abated with PT [facility] rational dicussed with [facility] complete pred, restart ibuprofen 2400 mg a day , continue rubberband strengthen ing exercises [id number] Fidelia Goodwin, PT Physical Therapy, [address] [place] [address] 02/06/2019 08:31:24 02/07/2019 08:10:28 Low back pain 635799040 M54.5 [id number] Fidelia Goodwin, PT Physical Therapy, [address] [place] [address] 1 02/13/2019 08:27:50 02/13/2019 16:44:20 Low back pain 612694827 M54.5 [id number] Fidelia Goodwin, PT Physical Therapy, [address] [place] [address] 1 02/24/2019 11:31:34 02/24/2019 13:56:50 Low back pain 135809485 M54.5 [id number] Taz Pineda MD , [facility], OFFICE [address] [place] [address] 1 09/18/2019 08:48:31 09/18/2019 09:34:24 Adult health examination 266884441 Z00.00 see Risk Assessment and Lifestyle Change Counseling section above Counseling 878899964 Z71 .9 Depression screening 171 700408 Z13.89 depression screening tool administer ed, entered into emr, scored and discussed, time greater than 7.5 minutes Mixed hyperlipidemia 267 842377 E78.2 Cholestero l is at goal Active or passive immunization 227406760 Z23 Benign ess ential hypertension 4980663 I10 Blood pressure at goal Ex-smoker 9316280 Z87.89 1 [id number] Taz Pineda MD , [facility], [address] [place] [address] 10/21/2019 08:00:51 10/21/2019 08:29:32 Pain of right shoulder joint 1783617605 [id number] M25.915 [id number] Fidelia Goodwin, PT Physical Therapy, [address] [address] 10/27/2019 10:33:28 10/27/2019 14:04:07 Shoulder pain 16333000 M25.328 [id number] Fidelia Goodwin PT Physical Therapy, [address] [address] 1 11/03/2019 08:58:05 11/04/2019 09:44:16 Shoulder pain 88616494 M25.905 [id number] Fidelia Goodwin PT Physical Therapy, [address] [address] 1 11/10/2019 08:00:42 11/10/2019 08:31:42 Shoulder pain 29520313 M25.343 [id number] Valeria Mosley MD , [facility], OFFICE [address] [place] [address] 1 03/24/2020 08:09:38 03/24/2020 14:40:10 Mixed hyperlipidemia 343033071 E78.2 Cholestero l is at goal on ator 10 since begun 01/2018LDL at 79LDL had been 140 despite dietary attempts, until begun on atorF [place] at 55, bros 55, 59 with [place]'s , all bad lifestyle Benign ess ential hypertension 5929968 I10 Blood pressure at goal on lisinopril 5 mg since at least 2009 for SBP 148, 144BP 130-120/80 -75 sinceoccas 140As Primary Prevention continue low low dose BENJAMIN indefinite ly Ex-smoker 9279319 Z87.89 1 quit age 20AAA screen neg 2019 Acute sciatica 453538260 M54.32 03/24/2020 pain freeis feeling better with [...] would be called for? Performance anxiety 2796 59864 F40.248 propranolo l as needed Family his tory of Cardiovascular disease 426917578 Z82.49 F [place] at 55, bros 55, 59 with [place]'s , all bad lifestyle Impotence of organic origin 728656647 N52.9 viagra 11/29 tab since 2010 Seborrheic dermatitis 50 889694 L21.9 michael sulfide very effective Polyp of gallbladder 197 281750 K82.4 small 2mm seen [place] in 2010needs followup [id number] Aga Manley RN , [facility], OFFICE [address] [place] [address] 1 09/24/2020 11:02:10 09/29/2020 16:21:00 Active or passive immunization 249974005 Z23 [id number] Valeria Mosley MD , [facility], OFFICE [address] [place] [address] 1 09/24/2020 13:51:26 09/29/2020 16:20:04 Adult health examination 727341954 Z00.00 Counseling 416761421 Z71 .9 including cardiovasc ular risk reduction counseling Depression screening 171 956461 Z13.89 depression screening tool administer ed, entered into emr, scored and discussed, time greater than 7.5 minutes Screening for alcohol abuse 750075491 Z13.39 Mixed hyperlipidemia 267 958000 E78.2 Cholestero l is at goal on ator 10 since begun 01/2018LDL at 79LDL had been 140 despite dietary attempts, until begun on atorF [place] at 55, bros 55, 59 with [place]'s , all bad lifestyle Benign ess ential hypertension 6738698 I10 Blood pressure at goal on lisinopril 5 mg since at least 2009 for SBP 148, 144BP 130-120/80 -75 sinceoccas 140As Primary Prevention continue low low dose BENJAMIN indefinite ly Ex-smoker 4837140 Z87.89 1 quit age 20AAA screen neg 2019 Acute sciatica 080874269 M54.32 03/24/2020 pain freeis feeling better with [...] script would be called for? Performance anxiety 9346 81364 F40.248 propranolo l as needed Family his tory of Cardiovascular disease 212271885 Z82.49 F [place] at 55, bros 55, 59 with [place]'s , all bad lifestyle Impotence of organic origin 788083515 N52.9 viagra 11/29 tab since 2010 Seborrheic dermatitis 50 191984 L21.9 michael sulfide very effective Polyp of gallbladder 197 811011 K82.4 small 2mm seen [place] in 2011needs followup [id number] Valeria Mosley MD , [facility], OFFICE [address] [place] [address] 1 03/28/2021 08:06:14 03/28/2021 08:29:24 Mixed hyperlipidemia 207445523 E78.2 Cholestero l is at goal on ator 10 since begun 01/2018LDL at 79LDL had been 140 despite dietary attempts, until begun on atorF [place] at 55, bros 55, 59 with [place]'s , all bad lifestyle Benign ess ential hypertension 2667995 I10 Blood pressure at goal on lisinopril 5 mg since at least 2009 for SBP 148, 144BP 130-120/80 -75 sinceoccas 140As Primary Prevention continue low low dose BENJAMIN indefinite ly Ex-smoker 5229099 Z87.89 1 quit age 20AAA screen neg 2019 Acute sciatica 001468881 M54.32 02/2021gene rally keeping active is best [...] would be called for? Performance anxiety 2796 13346 F40.248 propranolo l as needed Family his tory of Cardiovascular disease 700300953 Z82.49 F [place] at 55, bros 55, 59 with [place]'s , all bad lifestyle Impotence of organic origin 568013721 N52.9 viagra 11/29 tab since 2010 Seborrheic dermatitis 50 121018 L21.9 michael sulfide very effective Polyp of gallbladder 197 506948 K82.4 small 2mm seen [place] in 2010needs followup Psoriasis 3954012 L40.9 laterally distal calves bilateral brawny discolorat ion and thickening , very excoriated , [place] rx fluocinoni de cream twice a day for 2 weeks then a suppressiv e regimen few days a week [id number] Valeria Mosley MD , [facility], OFFICE [address] [place] [address] 08/23/2021 13:24:50 08/24/2021 14:03:14 Mixed hyperlipidemia 352162648 E78.2 Cholestero l is at goal on ator 10 since begun 01/2018LDL at 79LDL had been 140 despite dietary attempts, until begun on atorF [place] at 55, bros 55, 59 with [place]'s , all bad lifestyle Benign ess ential hypertension 3917608 I10 08/23/2021 home BP's elevated, so he doubled lisinopril to 10 mg, *Blood pressure at goal on lisinopril 5 mg since at least 2009 for SBP 148, 144BP 130-120/80 -75 sinceoccas 140As Primary Prevention continue low low dose BENJAMIN indefinite ly Ex-smoker 0004628 Z87.89 1 quit age 20AAA screen neg 2019 Acute sciatica 560190393 M54.32 02/2021gene rally keeping active is best [...] would be called for? Performance anxiety 2796 03208 F40.248 propranolo l as needed Family his tory of Cardiovascular disease 218159453 Z82.49 F [place] at 55, bros 55, 59 with [place]'s , all bad lifestyle Impotence of organic origin 110329777 N52.9 viagra 11/29 tab since 2010 Seborrheic dermatitis 50 347586 L21.9 michael sulfide very effective Polyp of gallbladder 197 052061 K82.4 small 2mm seen [place] in 2010needs followup Psoriasis 1150845 L40.9 laterally distal calves bilateral brawny discolorat ion and thickening , very excoriated , [place] rx fluocinoni de cream twice a day for 2 weeks then a suppressiv e regimen few days a week [id number] Jaspal Yu RN [facility], [address] [address] 01/06/2022 06:46:27 01/06/2022 12:24:28 Health Concerns [...] B-MA: NATIONAL G[employer]MENT [employer] Mj B Osiel [id number] Mj B Osiel 09/24/2020 2 [facility] [place] PLAN - NAVIGATOR (PPO) [id number] Mj B Osiel [id number] Mj B Osiel 09/24/2020 1 MEDICARE B-MA: NATIONAL GOVERNMENT SERVICES Mj B Osiel [id number] Mj B Osiel 09/24/2020 2 [facility] [place] PLAN - NAVIGATOR (PPO) [id number] Mj B Osiel [id number] Mj B Osiel 03/28/2021 1 MEDICARE B-[place]: NATIONAL GOVERNMENT SERVICES Mj B Osiel [id number] Mj B Osiel 03/28/2021 2 [facility] [place] PLAN - NAVIGATOR (PPO) [id number] Mj B Osiel [id number] Mj B Osiel 08/23/2021 1 MEDICARE B-[place]: NATIONAL GOVERNMENT SERVICES Mj B Osiel [id number] Mj B Osiel 08/23/2021 2 [facility] [place] PLAN - NAVIGATOR (PPO) [id number] Mj B Osiel [id number] Mj B Osiel 01/06/2022 1 MEDICARE B-[place]: NATIONAL GOVERNMENT SERVICES Mj B Osiel [id number] Mj B Osiel 01/06/2022 2 [facility] [place] PLAN - NAVIGATOR (PPO) [id number] Mj B Osiel [id number] Mj B Osiel Notes Date Note Type [...] ischemic heart disease; No peripheral vascular disease (60024); No diabetes; No carotid artery stenosis Ability to Manage Self CareOn how confident the patient feels in ability to self manage condition the patient selects 10 with 10 being very confident and 1 being very low confidence; Patient feels very confident in ability to self manage conditionNotes:DID HAVE CAD EVAL. WHICH WAS NEG. VOICE PATHOLOGIST WANTED PT TO CONSIDER STATIN GIVEN FH.VMG [...] 23 24 25}} minutes. Valeria Mosley MD [address] [place] [address], [phone], [facility] 09/24/2020 14:28:24 1 text/html Physical Exam/MaleReported bypatient.PHAPatient [...] ischemic heart disease; No peripheral vascular disease (88010); No diabetes; No carotid artery stenosis Ability to Manage Self CareOn how confident the patient feels in ability to self manage condition the patient selects 10 with 10 being very confident and 1 being very low confidence; Patient feels very confident in ability to self manage conditionNotes:DID HAVE CAD EVAL. WHICH WAS NEG. VOICE PATHOLOGIST WANTED PT TO CONSIDER STATIN GIVEN FH.VMG [...] 23 24 25}} minutes. Valeria Mosley MD [address] [place] [address], [phone] [place] [address] 03/28/2021 08:32:00 1 text/html Physical Exam/MaleReported bypatient.PHAPatient [...] ischemic heart disease; No peripheral vascular disease (16234); No diabetes; No carotid artery stenosis Ability to Manage Self CareOn how confident the patient feels in ability to self manage condition the patient selects 10 with 10 being very confident and 1 being very low confidence; Patient feels very confident in ability to self manage conditionNotes:DID HAVE CAD EVAL. WHICH WAS NEG. VOICE PATHOLOGIST WANTED PT TO CONSIDER STATIN GIVEN FH.VMG [...] 23 24 25}} minutes. Valeria Mosley MD [address] [place] [address], [phone], [facility] 08/23/2021 17:39:40
--- OUTSIDE RECORDS SUMMARY | 2025-03-17 18:35 | XMS_ITS | Patient Health Record ---
Author Organization Marito Allen MD Address [address] [place], [place] [id number] Care Team Providers Care Immigration Associate Name Role Phone Marito Allen Primary Care Provider Allergies Allergen (clinical drug ingredient) Drug/Non Drug Allergy documented on EMR Reaction Allergy Type Onset Date Status sulfamethoxazole / trimethoprim Bactrim DS liver inflamation Drug Allergy Active Results Component Value Reference Range Notes Complete Blood Count Auto Di ff Reviewed date:12/05/2024 05:18:25 PM Interpretation: Performing Lab:[facility], [address] [place] [phone] Notes/Report: White Blood Count 7.9 4.8-10.8 X10*3/uL [...] NRBC Abs Auto 0.000 0.0-0.012 X10*3/uL Comprehensive [place]. Panel Fa Reviewed date:12/05/2024 05:17:46 PM Interpretation: Performing Lab:[facility], [address] [place] [phone] Notes/Report: Sodium 140 135-145 mmol/L Potassium 4.0 [...] Panel Reviewed date:12/05/2024 05:18:56 PM Interpretation: Performing Lab:[facility], [address] [place] [phone] Notes/Report: Bilirubin Direct 0.3 0.0-0.5 mg/dL Lipid Panel Reviewed date:12/05/2024 05:18:33 PM Interpretation: Performing Lab:[facility], [address] [place] [phone] Notes/Report: Triglycerides 87 <150 mg/dL Desirable Triglyceride: [...] (Free>4and<10) Reviewed date:12/05/2024 05:17:58 PM Interpretation: Performing Lab:[facility], [address] [place] [phone] Notes/Report: PSA,Total (Free>4and<10) 1.16 0.00-4.00 ng/mL A [...] t Reviewed date:12/05/2024 05:18:48 PM Interpretation: Performing Lab:[facility], [address] [place] [phone] Notes/Report: Urine, Clean Catch Color Urine Yellow Appearance Urine Clear PH 6.5 5.0-9.0 Glucose Urine UA Negative Negative mg/dL Urine Blood Negative Negative Specific [place] - Urine 1.010 1.005-1.025 Urine Protein Negative Neg-Trace mg/dL Urine Ketones Negative Negative mg/dL Nitrite Urine Negative Negative Leukocyte Esterase Urine Trace Negative RBC Urine 0-2 0-2 /HPF WBC Urine 0-5 0-5 /HPF Squamous Epithelial Cell Urine 0-2 0-2 /HPF Bacteria Urine None Seen None Seen Hyaline Casts Urine 0-2 0-2 /LPF Complete Blood Count Auto Di ff (Not yet reviewed by provider) Interpretation: Performing Lab:[facility], [address] [place] [phone] Notes/Report: White Blood Count 10.1 4.8-10.8 X10*3/uL Red Blood Count 3.29 4.60-5.80 X10*6/uL Hemoglobin 11.5 14.0-18.0 g/dl Hematocrit 33.7 42.0-52.0 % Mean Corpuscular Volume 102.4 80.0-98.0 fL Mean Corpuscular Hemoglobin 35.0 27.0-33.0 pg Mean Corpuscular HGB Conc 34.1 31.0-36.0 g/dl Red Cell Distribution Width 13.2 11.0-16.0 % Platelet Count 388 160-400 X10*3/uL Mean Platelet Volume 11.0 9.4-12.4 fL Neutrophils Percent Auto 66.4 45-73 % Imm Gran Pct Auto 1.2 0.0-0.4 % Lymphocytes Percent Auto 18.1 20-40 % Monocytes Percent Auto 10.9 2-11 % Eosinophils Percent Auto 2.8 0-4 % Basophils Percent Auto 0.6 0-2 % NRBC Pct Auto 0.0 0.0-0.2 /100WBC Neutrophils Absolute Auto 6.7 2.0-8.3 x10*3/u L Imm Gran Abs Auto 0.12 0.00-0.03 X10*3/uL Lymphocytes Absolute Auto 1.8 1.2-4.9 X10*3/u L Monocytes Absolute Auto 1.1 0.1-1.2 X10*3/uL Eosinophils Absolute Auto 0.3 0.0-0.4 X10*3/u L Basophils Absolute Auto 0.1 0.0-0.2 X10*3/uL NRBC Abs Auto 0.000 0.0-0.012 X10*3/uL Pathology Reviewed date:02/17/2025 08:00:14 PM Interpretation: Performing Lab:[facility], [address] [place] [phone] Notes/Report: --- Name: Mj Cartagena Age/Sex: 69/M : 1955 Unit#: [id number] Attend Dr: Sudhir Valenzuela MD Re02/16/25 Status : [facility] Location: [facility] Disch: --- SPEC : [id number] RECD : 02/16/25 STATUS: ADONAY SHARPE NUM: [id number] CURT: 02/16/[address] [facility] [address]: Sudhir Valenzuela MD ENTERED: 02/16/25-08 24 SP TYPE: Surgical OTHR DR: Marito Allen MD ORDERED: Gross Micro L2 Diagnosis Left inguinal hernia , herniorrhaphy: Mesothelial-lined fibrovascular and adipose tissue with chronic inflammation, consistent with hernia sac. Clinical History Bilateral inguinal hernia, without obstruction or gangrene, not specified as recurrent Microscopic Description Microscopic sections reviewed. Material Received Left inguinal hernia sac Gross Description Received in formalin labeled ?hernia sac? is a 3.0 x 2.5 x 0.1-0.2 cm thin and delicate, semitranslucent, tarango-pink saccular portion of fibromembranous tissue. On sectioning the fibromembranous tiss ue is thin and delicate tarango-pink with scant attached fibrous tissue. [employer] secti ons are submitted in a cassette labeled A1. CEDS Copies To: Marito Allen MD [facility] [address] [facility] [address] [place] [address] Sudhir Valenzuela MD [facility] Sur[facility] [address] [place] [address] --- Signed (signature on file) Robbin Davies MD 02/17/25 1557 --- END OF REPORT XR abdomen 1V Reviewed date:02/16/2025 05:10:12 PM Interpretation: Performing Lab: Notes/Report: [address] [address] XRay Report Signed Patient: Mj Cartagena MR#: [id number] : 1955 Acct:[id number] Age/Sex: 69 / M ADM Date: 02/16/25 Loc: HO.SSS Attending Dr: Sudhir Valenzuela MD Ordering Physician: Sudhir Valenzuela MD Date of Service: 02/16/25 Procedure(s): XR abdomen 1V Accession Number(s): [id number] cc: Marito Allen MD; Sudhir Valenzuela MD EXAMINATION: XR ABDOMEN 1 VIEW (KUB) HISTORY: EXTRA INSTRUMENTATION COMPARISON: There are no prior studies for comparison. FINDINGS: A single supine view of the abdomen is submitted. The bowel gas pattern is unremarkable, without evidence of mechanical obstruction. There are vascular calcifications in the pelvis. No radiopaque foreign body is identified. There are no abnormal soft tissue masses. The bones are intact. XR/XR abdomen 1V IMPRESSION: No radiopaque foreign body is identified. Electronically signed by: Abdi Ratliff MD 02/16/2025 02:51 PM EDT RP Dictated By: Abdi Ratliff MD Signed By: <Electronically signed by Abdi Ratliff MD in OV> 02/16/25 1451 DD/ 0843 TD/TT: 02/16/25 0858 Tape Calender: [place] [address] XRay Report Signed Patient: Mj Cartagena MR#: [id number] : 1955 Acct:[id number] Age/Sex: 69 / M ADM Date: 02/16/25 Loc: .[facility] Attending Dr: Sudhir Valenzuela MD Ordering Physician: Sudhir Valenzuela MD Date of Service: 02/16/25 Procedure(s): XR abdomen 1V Accession Number(s): [id number] cc: Marito Allen MD; Sudhir Valenzuela MD EXAMINATION: XR ABDO MEN 1 VIEW (KUB) HISTORY: EXTRA INSTRUMENTATION COMPARISON: There ar e no prior studies for comparison. FINDINGS: A single supine view of the abdomen is submitted. The bowel gas pattern is unremarkable, without evidence of mechanical obstruction. There a re vascular calcifications in the pelvis. No radiopaque foreign b cassy is identified. There are no abnormal soft tissue masses. The bones are intact. XR/XR abdomen 1V IMPRESSION: No radiopaque foreig n body is identified. Electronically wei d by: Abdi Ratliff MD 02/16/2025 02:51 PM EDT RP Dictated By: Abdi Ratliff MD Signed By: <Electronically signed by Abdi Ratliff MD in OV> 02/16/25 1451 DD/ 0843 TD/TT: 02/16/25 0858 Tape Calender: Reason For Referral Reason wrist pain right p lease eval [...] Referral Priority Routine Referral Appointment Date 11/06/2024 Reason Needs Custom made Or thotics for bilateral foot pain Diagnosis 1 Foot pain, right (M7 9.671) Diagnosis 2 Foot pain, left (M79 .672) Referral Organization Marito Allen MD Referring Provider First Name Marito Referring Provider Last Name Tiffany Referring Provider Speciality Internal edicine Referred Provider [facility] [place] [place] Referred Provider Specialty Unknown General Notes Rosalva Fatima 0 03/05/2025 01:51:38 PM > order has been faxed, patient is handling this himself Referral Priority Routine Medications Medication SIG (Take, Route, Frequency, Duration) Notes Start Date End Date Status Atorvastatin Calcium 20 MG 1 tablet Orally Once a day for 90 days Not-Taking Sildenafil Citrate 100 MG 1 tablet as ne eded Orally Once a day as needed 30 day(s) Orally Once a day as needed for 90 days Active valACYclovir HCl 500 MG take 2 tablet Or ally Once a day Orally Once a day for 90 days Not-Taking Metrogel 1 % 1 application Externally Once a day for 30 days 05/04/2023 Not-Taking Ibuprofen 800 MG 1 tablet with food o r milk as needed Orally every 8 hrs for 30 days 06/06/2024 Not-Taki ng Metamucil 0.36 GM as directed Orally Active Lisinopril 10 MG 1 tablet Orally Once a day 90 days Orally Once a day for 90 days Not-Taking Dulcolax 5 MG 1 tablet as needed Orally Once a day Active Ibuprofen 800 MG 1 tablet with food o r milk as needed Orally Three times a day for 7 days 02/13/2023 Not-Taking Fluocinonide 0.05 % 1 application Externally Twice a day Not-Takin g Omeprazole 20 MG 1 capsule 1/2 to 1 h our before morning meal Orally Once a day Not-Taking Finasteride 5 MG 1 tablet Orally Once a day Not-Taking Tamsulosin HCl 0.4 MG 1 capsule Orally O nce a day for 90 days 02/14/2024 Active Immunizations Vaccine Route Administration Date Status [...] Status W/U Status Risk Notes Problem Sciatica (29554652) Sciatica (M54.30) Active confirmed Problem 233233022 PVC (premature ventricular contraction) (I49.3) Active confirmed Problem 46208998 Prostatism (N40.0) Active confirmed Problem Cardiac arrhythmia (252639398) Cardiac arrhythmia, unspecified (I49.9) Active confirmed Problem 928859968 Lumbar disc dise ase (M51.9) Active confirmed Problem 011052726 Tubular adenoma of colon (D12.6) Active confirmed Problem 20869831 Essential hypert ension (I10) Active confirmed Problem 591917107 Irregular heart beat (I49.9) Active confirmed Problem 292114960968635 Carpal tunnel sy ndrome of right wrist (G56.01) Active confirmed Problem Liver cyst (39656196) Liver cyst (K76.89) Active confirmed Problem 18119512 Hypercholesterol emia (E78.00) Active confirmed Problem Lesion of liver (346437989) Liver lesion (K76.9) Active confirmed Vital Signs Blood pressure diastolic 60 mm Hg 03/17/2025 lashae ght is down 8 pounds since 01-22-25 Height 71.5 in 03/17/2025 weight is down 8 pounds since 01-22-25 Blood pressure systolic 112 mm Hg 03/17/2025 weig ht is down 8 pounds since 01-22-25 Weight 156 lbs 03/17/2025 weight is down 8 pounds since 01-22-25 BMI 21.45 kg/m2 03/17/2025 weight is down 8 pounds since 01-22-25 Encounters Encounter Location Date Provider Diagnosis Marito Allen MD [address] [place] [address] [id number] 12/05/2024 Marito Allen Essential hypertensi on I10 ; Hypercholesterolemia E78.00 ; Liver lesion K76.9 and Prostatism N40.0 Marito Allen MD [address] [place] [address] [id number] 03/17/2025 Marito Allen Elevated alkaline phosphatase level R74.8 ; Elevated creatine kinase R74.8 and Prostatism N40.0 Marito Allen MD [address] [place] [address] [id number] 06/06/2024 Marito Allen Carpal tunnel syndro me of right wrist G56.01 ; Essential hypertension I10 and Prostatism N40.0 Marito Allen MD [address] [place] [address] [id number] 01/22/2025 Marito Allen Elevated serum creat inine R79.89 ; Essential hypertension I10 ; Tubular adenoma of colon D12.6 ; Prostatism N40.0 ; Hypercholesterolemia E78.00 ; Colon cancer screening Z12.11 and Depression screening Z13.31 Marito Allen MD [address] [place] [address] [id number] 04/15/2024 Marito Allen Hypercholesterolemia E78.00 and Prostatism N40.0 Marito Allen MD [address] [place] [address] [id number] 04/15/2024 Marito Allen Hypercholesterolemia E78.00 and Prostatism N40.0 Marito Allen MD [address] [place] [address] [id number] 04/17/2024 Marito Allen Essential hypertensi on I10 Marito Allen MD [address] [place] [address] [id number] 05/08/2024 Marito Allen Prostatism N40.0 Marito Allen MD [address] [place] [address] [id number] 05/08/2024 Marito Allen Hypercholesterolemia E78.00 Marito Allen MD [address] [place] [address] [id number] 06/10/2024 Marito Allen MD [address] [place] [address] [id number] 06/12/2024 Marito Allen MD [address] [place] [address] [id number] 07/01/2024 Marito Allen Liver lesion K76.9 Marito Allen MD [address] [place] [address] [id number] 02/13/2025 Marito Allen MD [address] [place] [address] [id number] 03/05/2025 Marito Allen MD [address] [place] [address] [id number] 03/13/2025 Marito Allen MD [address] [place] [address] [id number] 05/02/2024 Marito Allen MD [address] [place] [address] [id number] 05/30/2024 Marito Allen MD [address] [place] [address] [id number] 06/10/2024 Marito Allen Carpal tunnel syndro me of right wrist G56.01 Marito Allen MD [address] [place] [address] [id number] 08/14/2024 Marito Allen MD [address] [place] [address] [id number] 09/02/2024 Marito Allen MD [address] [place] [address] [id number] 09/22/2024 Marito Allen MD [address] [place] [address] [id number] 09/24/2024 Marito Allen MD [address] [place] [address] [id number] 10/20/2024 Marito Allen MD [address] [place] [address] [id number] 10/22/2024 Marito Allen MD [address] [place] [address] [id number] 10/25/2024 Marito Allen MD [address] [place] [address] [id number] 10/25/2024 Marito Allen MD [address] [place] [address] [id number] 10/25/2024 Marito Allen MD [address] [place] [address] [id number] 11/20/2024 Marito Allen MD [address] [place] [address] [id number] 01/01/2025 Marito Allen MD [address] [place] [address] [id number] 03/10/2025 Marito Allen Assessments Encounter Date Diagnosis (ICD Code) Assessment Notes Treatment Notes Treatment Clinical Notes Section Notes 12/05/2024 Essential hypertensi on (ICD-10 - I10) 12/05/2024 Hypercholesterolemia (ICD-10 - E78.00) 03/17/2025 Elevated alkaline phosphatase level (ICD-10 - R74.8) Order given to the patient to go to [facility] lab 03/17/2025 Elevated creatine kinase (ICD-10 - R74.8) had been on meds for pain with ibuprofen and bactrim and some tylenol. had been on meds for uti's had been on atorvastatin and having muscle and joint pain 06/06/2024 Carpal tunnel syndro me of right wrist (ICD-10 - G56.01) advised to get futuro wrist splint, will continue to monitor 06/06/2024 Essential hypertensi on (ICD-10 - I10) having trouble with bp getting too low, will continue to monitor 01/22/2025 Elevated serum creatinine (ICD-10 - R79.89) will continue to monitor , pending labs 01/22/2025 Essential hypertensi on (ICD-10 - I10) doing well off meds. , will continue current regiment 04/15/2024 Hypercholesterolemia (ICD-10 - E78.00) 04/15/2024 Hypercholesterolemia (ICD-10 - E78.00) 04/17/2024 Essential hypertensi on (ICD-10 - I10) 05/08/2024 Prostatism (ICD-10 - N40.0) 05/08/2024 Hypercholesterolemia (ICD-10 - E78.00) 07/01/2024 Liver lesion (ICD-10 - K76.9) order made and put into the future order folder for . 06/10/2024 Carpal tunnel syndro me of right wrist (ICD-10 - G56.01) 12/05/2024 Liver lesion (ICD-10 - K76.9) 03/17/2025 Prostatism (ICD-10 - N40.0) 06/06/2024 Prostatism (ICD-10 - N40.0) doing well on tamzulosin, will continue current regiment 01/22/2025 Tubular adenoma of colon (ICD-10 - D12.6) not due for colonscopy 04/15/2024 Prostatism (ICD-10 - N40.0) 04/15/2024 Prostatism (ICD-10 - N40.0) 12/05/2024 Prostatism (ICD-10 - N40.0) 01/22/2025 Prostatism (ICD-10 - N40.0) discussed the risk of prostate cancer with finasteride 01/22/2025 Hypercholesterolemia (ICD-10 - E78.00) stable, will continue current regiment 01/22/2025 Colon cancer screeni ng (ICD-10 - Z12.11) guaiac negative 01/22/2025 Depression screening (ICD-10 - Z13.31) negative screen Plan Of Treatment Pending Test Test Name Order Date CPK 03/17/2025 Complete Blood Count Auto Diff Comprehensive [place]. Panel Fast Blood Urea Nitrogen 01/22/2025 Creatinine 01/22/2025 TSH reflex Free T4 03/17/2025 ECG 30 day event monitor 12/11/2023 US abdomen limited 05/11/2023 US abdomen limited 07/09/2023 US abdomen limited 12/30/2021 US abdomen limited 07/01/2024 US abdomen complete 05/23/2022 US abdomen complete 06/15/2022 Next Appt Details Provider Name:Marito olear, 07/17/2025 08:00:00 AM, [address] [place] [address], [address] [place] [address], [phone], Provider Name:Marito Omer ier, 07/24/2025 10:00:00 AM, [address] [place] [address], [address] [facility], [place], [place], [phone], Provider Name:Marito Omer ier, 01/18/2026 08:00:00 AM, [address] [place] [address], [address] [place] [address], [phone], Provider Name:Marito Omer ier, 01/25/2026 02:30:00 PM, [address] [place] [address], [place] [address], [place], [place], [phone], Insurance Providers Payer Name Payer Address Payer Phone Subscriber Number Group Number Insured Name Patient Relationship to Insured Coverage Start Date Coverage End Date [employer] [address] [place] [id number] Mj Cartagena Self - patient is the insured [facility] [id number] [employer] [id number] Mj Cartagena Self - patient is the insured Medical (General) History Medical History History ICD Code colonoscopy 01/17 repeat in 5 years
--- OUTSIDE RECORDS SUMMARY | 2025-03-17 18:35 | XMS_ITS ---
Author Organization Marito Allen MD Address [address] [place], [place] [phone] Care Team Providers Care Benzene Washer Name Role Phone Marito Allen Primary Care Provider Allergies Allergen (clinical drug ingredient) Drug/Non Drug Allergy documented on EMR Reaction Allergy Type Onset Date Status sulfamethoxazole / trimethoprim Bactrim DS liver inflamation Drug Allergy Active Results Component Value Reference Range Notes Complete Blood Count Auto Di ff (Not yet reviewed by provider) Interpretation: Performing Lab:[facility], [address] [place] [phone] Notes/Report: White Blood Count 10.1 4.8-10.8 X10*3/uL [...] X10*3/uL NRBC Abs Auto 0.000 0.0-0.012 X10*3/uL REASON FOR VISIT PH VISIT, c/o ringing in ears dizziness post nasal drip, stomach and back pain after eating,, Accompanied by Medications Medication SIG (Take, Route, Frequency, Duration) Notes Start Date End Date Status Metamucil 0.36 GM as directed Orally Active Dulcolax 5 MG 1 tablet as needed Orally Once a day Active Ibuprofen 800 MG 1 tablet with food o r milk as needed Orally Three times a day for 7 days 02/13/2023 Not-Taking Fluocinonide 0.05 % 1 application Externally Twice a day Not-Takin g Omeprazole 20 MG 1 capsule 1/2 to 1 h our before morning meal Orally Once a day Not-Taking Sildenafil Citrate 100 MG 1 tablet [...] hrs for 30 days 06/06/2024 Not-Taki ng Lisinopril 10 MG 1 tablet Orally Once a day 90 days Orally Once a day for 90 days Not-Taking Atorvastatin Calcium 20 MG 1 tablet Orally Once a day for 90 days Not-Taking Finasteride 5 MG 1 tablet Orally Once a day Not-Taking Tamsulosin HCl 0.4 MG 1 capsule Orally O nce a day for 90 days 02/14/2024 Active Vital Signs Blood pressure systolic 112 mm Hg 03/17/20 25 Blood pressure diastolic 60 mm Hg 025 Height 71.5 in 03/17/2025 Weight 156 lbs 03/17/2025 BMI 21.45 kg/m2 03/17/2025 weight is down 8 pounds [facility] e 01-22-25 Encounters Encounter Location Date Provider Diagnosis Marito Allen MD [address] [place] [address] [address] [place], [place] [phone] 03/17/2025 Marito Allen Elevated alkaline phosphatase level R74.8 ; Elevated creatine kinase R74.8 and Prostatism N40.0 Assessments Encounter Date Diagnosis (ICD Code) Assessment Notes Treatment Notes Treatment Clinical Notes Section Notes 03/17/2025 Elevated alkaline phosphatase level (ICD-10 - R74.8) Order given to the patient to go to [facility] lab 03/17/2025 Elevated creatine kinase (ICD-10 - R74.8) had been on meds for pain with ibuprofen and bactrim and some tylenol. had been on meds for uti's had been on atorvastatin and having muscle and joint pain 03/17/2025 Prostatism (ICD-10 - N40.0) Plan Of Treatment Treatment Notes Assessment Notes Elevated alkaline phosphatase level Orde r given to the patient to go to [facility] lab Elevated creatine kinase had been on med s for pain with ibuprofen and bactrim and some tylenol. had been on meds for uti's had been on atorvastatin and having muscle and joint pain Pending Test Test Name Order Date CPK 03/17/2025 Complete Blood Count Auto Diff 5 Comprehensive [place]. Panel Fast 5 TSH reflex Free T4 03/17/2025 Next Appt Details Provider Name:Marito palacios, 07/17/2025 08:00:00 AM, [address] [place] [address], [address], [place], [place], [phone], Provider Name:Marito palacios, 07/24/2025 10:00:00 AM, [address] [place] [address], [address], [place], [place], [phone], Provider Name:Marito palacios, 01/18/2026 08:00:00 AM, [address], [address], [place], [place], [phone], Provider Name:Marito Omer ier, 01/25/2026 02:30:00 PM, [address] [facility], [address], [place], [phone], Progress Notes * Mj CARTAGENADOB:1955 ( 69 yo M)Acc No.[id number]:03/17/2025 Patient:?Mj CARTAGENA Provider:?Marito Allen MD :1955???Age:69 Y???Sex:Male Leobardo e:03/17/2025 Address:[address] [place], [place] [phone] Subjective: * Chief Complaints: * ???1. PH VISIT. 2. C/o ringi ng in ears dizziness post nasal drip, stomach and back pain after eating,. 3. Accompanied by . * HPI: ???Symptom(s):?patient is a 69 yo male here for follow up of recent hospital discharge, disucharge summary has been reviewed and medications reconcilled/ started witnh pain across abdomen. still with pain in abdominal area. went to hospital/ had chills and shivering and cold sweats and vomiting. came home last sunday. * ROS:?General/Constitutional:?Denies?Chills.?Denies?Fatigue.?Denies?Fever.?Denies?Headache.?ENT:?Denies?Sore throat.?Respiratory:?Denies?Cough.?Denies?Shortness of breath at rest.?Denies?Shortness of breath with exertion.?Gastrointestinal:?Denies?Diarrhea.?Denies?Nausea.? * Medical History:?Colonoscopy 01/17 repeat in 5 years. * Medications:?Taking Metamuci l 0.36 GM Capsule as directed Orally , Taking Dulcolax 5 MG Tablet Delayed Release 1 tablet as needed Orally Once a day , Taking Tamsulosin HCl 0.4 MG Capsule 1 capsule Orally Once a day , Taking Sildenafil Citrate 100 MG Tablet 1 tablet as needed Orally Once a day as needed 30 day(s) Orally Once a day as needed , Not-Taking/PRN Fluocinonide 0.05 % Cream 1 application Externally Twice a day , Not-Taking/PRN Omeprazole 20 MG Capsule Delayed Release 1 capsule 1/2 to 1 hour before morning meal Orally Once a day , Not-Taking/PRN Finasteride 5 MG Tablet 1 tablet Orally Once a day , Not-Taking/PRN Atorvastatin Calcium 20 MG Tablet 1 tablet Orally Once a day , Not-Taking/PRN valACYclovir HCl 500 MG Tablet take 2 tablet Orally Once a day Orally Once a day , Not-Taking/PRN Metrogel 1 % Gel 1 application Externally Once a day , Not-Taking/PRN Ibuprofen 800 MG Tablet 1 tablet with food or milk as needed Orally every 8 hrs , Not-Taking/PRN Lisinopril 10 MG Tablet 1 tablet Orally Once a day 90 days Orally Once a day , Not-Taking/PRN Ibuprofen 800 MG Tablet 1 tablet with food or milk as needed Orally Three times a day , Medication List reviewed and reconciled with the patient * Allergies:?Bactrim DS: liver inflamation. Objective: * Vitals:?Ht: 71.5, Wt: 156, B CO:21.45, BP:112/60, Wt-k.76. weight is down 8 pounds since 01-22-25. * Examination: ???General Examination: ?GENERAL APPEARANCE:?alert, well hydrated, in no distress.?HEAD:?normocephalic.?SKIN:?good turgor.?HEART:?regular rate and rhythm, no murmurs, rubs, gallops.?LUNGS:?no wheezes, rales, rhonchi, good air movement, clear to auscultation bilaterally.?ABDOMEN:?soft, nontender, nondistended, no rebound tenderness, no organomegaly.? Assessment: * Assessment: 1.?Elevated alkaline phospha tase level - R74.8 (Primary)???2.?Elevated creatine kinase - R74.8???3.?Prostatism - N40.0??? Plan: * Treatment: 2.?Elevated creatine kinase? Notes: had been on meds for pain with ibuprofen and bactrim and some tylenol. had been on meds for uti's had been on atorvastatin and having muscle and joint pain?? * * The named appointment provid er may or may not be the originator of this progress note, and it is not deemed complete until electronically signed by the appointment provider. Sign off status: Pending * Provider:?Marito Allen MD Date:?0 03/17/2025 Generated for Jennifer mack/Marquise/Randyitting on:?03/17/2025 06:35 PM EDT History and Physical Notes * HPI (History of Present Illness) Category Sub-Category Detail Notes Category Not es Symptom(s) patient is a 69 yo male here for follow up of recent hospital discharge, disucharge summary has been reviewed and medications reconcilled/ started witnh pain across abdomen. still with pain in abdominal area. went to hospital/ had chills and shivering and cold sweats and vomiting. came home last sunday. Examination Category Sub-Category Detail Notes Category Not es General Examination GENERAL APPEARANCE: alert, w ell hydrated, in no distress HEAD: normocephalic HEART: regular rate and rhy thm, no murmurs, rubs, gallops LUNGS: no wheezes, rales, r honchi, good air movement, clear to auscultation bilaterally ABDOMEN: soft, nontender, non distended, no rebound tenderness, no organomegaly SKIN: good turgor
--- OUTSIDE RECORDS SUMMARY | 2025-03-17 18:35 | XMS_ITS ---
Author Organization Marito Allen MD Address [address] [place] [address] [place] [phone] Care Team Providers Care Trash Collector Name Role Phone Marito Allen Primary Care Provider Allergies Allergen (clinical drug ingredient) Drug/Non Drug Allergy documented on EMR Reaction Allergy Type Onset Date Status sulfamethoxazole / trimethoprim Bactrim DS liver inflamation Drug Allergy Active Encounters Encounter Location Date Provider Diagnosis Marito Allen MD [address] [place] [address] [address] [place] [phone] 03/13/2025 Marito Allen Plan Of Treatment Next Appt Details Provider Name:Marito palacios, 07/17/2025 08:00:00 AM, [address] [place] [address], [address] [place] [address], [phone], Provider Name:Marito palacios, 07/24/2025 10:00:00 AM, [address] [place] [address], [address] [place] [address], [phone], Provider Name:Marito Omer ier, 01/18/2026 08:00:00 AM, [address] [place] [address], [address], [phone], Provider Name:Marito palacios, 01/25/2026 02:30:00 PM, [address] [place] [address], [address] [place] [address], [phone], Progress Notes * Eris CARTAGENA:1955 ( 69 yo M)Acc No.[id number]:03/13/2025 Patient:Mj OLSEN :1955???Age:69 Y???Sex:Male Address:[address] [place] [address], [address] Subjective: * Chief Complaints: * ??? * Medical History:? * Surgical History:? * Hospitalization/Major Diagno stic Procedure:? * Medications:? * Allergies:?Bactrim DS: liver inflamation Objective: * Vitals:? * Physical Examination:? Assessment: Plan: * Treatment: * Procedure Codes:? * true * Date:? Generated for Jennifer mack/Marquise/Rachelle on:?03/17/2025 06:34 PM EDT
--- OUTSIDE RECORDS SUMMARY | 2025-03-17 18:35 | XMS_ITS | Clinical Summary ---
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 Encounters Date Type Department Care Team Description 03/11/2025 10:00 AM EDT Office Visit [facility] [address] [place] [address] Automotive Tire Technician: Willian Saldana, Mitchel Mario MD Hohnf-2-oghcovhruri deficiency (HCC) (Primary Dx) from Last 3 Months Social History Tobacco Use Types Packs/Day Years Used Date Smoking Tobacco: Never Assessed Sex and Gender Information Value Date Recorded Sex Assigned at Male 03/05/2025 10:38 AM EDT Legal Sex Male 10:35 AM EDT Gender Identity Male 03/10/2025 5:32 PM EDT Sexual Orientation Straight 03/10/2025 5: 32 PM EDT Last Filed Vital Signs Vital Sign Reading Time Taken Comments Blood Pressure 148/86 03/11/2025 10:01 AM EDT Pulse 78 03/11/2025 10:01 AM EDT Temperature - - Respiratory Rate 18 03/11/2025 10:01 AM EDT Oxygen Saturation 100% 03/11/2025 10:01 AM EDT Inhaled Oxygen Concentration - - Weight 73.5 kg (162 lb) 03/11/2025 10:01 AM EDT Height - - Body Mass Index - - Plan of Treatment Upcoming Encounters Date Type Department Care Team (Late st Contact Info) Description 04/16/2025 2:00 PM EDT Appointment [facility] Pul[facility] Function Lab [address] [place] [address] 04/16/2025 3:00 PM EDT Follow-Up [facility] [address] [place] [address] Autom[employer] Tire Technician: Willian Saldana, Mitchel Mario MD [address] [place] [address] Health Maintenance Due Date Last Done Comments Cologuard 1955 Colon Cancer Screening 1955 Colonoscopy 1955 FOBT / Fit Test 1955 Hepatitis C Screening 1955 Sigmoidoscopy 1955 Medicare AWV 1956 Zoster Vaccines (1 of 2) 2004 Hepatitis B Vaccines (1 of 3 - Risk 3-dose series) 2014 RSV Vaccine (60+ years old a nd patients) (1 - Risk 60-74 years 1-dose series) 2014 COVID-19 Vaccine (6 - 2023-2 5 season) 2024 08/14/2022, 03/14/2022, 10/13/2021, Additional history exists Pneumococcal Vaccine: 50+ Ye ars (3 of 3 - PCV20 or PCV21) 09/18/2024 09/18/2019, 01/09/2013 Alcohol/Substance Use Screening 11/26/2024 Depression Screening and Follow-Up 11/26/2024 Health Care Proxy Review 11/26/2024 Social Drivers of Health Keri ual Screening 11/26/2024 Influenza Vaccine (Season Ended) 2025 12/04/2023, 12/01/2021, 09/24/2020, Additional history exists DTaP,Tdap,and Td Vaccines (3 - Td or Tdap) 08/21/2032 08/21/2022, 06/12/2013 Procedures * Due to [place] state law, this organization might not be sharing negative HIV tests. Procedure Name Priority Date/Time Associated Diagnosis Comments AMB EXTERNAL US ABDOMEN, SCA NNED RESULT 03/04/[address] ABDOMEN, OUT SIDE RESULT 03/04/2025 LAB - SCANNED 03/04/2025 from Last 3 Months Results * Due to [place] state law, this organization might not be sharing negative HIV tests. * US Abdomen, Scanned Result (03/04/2025) Anatomical Region Laterality Modality Other 03/04/2025 us Onbase Scan [facility] AMB EXTERNAL RESULT PROCEDURE S Final Result * CT Abdomen, Outside Result (03/04/2025) Anatomical Region Laterality Modality Other 03/04/2025 us Onbase Scan [facility] AMB EXTERNAL RESULT PROCEDURE S Final Result * LAB - SCANNED (03/04/2025) us Onbase Scan [facility] LAB HISTORICAL RESULTS Final Result from Last 3 Months Insurance MEDICARE [facility] Care Teams Developmental Training Counselor Relationship Specialty Start Date End Date Marito Allen [address] [place] [address] [place] [address] PCP - General Internal Medicine 03/05/25
--- OUTSIDE RECORDS SUMMARY | 2025-03-17 18:35 | XMS_ITS | Referral Summary ---
Author Organization [facility] Address [address] [place] [address] Care Team Providers Care Arts Administrator Name Role Phone Marito Allen Primary Care Provider [phone] Encounters Date Type Department Care Team Description 03/11/2025 10:00 AM EDT Office Visit [facility] [address] [place] [phone] Holder Pile Driving: Willian Saldana, Mitchel Mario MD Zgcyg-8-ozyjmgytfft deficiency (HCC) (Primary Dx) from Last 3 Months Allergies Active Allergy Reactions Criticality Noted Date Comments Atorvastatin Muscle Disease 03/11/2025 Sulfamethoxazole-Trimethoprim Liver disorder Active Problems Problem Noted Date Diagnosed Date 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 Procedure Name Priority Date/Time Associated Diagnosis Comments AMB EXTERNAL US ABDOMEN, SCA NNED RESULT 03/04/[address] ABDOMEN, OUT SIDE RESULT 03/04/2025 LAB - SCANNED 03/04/2025 from Last 3 Months Results * Due to [place] law, this organization might not be sharing [...] Result from Last 3 Months Insurance MEDICARE [facility] SUPP Care Teams Arts Administrator Relationship Specialty Start Date End Date Marito Allen [address] [place] [address] [place] [address] PCP - General Internal Medicine 03/05/25
[2025-03-17 20:02] LABS: Alanine Aminotransferase 118 U/L (0-40); Albumin Level 3.9 g/dL (3.5-5.0); Anion Gap 14 (12-20); Aspartate Amino Transferase 39 U/L (5-37); Bilirubin Total 0.8 mg/dL (0.0-1.0); Blood Urea Nitrogen 36 mg/dL (9-16); Calcium 8.9 mg/dL (8.4-10.2); Carbon Dioxide 21 mmol/L (22-29); Chloride 106 mmol/L (96-108); Estimated Glomerular Filt Rate 23; Glucose Fasting 90 mg/dL (60-99); Potassium 4.3 mmol/L (3.3-5.1); Sodium 137 mmol/L (135-145)
[2025-03-17 20:16] LABS: Alkaline Phosphatase 447 U/L (39-117)
== END 2025-03-17 15:48 | disposition home or self-care (01) ==
LOC: HO.LAB 15:47
PROVIDERS: PCP Internal Medicine; Visit Provider Internal Medicine
DX: R74.8 Abnormal levels of other serum enzymes (principal)
CPT/HCPCS: 36415; 80053; 82550; 84443; 85025

== ENCOUNTER 2025-04-09 12:59 | Outpatient (AMB) | payer MEDICARE, SELFPAY ==
--- NOTE | 2025-04-09 12:59 | MHC.OFFVIS ---
Vital Signs 04/09/25 13:06 Height 6 ft Weight 163 lb BMI 22.1 BP 159/78 H Blood Pressure Location Lt brachial Position Sitting Pulse 77 Intake Visit Reasons: one month post bilateral inguinal hernia Intake Note: Patient is seen in office for one month follow up visit, post bilateral inguinal hernia repair. Pt c/o: swollen and sore, denies any other issues Analysis Tester Required: No Accompanied by: Self / Same As Patient Allergies sulfamethoxazole [From Bactrim] Adverse Reaction (Verified 04/09/25 13:39) Abdominal Pain trimethoprim [From Bactrim] Adverse Reaction (Verified 04/09/25 13:39) Abdominal Pain Medication List - Last Reconciled 04/09/25 by Sudhir Valenzuela MD aspirin 81 mg PO BEDTIME atorvastatin 20 mg PO DAILY cholecalciferol (vitamin D3) (Vitamin D3) 100 mcg PO BEDTIME psyllium husk (Metamucil) 0.4 grams PO BEDTIME sildenafil 100 mg PO DAILY PRN tamsulosin 0.4 mg PO BEDTIME valacyclovir 1,000 mg PO BID vit C-Zn gluc-herbal no.325 90-15 mg 1 carmen PO DAILY HPI Comments Details: 69-year-old male patient returning 1 month following repair of bilateral inguinal hernias with mesh on 02/16/2025. He reports developing a urinary tract infection since his last visit in the office and was subsequently placed on Bactrim. He was also taken Tylenol for pain however he subsequently developed increased abdominal pain in the epigastrium and right upper quadrant. Subsequent workup revealed elevated LFTs and renal function tests. He was subsequently hospitalized for approximately 5 days after which his numbers gradually improved. The Bactrim was suspected of causing his elevation of liver enzymes. He currently reports only mild discomfort in the bilateral inguinal incisions and denies any palpable lumps. He does occasionally have some discomfort into the scrotum especially on the right side. The previous swelling has now resolved. [facility] Medical History Sprain of foot, left BPH (benign prostatic hyperplasia) Arthritis Back pain Constipation GERD (gastroesophageal reflux disease) UTI (urinary tract infection) Sciatica of left side Habitual snoring Premature atrial contractions Premature ventricular contractions Hypercholesterolemia Hypertension Surgical History H/O colonoscopy History of dental surgery Social History Are you a primary assurance services manager health care to a significant other at home: No Do you presently have visiting nurse or other home services: No Alcohol intake: current Alcohol intake frequency: a few times a week Patient Tobacco Use Status: Never used Tobacco Physical Exam Vital Signs: Last Vital Signs Pulse 77 04/09/25 13:06 BP 159/78 H 04/09/25 13:06 BMI result Body Mass Index 22.1 Const General: comfortable Nutritional Appearance: well nourished Orientation/consciousness: patient oriented x3 Resp Effort & Inspection: normal respiratory effort, no audible wheezes, no cough and no respiratory distress GI Other: Bilateral inguinal incisions are clean, dry, and intact without redness or discharge. No hernias are noted with Valsalva maneuvers. Scrotum is normal. Neuro General: patient oriented x3 Extrem Other: No edema Assessment & Plan Assessment & Plan (1) Bilateral inguinal hernia: Code(s): K40.20 - Bilateral inguinal hernia, without obstruction or gangrene, not specified as recurrent Category: Medical Qualifiers: Obstruction and gangrene presence: without obstruction or gangrene Recurrence: non-recurrent Qualified Code(s): K40.20 - Bilateral inguinal hernia, without obstruction or gangrene, not specified as recurrent Plan 69-year-old male patient status post repair of bilateral inguinal hernias. He had difficulty with urinary tract infections, acute liver and kidney injury possibly related to medication which is now resolving. Examination today reveals well-healed bilateral inguinal incisions with no evidence of hernia recurrence. He may resume normal activity and should return as needed. Coding Level of Care Code Global (37499) Diagnoses Non-recurrent bilateral inguinal hernia without obstruction or gangrene K40.20 Obstruction and gangrene presence: without obstruction or gangrene Recurrence: non-recurrent
[2025-04-09 13:06] VITALS: BP 159/78; PULSE 77; BMI 22.1
--- OUTSIDE RECORDS SUMMARY | 2025-04-09 13:35 | XMS_ITS ---
Author Organization Marito Allen MD Address [address] [place] [phone] Care Team Providers Care Fuel Management Handler Name Role Phone Marito Allen Primary Care Provider REASON FOR VISIT Where to find summary Encounters Encounter Location Date Provider Diagnosis Marito Allen MD [address] [place] [address] [place] [phone] 03/22/2025 Marito Allen Plan Of Treatment Next Appt Details Provider Name:Marito olear, 04/17/2025 10:30:00 AM, [address] [place] [address], [address], [phone], Provider Name:Marito Omer iekaylah, 07/17/2025 08:00:00 AM, [address] [place] [address], [address], [phone], Provider Name:Marito palacios, 07/24/2025 10:00:00 AM, [address] [place] [address], [address], [phone], Provider Name:Marito palacios, 01/18/2026 08:00:00 AM, [address] [place] [address], [phone], Provider Name:Marito palacios, 01/25/2026 02:30:00 PM, [address] [place] [address], [phone], Progress Notes * Nino CARTAGENAB:1955 ( 69 yo M)Acc No.[id number]:03/22/2025 Patient:?Mj CARTAGENA :1955???Age:69 Y???Sex:Male Address:[address] [place] [address] * true * Date:? Generated for Jennifer mack/Marquise/eTransmitting on:?04/09/2025 01:35 PM EDT
--- OUTSIDE RECORDS SUMMARY | 2025-04-09 13:35 | XMS_ITS | Encounter Summary ---
Author Organization [facility], Address [address] [place] [address] Phone Care Team Providers Care Manager Php Name Role Phone Marito Allen MD Primary Care Provider [phone] Encounter Details Date Type Department Care Team (Late Contact Info) Description 03/30/2025 Office Communication [facility] [address] [place] [phone] Watson Hess MD [address] [place] [address] [place] [phone] Social History Tobacco Use Types Packs/Day Years Used Date Smoking Tobacco: Never Assessed Sex and Gender Information Value Date Recorded Sex Assigned at Not on file Legal Sex Male 10:22 AM EDT Gender Identity Not on file Sexual Orientation Not on file documented as of this encounter Plan of Treatment Upcoming Encounters Date Type Department Care Team (Late Contact Info) Description 04/23/2025 3:15 PM EDT Office Visit [facility] [address] [place] [phone] Watson Hess MD [address] [place] [address] [place] [phone] documented as of this encounter Visit Diagnoses Not on filedocumented in this encounter Care Teams Manager Php Relationship Specialty Start Date End Date Marito Allen MD [address] [place] [address] [address] [place] [address] PCP - General Internal Medicine 03/10/25 documented as of this encounter
--- OUTSIDE RECORDS SUMMARY | 2025-04-09 13:35 | XMS_ITS ---
Author Organization Marito Allen MD Address [address] [place] [address] [place] [phone] Care Team Providers Care Landing Worker Name Role Phone Marito Allen Primary Care Provider REASON FOR VISIT Comp and CBC Encounters Encounter Location Date Provider Diagnosis Marito Allen MD [address] [place] [phone] 03/24/2025 Marito Allen Elevated BUN R79.9 and Anemia D64.9 Assessments Encounter Date Diagnosis (ICD Code) Assessment Notes Treatment Notes Treatment Clinical Notes Section Notes 03/24/2025 Elevated BUN (ICD-10 - R79.9) order mailed to the patient to be done 03-24-25 03/24/2025 Anemia (ICD-10 - D64.9) Plan Of Treatment Treatment Notes Assessment Notes Elevated BUN order mailed to the patient to be done 03-24-25 Pending Test Test Name Order Date Complete Blood Count Auto Diff 5 Comprehensive [place]. Panel Fast Next Appt Details Provider Name:Marito palacios, 04/17/2025 10:30:00 AM, [address] [place] [address], [place] [address], [place], [place], [phone], Provider Name:Marito palacios, 07/17/2025 08:00:00 AM, [address] [place] [address], [address], [phone], Provider Name:Marito palacios, 07/24/2025 10:00:00 AM, [address], [address], [place], [phone], Provider Name:Marito Omer ier, 01/18/2026 08:00:00 AM, [address], [address], [place], [place], [phone], Provider Name:Marito Omer ier, 01/25/2026 02:30:00 PM, [address] [facility], [address], [place], [place], [phone], Progress Notes * Mj CARTAGENADOB:1955 ( 69 yo M)Acc No.[id number]:03/24/2025 Progress Note Patient:?Mj CARTAGENA Provider:?Marito Allen MD :1955???Age:69 Y???Sex:Male Leobardo e:03/24/2025 Address:[address] [place], [place] [phone] Subjective: * Chief Complaints: * ???1. Comp and CBC. * Medical History:? Objective: * Vitals:? Assessment: * Assessment: 1.?Elevated BUN - R79.9???2. ?Anemia - D64.9??? Plan: * Treatment: 2.?Anemia?LAB: Complete Blood Count Auto Diff ?LAB: Comprehensive [place]. Panel Fast * * The named appointment provid er may or may not be the originator of this progress note, and it is not deemed complete until electronically signed by the appointment provider. Sign off status: Pending * Provider:?Marito Allen MD Date:?0 03/24/2025 Generated for Jennifer mack/Marquise/eTransmitting on:?04/09/2025 01:34 PM EDT
--- OUTSIDE RECORDS SUMMARY | 2025-04-09 13:35 | XMS_ITS | Encounter Summary ---
Author Organization [facility] Address [address] [place] [address] Phone Care Team Providers Care Letterset Press Set Up Operator Name Role Phone Marito Allen MD Primary Care Provider [phone]- [phone] Encounter Details Date Type Department Care Team (Late Contact Info) Description 04/02/2025 Documentation Only [facility] [address] [place] [address] Maisha Zelaya [address] [place] [phone] Social History Tobacco Use Types Packs/Day Years [...] [facility] [address] [place] [address] Nora [place] [place] [phone] Watson Hess MD [address] [place] [address] [place] [address] documented as of this encounter Visit Diagnoses Not on filedocumented in this encounter Care Teams Letterset Press Set Up Operator Relationship Specialty Start Date End Date Marito Allen MD [address] [place], [place] PCP - General Internal Medicine 03/10/25 documented as of this encounter
--- OUTSIDE RECORDS SUMMARY | 2025-04-09 13:35 | XMS_ITS | Clinical Summary ---
Author Organization [facility], Address [address] [place] [address] Phone Care Team Providers Care Chip Person Name Role Phone Marito Allen MD Primary Care Provider [phone]- [phone] Allergies Active Allergy Reactions Criticality Noted Date Comments Atorvastatin 03/11/2025 Other Reaction(s): Muscle Disease Sulfamethoxazole-Trimethopr im 03/11/2025 Other Reaction(s): Liver disorder, liver inflamation Encounters Date Type Department Care Team Description 04/02/2025 Documentation Only [facility] [address] [place] [address] Maisha Zelaya 03/30/2025 Office Communication [facility] [address] N[address] [place] [address] Watson Hess MD from Last 3 Months Social History Tobacco Use Types Packs/Day Years Used Date Smoking Tobacco: Never Assessed Sex and Gender Information Value Date Recorded Sex Assigned at Not on file Legal Sex Male 10:22 AM EDT Gender Identity Not on file Sexual Orientation Not on file Plan of Treatment Upcoming Encounters Date Type Department Care Team (Late st Contact Info) Description 04/23/2025 3:15 PM EDT Office Visit [facility] Bettina [address] [place] [address] Watson Hess MD [address] [place] [address] [place] [phone] Health Maintenance Due Date Last Done Comments Colorectal Cancer Screening: Annual FOBT 2003 Colorectal Cancer Screening: Colonoscopy 2003 Colorectal Cancer Screening: Sigmoidoscopy 2003 Hepatitis B Vaccine (1 of 3 - Risk 3-dose series) 2014 Pneumococcal Vaccine: 50+ Ye ars (3 of 3 - PPSV23, PCV20 or PCV21) 11/13/2019 09/18/2019, 01/09/2013 Influenza Vaccine (Season Ended) 2025 09/18/2019, 08/26/2018, 09/11/2017, Additional history exists Insurance Medicare [facility] [place] [id number] Care Teams Chip Person Relationship Specialty Start Date End Date Marito Allen MD [address] [place], [place] PCP - General Internal Medicine 03/10/25
--- OUTSIDE RECORDS SUMMARY | 2025-04-09 13:36 | XMS_ITS | Patient Health Record ---
Author Organization Marito Allen MD Address [address] [place], [place] [phone] Care Team Providers Care Railroad Commissioner Name Role Phone Marito Allen Primary Care Provider Allergies Allergen (clinical drug ingredient) Drug/Non Drug Allergy documented on EMR Reaction Allergy Type Onset Date Status sulfamethoxazole / trimethoprim Bactrim DS liver inflamation Drug Allergy Active Results Component Value Reference Range Notes Complete Blood Count Auto Di ff Reviewed date:12/05/2024 05:18:25 PM Interpretation: Performing Lab:[facility], [address] [place] [phone] Notes/Report: White Blood Count 7.9 4.8-10.8 X10*3/uL [...] NRBC Abs Auto 0.000 0.0-0.012 X10*3/uL Comprehensive [employer]. Panel Fa Reviewed date:12/05/2024 05:17:46 PM Interpretation: Performing Lab:[facility], [address] [place] [phone] Notes/Report: Sodium 140 135-145 mmol/L Potassium 4.0 [...] Panel Reviewed date:12/05/2024 05:18:56 PM Interpretation: Performing Lab:[facility], [address] [place] [phone] Notes/Report: Bilirubin Direct 0.3 0.0-0.5 mg/dL Lipid Panel Reviewed date:12/05/2024 05:18:33 PM Interpretation: Performing Lab:[facility], [address] [place] [phone] Notes/Report: Triglycerides 87 <150 mg/dL Desirable Triglyceride: [...] (Free>4and<10) Reviewed date:12/05/2024 05:17:58 PM Interpretation: Performing Lab:[facility], [address] [place] [phone] Notes/Report: PSA,Total (Free>4and<10) 1.16 0.00-4.00 ng/mL A [...] t Reviewed date:12/05/2024 05:18:48 PM Interpretation: Performing Lab:[facility], [address] [place] [phone] Notes/Report: Urine, Clean Catch Color Urine Yellow Appearance Urine Clear PH 6.5 5.0-9.0 Glucose Urine UA Negative Negative mg/dL Urine Blood Negative Negative Specific [place] - Urine 1.010 1.005-1.025 Urine Protein Negative Neg-Trace mg/dL Urine Ketones Negative Negative mg/dL Nitrite Urine Negative Negative Leukocyte Esterase Urine Trace Negative RBC Urine 0-2 0-2 /HPF WBC Urine 0-5 0-5 /HPF Squamous Epithelial Cell Urine 0-2 0-2 /HPF Bacteria Urine None Seen None Seen Hyaline Casts Urine 0-2 0-2 /LPF Complete Blood Count Auto Di ff Reviewed date:03/19/2025 12:56:30 PM Interpretation: Performing Lab:[facility], [address] [place] [phone] Notes/Report: White Blood Count 10.1 4.8-10.8 X10*3/uL [...] NRBC Abs Auto 0.000 0.0-0.012 X10*3/uL Comprehensive [employer] Panel [facility] Reviewed date:03/19/2025 12:55:13 PM Interpretation: Performing Lab:[facility], [address] [place] [phone] Notes/Report: Sodium 137 135-145 mmol/L Potassium 4.3 3.3-5.1 mmol/L Chloride 106 96-108 mmol/L Carbon Dioxide 21 22-29 mmol/L Anion Gap 14 12-20 Blood Urea Nitrogen 36 9-16 mg/dL Creatinine 2.71 0.5-1.4 mg/dL Estimated Glomerular Filt Rate 23 Chronic Kidney Disease: Estimated GFR < 60 mL/min/1.73m2 Severe Kidney Disease: Estimated GFR < 15 mL/min/1.73m2 Glucose Fasting 90 60-99 mg/dL Calcium 8.9 8.4-10.2 mg/dL Bilirubin Total 0.8 0.0-1.0 mg/dL Aspartate Amino Transferase 39 5-37 U/L Alanine Aminotransferase 118 0-40 U/L Total Protein 7.0 6.5-8.0 g/dL Albumin Level 3.9 3.5-5.0 g/dL Alkaline Phosphatase 447 39-117 U/L TSH reflex Free T4 Reviewed date:03/18/2025 12:31:26 PM Interpretation: Performing Lab:[facility], [address] [place] [phone] Notes/Report: TSH reflex Free T4 2.90 0.32-4.0 uIU/mL Pathology Reviewed date:02/17/2025 08:00:14 PM Interpretation: Performing Lab:[facility], [address] [place] [phone] Notes/Report: --- Name: Mj Cartagena Age/Sex: 69/M : 1955 Unit#: [id number] Attend Dr: Sudhir Valenzuela MD Re02/16/25 Status : [facility] Location: [facility] Disch: --- SPEC : [id number] RECD : 02/16/25 STATUS: ADONAY SHARPE NUM: [id number] CURT: 02/16/25 [facility] DR: Sudhir Valenzuela MD ENTERED: 02/16/25 SP TYPE: Surgical OTHR DR: Marito Allen [...] delicate tarango-pink with scant attached fibrous tissue. [employer] secti ons are submitted in a cassette labeled A1. CEDS Copies To: Marito Allen MD [facility] [address] [phone] Sudhir Valenzuela MD [facility] Sur[facility] [address] [place] [address] --- Signed (signature on file) Robbin Davies MD 02/17/25 1557 --- END OF REPORT XR abdomen 1V Reviewed date:02/16/2025 05:10:12 PM Interpretation: Performing Lab: Notes/Report: [address] [address] XRay Report Signed Patient: Mj Cartagena MR#: [id number] : 1955 Acct:[id number] Age/Sex: 69 / M ADM Date: 02/16/25 Loc: .[facility] Attending Dr: Sudhir Valenzuela MD Ordering Physician: Sudhir Valenzuela MD Date of Service: 02/16/25 Procedure(s): XR abdomen 1V Accession Number(s): [id number] cc: Marito Allen MD; Sudhir Valenzuela MD [...] Abdi Ratliff MD 02/16/2025 02:51 PM EDT Dictated By: Abdi Ratliff MD Signed By: <Electronically signed by Abdi Ratliff MD in OV> 02/16/25 1451 DD/ 0843 TD/TT: 02/16/2558 Case Resolution Specialist: [address] [address] XRay Report Signed Patient: Mj Cartagena MR#: [id number] : 1955 Acct:[id number] Age/Sex: 69 / M ADM Date: 02/16/25 Loc: [facility] Attending Dr: Sudhir Valenzuela MD Ordering Physician: Sudhir Valenzuela MD Date of Service: 02/16/25 Procedure(s): XR abdomen 1V Accession Number(s): [id number] cc: Marito Allen MD; Sudhir Valenzuela MD [...] Abdi Ratliff MD 02/16/2025 02:51 PM EDT Dictated By: Abdi Ratliff MD Signed By: <Electronically signed by Abdi Ratliff MD in OV> 02/16/25 1451 DD/ 0843 TD/TT: 02/16/25 0858 Case Resolution Specialist: Creatine Kinase Total Reviewed date:03/18/2025 12:29:58 PM Interpretation: Performing Lab:[facility], [address] [place] [phone] Notes/Report: Creatine Kinase Total 40 38-174 U/L Reason For Referral Reason wrist pain right [...] Referred Provider [facility] Referred Provider Specialty Unknown General Notes Rosalva Fatima 0 03/05/2025 01:51:38 PM > order has been faxed, patient is handling this himself Referral Priority Routine Medications Medication SIG (Take, Route, Frequency, Duration) Notes Start Date End Date Status Finasteride 5 MG 1 tablet Orally Once a day Not-Taking valACYclovir HCl 500 MG take 2 tablet Or ally Once a day Orally Once a day for 90 days Not-Taking Atorvastatin Calcium 20 MG 1 tablet Orally Once a day for 90 days Not-Taking Ibuprofen 800 MG 1 tablet with food o r milk as needed Orally every 8 hrs for 30 days 06/06/2024 Not-Taki ng Metrogel 1 % 1 application Externally Once a day for 30 days 05/04/2023 Not-Taking Dulcolax 5 MG 1 tablet as needed Orally Once a day Not-Taking Ibuprofen 800 MG 1 tablet with food o r milk as needed Orally Three times a day for 7 days 02/13/2023 Not-Taking Metamucil 0.36 GM as directed Orally Active Lisinopril 10 MG 1 tablet Orally Once a day 90 days Orally Once a day for 90 days Not-Taking Sildenafil Citrate 100 MG 1 tablet as ne eded Orally Once a day as needed 30 day(s) Orally Once a day as needed for 90 days Active Tamsulosin HCl 0.4 MG 1 capsule Orally O nce a day for 90 days 02/14/2024 Active Omeprazole 20 MG 1 capsule 1/2 to 1 h our before morning meal Orally Once a day Not-Taking Fluocinonide 0.05 % 1 application Externally Twice a day Not-Takin g Immunizations Vaccine Route Administration Date Status Comme [...] Status W/U Status Risk Notes Problem Sciatica (18649983) Sciatica (M54.30) Active confirmed Problem 587866789 PVC (premature ventricular contraction) (I49.3) Active confirmed Problem 80258440 Prostatism (N40.0) Active confirmed Problem Cardiac arrhythmia (800997319) Cardiac arrhythmia, unspecified (I49.9) Active confirmed Problem 576784343 Lumbar disc dise ase (M51.9) Active confirmed Problem 231891574 Tubular adenoma of colon (D12.6) Active confirmed Problem 43112006 Essential hypert ension (I10) Active confirmed Problem 580009526 Irregular heart beat (I49.9) Active confirmed Problem 819466535655765 Carpal tunnel sy ndrome of right wrist (G56.01) Active confirmed Problem Liver cyst (71209069) Liver cyst (K76.89) Active confirmed Problem 16522416 Hypercholesterol emia (E78.00) Active confirmed Problem Renal failure syndrome (38879375) Kidney failure (N19) Active confirmed Problem Lesion of liver (715043288) Liver lesion (K76.9) Active confirmed Vital Signs Blood pressure diastolic 56 mm Hg 03/27/2025 lashae ght is up 2 pounds since 03-17-25 Height 71.5 in 03/27/2025 weight is up 2 pounds since 03-17-25 Blood pressure systolic 94 mm Hg 03/27/2025 weig ht is up 2 pounds since 03-17-25 Weight 158 lbs 03/27/2025 weight is up 2 pounds since 03-17-25 BMI 21.73 kg/m2 03/27/2025 weight is up 2 pounds since 03-17-25 Encounters Encounter Location Date Provider Diagnosis Marito Allen MD [address] [place] [id number] 12/05/2024 Marito Allen Essential hypertensi on I10 ; Hypercholesterolemia E78.00 ; Liver lesion K76.9 and Prostatism N40.0 Marito Allen MD [address] [place] [id number] 03/27/2025 Marito Allen Kidney failure N19 ; Elevated BUN R79.9 ; Anemia D64.9 ; Essential hypertension I10 and Elevated LFTs R79.89 Marito Allen MD [address] [place] [id number] 06/06/2024 Marito Allen Carpal tunnel syndro me of right wrist G56.01 ; Essential hypertension I10 and Prostatism N40.0 Marito Allen MD [address] [place] [id number] 01/22/2025 Marito Allen Elevated serum creat inine R79.89 ; Essential hypertension I10 ; Tubular adenoma of colon D12.6 ; Prostatism N40.0 ; Hypercholesterolemia E78.00 ; Colon cancer screening Z12.11 and Depression screening Z13.31 Marito Allen MD [address] [place] [id number] 03/17/2025 Marito Allen Elevated alkaline phosphatase level R74.8 ; Elevated creatine kinase R74.8 and Prostatism N40.0 Marito Allen MD [address] [place] [address] [id number] 04/15/2024 Marito Allen Hypercholesterolemia E78.00 and Prostatism N40.0 Marito Allen MD [address] [place] [address] [id number] 04/15/2024 Marito Allen Hypercholesterolemia E78.00 and Prostatism N40.0 Marito Allen MD [address] [place] [address] [id number] 04/17/2024 Marito Allen Essential hypertensi on I10 Marito Allen MD [address] [place] [address] [id number] 05/08/2024 Marito Allen Prostatism N40.0 Marito Allen MD [address] [place] [address] [id number] 05/08/2024 Marito Allen Hypercholesterolemia E78.00 Marito Allen MD [address] [place] [address] [id number] 06/10/2024 Marito Allen MD [address] [place] [address] [id number] 06/12/2024 Marito Allen MD [address] [place] [address] [id number] 07/01/2024 Marito Allen Liver lesion K76.9 Marito Allen MD [address] [place] [address] [id number] 02/13/2025 Marito Allen MD [address] [place] [address] [id number] 03/05/2025 Marito Allen MD [address] [place] [address] [id number] 03/13/2025 Marito Allen MD [address] [place] [address] [id number] 05/02/2024 Marito Allen MD [address] [place] [address] [id number] 05/30/2024 Marito Allen MD [address] [place] [address] [id number] 06/10/2024 Marito Allen Carpal tunnel syndro me of right wrist G56.01 Marito Allen MD [address] [place] [address] [id number] 08/14/2024 Marito Allen MD [address] [place] [address] [id number] 09/02/2024 Marito Allen MD [address] [place] [address] [id number] 09/22/2024 Marito Allen MD [address] [place] [address] [id number] 09/24/2024 Marito Allen MD [address] [place] [address] [id number] 10/20/2024 Marito Allen MD [address] [place] [address] [id number] 10/22/2024 Marito Allen MD [address] [place] [address] [id number] 10/25/2024 Marito Allen MD [address] [place] [address] [id number] 10/25/2024 Marito Allen MD [address] [place] [address] [id number] 10/25/2024 Marito Allen MD [address] [place] [address] [id number] 11/20/2024 Marito Allen MD [address] [place] [address] [id number] 01/01/2025 Marito Allen MD [address] [place] [address] [id number] 03/10/2025 Marito Allen MD [address] [place] [id number] 03/22/2025 Marito Allen Assessments Encounter Date Diagnosis (ICD Code) Assessment Notes Treatment Notes Treatment Clinical Notes Section Notes 12/05/2024 Essential hypertensi on (ICD-10 - I10) 12/05/2024 Hypercholesterolemia (ICD-10 - E78.00) 03/27/2025 Kidney failure (ICD- 10 - N19) had been normal gfr dec 19,reviewed and recent labs with patient, will continue to monitor, pending labs 03/27/2025 Elevated BUN (ICD-10 - R79.9) reviewed and recent labs with patient, will conitnue to monitor, pending labs 06/06/2024 Carpal tunnel syndro me of right [...] off meds. , will continue current regiment 03/17/2025 Elevated alkaline phosphatase level (ICD-10 - R74.8) Order given to the patient to go to [facility] lab 03/17/2025 Elevated creatine kinase (ICD-10 - R74.8) had been on meds for pain with ibuprofen and bactrim and some tylenol. had been on meds for uti's had been on atorvastatin and having muscle and joint pain 04/15/2024 Hypercholesterolemia (ICD-10 - E78.00) 04/15/2024 Hypercholesterolemia (ICD-10 - E78.00) 04/17/2024 Essential hypertensi on (ICD-10 - I10) 05/08/2024 Prostatism (ICD-10 - N40.0) 05/08/2024 Hypercholesterolemia (ICD-10 - E78.00) 07/01/2024 Liver lesion (ICD-10 - K76.9) order made and put into the future order folder for . 06/10/2024 Carpal tunnel syndro me of right wrist (ICD-10 - G56.01) 12/05/2024 Liver lesion (ICD-10 - K76.9) 03/27/2025 Anemia (ICD-10 - D64.9) revi ewed recent labs with patient, will continue to monitor, pending labs 06/06/2024 Prostatism (ICD-10 - N40.0) doing well on tamzulosin, will continue current regiment 01/22/2025 Tubular adenoma of colon (ICD-10 - D12.6) not due for colonscopy 03/17/2025 Prostatism (ICD-10 - N40.0) 04/15/2024 Prostatism (ICD-10 - N40.0) 04/15/2024 Prostatism (ICD-10 - N40.0) 12/05/2024 Prostatism (ICD-10 - N40.0) 03/27/2025 Essential hypertensi on (ICD-10 - I10) running low, will conitnue to monitor 01/22/2025 Prostatism (ICD-10 - N40.0) discussed the risk of prostate cancer with finasteride 03/27/2025 Elevated LFTs (ICD-1 0 - R79.89) pending labs 01/22/2025 Hypercholesterolemia (ICD-10 - E78.00) stable, will continue current regiment 01/22/2025 Colon cancer screeni ng (ICD-10 - Z12.11) guaiac negative 01/22/2025 Depression screening (ICD-10 - Z13.31) negative screen Plan Of Treatment Pending Test Test Name Order Date CPK 03/17/2025 Liver Panel 03/27/2025 Blood Urea Nitrogen 01/22/2025 Creatinine 01/22/2025 ECG 30 day event monitor 12/11/2023 US abdomen limited 05/11/2023 US abdomen limited 07/09/2023 US abdomen limited 12/30/2021 US abdomen limited 07/01/2024 US abdomen complete 05/23/2022 US abdomen complete 06/15/2022 Next Appt Details Provider Name:Marito palacios, 04/17/2025 10:30:00 AM, [address] [facility], [address], [place], [place], [phone], Provider Name:Marito Omer ier, 07/17/2025 08:00:00 AM, [address] [facility], [address], [place], [phone], Provider Name:Marito Omer ier, 07/24/2025 10:00:00 AM, [address] [facility], [address], [place], [phone], Provider Name:Marito Omer ier, 01/18/2026 08:00:00 AM, [address] [place] [address], [address], [place], [phone], Provider Name:Marito Omer ier, 01/25/2026 02:30:00 PM, [address] [place] [address], [address], [place], [phone], Insurance Providers Payer Name Payer Address Payer Phone Subscriber Number Group Number Insured Name Patient Relationship to Insured Coverage Start Date Coverage End Date [employer] [address] [place] [address] [id number] Mj Cartagena Self - patient is the insured [facility] [address] [place] [address] [id number] Mj Cartagena Self - patient is the insured Medical (General) History Medical History History ICD Code colonoscopy 01/17 repeat in 5 years 05/2022 1.2 cr 12/18 cr 1.34 dec 19 cr 1.1 1
--- OUTSIDE RECORDS SUMMARY | 2025-04-09 13:36 | XMS_ITS | Clinical Summary ---
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 Encounters Date Type Department Care Team Description 03/11/2025 10:00 AM EDT Office Visit [facility] [address] [place] [id number] Merchant Banker: Willian Saldana, Mitchel Mario MD Speiq-3-lcxuqblcmjz deficiency (HCC) (Primary Dx) from Last 3 [...] Info) Description 04/16/2025 2:00 PM EDT Appointment [facility] Pul[facility] Function [facility] [address] [place] [address] 04/16/2025 3:00 PM EDT Follow-Up [facility] [address] [place] [address] Merchant Banker: Willian Saldana, Mitchel Mario MD [address] [place] [address] Health Maintenance Due Date Last Done Comments [...] 08/21/2032 08/21/2022, 06/12/2013 Procedures * Due to [place] state law, this organization might not be sharing negative HIV tests. Procedure Name Priority Date/Time Associated Diagnosis Comments AMB EXTERNAL US ABDOMEN, SCA NNED RESULT 03/04/[address] ABDOMEN, OUT SIDE RESULT 03/04/2025 LAB - SCANNED 03/04/2025 from Last 3 Months Results * Due to [place] state law, this organization might not be [...] Result from Last 3 Months Insurance MEDICARE [facility] Care Teams Care Management Coordinator Relationship Specialty Start Date End Date Marito Allen [address] [place] [address] [place] [address] PCP - General Internal Medicine 03/05/25
--- OUTSIDE RECORDS SUMMARY | 2025-04-09 13:36 | XMS_ITS | Referral Summary ---
Author Organization [facility] Address [address] [place] [address] Care Team Providers Care Beadworker Name Role Phone Marito Allen Primary Care Provider [phone] Encounters Date Type Department Care Team Description 03/11/2025 10:00 AM EDT Office Visit [facility] [address] [place] [id number] Cook Cold Meat: Willian Saldana, Mitchel Mario MD Rifaq-6-tufptkgkubh deficiency (HCC) (Primary Dx) from Last 3 Months Allergies Active Allergy Reactions Criticality Noted Date Comments Atorvastatin Muscle Disease 03/11/2025 Sulfamethoxazole-Trimethoprim Liver disorder Active Problems Problem Noted Date Diagnosed Date 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 Procedure Name Priority Date/Time Associated Diagnosis Comments AMB EXTERNAL US ABDOMEN, SCA NNED RESULT 03/04/[address] ABDOMEN, OUT SIDE RESULT 03/04/2025 LAB - SCANNED 03/04/2025 from Last 3 Months Results * Due to [place] law, this organization might not be sharing [...] Result from Last 3 Months Insurance MEDICARE [facility] SUPP Care Teams Beadworker Relationship Specialty Start Date End Date Marito Allen [address] [place] [address] [place] [address] PCP - General Internal Medicine 03/05/25
--- OUTSIDE RECORDS SUMMARY | 2025-04-09 13:36 | XMS_ITS ---
Author Organization Marito Allen MD Address [address] [place], [place] [id number] Care Team Providers Care [employer] Name Role Phone Marito Allen Primary Care Provider [phone] Allergies Allergen (clinical drug ingredient) Drug/Non Drug Allergy documented on EMR Reaction Allergy Type Onset Date Status sulfamethoxazole / trimethoprim Bactrim DS liver inflamation Drug Allergy Active REASON FOR VISIT must see go over labs Medications Medication SIG (Take, Route, Frequency, Duration) Notes Start Date End Date Status Dulcolax 5 MG 1 tablet as needed Orally Once a day Not-Taking Ibuprofen 800 MG 1 tablet with food o r milk as needed Orally Three times a day for 7 days 02/13/2023 Not-Taking Metamucil 0.36 GM as directed Orally Active Lisinopril 10 MG 1 tablet Orally Once a day 90 days Orally Once a day for 90 days Not-Taking Tamsulosin HCl 0.4 MG 1 capsule Orally O nce a day for 90 days 02/14/2024 Active Finasteride 5 MG 1 tablet Orally Once [...] a day for 30 days 05/04/2023 Not-Taking Omeprazole 20 MG 1 capsule 1/2 to 1 h our before morning meal Orally Once a day Not-Taking Fluocinonide 0.05 % 1 application Externally Twice a day Not-Takin g Sildenafil Citrate 100 MG 1 tablet as ne eded Orally Once a day as needed 30 day(s) Orally Once a day as needed for 90 days Active Problems Problem Type SNOMED Code ICD Code Onset Dates Problem Status W/U Status Risk Notes Problem Renal failure syndrome ([id number]) Kidney failure (N19) Active confirmed Vital Signs Blood pressure systolic 94 mm Hg 03/27/20 25 Blood pressure diastolic 56 mm Hg 025 Height 71.5 in 03/27/2025 Weight 158 lbs 03/27/2025 BMI 21.73 kg/m2 03/27/2025 weight is up 2 pounds since 03-17-25 Encounters Encounter Location Date Provider Diagnosis Marito Allen MD [address] [place] [id number] 03/27/2025 Marito Allen Kidney failure N19 ; Elevated BUN R79.9 ; Anemia D64.9 ; Essential hypertension I10 and Elevated LFTs R79.89 Assessments Encounter Date Diagnosis (ICD Code) Assessment Notes Treatment Notes Treatment Clinical Notes Section Notes 03/27/2025 Kidney failure (ICD-10 - N19) had been normal gfr dec 19,reviewed and recent labs with patient, will continue to monitor, pending labs 03/27/2025 Elevated BUN (ICD-10 - R79.9) reviewed and recent labs with patient, will conitnue to monitor, pending labs 03/27/2025 Anemia (ICD-10 - D64.9) reviewed recent labs with patient, will continue to monitor, pending labs 03/27/2025 Essential hypertension (ICD-10 - I10) running low, will conitnue to monitor 03/27/2025 Elevated LFTs (ICD-10 - R79.89) pending labs Plan Of Treatment Treatment Notes Assessment Notes Kidney failure had been normal gfr dec 19,reviewed and recent labs with patient, will continue to monitor, pending labs Elevated BUN reviewed and recent labs with patient, will conitnue to monitor, pending labs Anemia reviewed recent labs with patient, will continue to monitor, pending labs Essential hypertension running low, will conitnue to monitor Elevated LFTs pending labs Pending Test Test Name Order Date Liver Panel 03/27/2025 Future Test Test Name Order Date Complete Blood Count Auto Diff Liver Panel 04/10/2025 Blood Urea Nitrogen 04/10/2025 Creatinine 04/10/2025 Next Appt Details Follow Up: 3 Weeks, Reason: Provider Name:Marito Benson Rodriguezdavid olear, 04/17/2025 10:30:00 AM, [address], [address], [place], [place], [id number], Provider Name:Marito Benson Kan ier, 07/17/2025 08:00:00 AM, [address], [address], [place], [phone], Provider Name:Marito Benson Kan ier, 07/24/2025 10:00:00 AM, [address], [place], [id number], Provider Name:Marito Benson Kan ier, 01/18/2026 08:00:00 AM, [address] [place] [address], [address] [facility], [place], [phone], Provider Name:Marito Omer ier, 01/25/2026 02:30:00 PM, [address] [place] [address], [address], [place], [id number], Progress Notes * Mj CARTAGENADOB:1955 ( 69 yo M)Acc No.[id number]:03/27/2025 Patient:?Mj CARTAGENA Provider:?Marito Allen MD :1955???Age:69 Y???Sex:Male Leobardo e:03/27/2025 Address:[address] [place], [place] [id number] Subjective: * Chief Complaints: * ???1. Must see go over labs. * HPI: ???Symptom(s):? patient is a 69 yo male here to discuss recent lab results. * ROS:?General/Constitutional:?Denies?Chills.?Denies?Fatigue.?Denies?Fever.?Denies?Headache.?ENT:?Denies?Sore throat.?Respiratory:?Denies?Cough.?Denies?Shortness of breath at rest.?Admits?Shortness of breath with exertion.?Gastrointestinal:?Denies?Constipation.?Denies?Diarrhea.?Denies?Nausea.? * Medical History:?Colonoscopy 01/17 repeat in 5 years, 05/2022 1.2 cr 12/18 cr 1.34 dec 19 cr 1.11. * Medications:?Taking Metamuci l 0.36 GM Capsule as directed Orally , Taking Tamsulosin HCl 0.4 MG Capsule 1 capsule Orally Once a day , Taking Sildenafil Citrate 100 MG Tablet 1 tablet as needed Orally Once a day as needed 30 day(s) Orally Once a day as needed , Not-Taking/PRN Dulcolax 5 MG Tablet Delayed Release 1 tablet as needed Orally Once a day , Not-Taking/PRN Fluocinonide 0.05 % Cream 1 [...] liver inflamation. Objective: * Vitals:?Ht: 71.5, Wt: 158, B AK:21.73, BP:94/56, Wt-k.67. weight is up 2 pounds since 03-17-25. * Examination: ???General Examination: ?GENERAL APPEARANCE:?alert, well hydrated, in no distress.?HEAD:?normocephalic.?SKIN:?good turgor.?HEART:?no murmurs, rubs, gallops, regular rate and rhythm.?LUNGS:?no wheezes, rales, rhonchi, good air movement, clear to auscultation bilaterally.?ABDOMEN:?soft, nontender, nondistended, no organomegaly with slight tender in rt lower quadrant.? Assessment: * Assessment: 1.?Kidney failure - N19 (Ely tenorio)???2.?Elevated BUN - R79.9???3.?Anemia - D64.9???4.?Essential hypertension - I10???5.?Elevated LFTs - R79.89??? Plan: * Treatment: 2.?Elevated BUN? Notes: reviewed and recent labs with patient, will conitnue to monitor, pending labs?? 3.?Anemia?LAB: Complete Blood Count Auto Diff (Ordered for 04/10/2025) Notes: reviewed recent labs with patient, will continue to monitor, pending labs?? 4.?Essential hypertension? Notes: running low, will conitnue to monitor?? 5.?Elevated LFTs?LAB: Liver Panel ?LAB: Liver Panel (Ordered for 04/10/2025) Notes: pending labs?? * Procedure Codes:?G2211 Compl ex e/m visit add on * Follow Up:?3 Weeks * * The named appointment provid er may or may not be the originator of this progress note, and it is not deemed complete until electronically signed by the appointment provider. Sign off status: Pending * Provider:?Marito Allen MD Date:?0 03/27/2025 Generated for Jennifer mack/Marquise/eTransmitting on:?04/09/2025 01:35 PM EDT History and Physical Notes * HPI (History of Present Illness) Category Sub-Category Detail Notes Category Not es Symptom(s) patient is a 69 yo male here to discuss recent lab results Examination Category Sub-Category Detail Notes Category Not es General Examination GENERAL APPEARANCE: alert, w ell hydrated, in no distress HEAD: normocephalic HEART: no murmurs, rubs, ga llops, regular rate and rhythm LUNGS: no wheezes, rales, r honchi, good air movement, clear to auscultation bilaterally ABDOMEN: soft, nontender, non distended, no organomegaly with slight tender in rt lower quadrant SKIN: good turgor
== END 2025-04-09 13:30 | disposition home or self-care (01) ==
LOC: HO.HGS 13:00
PROVIDERS: PCP Internal Medicine; Visit Provider Surgery
DX: K40.20 Bilateral inguinal hernia, without obstruction or gangrene, not specified as recurrent (principal)
CPT/HCPCS: 99024

== ENCOUNTER → 2025-04-09 12:59 | Outpatient (BNVA) | payer MEDICARE, SELFPAY | PROVIDERS: PCP Internal Medicine; Visit Provider Surgery | DX: Z48.815 Encounter for surgical aftercare following surgery on the digestive system (principal); Z98.890 Other specified postprocedural states | CPT/HCPCS: 99212 ==

== ENCOUNTER 2025-05-12 10:04 | Outpatient (REF) | payer MEDICARE, SELFPAY ==
[2025-05-12 10:07] LABS: MANUAL DIFF FLAG NO
[2025-05-12 10:24] LABS: Basophils Percent Auto 0.6 % (0-2); Eosinophils Absolute Auto 0.1 X10*3/uL (0.0-0.4); Eosinophils Percent Auto 2.1 % (0-4); Hematocrit 41.3 % (42.0-52.0); Imm Gran Abs Auto 0.02 X10*3/uL (0.00-0.03); Imm Gran Pct Auto 0.3 % (0.0-0.4); Lymphocytes Absolute Auto 2.1 X10*3/uL (1.2-4.9); Lymphocytes Percent Auto 31.8 % (20-40); Mean Corpuscular HGB Conc 33.9 g/dl (31.0-36.0); Mean Corpuscular Hemoglobin 32.9 pg (27.0-33.0); Mean Corpuscular Volume 96.9 fL (80.0-98.0); Mean Platelet Volume 12.3 fL (9.4-12.4); Monocytes Absolute Auto 0.5 X10*3/uL (0.1-1.2); Monocytes Percent Auto 8.2 % (2-11); Neutrophils Absolute Auto 3.8 x10*3/uL (2.0-8.3); Platelet Count 212 X10*3/uL (160-400); Red Blood Count 4.26 X10*6/uL (4.60-5.80); Red Cell Distribution Width 12.1 % (11.0-16.0); White Blood Count 6.6 X10*3/uL (4.8-10.8)
[2025-05-12 10:38] LABS: Alanine Aminotransferase 37 U/L (0-40); Alkaline Phosphatase 73 U/L (39-117); Aspartate Amino Transferase 25 U/L (5-37); Bilirubin Direct 0.1 mg/dL (0.0-0.5); Bilirubin Total 0.4 mg/dL (0.0-1.0); Blood Urea Nitrogen 30 mg/dL (9-16); Estimated Glomerular Filt Rate 36; Total Protein 6.4 g/dL (6.5-8.0)
--- OUTSIDE RECORDS SUMMARY | 2025-05-12 11:26 | XMS_ITS | Data Portability ---
Author Organization [facility], , [facility] Address [address] [place] [address] Care Team Providers Care Security Delivery Specialist Name Role Phone VALERIA MOSLEY Primary Care [...] was notified that the provider location is [facility] Patient location: home During the [...] and Aorta Scan 2018 for same pain. [place] non concerning 2020 [facility], [address] [place] [address], [address], 1 12:45:10 Procedures None recorded. Surgeries None recorded. Imaging None recorded. Medication Orders fluocinoni de 0.05 % topical cream 2020 021 [facility], [address] [place] [address], [address], 1 08:28:52 selenium sulfide 2.25 % shampoo 2019 [address], [address], 0 14:27:41 tadalafil 20 mg tablet 2019 [address], [address], 0 14:27:41 Patient TargetsNo targets recorded. Patient Instructions Encounter Date Encounter Id Patient Instructions Last Modified By Organization Details Last Modified Time 09/24/2020 [id number] preventing falls : care instructions [email or web address] Not [...] was notified that the provider location is [facility] Patient location: home During the visit the patient? s medical history and medical record were reviewed. The patient was notified to call our office for worsening or urgent symptoms. [email or web address] Not available 09/24/2020 14:08:38 03/28/2021 [id number] Prostate Cancer Screening using PSA was discussed. [...] was notified that the provider location is [facility] Patient location: home During the visit the patient? s medical history and medical record were reviewed. The patient was notified to call our office for worsening or urgent symptoms. [email or web address] Not available 03/28/2021 08:17:42 08/23/2021 [id number] minutes spent with pt romel Not available 08/23/2021 17:39:13 Reason for Referral Instructional Design Specialist Referral for Polyp of gallbladder cyclic, rare, limited spells of severeabd pain accompanied by diaphoresiscounselled by MD wilhelm who instilled anxietyPMH GP polyp (seen 2010 US) LTFUHad US abdomen in 2010 and Aorta Scan 2018 for same pain. [place] non concerning Referring Physician: Valeria Mosley, Family Medicine, Encounter Date: 08/23/2021 Results Created Date Observation Date Name Description Value Unit Range Abnormal Flag Note LastModifiedBy Organization Detail LastModifiedTime 03/22/20 21 03/22/2021 BMP, serum or plasm a glucose 89 mg/dL 70-100 Not Available [address], [address], 03/22/2021 12:20:56 03/22/20 21 03/22/2021 BMP, serum or plasm a BUN 14 mg/dL 7-18 Not Available [address], [address], 03/22/2021 12:20:56 03/22/20 21 03/22/2021 BMP, serum or plasm a creatinine 1.2 mg/dL 0.8-1. 3 Not Available [address], [address], 03/22/2021 12:20:56 03/22/20 21 03/22/2021 BMP, serum or plasm a B/C 11.7 ratio Not Available [address], [address], 03/22/2021 12:20:56 03/22/20 21 03/22/2021 BMP, serum or plasm a GFR -non 64.4 mL/mi n Recom kailey d GFR by the Natio nal Kidne y Found ation >60 mL/mi n/1.7 3m2 - Rachana l <60 mL/mi n/1.7 3m2 - Chron ic Kidne y Disea se <15 mL/mi n/1.7 3m2 - Kidne y Failu re Not Available [address], [address], 03/22/2021 12:20:56 03/22/20 21 03/22/2021 BMP, serum or plasm a GFR - if 77.9 mL/mi n For Afric an Ameri can patie nts: Resul ts Multi plied by 1.21 Not Available [address], [address], 03/22/2021 12:20:56 03/22/20 21 03/22/2021 BMP, serum or plasm a sodium 138 mmol/ L 136-14 5 Not Available [address], [address], 03/22/2021 12:20:56 03/22/20 21 03/22/2021 BMP, serum or plasm a potassium 4.2 mmol/ L 3.5-5. 1 Not Available [address], [address], 03/22/2021 12:20:56 03/22/20 21 03/22/2021 BMP, serum or plasm a chloride 100 mmol/ L 96-107 Not Available [address], [address], 03/22/2021 12:20:56 03/22/20 21 03/22/2021 BMP, serum or plasm a anion gap 9.7 5.0-15 .0 Not Available [address], [address], 03/22/2021 12:20:56 03/22/20 21 03/22/2021 BMP, serum or plasm a CO2 28 mmol/ L 21-32 Not Available [address], [address], 03/22/2021 12:20:56 03/22/20 21 03/22/2021 BMP, serum or plasm a calcium 8.8 mg/dL 8.5-10 .3 Not Available [address], [address], 03/22/2021 12:20:56 03/22/20 21 03/22/2021 lipid panel , serum cholesterol 161 mg/dL <200 mg/dl Boubacar able 200-2 39 mg/dl Borde rline High >240 mg/dl High Not Available [address], [address], 03/22/2021 12:20:57 03/22/20 21 03/22/2021 lipid panel , serum triglyceride s 59 mg/dL <150 mg/dL Rachana l 150-1 99 mg/dL Borde rline High 200-4 99 mg/dL High >500 mg/dL Very High Not Available [address], [address], 03/22/2021 12:20:57 03/22/20 21 03/22/2021 lipid panel , serum direct HDL 61 mg/dL <40 mg/dl - Major Risk for CHD >60 mg/dl - Negat wendi Risk for CHD Not Available [address], [address], 03/22/2021 12:20:57 03/22/2003/22/2021 LDL, rajani gray , [...] r is not neces mary. Not Available [facility] [address] [place], [address], 03/22/2021 12:20:58 01/04/20 22 01/04/2022 SARS- COV-2 RNA (COVI D-19) , QUALI TATIV E NAAT sarscov2 NEGATI VE negati ve normal This test has been autho rized by the FDA under an Emerg ency Use Autho rizat ion(E UA) for you by autho rized labs. Not Available 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 This may repres ent a rene [...] nonvas cular areas seen anteri or and spare fixer ior wall measur ing 2-3 mm CBD: appear s wnl, .5 cm PV: patent , hepato petal RIGHT RENAL: no hydro AO PROX: appear s wnl IVC: appear s wnl TAZ PINEDA [facility] [address] [facility], [place], [address], 11/22/2021 16:57:29 11/22/2011/22/2021 US, abdom en, limit ed No observ ation record ed. [facility] [address] [place] [address] [place], [address], 11/22/2021 16:57:30 Result Notes None recorded. Problems Name Problem SNOMED Code Status Onset Date Resolution Date Notes Provider Name and Address Organization Details Recorded Time Low back pain 388992201 Active 2018 Fidelia Goodwin, PT [address] [place], [address], [facility] 9 18:58:07 Pain of shoulder region 41623569 Active 2018 Fidelia Goodwin, PT [address] [place], [address], [facility] 9 13:27:23 Mixed hyperlipide erika 989904549 Active 2007 [place], [address], [facility] 6 12:05:17 Dyspnea 674179695 Completed 200110/15/2013 [place], [address], [facility] 6 10:20:57 Finding by method 225268329 Completed 200110/15/2013 [place], [address], [facility] 6 10:20:57 Abdominal pain 54436564 Completed 200510/15/2013 [place], [address], [facility] 6 10:20:57 Pain of joint 31184282 Completed 200208/16/2015 [place], [address], [facility] 6 10:20:57 On examination - a rash Completed 200210/15/2013 [place], [address], [facility] 6 10:20:57 Herpes simplex 04537547 Active 2007 [place], [address], [facility] 6 10:20:57 Palpitation s 36962034 Active 2002 Taz Pineda MD [address] [place], [place] [address]G[place], [address], [facility] 6 10:20:57 Gastro-esop hageal reflux disease with esophagitis 969980516 Active 2007 [place], [address], [facility] 6 10:20:57 Benign essential hypertensio n 7411266 Active 2001 [place], [address], [facility] 6 12:05:17 Elevated blood-press ure reading without diagnosis of hypertensio n 978049399 Completed 200108/16/2015 Taz Pineda MD [facility] [place], [address], [facility] 6 10:20:57 Generalized abdominal pain 239529682 Completed 200510/15/2013 [place], [address], [facility] 6 10:20:57 Pain of hip region 27524872 Completed 200710/15/2013 [place], [address], [facility] 6 10:20:57 Problem Notes None recorded. Procedures Surgical History Date Name Laterality Status Provider Name and Address Organization Details Recorded Time 01/06/20 Bronson - Colonoscopy completed [place], [address], [facility] 01/06/2022 07:53:38 09/24/20 20 Medicare Wellness Visit completed Meche Diaz [facility] 09/24/2020 13:52:06 09/24/20 20 prevention-card iovascular risk reduction counseling completed Meche Diaz [facility] 09/24/2020 13:52:06 09/24/20 20 prevention-mariya al alcohol misuse screening completed Meche Diaz [facility] 09/24/2020 13:52:06 11/10/20 19 [address]: Therapeutic Exercise completed Fidelia Goodwin, PT [address] [place], [address], [facility] 11/10/2019 08:20:04 11/03/20 19 [address]: Therapeutic Exercise completed Fidelia Goodwin, PT [address] [place], [address], [facility] 11/03/2019 20:15:48 11/03/20 [address]: Manual Therapy completed Fidelia Goodwin, PT [address] [place], [address], [facility] 11/03/2019 20:16:55 11/03/20 19 90333: Ultrasound (1:1) completed Fidelia Goodwin, PT [address] [place], [address], [facility] 11/03/2019 20:16:11 10/27/20 Physical Activity Counselling completed Fidelia Goodwin, PT [address] [place], [address], [facility] 10/27/2019 13:22:38 10/27/20 19 97057: PT Eval, Moderate Complexity completed Fidelia Goodwin, PT [address] [place], [address], [facility] 10/27/2019 13:22:42 09/18/20 Medicare Wellness Visit completed Connie Berry [facility] 09/18/2019 08:52:49 02/25/20 19 94033: Therapeutic Exercise completed Fidelia Goodwin, PT [address] [place], [address], [facility] 02/24/2019 11:35:29 02/14/20 19 99104: Therapeutic Exercise completed Fidelia Goodwin, PT [address] [place], [address], [facility] 02/13/2019 10:03:12 02/07/20 19 06388: Therapeutic Exercise completed Fidelia Goodwin, PT [address] [place], [address], [facility] 02/06/2019 21:08:40 02/07/20 19 84805: Manual Therapy completed Fidelia Goodwin, PT [address] [place], [address], [facility] 02/06/2019 21:08:32 02/07/20 19 29264: Mechanical Traction completed Fidelia Goodwin, PT [address] [place], [address], [facility] 02/06/2019 20:47:24 02/04/20 19 85089: Therapeutic Exercise completed Fidelia Goodwin, PT [address] [place], [address], [facility] 02/03/2019 09:08:40 02/04/20 19 14605: Manual Therapy completed Fidelia Goodwin, PT [address] [place], [address], [facility] 02/03/2019 09:09:20 01/31/20 19 15655: Therapeutic Exercise completed Fidelia Goodwin, PT [address] [place], [address], [facility] 01/30/2019 16:00:38 01/31/20 19 08011: Ultrasound (1:1) completed Fidelia Goodwin, PT [address] [place], [address], [facility] 01/30/2019 16:00:32 01/28/20 19 18670: Therapeutic Exercise completed Fidelia Goodwin, PT [address] [place], [address], [facility] 01/27/2019 11:58:33 01/28/20 19 83009: Manual Therapy completed Fidelia Goodwin, PT [address] [place], [address], [facility] 01/27/2019 11:57:57 01/28/20 19 91534: Ultrasound (1:1) completed Fidelia Goodwin, PT [address] [place], [address], [facility] 01/27/2019 11:58:25 01/25/20 19 Physical Activity Counselling completed Fidelia Goodwin, PT [address] [place], [address], [facility] 01/24/2019 18:51:28 01/25/20 19 82387: PT Eval, Moderate Complexity completed Fidelia Goodwin, PT [address] [place], [address], [facility] 01/24/2019 18:51:34 09/18/20 18 POC Urinalysis Testing completed Michele De Guzman CMA [facility] 09/18/2018 11:37:50 01/26/20 18 POC Urinalysis Testing completed Betina Gutierrez LPN [facility] 01/25/2018 08:15:43 05/22/20 17 94252: Therapeutic Exercise completed Sudhir Enriquez, PT [address] [place], [address], [facility] 05/23/2017 06:29:49 05/15/20 17 62100: Therapeutic Exercise completed Sudhir Enriquez, PT [address] [place], [address], [facility] 05/15/2017 12:57:19 05/15/20 17 49046: Manual Therapy completed Sudhir Enriquez, PT [address] [place], [address], [facility] 05/15/2017 12:57:27 05/08/20 17 Physical Activity Counselling completed Sudhir Enriquez, PT [address] [place], [address], [facility] 05/09/2017 05:38:24 05/08/20 17 81037: PT Eval, Moderate Complexity completed Sudhir Enriquez, PT [address] [place], [address], [facility] 05/09/2017 05:38:20 04/07/20 11 Asthma Control Test (12 + years old) completed Taz Pineda MD [address] [place], [address], [facility] 04/07/2011 15:38:38 Imaging Results None recorded. Procedure Notes None recorded. Medical Equipment None [...] Available Vitals Date Recorded Body height Body mass index (BMI) Body weight Systolic blood pressure Diastolic blood pressure Provider Name and Address Organization Details Last Updated DateTime 03/28/2021 180.34 cm 23.9 kg/m2 04039.4 g 128 mm[Hg] 74 mm[Hg] Meche Diaz [facility] 1 08:10:17 Date Recorded Body height Body mass index (BMI) Body weight Systolic blood pressure Diastolic blood pressure Provider Name and Address Organization Details Last Updated DateTime 08/23/2021 180.34 cm 23.3 kg/m2 86501.93 g 140 mm[Hg] 76 mm[Hg] Meche Diaz CMA [facility] 1 13:35:53 Date Recorded Body height Body temperature Provider N sandra and Address Organization Details Last Updated DateTime 09/24/2020 180.34 cm 95.1 [degF] Aga Manley RN [facility] 09/24/2020 11:02:56 Social History Question Answer Notes LastModified by Organizat ion Details LastModified Time Tobacco Smoking Status Former Smoker 3 PACK YRS. Only as teenager. 09/18/19 TG Taz Pineda MD [address] [place] [address], [address], [facility] 03/23/2011 09:13:23 Do You Have An Advance Directive? No Given Paperwork 03/04/10 [email or web address] Information not available 03/04/2010 Do You Wear A Helmet When Biking? Yes Information not available 08/16/2015 What Is Your Level Of Caffeine Consumption? Moderate 1-2 Cups Coffee Per Day [email or web address] Information not available 09/24/2020 How Much Tobacco Do You Chew? None Information not available 08/16/2015 What Type Of Diet Are You Following? REGULAR Information not available 08/16/2015 Which Illicit Or Recreational Drugs Have You Used? Marijuana 04/27/17 Twice A Week [email or web address] Information not available 04/27/2017 Education 11 GED Information n ot available 08/16/2015 Are There Any Guns Present In Your Home? No Information not available 08/16/2015 Live Alone Or With Others? With Others [email or web address] Information not available 10/12/2011 Patient Has Health Care Proxy Signed And In Chart No Will Start Thinking About It. Gave Pt Form 09/18/19 TG Information not available 06/15/2014 CCM Consent Discussion 09/18/2019 [email or web address] Information not available 09/18/2019 Marital Status Informatio n not available 06/15/2014 Mosquito Repellent Used Routinely Yes Information not available 08/16/2015 What Was The Date Of Your Most Recent Tobacco Screening? 12/27/2018 Information not available 06/18/2019 How Many Children Do You Have? 2 [email or web address] Information not available 10/12/2011 Seat Belts Used Routinely Yes Information not available 08/16/2015 Smoke Alarm In Home Yes Information not available 08/16/2015 How Much Tobacco Do You Smoke? No [email or web address] Information not available 09/18/2019 General Stress Level Medium Information not available 08/16/2015 Do You Use Sunscreen Routinely? Yes Information not available 08/16/2015 How Many Years Have You Smoked Tobacco? 0 Information not available 09/18/2019 Sex: Unknown Functional Status Question Answer Note LastModified by Organizat ion Details LastModified Time What is your level of alcohol consumption? Moderate 7 beers/we ek 09/18/19 TG [email or web address] Information not available 01/04/2016 Do you or have you ever used smokeless tobacco? 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 Never used electronic cigarettes 09/18/19 TG Information not available 09/18/2019 Mental Status None recorded. Family History Nothing [...] trivalent, preservative 1 completed Not Available [facility] 12/13/2019 02:18:30 pneumococcal polysaccharide PPV23 3 completed Not Available [facility] 12/13/2019 02:38:04 Tdap 3 completed Not Available [facility] 12/13/2019 02:28:48 Influenza, split virus, quadrivalent, PF 6 completed Not Available [facility] 12/13/2019 02:26:36 Influenza, split virus, quadrivalent, PF 6 completed Not Available [facility] 12/13/2019 02:20:41 Influenza, split virus, trivalent, preservative 3 completed Irma Calvin LPN [facility], [facility] 10/16/2013 11:34:56 Influenza, split virus, quadrivalent, PF 7 completed Not Available [facility] 12/13/2019 02:39:35 Influenza, high-dose, trivalent, PF 9 completed Not Available [facility] 12/13/2019 02:24:36 Pneumococcal conjugate PCV 13 9 completed Not Available [facility] 12/13/2019 02:26:03 Influenza, split virus, quadrivalent, preservative 8 completed Lisa Roach MA [facility] 01/31/2019 08:58:34 Influenza, high-dose, quadrivalent, PF 0 completed Aga Manley RN null, [facility] 09/24/2020 11:03:28 COVID-19, mRNA, LNP-S, PF, 30 mcg/0.3 mL dose 1 completed Meche Diaz CMA null, [facility] 08/23/2021 13:34:24 COVID-19, mRNA, LNP-S, PF, 30 mcg/0.3 mL dose 1 completed Meche Diaz CMA null, [facility] 08/23/2021 13:34:37 Past Encounters Encounter ID Performer Location Encounter Start Date Encounter Closed Date Diagnosis/Indication Diagnosis SNOMED-CT Code Diagnosis ICD10 Code Diagnosis Note [id number] Taz Pineda MD , [facility] [address] [place] [address] 12/24/2001 16:45:00 12/16/2008 02:02:29 [id number] Taz Pineda MD , [facility] [place] [address] [place] [address] 01/06/2002 16:00:00 12/16/2008 02:02:29 [id number] Taz Pineda MD , [facility] [address] [place] [address] 01/30/2002 15:30:00 12/16/2008 02:02:29 [id number] Taz Pineda MD , [facility] [address] [place] [address] 04/29/2002 09:37:40 12/16/2008 02:02:29 [id number] [facility] Technologi Radiology , [facility] [address] [facility] [place] [address] 07/16/2002 15:35:20 12/16/2008 02:02:29 [id number] MD CHASIDY Thacker, [facility] [address] [place] [address] 07/16/2002 09:05:51 12/16/2008 02:02:29 [id number] MD CHASIDY Gage, [facility] [address] [place] [address] 06/26/2003 10:31:22 12/16/2008 02:02:29 [id number] MD CHASIDY Thacker, [facility] [address] [place] [address] 08/17/2003 14:45:53 08/18/2003 11:40:22 [id number] FP TREATMENT NURSE [facility], [facility] [address] [place] [address] 08/18/2003 15:46:10 08/19/2003 11:32:02 [id number] Taz Pineda MD , [facility] [address] [place] [address] 08/20/2003 00:00:00 12/16/2008 02:02:29 [id number] Pavithra Rodriguezughton , [facility] [address] [place] [id number] 11/16/2003 08:57:36 11/16/2003 16:37:17 [id number] [facility] - [facility] [address] [place] [address] 11/16/2003 09:16:39 11/16/2003 12:59:47 [id number] Clyde Rae III, MD , [facility] [place] [address] [place] [id number] 06/04/2006 16:43:03 12/16/2008 02:02:29 [id number] [facility] Technologi st Radiology , [facility] [address] [place] [address] 06/07/2006 14:57:01 06/07/2006 16:03:33 [id number] Taz Pineda MD , [facility] [place] [address] [place] [address] 07/18/2006 13:29:17 07/19/2006 09:28:18 [id number] [facility] - [facility] [address] [place] [address] 07/19/2006 07:39:47 07/19/2006 08:03:06 [id number] ASP, DEVON WATKINS MD ASP, [facility] [address] [place] [address] 09/25/2006 09:15:27 09/26/2006 07:21:05 [id number] Traci Norton NP , [facility] [place] [address] [place] [address] 10/15/2007 14:58:57 12/16/2008 02:02:29 [id number] MD CHASIDY Thacker, [facility] [place] [address] [place] [id number] 11/06/2007 15:58:22 12/16/2008 02:02:29 [id number] [facility] - [facility] [address] [place] [address] 11/22/2007 07:05:34 11/22/2007 07:05:40 [id number] Taz Pineda MD , [facility] [place] [address] [place] [address] 11/28/2007 09:22:46 12/16/2008 02:02:29 [id number] Taz Pineda MD , [facility] [place] [address] [place] [address] 03/24/2008 15:41:22 12/16/2008 02:02:29 [id number] [facility] - [facility] [address] [place] [address] 03/30/2008 07:23:53 03/30/2008 07:23:57 [id number] Kelsea Rao NP , [facility] [place] [address] [place] [address] [place] [address] 07/06/2008 13:40:58 12/16/2008 02:02:29 [id number] Taz Pineda MD , [facility] [place] [address] [place] [address] [place] [address] 03/04/2010 15:11:25 03/07/2010 09:25:05 [id number] MD CHASIDY Thacker, [facility] [place] [address] [place] [address] [place] [address] 03/11/2010 16:47:38 03/11/2010 17:44:45 [id number] MD CHASIDY Thacker, [facility] [place] [address] [place] [address] [place] [address] 04/08/2010 14:57:08 04/08/2010 15:27:52 [id number] MD CHASIDY Thacker, [facility] [place] [address] [place] [address] [place] [address] 05/05/2010 08:18:31 05/05/2010 09:03:35 [id number] MD CHASIDY Thacker, [facility] [place] [address] [place] [address] [place] [address] 05/13/2010 13:47:34 05/13/2010 15:03:11 [id number] MD CHASIDY Thacker, [facility] [place] [address] [place] [address] [place] [address] 1 08/08/2010 08:01:53 08/08/2010 10:14:41 [id number] MD CHASIDY Thacker, [facility] [place] [address] [place] [address] 1 03/23/2011 08:44:40 03/23/2011 09:42:31 [id number] MD CHASIDY Thacker, [facility] [place] [address] [place] [address] 1 04/07/2011 15:01:17 04/10/2011 09:11:06 [id number] [facility] , [facility] [address] [place] [address] 04/11/2011 14:49:13 04/12/2011 11:46:30 [id number] MD CHASIDY Thacker, [facility] [place] [address] [place] [address] 1 10/26/2011 09:22:03 10/26/2011 10:19:40 [id number] Taz Pineda MD , [facility] [place] [address] [place] [address] 1 11/07/2011 10:46:34 11/07/2011 11:08:14 [id number] MD CHASIDY Thacker, [facility] [place] [address] [place] [address] 1 01/09/2012 09:20:06 01/09/2012 09:54:29 [id number] Taz Pineda MD , [facility] [place] [address] [place] [address] 1 01/09/2013 10:19:33 01/09/2013 10:42:26 [id number] MD CHASIDY Thacker, [facility] [place] [address] [place] [address] [place] [address] 1 04/17/2013 13:37:14 04/17/2013 14:01:44 [id number] MD CHASIDY Thacker, [facility] [place] [address] [place] [address] 1 06/12/2013 08:44:25 06/13/2013 07:43:16 [id number] MD CHASIDY Thacker, [facility] [place] [address] [place] [address] 1 09/26/2013 13:48:02 09/26/2013 14:27:47 Chest pain 86550264 [id number] MD CHASIDY Thacker, [facility] [place] [address] [place] [address] 1 10/16/2013 10:21:51 10/16/2013 12:01:27 Chest pain 21976522 [id number] Taz Pineda MD , [facility] [place] [address] [place] [address] 1 06/15/2014 15:24:13 06/15/2014 16:03:20 Adult health examination [id number] see Risk Assessment and Lifestyle Change Counseling section above Benign ess ential hypertension 3377761 Blood pressure at goal Rosacea 855424952 [id number] Taz Pineda MD , [facility] [place] [address] [place] [address] 1 12/17/2014 16:40:19 12/17/2014 17:15:51 Benign essential hypertension 2927035 Blood pressure at goal Mixed hyperlipidemia 773119022 Performance anxiety 310347473 [id number] MD CHASIDY Thacker, [facility] [place] [address] [place] [address] [place] [address] 1 03/12/2015 10:18:25 03/12/2015 11:19:36 Benign essential hypertension 4229464 Blood pressure at goal Mixed hyperlipidemia 895753517 [id number] Brenda Mullen, RDN, LDN, [facility] Nutrition -[facility] [address] [place] [address] 06/09/2015 10:57:00 06/09/2015 13:28:05 Mixed hyperlipidemia 855394537 [id number] Taz Pineda MD , [facility] [place] [address] [place] [address] [place] [address] 1 08/16/2015 08:18:41 08/17/2015 15:19:35 Palpitations 95491236 Mixed hyperlipidemia 783142280 [id number] Taz Pineda MD , [facility] [place] [address] [place] [address] 1 01/04/2016 10:03:15 01/04/2016 10:40:47 Benign essential hypertension 5950751 I10 Blood pressure at goal Mixed hyperlipidemia 267 816647 E78.2 Cholestero l is at goal Continue to work on diet and exercise as discussed Active or passive immunization 286482871 Z23 [id number] Taz Pineda MD , [facility] [place] [address] [place] [address] 1 08/01/2016 08:28:01 08/01/2016 08:59:26 Rosacea 622806041 L71.9 Active or passive immunization 112876746 Z23 Glossitis 38461491 K14.0 Pityriasis versicolor 56 209503 B36.0 [id number] Valeria Mosley MD , [facility] [place] [address] [place] [address] 04/27/2017 07:55:18 04/30/2017 08:30:06 Low back pain 768879832 M54.5 Suspect muscular strain with sciatica into L leg. No tenderness to palpation of spinous processes or weakness of leg. Recommend home stretching , heating pad, massage, PT, and acupunctur e. Ibuprofen as below. If no improvemen t in 4-6 weeks, call back. [id number] Sudhir Cooper i, PT Physical Therapy, [address] [address] 05/08/2017 14:56:24 05/09/2017 13:29:25 Sciatica 84986569 M54.31 [id number] Sudhir Cooper i, PT Physical Therapy, [address] [address] 1 05/15/2017 12:53:38 05/15/2017 13:39:27 Sciatica 01852565 M54.31 [id number] Sudhir Cooper i, PT Physical Therapy, [address] [address] 1 05/22/2017 13:52:27 05/23/2017 09:22:32 Sciatica 71264693 M54.31 [id number] Taz Pineda MD , [facility] [place] [address] [place] [address] [place] [address] 1 06/01/2017 10:59:09 06/01/2017 11:45:43 Adult health examination 138213346 Z00.00 see Risk Assessment and Lifestyle Change Counseling section above Counseling 700005911 Z71 .9 Mixed hyperlipidemia 267 926820 E78.2 Benign ess ential hypertension 7051141 I10 Blood pressure at goal [id number] Taz Pineda MD , [facility] [place] [address] [place] [address] [place] [address] 1 09/11/2017 14:58:41 09/11/2017 15:36:21 Active or passive immunization 789041883 Z23 Mixed hyperlipidemia 267 255911 E78.2 [id number] Taz Pineda MD , [facility] [place] [address] [place] [address] 1 12/04/2017 08:16:52 12/04/2017 08:47:10 Mixed hyperlipidemia 170934104 E78.2 Cholestero l is at goal Cholestero l is not at goal Continue to work on diet and exercise as discussed Benign ess ential hypertension 6224508 I10 Blood pressure at goal Blood pressure NOT at goal. [id number] Taz Pineda MD , [facility] [place] [address] [place] [address] 1 01/25/2018 07:58:55 01/25/2018 08:26:20 Active or passive immunization 457040251 Z23 Perineal pain 294057802 R10.2 Pain of prostate 4466666 0 N42.81 [id number] Taz Pineda MD , [facility] [place] [address] [place] [address] 1 02/19/2018 11:48:11 02/19/2018 12:09:23 Mixed hyperlipidemia 670803761 E78.2 Cholestero l is not at goal Continue to work on diet and exercise as discussed Benign ess ential hypertension 8553463 I10 Blood pressure at goal [id number] Taz Pineda MD , [facility] [place] [address] [place] [address] [place] [address] 1 05/17/2018 08:31:45 05/17/2018 08:47:19 Mixed hyperlipidemia 240704291 E78.2 Benign ess ential hypertension 2665622 I10 Blood pressure at goal [id number] Taz Pineda MD , [facility] [place] [address] [place] [address] [place] [address] 1 06/28/2018 09:47:57 06/28/2018 10:25:03 Adult health examination 918601417 Z00.00 see Risk Assessment and Lifestyle Change Counseling section above Counseling 426332502 Z71 .9 Depression screening 171 999298 Z13.89 depression screening tool administer ed, entered into emr, scored and discussed, time greater than 7.5 minutes Mixed hyperlipidemia 267 205711 E78.2 Benign ess ential hypertension 3886839 I10 Blood pressure at goal Gastro-eso phageal reflux disease with esophagitis 249939894 K21.0 [id number] John Lilly MD , [facility] [place] [address] [place] [address] 1 09/18/2018 11:33:16 09/18/2018 16:31:00 Increased frequency of urination 616207779 R35.0 Informed Pt that he is negative [...] understand s and agrees with treatment plan [id number] MD CHASIDY Thacker, [facility] [place] [address] [place] [address] [place] [address] 1 12/27/2018 09:26:55 12/27/2018 09:57:59 Mixed hyperlipidemia 564737253 E78.2 Cholestero l is at goal Continue to work on diet and exercise as discussed Benign ess ential hypertension 6375388 I10 Blood pressure at goal Herpes simplex 71661978 B00.9 Impotence of organic origin 711969040 N52.9 [id number] Taz Pineda MD , [facility] [place] [address] [place] [address] [place] [address] 1 01/24/2019 09:19:14 01/27/2019 10:06:40 Pain of sacroiliac joint 649035250 M53.3 [id number] Fidelia Goodwin PT Physical Therapy, [address] [place] [address] 1 01/24/2019 11:23:36 01/27/2019 08:50:05 Low back pain 385324345 M54.5 [id number] Fidelia Goodwin PT Physical Therapy, [address] [place] [address] 1 01/27/2019 10:53:21 01/27/2019 12:04:39 Low back pain 137335289 M54.5 [id number] Fidelia Goodwin PT Physical Therapy, [address] [place] [address] 01/30/2019 13:04:20 01/30/2019 16:15:36 Low back pain 410891122 M54.5 [id number] MD CHASIDY Thacker, [facility] [place] [address] [place] [address] [place] [address] 1 01/31/2019 08:36:54 01/31/2019 11:14:15 Acute sciatica 730915640 M54.32 [id number] Fidelia Goodwin PT Physical Therapy, [address] [place] [address] 1 02/03/2019 08:28:00 02/03/2019 10:06:05 Low back pain 746577157 M54.5 [id number] Valeria Mosley MD , [facility] [place] [address] [place] [address] 1 02/04/2019 09:53:40 02/04/2019 10:42:17 Acute sciatica 141556197 M54.32 S1 radiculiti s with ongoing motor [...] abated with PT and pred seen with [facility] [place]- rational dicussed with [facility] complete pred, restart ibuprofen 2400 mg a day , continue rubberband strengthen ing exercises [id number] Fidelia Goodwin PT Physical Therapy, [address] [place] [address] 02/06/2019 08:31:24 02/07/2019 08:10:28 Low back pain 261237958 M54.5 [id number] Fidelia Goodwin PT Physical Therapy, [address] [place] [address] 1 02/13/2019 08:27:50 02/13/2019 16:44:20 Low back pain 377950172 M54.5 [id number] Fidelia Goodwin PT Physical Therapy, [address] [place] [address] 1 02/24/2019 11:31:34 02/24/2019 13:56:50 Low back pain 877505868 M54.5 [id number] Taz Pineda MD , [facility] [place] [address] [place] [address] 1 09/18/2019 08:48:31 09/18/2019 09:34:24 Adult health examination 002115307 Z00.00 see Risk Assessment and Lifestyle Change Counseling section above Counseling 030006765 Z71 .9 Depression screening 171 184523 Z13.89 depression screening tool administer ed, entered into emr, scored and discussed, time greater than 7.5 minutes Mixed hyperlipidemia 267 561111 E78.2 Cholestero l is at goal Active or passive immunization 916663512 Z23 Benign ess ential hypertension 1843152 I10 Blood pressure at goal Ex-smoker 3762251 Z87.89 1 [id number] Taz Pineda MD , [facility] [place] [address] [place] [address] 10/21/2019 08:00:51 10/21/2019 08:29:32 Pain of right shoulder joint 9149731466 6302697 M25.755 [id number] Fidelia Goodwin, PT Physical Therapy, [address] [address] 10/27/2019 10:33:28 10/27/2019 14:04:07 Pain of shoulder region 47481049 M25.699 [id number] Fidelia Goodwin, PT Physical Therapy, [address] [address] 1 11/03/2019 08:58:05 11/04/2019 09:44:16 Pain of shoulder region 79285444 M25.979 [id number] Fidelia Goodwin, PT Physical Therapy, [address] [address] 1 11/10/2019 08:00:42 11/10/2019 08:31:42 Pain of shoulder region 20176496 M25.690 [id number] Valeria Mosley MD , [facility] [place] [address] [place] [address] 03/24/2020 08:09:38 03/24/2020 14:40:10 Mixed hyperlipidemia 552204772 E78.2 Cholestero l is at goal on ator 10 since begun 01/2018LDL at 79LDL had been 140 despite dietary attempts, until begun on atorF [place] at 54, bros 55, 59 with WA's , all bad lifestyle Benign ess ential hypertension 4267209 I10 Blood pressure at goal on lisinopril 5 mg since at least 2009 for SBP 148, 144BP 130-120/80 -75 sinceoccas 140As Primary Prevention continue low low dose BENJAMIN indefinite ly Ex-smoker 7558599 Z87.89 1 quit age 20AAA screen neg 2019 Acute sciatica 139868903 M54.32 03/24/2020 pain freeis feeling better with yoga and PT seen PSS, reassurred by frank al is sense of numbness lateral foot and some hypaesthes ia (like i am walking on a string)pepe skyla. May or may not resolve, i counselled [...] abated with PT and pred seen with [facility] [place]- rational dicussed with Cuauhtemoc complete pred, restart ibuprofen 2400 mg a day , continue rubberband strengthen ing exercises 01/2019 Mj Chowdary is reporting numbness in his left LE, gastroc and lat foot with weakness of plantar flexion. This is unchanged with ex and PT tx (since 01/24). Shall we just continue or do you think a script would be called for? Performance anxiety 2796 18421 F40.248 propranolo l as needed Family his tory of Cardiovascular disease 695785461 Z82.49 F WA at 54, bros 55, 59 with WA's , all bad lifestyle Impotence of organic origin 076926554 N52.9 viagra 11/29 tab since 2010 Seborrheic dermatitis 50 096488 L21.9 michael sulfide very effective Polyp of gallbladder 197 295133 K82.4 small 2mm seen [place] in 2010needs followup [id number] Valeria Mosley MD , [facility] [place] [address] [place] [address] 09/24/2020 11:02:10 09/29/2020 16:21:00 Active or passive immunization 578643056 Z23 [id number] Valeria Mosley MD , [facility] [place] [address] [place] [address] 09/24/2020 13:51:26 09/29/2020 16:20:04 Adult health examination 516991307 Z00.00 Counseling 688113736 Z71 .9 including cardiovasc ular risk reduction counseling Depression screening 171 038600 Z13.89 depression screening tool administer ed, entered into emr, scored and discussed, time greater than 7.5 minutes Screening for alcohol abuse 192492326 Z13.39 Mixed hyperlipidemia 267 286740 E78.2 Cholestero l is at goal on ator 10 since begun 01/2018LDL at 79LDL had been 140 despite dietary attempts, until begun on atorF [place] at 54, bros 55, 59 with WA's , all bad lifestyle Benign ess ential hypertension 4533930 I10 Blood pressure at goal on lisinopril 5 mg since at least 2009 for SBP 148, 144BP 130-120/80 -75 sinceoccas 140As Primary Prevention continue low low dose BENJAMIN indefinite ly Ex-smoker 6667067 Z87.89 1 quit age 20AAA screen neg 2018 Acute sciatica 471696247 M54.32 03/24/2020 pain freeis feeling better with [...] , continue rubberband strengthen ing exercises 01/2019 Ricarda Mj Cartagena is reporting numbness in his left LE, gastroc and lat foot with weakness of plantar flexion. This is unchanged with ex and PT tx (since 01/24). Shall we just continue or do you think a script would be called for? Performance anxiety 2796 68879 F40.248 propranolo l as needed Family his tory of Cardiovascular disease 563739778 Z82.49 F [place] at 54, bros 55, 59 with WA's , all bad lifestyle Impotence of organic origin 188476585 N52.9 viagra / tab since 2010 Seborrheic dermatitis 50 251393 L21.9 michael sulfide very effective Polyp of gallbladder 197 171663 K82.4 small 2mm seen [place] in 2010needs followup [id number] Valeria Mosley MD , [facility] [place] [address] [place] [address] 03/28/2021 08:06:14 03/28/2021 08:29:24 Mixed hyperlipidemia 392637241 E78.2 Cholestero l is at goal on ator 10 since begun 01/2018LDL at 79LDL had been 140 despite dietary attempts, until begun on atorF [place] at 54, bros 55, 59 with WA's , all bad lifestyle Benign ess ential hypertension 0068580 I10 Blood pressure at goal on lisinopril 5 mg since at least 2009 for SBP 148, 144BP 130-120/80 -75 sinceoccas 140As Primary Prevention continue low low dose BENJAMIN indefinite ly Ex-smoker 0538753 Z87.89 1 quit age 20AAA screen neg 2019 Acute sciatica 595244389 M54.32 02/2021gene rally keeping active is best [...] would be called for? Performance anxiety 2796 45035 F40.248 propranolo l as needed Family his tory of Cardiovascular disease 429155879 Z82.49 F [place] at 54, bros 55, 59 with WA's , all bad lifestyle Impotence of organic origin 462316267 N52.9 viagra 11/29 tab since 2010 Seborrheic dermatitis 50 636965 L21.9 mihcael sulfide very effective Polyp of gallbladder 197 834998 K82.4 small 2mm seen [place] in 2010needs followup Psoriasis 1586704 L40.9 laterally distal calves bilateral brawny discolorat ion and thickening , very excoriated , [place] rx fluocinoni de cream twice a day for 2 weeks then a suppressiv e regimen few days a week [id number] Valeria Mosley MD , [facility] [place] [address] [place] [address] 08/23/2021 13:24:50 08/24/2021 14:03:14 Mixed hyperlipidemia 318803607 E78.2 Cholestero l is at goal on ator 10 since begun 01/2018LDL at 79LDL had been 140 despite dietary attempts, until begun on atorF [place] at 54, bros 55, 59 with WA's , all bad lifestyle Benign ess ential hypertension 0360142 I10 08/23/2021 home BP's elevated, so he doubled lisinopril to 10 mg, *Blood pressure at goal on lisinopril 5 mg since at least 2009 for SBP 148, 144BP 130-120/80 -75 sinceoccas 140As Primary Prevention continue low low dose BENJAMIN indefinite ly Ex-smoker 7735294 Z87.89 1 quit age 20AAA screen neg 2019 Acute sciatica 810228198 M54.32 02/2021gene rally keeping active is best [...] would be called for? Performance anxiety 2796 01776 F40.248 propranolo l as needed Family his tory of Cardiovascular disease 537277719 Z82.49 F [place] at 54, bros 55, 59 with WA's , all bad lifestyle Impotence of organic origin 798672949 N52.9 viagra 11/29 tab since 2010 Seborrheic dermatitis 50 888975 L21.9 michael sulfide very effective Polyp of gallbladder 197 782238 K82.4 small 2mm seen [place] in 2010needs followup Psoriasis 5703345 L40.9 laterally distal calves bilateral brawny discolorat ion and thickening , very excoriated , [place] rx fluocinoni de cream twice a day for 2 weeks then a suppressiv e regimen few days a week [id number] Rodney Dobson MD [facility], [address] [address] 01/06/2022 06:46:27 01/06/2022 12:24:28 Health Concerns Section Related Observation LastModified by Organization Detai ls LastModified Time None Recorded Concern Status LastModified by Organization Details LastModified Time None Recorded Advance Directives Directive N: Given paperwork 03/04/10 Payers Insurance Date Sequence Insurance Name Policy Number Policy Easley Covered Member ID Easley Member ID Guarantor Name 08/17/2021 1 [facility] - C - NAVIGATOR (POS) [id number] Mj Cartagena [id number] Mj Cartagena 08/17/2021 1 [facility] Mj Jensener [id number] Mj Butler Osiel 08/17/2021 1 [facility] (O) Mj Butler Osiel [id number] Mj Butler Osiel 06/19/2022 2 [facility] (O) [id number] Mj Butler Osiel [id number] Mj Butler Osiel 01/06/2022 1 [place] [employer] Mj Cartagena [id number] Mj Cartagena Notes Date Note Type Note Provider Name [...] ischemic heart disease; No peripheral vascular disease (09506); No diabetes; No carotid artery stenosis Ability to Manage Self CareOn how confident the patient feels in ability to self manage condition the patient selects 10 with 10 being very confident and 1 being very low confidence; Patient feels very confident in ability to self manage conditionNotes:DID HAVE CAD EVAL. WHICH WAS NEG. INVENTORY SPECIALIST MANAGER WANTED PT TO CONSIDER STATIN GIVEN FH.VMG [...] to self manage condition Time for intake: minutes. Valeria Mosley MD [address] [place] [address], [phone] 09/24/2020 14:28:24 1 text/html Physical Exam/MaleReported bypatient.PHAPatient [...] ischemic heart disease; No peripheral vascular disease (74370); No diabetes; No carotid artery stenosis Ability to Manage Self CareOn how confident the patient feels in ability to self manage condition the patient selects 10 with 10 being very confident and 1 being very low confidence; Patient feels very confident in ability to self manage conditionNotes:DID HAVE CAD EVAL. WHICH WAS NEG. INVENTORY SPECIALIST MANAGER WANTED PT TO CONSIDER STATIN GIVEN FH.VMG [...] to self manage condition Time for intake: minutes. Valeria Mosley MD [address] [place] [address], [phone] 03/28/2021 08:32:00 1 text/html Physical Exam/MaleReported bypatient.PHAPatient [...] ischemic heart disease; No peripheral vascular disease (65804); No diabetes; No carotid artery stenosis Ability to Manage Self CareOn how confident the patient feels in ability to self manage condition the patient selects 10 with 10 being very confident and 1 being very low confidence; Patient feels very confident in ability to self manage conditionNotes:DID HAVE CAD EVAL. WHICH WAS NEG. INVENTORY SPECIALIST MANAGER WANTED PT TO CONSIDER STATIN GIVEN FH.VMG [...] to self manage condition Time for intake: minutes. Valeria Mosley MD [address] [place] [address], [phone], [facility] 08/23/2021 17:39:40
== END 2025-05-12 10:05 | disposition home or self-care (01) ==
LOC: HO.LNP 10:04
PROVIDERS: Visit Provider Internal Medicine
DX: D64.9 Anemia, unspecified (principal); R79.89 Other specified abnormal findings of blood chemistry; N19 Unspecified kidney failure
CPT/HCPCS: 80076; 82565; 84520; 85025

== ENCOUNTER 2025-07-08 08:43 | Outpatient (REF) | payer MEDICARE, SELFPAY ==
--- NOTE | ~2025-07-08 | US_ITS ---
CLINICAL HISTORY: LIVER LESION US abdomen limited Comparison: None provided Findings: The visualized pancreas is normal. The liver is normal in size and echotexture. There is no intrahepatic bile duct dilatation. The common duct is 4.0 mm in diameter. There are multiple small 2-3 mm non mobile echogenic foci of the wall of the gallbladder. There is no sonographic Smith sign. The main portal vein is antegrade. The right kidney is 10.4 cm in length. 9 x 7 x 9 mm renal cysts. No ascites. IMPRESSION: No focal liver lesion is visualized. Possible multiple small polyps of the gallbladder. This document has been electronically signed by: Galindo Paz MD on 07/08/2025 12:56:37
--- OUTSIDE RECORDS SUMMARY | 2025-07-08 08:59 | XMS_ITS | Referral Summary ---
Author Organization [facility] Address [address] [place] [address] Care Team Providers Care Advanced Practice Nurse Name Role Phone Marito Allen Primary Care Provider [phone] Encounters Date Type Department Care Team Description 04/16/2025 3:00 PM EDT Follow-Up [facility] [address] [place] [phone] Arc Trimmer: Willian Saldana, Mitchel Mario MD Cfqxx-6-lmabfhzphxy deficiency (HCC) (Primary Dx) 04/16/2025 1:35 PM EDT - 04/16/2025 11:59 PM EDT Hospital Encounter [facility] [address] [place] [id number] Xoatk-0-hnqrfptjmak deficiency (HCC) Discharge Disposition: Home or Self Care () from Last 3 Months Allergies Active Allergy Reactions Criticality Noted Date Comments Atorvastatin Muscle Disease 03/11/2025 Sulfamethoxazole-Trimethoprim Liver disorder Medications No known medications Active Problems Problem Noted Date Diagnosed Date 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 Social History Tobacco Use Types Packs/Day Years Used Date Smoking Tobacco: Former Cigarettes Smokeless Tobacco: Never Sex and Gender Information Value Date Recorded Sex Assigned at Male 03/05/2025 10:38 AM EDT Legal Sex Male 10:35 AM EDT Gender Identity Male 03/10/2025 5:32 PM EDT Sexual Orientation Straight 03/10/2025 5: 32 PM EDT Last Filed Vital Signs Vital Sign Reading Time Taken Comments Blood Pressure 142/78 04/16/2025 2:35 PM EDT Pulse 77 04/16/2025 2:35 PM EDT Temperature - - Respiratory Rate 20 04/16/2025 2:35 PM EDT Oxygen Saturation 98% 04/16/2025 2:35 PM EDT Inhaled Oxygen Concentration - - Weight 73.5 kg (162 lb) 04/16/2025 2:35 PM EDT Height - - Body Mass Index - - Plan of Treatment Upcoming Encounters Date Type Department Care Team (Late st Contact Info) Description 10/01/2025 11:20 AM EST Follow-Up [facility] [address] [place] [address] Arc Trimmer: Willian Saldana, Mitchel Mario MD [address] [place] [address] [phone] Procedures * Due to [place] [employer] law, this organization might not be sharing negative HIV tests. Procedure Name Priority Date/Time Associated Diagnosis Comments HNRGQ-9-QKMDLKDEARS (AAT) PHENOTYPE Routine 04/16/2025 3:26 PM EDT Ytfra-2-pzsylrtnczt deficiency (HCC) PULMONARY FUNCTION TEST Routine 04/16/2025 1:49 PM EDT Yhprg-4-amacrvpjdek deficiency (HCC) from Last 3 Months Results * Due to [place] [employer] law, this organization might not be sharing negative HIV tests. * Iehro-6-Uojafwjenaw (AAT) Phenotype (04/16/2025 3:26 PM EDT) Alpha 1 Antitrypsin Phenotype SEE NOTE 04/23/2025 10:24 AM EDT Scienion/ROSMERY RICH Comment: THIS PATIENT'S VITWB-1-ISQRUSAGEZE PHENOTYPE IS PI*MZ. 90% of normal individuals have the MM phenotype, with normal quantitative AAT levels. Many phenotypic patterns have been described, including deficiency states with F, S, Z, or other alleles. As a general estimation, compared to M allele of 100% of normal G-4-Gctcfqyifoo protein, the S allele produces approximately 60% and the Z allele 20%. For example, an MS phenotype would have about 80% of normal C-1-Tvaxgqaigms protein level, a 50% contribution from the M allele and 30% from the S allele. A ZZ phenotype would have about 20% of normal levels, a 10% contribution from each Z gene. The F allele has normal Q-1-Lqvjwzipygl levels, but the kinetics of elastase inhibition is not as efficient as an M allele product; F alleles should be considered functionally mildly deficient. Other variants are identifiable by phenotypic analysis. These include CM, DP, EM, GM, IS, LM, M1M2, M3M3, MP, MT, XX, MY, and M1N. I, P, T and null alleles are considered deleterious. C, D, E, G, L, M1, M2, M3, X and Y alleles are generally considered normal variants. The MZ-Tolliver phenotype is a normal variant; care should be taken to avoid confusion with the deficient MZ phenotype. Blood Structure of peripheral vein / Unknown Venipuncture / Unknown 04/16/2025 3:26 PM EDT 04/16/2025 3:43 PM EDT Narrative [facility] - 04/23/2025 10:24 AM EDT [facility] Received Date: Mitchel Saldana MD LAB BLOOD ORDERABLES Final Result [facility] [address] [place] [address] [address], [place] [address], [place] [phone] [facility] [address] [place] [address], [place] [phone] * Pulmonary Function Test UNV; Spirometry, Diffusing Capacity; Spirometry alone (No bronchodilator); Diffusing capacity (DLco); alpha 1 at [facility] (04/16/2025 1:49 PM EDT) Pathologist [facility] FVC (L) 5.33 L [facility] FVC % Predicted 125 % [facility] FEV1 (L) 3.66 L [facility] FEV1 % Predicted 114 % [facility] FEV1/FVC Ratio 69 % [facility] 04/16/2025 1:49 PM EDT Narrative [facility] - 04/16/2025 1:49 PM EDT There is no ventilatory impairment demonstrated by spirometry. The findings are within normal limits. Measure of uncorrected diffusing capacity (DLco) is most consistent with normal alveolar capillary membrane surface area and diffusion properties for gas exchange. us Mitchel Saldana MD PFT ORDERABLES Final Resu lt [facility] from Last 3 Months Insurance MEDICARE [facility] Care Teams Advanced Practice Nurse Relationship Specialty Start Date End Date Marito Allen [address] [place] [address] dr Ken Rogers, [place] [address] PCP - General Internal Medicine 03/05/25
--- OUTSIDE RECORDS SUMMARY | 2025-07-08 08:59 | XMS_ITS | Clinical Summary ---
Author Organization [facility] Address [address] [place] [phone] Phone Care Team Providers Care Gear Lapper Name Role Phone Marito Allen MD Primary Care Provider [phone] Allergies Active Allergy Reactions Criticality Noted Date Comments Atorvastatin 03/11/2025 Other Reaction(s): Muscle Disease Sulfamethoxazole-Trimethopr im 03/11/2025 Other Reaction(s): Liver disorder, liver inflamation Medications No known medications Active Problems Problem Noted Date Diagnosed Date Stage 3b chronic kidney disease 04/23/2025 Benign prostatic hyperplasia with lower urinary tract symptom 04/23/2025 Essential (primary) hypertension 04/23/2025 Adverse effect of other nons teroidal anti-inflammatory drugs (NSAID), sequela 04/23/2025 Encounters Date Type Department Care Team Description 04/23/2025 3:15 PM EDT Office Visit [facility] [address] [facility] [address] [place] [phone] Watson Hess MD Stage 3b chronic kidney disease (HCC) (Primary Dx); Essential (primary) hypertension; Benign prostatic hyperplasia with lower urinary tract symptom; Adverse effect of other nonsteroidal anti-inflammatory drugs (NSAID), sequela from Last 3 Months Social History Tobacco Use Types Packs/Day Years Used Date Smoking Tobacco: Never Assessed Sex and Gender Information Value Date Recorded Sex Assigned at Not on file Legal Sex Male 10:22 AM EDT Gender Identity Not on file Sexual Orientation Not on file Plan of Treatment Health Maintenance Due Date Last Done Comments Colorectal Cancer Screening: Annual FOBT 2003 Colorectal Cancer Screening: Colonoscopy 2003 Colorectal Cancer Screening: Sigmoidoscopy 2003 Hepatitis B Vaccine (1 of 3 - Risk 3-dose series) 2014 Pneumococcal Vaccine: 50+ Ye ars (3 of 3 - PCV20 or PCV21) 11/13/2019 09/18/2019, 01/09/2013 Influenza Vaccine (#1) 2025 9, 08/26/2018, 09/11/2017, Additional history exists Insurance Medicare [facility] [place] [address] [place] [id number] Care Teams Gear Lapper Relationship Specialty Start Date End Date Marito Allen MD [address] [place] [address] [id number] [place] PCP - General Internal Medicine 03/10/25
== END 2025-07-08 08:44 | disposition home or self-care (01) ==
LOC: HO.US 08:43
PROVIDERS: Visit Provider Internal Medicine
DX: K76.9 Liver disease, unspecified (principal)
CPT/HCPCS: 76705

== ENCOUNTER → 2025-07-08 08:46 | Outpatient (BNV) | payer MEDICARE, SELFPAY | PROVIDERS: Visit Provider Nuclear Medicine | DX: K82.4 Cholesterolosis of gallbladder (principal) | CPT/HCPCS: 76705 ==